=== PATIENT | female | born 1985 | race Caucasian/White ===

== ENCOUNTER 2017-03-19 02:32 | Observation (INO) | payer OTHER ==
[2017-03-19] MEDS ORDERED: NITRO-BID 2% UD PACKETS TOP ONE (02:48)
[2017-03-19] MEDS ORDERED: BABY ASPIRIN 81 MG CHEW PO ONE (02:48)
[2017-03-19] MEDS ORDERED: ATARAX 25 MG PO ONE (02:49)
--- NOTE | 2017-03-19 02:54 | ERPHSYRPT ---
- History of Present Illness Time Seen by Provider: 03/19/17 02:34 Historian: patient Physician History: CC: chest pain hx: 31 y/[address] patient of Dr Blaine Sheth/Dr Cheung. She had STEMI in Sep 2016. She takes effient and asa. Tonite she awoke from sleep with chest pain, radiating to the neck, left arm, and back. BP elevated. She was scared. Took 2 NTG without relief so came to ER. LMP about 4 weeks ago. Not short of breath. No cough. Pain is aching and severe. Timing/Duration: today Location: central Chest Pain Radiation: jaw, neck, arm, back Severity of Pain-Max: severe Severity of Pain-Current: moderate Nitro Today/Relief: 0.4 mg x 2, provided at home, no relief Aspirin Treatment Today: 81 mg x 2, provided by ED Allergies/Adverse Reactions: codeine [Codeine] Allergy (Verified 03/19/17 02:58) hydrocodone [Hydrocodone] Allergy (Verified 03/19/17 02:58) hydromorphone HCl [From Dilaudid] Allergy (Verified 03/19/17 02:58) terbutaline sulfate [From Brethine] Allergy (Verified 03/19/17 02:58) Home Medications: Levetiracetam [Keppra] 500 mg PO BID 06/11/16 [History] Aspirin 81 mg PO DAILY 11/04/16 [History] Atorvastatin Calcium 80 mg PO DAILY 11/04/16 [History] Isosorbide Mononitrate 30 mg [Imdur 30 MG] 30 mg PO DAILY 11/04/16 [History ] Metoprolol Tartrate 25 mg [Lopressor 25MG Tab] 25 mg PO BID 11/04/16 [ History] Nitroglycerin 0.4 mg Tablet [Nitrostat 0.4 MG Tablet] 0.4 mg SL UD [History] Prasugrel HCl [Effient] 10 mg PO DAILY 11/04/16 [History] Hx Tetanus, Diphtheria Vaccination/Date Given: Yes (UP TO DATE) Hx Influenza Vaccination/Date Given: No Hx Pneumococcal Vaccination/Date Given: No - Review of Systems Constitutional: No Fever, No Chills Eyes: No Symptoms Ears, Nose, & Throat: Other (recent uri symptoms) Respiratory: Cough, No Dyspnea Cardiac: Chest Pain, No Edema, No Syncope Abdominal/Gastrointestinal: No Abdominal Pain, No Nausea, No Vomiting Skin: No Rash Neurological: No Headache All Other Systems: Reviewed and Negative - Past Medical History Pertinent Past Medical History: Yes Neurological History: Epilepsy ENT History: No Pertinent History Cardiac History: No Pertinent History Respiratory History: No Pertinent History Endocrine Medical History: No Pertinent History Musculoskeletal History: No Pertinent History GI Medical History: No Pertinent History History: Kidney Cancer, Other Psycho-Social History: No Pertinent History Female Reproductive Disorders: No Pertinent History Other Medical History: Kidney cancer - right kidney removed, hyperparathyroidism. STEMI - Past Surgical History Past Surgical History: Yes Neuro Surgical History: No Pertinent History Cardiac: Cardiac Catheterization Respiratory: No Pertinent History Gastrointestinal: Cholecystectomy Genitourinary: Kidney Surgery, Other Musculoskeletal: No Pertinent History Female Surgical History: Section, Tubal Ligation Other Surgical History: rt kidney removed, tonsils - Social History Smoking Status: Former smoker How long have you smoked: 10 years Exposure to second hand smoke: No Alcohol Use: None Drug Use: none Patient Lives Alone: No Significant Family History: no pertinent family hx - Female History Hx Now: No - Physical Exam General Appearance: alert Eye Exam: PERRL/EOMI Ears, Nose, Throat Exam: normal ENT inspection, moist mucous membranes Neck Exam: normal inspection, non-tender, supple Respiratory Exam: normal breath sounds, lungs clear, No respiratory distress Cardiovascular Exam: regular rate/rhythm, No murmur, No pulse deficit Gastrointestinal/Abdomen Exam: soft, No tenderness, No distention Back Exam: normal inspection, normal range of motion Extremity Exam: normal inspection, normal range of motion Neurologic Exam: alert, oriented x 3, cooperative, sensation nml, No motor deficits Skin Exam: warm, dry, No rash SpO2 Interpretation: normal SpO2: 98 Oxygen Delivery: Room Air - Course Nursing assessment & vital signs reviewed: Yes EKG Interpreted by Me: RATE (81), Sinus Rhythm, NORMAL AXIS, NORMAL INTERVALS ( QTc 411), NORMAL ST-T, Other (poor r wave progression) - Radiology Exams cxr X-ray Interpretation: Reviewed by me, Negative Ordered Tests: Active Orders 24 hr Category Date Time Status Station Captain STAT Care 03/19/17 02:48 Completed EKG-ER Only STAT Care 03/19/17 02:48 Completed EKG-ER Only STAT Care 03/19/17 04:09 Active IV Insertion STAT Care 03/19/17 02:48 Completed Pulse Oximetry (ED) STAT Care 03/19/17 02:48 Completed CHEST 1 VIEW (PORTABLE) Stat Exams 03/19/17 02:48 Taken CBC W DIFF Stat Lab 03/19/17 03:15 Completed CMP Stat Lab 03/19/17 03:15 Completed HCG QUALITATIVE,SERUM Stat Lab 03/19/17 03:15 Completed Manual Differential NC Stat Lab 03/19/17 03:15 Completed TROPONIN Q3H Lab 03/19/17 03:15 Completed TROPONIN Q3H Lab 03/19/17 06:00 Ordered TROPONIN Q3H Lab 03/19/17 09:00 Ordered TROPONIN Q3H Lab 03/19/17 12:00 Ordered TROPONIN Q3H Lab 03/19/17 15:00 Ordered Medication Summary Generic Name Dose Route Start Last Admin Trade Name Freq PRN Reason Stop Dose Admin Enoxaparin Sodium 60 mg 03/19/17 04:15 Enoxaparin Sodium SQ 04/18/17 04:14 Q12H NOHEMI Sodium Chloride 1,000 mls @ 100 mls/hr 03/19/17 03:00 03/19/17 02:58 Sodium Chloride 0.9% 1000 Ml IV 04/18/17 02:59 100 mls/hr .Q10H NOHEMI Administration Discontinued Medications Generic Name Dose Route Start Last Admin Trade Name Freq PRN Reason Stop Dose Admin Aspirin 162 mg 03/19/17 02:48 03/19/17 03:10 Baby Aspirin 81 Mg Chew PO 03/19/17 02:49 162 mg STAT ONE Administration Aspirin Confirm 03/19/17 02:55 Baby Aspirin 81 Mg Chew Administered 03/19/17 02:56 Dose 162 mg .ROUTE .STK-MED ONE Fentanyl Citrate 50 mcg 03/19/17 04:07 Sublimaze 100 Mcg/2 Ml IV 03/19/17 04:08 STAT ONE Hydroxyzine HCl 50 mg 03/19/17 02:49 03/19/17 02:58 Atarax 25 Mg PO 03/19/17 02:50 50 mg STAT ONE Administration Hydroxyzine HCl Confirm 03/19/17 02:55 Atarax 25 Mg Administered 03/19/17 02:56 Dose 50 mg .ROUTE .STK-MED ONE Nitroglycerin 1 gm 03/19/17 02:48 03/19/17 02:58 Nitro-Bid 2% Ud Packets TOP 03/19/17 02:49 1 gm STAT ONE Administration Nitroglycerin Confirm 03/19/17 02:55 Nitro-Bid 2% Ud Packets Administered 03/19/17 02:56 Dose 1 gm .ROUTE .STK-MED ONE Lab/Rad Data: Laboratory Result Diagrams 03/19/17 03:15 03/19/17 03:15 Laboratory Results 03/19/17 03/19/17 03/19/17 Range/Units 03:15 03:15 03:15 WBC (4.0-10.5) K/mm3 RBC (4.1-5.4) M/mm3 Hgb (12.0-16.0) gm/dl Hct (35-47) % MCV (78-100) fl MCH (26-32) pg MCHC (32-36) g/dl RDW (11.5-14.0) % Plt Count (150-450) K/mm3 MPV (6-9.5) fl Segmented Neutrophils (36.0-66.0) % Lymphocytes (Manual) (24-44) % Monocytes (Manual) (0.0-12.0) % Eosinophils (Manual) (0.00-3.0) % Differential Comment Platelet Estimate (NORMAL) Anisocytosis Sodium 142 (136-145) mEq/L Potassium 4.0 (3.5-5.1) mEq/L Chloride 106 (98-107) mEq/L Carbon Dioxide 23.3 (21-32) mEq/L Anion Gap 16.2 H (5-15) MEQ/L BUN 18 (9-20) mg/dL Creatinine 0.86 (0.55-1.30) mg/dl Estimated GFR > 60 ML/MIN Glucose 117 H (70-110) MG/DL Calcium 9.8 (8.5-10.1) mg/dL Total Bilirubin 0.2 (0.2-1.0) mg/dL AST 49 H (15-37) U/L ALT 85 H (12-78) U/L Alkaline Phosphatase 178 H (46-116) U/L Troponin I < 0.017 (0.000-0.056) ng/ml Serum Total Protein 6.3 L (6.4-8.2) gm/dL Albumin 2.9 L (3.4-5.0) g/dL Serum , Qual NEGATIVE (Negative) 03/19/17 Range/Units 03:15 WBC 16.6 H (4.0-10.5) K/mm3 RBC 4.42 (4.1-5.4) M/mm3 Hgb 12.7 (12.0-16.0) gm/dl Hct 38.9 (35-47) % MCV 88.0 (78-100) fl MCH 28.7 (26-32) pg MCHC 32.6 (32-36) g/dl RDW 14.3 H (11.5-14.0) % Plt Count 308 (150-450) K/mm3 MPV 9.9 H (6-9.5) fl Segmented Neutrophils 55 (36.0-66.0) % Lymphocytes (Manual) 34 (24-44) % Monocytes (Manual) 7 (0.0-12.0) % Eosinophils (Manual) 4 H (0.00-3.0) % Differential Comment ABNORMAL Platelet Estimate NORMAL (NORMAL) Anisocytosis 1+ Sodium (136-145) mEq/L Potassium (3.5-5.1) mEq/L Chloride (98-107) mEq/L Carbon Dioxide (21-32) mEq/L Anion Gap (5-15) MEQ/L BUN (9-20) mg/dL Creatinine (0.55-1.30) mg/dl Estimated GFR ML/MIN Glucose (70-110) MG/DL Calcium (8.5-10.1) mg/dL Total Bilirubin (0.2-1.0) mg/dL AST (15-37) U/L ALT (12-78) U/L Alkaline Phosphatase (46-116) U/L Troponin I (0.000-0.056) ng/ml Serum Total Protein (6.4-8.2) gm/dL Albumin (3.4-5.0) g/dL Serum , Qual (Negative) - Progress Progress Note: 03/19/17 02:56 She had recent normal holter. 03/19/17 03:56 Pt reports taking metoprolol 200mg BID for the past month due to medication mix up. She discovered it and dropped down to her ordered 100mg BID a few days ago. 03/19/17 04:10 Reviewed prior cath reports. She had left main thrombus at time of inferior STEMI. Subsequent left system evaluation with cath and EUS showed 48% left main lesion. She was treated with medical management. Pain has improved with NTG paste. Still some pain present but overall better. Initial troponin negative. Will repeat EKG. Called Dr Cheung and will place in observation CCU with lovenox, NTG and serial troponins. Discussed with .: Jonatan Will see patient in: hospital (observation) Counseled pt/family regarding: lab results, diagnosis, need for follow-up, rad results - Departure Time of Disposition: 04:12 Departure Disposition: Observation Clinical Impression: Chest pain, rule out acute myocardial infarction, Coronary artery disease involving left main coronary artery Condition: Fair Critical Care Time: No Referrals: HINA CHEUNG [Primary Care Provider] -
[2017-03-19] MEDS ORDERED: NITRO-BID 2% UD PACKETS ONE (02:55)
[2017-03-19] MEDS ORDERED: Sodium Chloride 0.9% 1000 ML 1,000 ML ONE (02:55)
[2017-03-19] MEDS ORDERED: BABY ASPIRIN 81 MG CHEW ONE (02:55)
[2017-03-19] MEDS ORDERED: ATARAX 25 MG ONE (02:55)
[2017-03-19] MEDS ORDERED: Sodium Chloride 0.9% 1000 ML 1,000 ML IV SCH (03:00)
[2017-03-19 03:21] LABS: Mean Corpuscular Hemoglobin 28.7 pg (26-32); Mean Platelet Volume 9.9 fl (6-9.5); Platelet Count 308 K/mm3 (150-450); Red Blood Count 4.42 M/mm3 (4.1-5.4); Red Cell Distribution Width 14.3 % (11.5-14.0); White Blood Count 16.6 K/mm3 (4.0-10.5)
[2017-03-19 03:56] LABS: BLOOD UREA NITROGEN 18 mg/dL (9-20); Glucose 117 MG/DL (70-110)
[2017-03-19 03:57] LABS: ALBUMIN 2.9 g/dL (3.4-5.0); BILIRUBIN,TOTAL 0.2 mg/dL (0.2-1.0); CHLORIDE 106 mEq/L (98-107); Carbon Dioxide 23.3 mEq/L (21-32); SGOT/AST 49 U/L (15-37); SGPT/ALT 85 U/L (12-78); SODIUM 142 mEq/L (136-145); Total Protein 6.3 gm/dL (6.4-8.2)
[2017-03-19 03:58] LABS: ALKALINE PHOSPHATASE 178 U/L (46-116); ANION GAP 16.2 MEQ/L (5-15)
[2017-03-19 03:59] LABS: ANISOCYTOSIS 1+; Eosinophil 4 % (0.00-3.0); Platelet Estimate NORMAL (NORMAL); Total Cells Counted 100
[2017-03-19] MEDS ORDERED: SUBLIMAZE 100 MCG/2 ML IV ONE (04:07)
[2017-03-19] MEDS ORDERED: SUBLIMAZE 100 MCG/2 ML ONE (04:13)
[2017-03-19] MEDS ORDERED: ENOXAPARIN SODIUM SQ SCH (04:15)
[2017-03-19] MEDS ORDERED: Zofran 4 MG/2 ML VIAL IV PRN (05:11)
[2017-03-19] MEDS ORDERED: TYLENOL 325 MG PO PRN (05:11)
[2017-03-19] MEDS ORDERED: Sodium Chloride 0.9% 500 ML 500 ML IV SCH (05:11)
[2017-03-19] MEDS ORDERED: MILK OF MAGNESIA 30 ML PO PRN (05:11)
[2017-03-19] MEDS ORDERED: MAALOX ES 30 ML UNIT DOSE PO PRN (05:11)
[2017-03-19] MEDS ORDERED: Senokot-S Tablet PO PRN (05:11)
[2017-03-19] MEDS: NITRO-BID 2% UD PACKETS TOP SCH ×2 (09:06→11:47)
[2017-03-19] MEDS ORDERED: Lopressor 25MG Tab PO SCH (10:00)
[2017-03-19] MEDS ORDERED: Effient 10 MG TABLET PO SCH (10:00)
[2017-03-19] MEDS ORDERED: Lopressor 50 MG PO SCH ×2 (10:00→22:00)
[2017-03-19] MEDS ORDERED: Ecotrin 325 MG PO SCH (10:00)
[2017-03-19] MEDS ORDERED: Pepcid 20 MG VIAL IV SCH (10:00)
[2017-03-19] MEDS ORDERED: Paxil 20 MG PO SCH (11:00)
[2017-03-19] MEDS ORDERED: KEPPRA 500 MG PO SCH (11:00)
[2017-03-19] MEDS ORDERED: Imdur 30 MG PO SCH (11:00)
[2017-03-19] MEDS ORDERED: XANAX 1 MG PO PRN (11:02)
[2017-03-19] MEDS ORDERED: xanAX 0.5 MG PO PRN (11:14)
[2017-03-19] MEDS ORDERED: Nitrostat 0.4 MG Tablet SL PRN (11:15)
[2017-03-19 12:03] VITALS: O2SAT 96
[2017-03-19 12:03] LABS: COMPLETE URINE MICROSCOPIC? NO; Collection Type CCMS; Ph 5.5 (5-6)
[2017-03-19] MEDS ORDERED: PNEUMOVAX 23 IM ONE (14:30)
[2017-03-19 16:14] VITALS: BP 95/53; PULSE 73
[2017-03-19] MEDS ORDERED: ZOCOR 20MG PO SCH (22:00)
--- NOTE | 2017-03-20 08:34 | XRAY ---
Indication: Chest pain. Comparison: November 04, 2016. Portable chest again demonstrates normal heart, lungs, and bony thorax with epigastric postsurgical changes.
--- NOTE | 2017-03-20 09:27 | HP ---
CHIEF COMPLAINT: Chest pain. HISTORY OF PRESENT ILLNESS: The patient is a 31 year-old white female with a history of thrombogenic process in the coronary artery previously or ruptured plaque resulting in a STEMI. The patient did have a myocardial infarction resulting in some hypokinesis of the inferolateral areas. The patient reports she awoke from sleep with pain, with the pain radiating from the left sternal border into the neck and between the shoulder blades and somewhat down the arms. The patient reports it was similar to what she had previously with the myocardial infarction. The patient reports she took 2 nitroglycerin at home without relief, presented herself to the emergency room for further evaluation and management. PAST MEDICAL HISTORY: Otherwise significant for anxiety. She has had problems with depression as well. Her other medical surgical problems include cholecystectomy, previous kidney surgery, , tubal ligation, tonsillectomy. HOME MEDICATIONS: Currently includes alprazolam 1 mg q.8h p.r.n. anxiety, aspirin 81 mg a day, pravastatin 80 mg a day, isosorbide mononitrate 30 mg a day, Keppra 500 mg b.i.d., metoprolol 50 mg b.i.d., Nitrostat p.r.n., paroxetine 30 mg a day, and prasugrel 10 mg daily. ALLERGIES: Codeine, hydrocodone, hydromorphone, Brethine. PHYSICAL EXAMINATION: GENERAL: Reveals a well nourished, well developed 31 year-old female currently in no distress. VITAL SIGNS: Her most recent vital signs show a temperature to be 98.2, pulse 65, respiratory rate 18, blood pressure 106/58, O2 saturation 97% on room air. HEENT: Normocephalic and atraumatic, pupils are equal, round, reactive to light, extraocular muscles intact. Oropharynx is pink and moist. NECK: Supple without lymphadenopathy, thyromegaly or JVD. CHEST: Clear to auscultation, good air movement bilaterally. HEART: Regular rate and rhythm without murmurs, rubs or gallops. ABDOMEN: Soft, nontender, nondistended without hepatosplenomegaly or masses. EXTREMITIES: Without cyanosis, clubbing or edema. NEUROLOGIC: The patient is alert and oriented x3. LABS: White blood cell count 16,600, hemoglobin 12.7, platelet count 380,000. She has an EKG showing normal sinus rhythm without any significant changes in the ST or T-wave segments. Her hCG was negative. Troponin was less than 0.017 on 2 separate occasions thus far. Her sugar nonfasting 117, BUN 18, creatinine 0.86. She does have an elevation of her liver enzymes with total bilirubin 0.2, SGOT 49, SGPT 85, radha phos 178. PLAN: The patient will have a D-dimer performed, if positive will obtain a CT scan to rule out PE. She will be continued on her usual home medications. She has been given a Nitro patch. She has been given an injection of fentanyl for pain. Currently she is pain free. We are waiting for serial troponins to come back negative, and for her to be pain free, for her potentially to go back home again. We will also check a urinalysis and urine drug screen for completeness sake, and also to evaluate for her slightly elevated white blood cell count.
[2017-03-20] MEDS ORDERED: ECOTRIN 81 MG PO SCH (10:00)
[2017-03-20] MEDS ORDERED: NON-FORMULARY ITEM (Aspirin [Aspirin] 81 MG) PO SCH (10:00)
[2017-03-20] MEDS ORDERED: NON-FORMULARY ITEM (Atorvastatin Calcium [Atorvastatin Calcium] 80 MG) PO SCH (10:00)
[2017-03-20 12:43] LABS: HEPATITIS B VIRUS CORE TOT AB Non Reactive (Non Reactive); Hepatitis B Surface Ab.Quant. <3.50 mIU/mL (0.00-8.49)
== END 2017-03-19 16:59 | disposition home or self-care (01) ==
LOC: ED 02:32 → ICU 04:55
PROVIDERS: ADMIT Family Medicine; ATTEND Family Medicine
DX: R07.9 Chest pain, unspecified (principal); F41.8 Other specified anxiety disorders; I25.2 Old myocardial infarction; Z79.899 Other long term (current) drug therapy
CPT/HCPCS: 36000; 36415; 71010; 80053; 80074; 80307; 81002; 84484; 84703; 85025; 85379; 90732; 93005; 93041; 96360; 96372; 96375; 99285; G0378; J1650; J3010; A9270-GY

== ENCOUNTER 2017-03-24 22:23 | Emergency (ER) | payer OTHER ==
[2017-03-24 22:39] VITALS: BP 135/78; PULSE 98; O2SAT 100
--- NOTE | 2017-03-24 22:55 | ERPHSYRPT ---
- History of Present Illness Time Seen by Provider: 03/24/17 22:52 Source: patient, family Exam Limitations: no limitations Patient Subjective Stated Complaint: pt states that her b/p was 151/124 at home- heart rate was 134 Triage Nursing Assessment: pt flushed warm et dry-a & o x 3-resp nonlabored- reports pain to back et arm reports normal for her-pt has been recently tx for this Physician History: pt states that her b/p was 151/124 at home-heart rate was 134. In ER BP is 135/ 78 and pulse is 95. denies any other symptoms Timing/Duration: today Associated Symptoms: denies symptoms Allergies/Adverse Reactions: codeine [Codeine] Allergy (Verified 03/24/17 22:39) hydrocodone [Hydrocodone] Allergy (Verified 03/24/17 22:39) hydromorphone HCl [From Dilaudid] Allergy (Verified 03/24/17 22:39) terbutaline sulfate [From Brethine] Allergy (Verified 03/24/17 22:39) Home Medications: Levetiracetam [Keppra] 500 mg PO BID 06/11/16 [History] Aspirin 81 mg PO DAILY 11/04/16 [History] Atorvastatin Calcium 80 mg PO DAILY 11/04/16 [History] Isosorbide Mononitrate 30 mg [Imdur 30 MG] 15 mg PO DAILY 11/04/16 [History ] Nitroglycerin 0.4 mg Tablet [Nitrostat 0.4 MG Tablet] 0.4 mg SL UD [History] Prasugrel HCl [Effient] 10 mg PO DAILY 11/04/16 [History] Alprazolam 1 mg [Xanax 1 mg] 1 mg PO Q8H PRN PRN 03/19/17 [History] Metoprolol Tartrate 50 mg [Lopressor 50 MG] 50 mg PO BID 03/19/17 [History ] Paroxetine HCl 30 mg PO DAILY 03/19/17 [History] Hx Tetanus, Diphtheria Vaccination/Date Given: Yes Hx Influenza Vaccination/Date Given: No Hx Pneumococcal Vaccination/Date Given: No Immunizations Up to Date: Yes - Review of Systems Constitutional: No Fever, No Chills Eyes: No Symptoms Ears, Nose, & Throat: No Symptoms Respiratory: No Cough, No Dyspnea Cardiac: No Chest Pain, No Edema, No Syncope Abdominal/Gastrointestinal: No Abdominal Pain, No Nausea, No Vomiting, No Diarrhea Genitourinary Symptoms: No Dysuria Musculoskeletal: No Back Pain, No Neck Pain Skin: No Rash Neurological: No Dizziness, No Focal Weakness, No Sensory Changes Psychological: No Symptoms Endocrine: No Symptoms All Other Systems: Reviewed and Negative - Past Medical History Pertinent Past Medical History: Yes Neurological History: Epilepsy ENT History: No Pertinent History Cardiac History: Coronary Artery Disease, High Cholesterol, Hypertension, Myocardial Infarction ([place]) Respiratory History: No Pertinent History Endocrine Medical History: Other Musculoskeletal History: No Pertinent History GI Medical History: Other History: Kidney Cancer, Other Psycho-Social History: No Pertinent History Female Reproductive Disorders: No Pertinent History, Other Other Medical History: Kidney cancer - left kidney removed, hyperparathyroidism. STEMI,ovarian cyst, gas pains in abd that cause chest pain - Past Surgical History Past Surgical History: Yes Neuro Surgical History: No Pertinent History Cardiac: Cardiac Catheterization Respiratory: No Pertinent History Gastrointestinal: Cholecystectomy Genitourinary: Kidney Surgery, Other Musculoskeletal: No Pertinent History, Orthopedic Surgery Female Surgical History: Section, Tubal Ligation Other Surgical History: rt kidney removed, tonsils, skin graft to R Middle finger - Social History Smoking Status: Light tobacco smoker How long have you smoked: 15 Exposure to second hand smoke: No Alcohol Use: None Drug Use: none Patient Lives Alone: No Significant Family History: no pertinent family hx - Female History Hx Last Menstrual Period: current Hx Now: No - Nursing Vital Signs Nursing Vital Signs: Initial Vital Signs Temperature 98.0 F Temperature Source Oral Pulse Rate 98 Respiratory Rate 22 Blood Pressure [Right Arm] 135/78 Pain Intensity 4 - Physical Exam General Appearance: no apparent distress, alert Eye Exam: PERRL/EOMI, eyes nml inspection Ears, Nose, Throat Exam: normal ENT inspection, TMs normal, pharynx normal, moist mucous membranes Neck Exam: normal inspection, non-tender, supple, full range of motion Respiratory Exam: normal breath sounds, lungs clear, No respiratory distress Cardiovascular Exam: regular rate/rhythm, normal heart sounds, normal peripheral pulses Gastrointestinal/Abdomen Exam: soft, normal bowel sounds, No tenderness, No mass Back Exam: normal inspection, normal range of motion, No CVA tenderness, No vertebral tenderness Extremity Exam: normal inspection, normal range of motion, pelvis stable Neurologic Exam: alert, oriented x 3, cooperative, normal mood/affect, nml cerebellar function, nml station & gait, sensation nml, No motor deficits Skin Exam: normal color, warm, dry, No rash Lymphatic Exam: No adenopathy SpO2: 100 Oxygen Delivery: Room Air - Course Nursing assessment & vital signs reviewed: Yes - Progress Progress: improved Counseled pt/family regarding: diagnosis, need for follow-up - Departure Time of Disposition: 22:53 Departure Disposition: Home Clinical Impression: Tachycardia with hypertension Condition: Stable Critical Care Time: No Referrals: HINA BRIONES [Primary Care Provider] - Additional Instructions: please take another 50 mg metoprolol once you reach home, then start metoprolol 75 mg (one and one half of 50 mg tablet twice a day from [facility]. Please follow the instructions given to you. Please take your medication as prescribed if given. If symptoms recur or get worse, come back to the emergency room if you cannot reach your primary care physician, or call your primary care physician for an appointment. Again if your symptoms get worse, come back to the emergency room. Thanks for visiting emergency room, and let us take care of you.
== END 2017-03-24 23:47 | disposition home or self-care (01) ==
LOC: ED 22:23
DX: R00.0 Tachycardia, unspecified (principal); I10 Essential (primary) hypertension
CPT/HCPCS: 99283

== ENCOUNTER 2017-07-25 17:23 | Observation (INO) | payer OTHER, SELFPAY ==
[2017-07-25] MEDS ORDERED: Sodium Chloride 0.9% 500 ML 500 ML IV ONE (17:47)
--- NOTE | 2017-07-25 17:53 | ERPHSYRPT ---
<APRIL GOSS - Last Filed: 07/25/17 18:57> - History of Present Illness Time Seen by Provider: 07/25/17 17:41 Historian: patient Exam Limitations: no limitations Patient Subjective Stated Complaint: pain into chest and into both arms today at approx 1300. pain increased with sdeep breathing. coughing. non productive. vomiting x 5 days. states had heart attack x 3. staes has had a fever. Triage Nursing Assessment: anxious alert and oriented..congested cough. lungs clear bilateral. staes legs have been swelliong. no edema noted. abdoemn soft + BSx4 Physician History: 32 year old female reports to the ER with complaints of chest pain that began 4 1/2 hours prior to arrival. She describes a sharp and stabbing substernal chest pain with radiation to the back and both arms. She reports she has had 2 prior OR's in the past and follows with Dr Blaine Sheth. She is on aspirin 81mg daily and effient both of which she took this morning. She reports vomiting and inability to tolerate po intake for the last 5 days, she reports subjective fever as well. No abdominal pain, no urinary symptoms, no diarrhea or constipation at this time. Timing/Duration: today Activities at Onset: none Quality: sharpness Location: substernal Chest Pain Radiation: arm, back Severity of Pain-Max: moderate Severity of Pain-Current: none Modifying Factors: Worsens With: breathing, coughing Associated Symptoms: nausea, vomiting, No palpitations, No abdominal pain, No shortness of breath, No cough Prior Chest Pain/Cardiac Workup: heart attack Nitro Today/Relief: no nitro taken today Aspirin Treatment Today: 81 mg x 1, provided at home Allergies/Adverse Reactions: codeine [Codeine] Allergy (Verified 07/25/17 17:44) hydrocodone [Hydrocodone] Allergy (Verified 07/25/17 17:44) hydromorphone HCl [From Dilaudid] Allergy (Verified 07/25/17 17:44) terbutaline sulfate [From Brethine] Allergy (Verified 07/25/17 17:44) Home Medications: Levetiracetam [Keppra] 500 mg PO BID 06/11/16 [History] Aspirin 81 mg PO DAILY 11/04/16 [History] Atorvastatin Calcium 80 mg PO DAILY 11/04/16 [History] Isosorbide Mononitrate 30 mg [Imdur 30 MG] 15 mg PO DAILY 11/04/16 [History ] Nitroglycerin 0.4 mg Tablet [Nitrostat 0.4 MG Tablet] 0.4 mg SL UD [History] Prasugrel HCl [Effient] 10 mg PO DAILY 11/04/16 [History] Alprazolam 1 mg [Xanax 1 mg] 1 mg PO Q8H PRN PRN 03/19/17 [History] Metoprolol Tartrate 50 mg [Lopressor 50 MG] 50 mg PO BID 03/19/17 [History ] Paroxetine HCl 30 mg PO DAILY 03/19/17 [History] Ergocalciferol (Vitamin D2) [Vitamin D2] 50,000 unit PO WEEKLY 07/25/17 [History ] Hx Tetanus, Diphtheria Vaccination/Date Given: Yes Hx Influenza Vaccination/Date Given: No Hx Pneumococcal Vaccination/Date Given: No Immunizations Up to Date: Yes - Review of Systems Constitutional: No Fever, No Chills Ears, Nose, & Throat: No Symptoms Respiratory: No Cough, No Dyspnea Cardiac: Chest Pain Abdominal/Gastrointestinal: Nausea, Vomiting, No Abdominal Pain, No Diarrhea Genitourinary Symptoms: No Dysuria Skin: No Rash All Other Systems: Reviewed and Negative - Past Medical History Pertinent Past Medical History: Yes Neurological History: Epilepsy ENT History: No Pertinent History Cardiac History: Coronary Artery Disease, High Cholesterol, Hypertension, Myocardial Infarction (OR) Respiratory History: No Pertinent History Endocrine Medical History: Other Musculoskeletal History: No Pertinent History GI Medical History: Other History: Kidney Cancer, Other Psycho-Social History: No Pertinent History Female Reproductive Disorders: No Pertinent History, Other Other Medical History: Kidney cancer - left kidney removed, hyperparathyroidism. STEMI,ovarian cyst, gas pains in abd that cause chest pain - Past Surgical History Past Surgical History: Yes Neuro Surgical History: No Pertinent History Cardiac: Cardiac Catheterization Respiratory: No Pertinent History Gastrointestinal: Cholecystectomy Genitourinary: Kidney Surgery, Other Musculoskeletal: No Pertinent History, Orthopedic Surgery Female Surgical History: Section, Tubal Ligation Other Surgical History: rt kidney removed, tonsils, skin graft to R Middle finger - Social History Smoking Status: Former smoker How long have you smoked: 15 Exposure to second hand smoke: Yes Alcohol Use: None Drug Use: none Patient Lives Alone: No Significant Family History: no pertinent family hx - Female History Hx Last Menstrual Period: 1 month Hx Now: No - Nursing Vital Signs Nursing Vital Signs: Initial Vital Signs Temperature 98.2 F 07/25/17 17:24 Pulse Rate 94 H 07/25/17 17:24 Respiratory Rate 100 H 07/25/17 17:24 Blood Pressure 127/77 07/25/17 17:24 O2 Sat by Pulse Oximetry 98 07/25/17 17:24 Pain Scale Pain Intensity 7 - Physical Exam General Appearance: no apparent distress, alert Eye Exam: PERRL/EOMI, eyes nml inspection Ears, Nose, Throat Exam: dry mucous membranes Respiratory Exam: normal breath sounds, lungs clear, No respiratory distress Cardiovascular Exam: regular rate/rhythm, normal heart sounds Gastrointestinal/Abdomen Exam: soft, No tenderness, No mass Extremity Exam: normal inspection, normal range of motion Neurologic Exam: alert, oriented x 3, cooperative, normal mood/affect, sensation nml, No motor deficits Skin Exam: normal color, warm, dry SpO2 Interpretation: normal SpO2: 98 Oxygen Delivery: Aerosol Mask - Course EKG Interpreted by Me: RATE (94), Sinus Rhythm, NORMAL AXIS, NORMAL INTERVALS, NORMAL QRS Rhythm Strip: Rate (90), Normal Sinus Rhythm Ordered Tests: Active Orders 24 hr Category Date Time Status Overhead Garage Door Hanger STAT Care 07/25/17 17:45 Active EKG-ER Only STAT Care 07/25/17 17:44 Active IV Insertion STAT Care 07/25/17 17:44 Active Oxygen-ED Only NASAL CANNULA 2 lpm Care 07/25/17 17:44 Active CHEST 1 VIEW (PORTABLE) Stat Exams 07/25/17 17:45 Taken BLOOD CULTURE Stat Lab 07/25/17 18:00 Received CBC W DIFF Stat Lab 07/25/17 17:50 Completed CMP Stat Lab 07/25/17 17:50 Completed D-DIMER QUANTITATION Stat Lab 07/25/17 17:50 Completed HCG QUALITATIVE,SERUM Stat Lab 07/25/17 18:00 Completed Lactic Acid Stat Lab 07/25/17 17:48 Completed TROPONIN Q3H Lab 07/25/17 17:50 Completed TROPONIN Q3H Lab 07/25/17 20:45 Ordered TROPONIN Q3H Lab 07/25/17 23:45 Ordered TROPONIN Q3H Lab 07/26/17 02:45 Ordered TROPONIN Q3H Lab 07/26/17 05:45 Ordered Medication Summary Discontinued Medications Generic Name Dose Route Start Last Admin Trade Name Kemar PRN Reason Stop Dose Admin Fentanyl Citrate 50 mcg 07/25/17 18:50 07/25/17 18:57 Sublimaze 100 Mcg/2 Ml IV 07/25/17 18:51 50 mcg STAT ONE Administration Fentanyl Citrate Confirm 07/25/17 18:54 Sublimaze 100 Mcg/2 Ml Administered 07/25/17 18:55 Dose 100 mcg .ROUTE .STK-MED ONE Sodium Chloride 500 mls @ 500 mls/hr 07/25/17 17:47 07/25/17 18:02 Sodium Chloride 0.9% 500 Ml IV 07/25/17 18:46 500 mls/hr .Q1H ONE Administration Sodium Chloride Confirm 07/25/17 17:55 Sodium Chloride 0.9% 1000 Ml Administered 07/25/17 17:56 Dose 1,000 mls @ ud .ROUTE .STK-MED ONE Lab/Rad Data: Laboratory Result Diagrams 07/25/17 17:50 07/25/17 17:50 Laboratory Results 07/25/17 07/25/17 07/25/17 Range/Units 18:00 17:50 17:50 WBC (4.0-10.5) K/mm3 RBC (4.1-5.4) M/mm3 Hgb (12.0-16.0) gm/dl Hct (35-47) % MCV (78-100) fl MCH (26-32) pg MCHC (32-36) g/dl RDW (11.5-14.0) % Plt Count (150-450) K/mm3 MPV (6-9.5) fl Gran % (36.0-66.0) % Lymphocytes % (24.0-44.0) % Monocytes % (0.0-12.0) % Eosinophils % (0.00-5.0) % Basophils % (0.0-0.4) % Basophils # (0-0.4) D-Dimer 463 (0-500) ng/mL Sodium (136-145) mEq/L Potassium (3.5-5.1) mEq/L Chloride (98-107) mEq/L Carbon Dioxide (21-32) mEq/L Anion Gap (5-15) MEQ/L BUN (9-20) mg/dL Creatinine (0.55-1.30) mg/dl Estimated GFR ML/MIN Glucose (70-110) MG/DL Lactic Acid (0.4-2.0) Calcium (8.5-10.1) mg/dL Total Bilirubin (0.2-1.0) mg/dL AST (15-37) U/L ALT (12-78) U/L Alkaline Phosphatase (46-116) U/L Troponin I < 0.017 (0.000-0.056) ng/ml Serum Total Protein (6.4-8.2) gm/dL Albumin (3.4-5.0) g/dL Serum , Qual NEGATIVE (Negative) 07/25/17 07/25/17 07/25/17 Range/Units 17:50 17:50 17:48 WBC 11.3 H (4.0-10.5) K/mm3 RBC 5.36 (4.1-5.4) M/mm3 Hgb 15.3 (12.0-16.0) gm/dl Hct 46.9 (35-47) % MCV 87.5 (78-100) fl MCH 28.5 (26-32) pg MCHC 32.6 (32-36) g/dl RDW 14.2 H (11.5-14.0) % Plt Count 316 (150-450) K/mm3 MPV 10.0 H (6-9.5) fl Gran % 52.2 (36.0-66.0) % Lymphocytes % 33.9 (24.0-44.0) % Monocytes % 9.8 (0.0-12.0) % Eosinophils % 3.8 (0.00-5.0) % Basophils % 0.3 (0.0-0.4) % Basophils # 0.03 (0-0.4) D-Dimer (0-500) ng/mL Sodium 144 (136-145) mEq/L Potassium 4.7 (3.5-5.1) mEq/L Chloride 109 H (98-107) mEq/L Carbon Dioxide 23.3 (21-32) mEq/L Anion Gap 15.9 H (5-15) MEQ/L BUN 12 (9-20) mg/dL Creatinine 0.92 (0.55-1.30) mg/dl Estimated GFR > 60 ML/MIN Glucose 105 (70-110) MG/DL Lactic Acid 1.6 (0.4-2.0) Calcium 10.0 (8.5-10.1) mg/dL Total Bilirubin 0.10 L (0.2-1.0) mg/dL AST 43 H (15-37) U/L ALT 80 H (12-78) U/L Alkaline Phosphatase 206 H (46-116) U/L Troponin I (0.000-0.056) ng/ml Serum Total Protein 6.6 (6.4-8.2) gm/dL Albumin 3.3 L (3.4-5.0) g/dL Serum , Qual (Negative) - Progress Progress Note: 07/25/17 18:57 report given and case handed over to Dr Pozo - Departure Clinical Impression: CHEST PAIN, VOMITING, CAD, HTN Condition: Fair Referrals: HINA BRIONES [Primary Care Provider] - <DANIELA POZO - Last Filed: 07/25/17 19:26> - Progress Progress Note: 07/25/17 19:[address] POZO 1911: PERRL, EOMI, PHARYNX PINK, TM'S NOT INJECTED; LUNGS CLEAR, NO CARDIAC RUB, ABDOMINAL B.S. MILDLY HYPERACTIVE BUT NORMOTONIC, NO ANKLE EDEMA, ALERT & COOPERATIVE. Discussed with : Neto (OBS - 1917) - Departure Time of Disposition: 19:26 Departure Disposition: Observation Critical Care Time: No
[2017-07-25] MEDS ORDERED: Sodium Chloride 0.9% 1000 ML 1,000 ML ONE (17:55)
[2017-07-25 18:05] LABS: BASOPHIL % 0.3 % (0.0-0.4); Eosinophil % 3.8 % (0.00-5.0); Granulocytes % 52.2 % (36.0-66.0); Lymphocytes % 33.9 % (24.0-44.0); Mean Cell Volume 87.5 fl (78-100); Mean Corpuscular Hemoglobin 28.5 pg (26-32); Monocytes % 9.8 % (0.0-12.0); Platelet Count 316 K/mm3 (150-450); Red Blood Count 5.36 M/mm3 (4.1-5.4); Red Cell Distribution Width 14.2 % (11.5-14.0); White Blood Count 11.3 K/mm3 (4.0-10.5)
[2017-07-25] MEDS ORDERED: SUBLIMAZE 100 MCG/2 ML IV ONE (18:50)
[2017-07-25 18:51] LABS: ALBUMIN 3.3 g/dL (3.4-5.0); ALKALINE PHOSPHATASE 206 U/L (46-116); ANION GAP 15.9 MEQ/L (5-15); BLOOD UREA NITROGEN 12 mg/dL (9-20); CHLORIDE 109 mEq/L (98-107); Carbon Dioxide 23.3 mEq/L (21-32); Glucose 105 MG/DL (70-110); Potassium 4.7 mEq/L (3.5-5.1); SGOT/AST 43 U/L (15-37); SGPT/ALT 80 U/L (12-78); SODIUM 144 mEq/L (136-145); Total Protein 6.6 gm/dL (6.4-8.2)
[2017-07-25] MEDS ORDERED: SUBLIMAZE 100 MCG/2 ML ONE (18:54)
[2017-07-25] MEDS ORDERED: TYLENOL 325 MG PO PRN (20:22)
[2017-07-25] MEDS ORDERED: Phenergan 25 MG INJ IV PRN (20:22)
[2017-07-25] MEDS ORDERED: Zofran 4 MG/2 ML VIAL IV PRN (20:22)
[2017-07-25] MEDS ORDERED: DUONEB 0.5-3 MG/3 ml Neb IH ONE (20:43)
--- NOTE | 2017-07-25 21:02 | XRAY ---
Exam: AP portable chest film from 1824 hrs. on 07/25/2017. Comparison: AP portable chest film from 03/19/2017. Indication: Chest pain/tightness that radiates up into neck, history of heart attacks. Findings: The heart size and contour are normal. The arlet and mediastinal structures appear unremarkable. The lungs are adequately inflated. Respiratory tubing overlies the right upper lung field. No air space infiltrates, vascular congestion, pneumothorax, or pleural effusion is seen. Mild lower thoracic levoscoliosis is seen. Surgical clips overlie the medial aspect of the left upper quadrant and epigastrium representing no change. A couple tiny calcifications overlie the medial aspect of the left humeral head. These may represent bone islands. They can partially be seen on a CT of the chest from 12/20/2016. Impression: 1. No acute cardiopulmonary disease is seen representing no change from 03/19/2017. 2. Other incidental findings as described above, stable.
[2017-07-25] MEDS ORDERED: Nitrostat 0.4 MG Tablet SL PRN (21:08)
[2017-07-25] MEDS ORDERED: MILK OF MAGNESIA 30 ML PO PRN (21:09)
[2017-07-25] MEDS ORDERED: XANAX 1 MG PO PRN (21:14)
[2017-07-25] MEDS ORDERED: Senokot-S Tablet PO PRN (21:26)
[2017-07-25 21:52] LABS: LIPASE 142 U/L (73-393)
[2017-07-25 21:55] LABS: TROPONIN < 0.017 ng/ml (0.000-0.056)
[2017-07-25] MEDS ORDERED: ZOCOR 20MG PO SCH (22:00)
[2017-07-25] MEDS: KEPPRA 500 MG PO SCH (22:26)
[2017-07-25] MEDS: Lopressor 50 MG PO SCH (22:26)
[2017-07-25] MEDS: SUBLIMAZE 100 MCG/2 ML IV PRN (22:27)
[2017-07-26] MEDS: Sodium Chloride 0.9% 1000 ML 1,000 ML IV SCH ×3 (00:28→12:11)
[2017-07-26 05:42] LABS: BASOPHIL % 0.2 % (0.0-0.4); Eosinophil % 5.3 % (0.00-5.0); Granulocytes % 41.8 % (36.0-66.0); Lymphocytes % 43.7 % (24.0-44.0); Mean Cell Volume 89.2 fl (78-100); Mean Corpuscular Hemoglobin 28.5 pg (26-32); Mean Platelet Volume 10.2 fl (6-9.5); Platelet Count 244 K/mm3 (150-450); Red Blood Count 4.25 M/mm3 (4.1-5.4); White Blood Count 9.2 K/mm3 (4.0-10.5)
[2017-07-26 06:08] LABS: ALBUMIN 2.7 g/dL (3.4-5.0); ALKALINE PHOSPHATASE 165 U/L (46-116); ANION GAP 13.5 MEQ/L (5-15); BLOOD UREA NITROGEN 9 mg/dL (9-20); CHLORIDE 113 mEq/L (98-107); Carbon Dioxide 22.8 mEq/L (21-32); Cholesterol 127 mg/dL (100-200); Glucose 88 MG/DL (70-110); LDL, DIRECT 81 mg/dL (5-99); Potassium 3.9 mEq/L (3.5-5.1); SGOT/AST 30 U/L (15-37); SGPT/ALT 56 U/L (12-78); SODIUM 145 mEq/L (136-145); TRIGLYCERIDE 76 mg/dL (30-200); Total Protein 5.9 gm/dL (6.4-8.2)
[2017-07-26] MEDS ORDERED: xanAX 0.5 MG PO PRN (07:00)
--- NOTE | 2017-07-26 09:18 | HP ---
HISTORY OF PRESENT ILLNESS: This is a 32 year-old patient of Dr. Vish Ashraf who presented to the emergency department reporting five days of vomiting and chest pain starting at 1300 hours on the day of her presentation. She has significant history of coronary artery disease. According to her old chart she has a history of STEMI. However she has not had any stents placed. She sees Dr. Blaine Sheth and last had a heart cath when she had the STEMI in September 2016, according to the patient. The patient reports that she had vomiting but no nausea, no diarrhea for five days. She developed a cough yesterday at 1300 hours and then started having chest pain down her arm into her back and to her neck and her jaw. She also had dyspnea with this and reported that she was placed on oxygen here at the hospital. She reports that the chest pain came on quickly and felt like her arm was being broke every time she coughed or breathed hard. She denies any pain now. She reports it stopped around 0300 hours. She reports her last stress test was in September 2016. She was started on Effient at that time and her other heart medications. She denies missing any doses of Effient and said she was able to keep those down. She took it in the morning before eating. She reports she had a fever Monday night. REVIEW OF SYSTEMS: She has been urinating okay. No abdominal pain. No rashes. No lower extremity edema. PAST MEDICAL HISTORY: Seizures, coronary artery disease, gastroesophageal reflux. She reports a scope many years ago and being placed on Nexium and then taken off Nexium. PAST SURGICAL HISTORY: Tubal ligation, section, kidney removed for Wilms tumor, finger surgery, cholecystectomy. MEDICATIONS: Alprazolam 0.5 to 1 mg every 8 hours as needed, aspirin 81 mg daily, Atorvastatin 80 mg daily, vitamin D 50,000 units weekly, isosorbide mononitrate 15 mg daily, Keppra 500 mg b.i.d., metoprolol tartrate 50 mg b.i.d., nitroglycerin 0.4 mg as needed, paroxetine 30 mg daily, Effient 10 mg daily, ALLERGIES: CODEINE, HYDROMORPHONE, HYDROCODONE, TERBUTALINE, MORPHINE. SOCIAL HISTORY: She reports she used to smoke but quit in September 2016. No alcohol use. She is and lives with her . FAMILY HISTORY: Her mom is living and has hyperthyroidism and narcolepsy. Her father is living and does not have any known health problems. PHYSICAL EXAMINATION: VITAL SIGNS: Temperature current 98.1F, temperature max 98.1F, heart rate 59 to 94 currently 59, respiratory rate 15 to 20, blood pressure 91 to 134 over 63 to 80. Oxygen saturation 98 to 100% on 2 liters to room air. GENERAL: The patient is a pleasant lady lying in bed in no acute distress. CVS: She has a regular rate and rhythm. No murmurs, gallops or rubs. CHEST: Clear to auscultation bilaterally. No crackles or wheezes. ABDOMEN: Soft, nontender, nondistended with normal bowel sounds. EXTREMITIES: No clubbing, cyanosis or edema. SKIN: Warm, dry and intact. LABORATORY DATA AND TESTS: Repeat CBC this morning was within normal limits. Chloride 113. Serial troponins have been negative. Alkaline phosphatase 165, albumin 2.7. Chest x-ray was read as no acute disease. D-dimer was normal at 463. EKG normal sinus rhythm with no ST or T-wave changes, heart rate is 70. ASSESSMENT AND PLAN: 1) CHEST PAIN: The patient has ruled out for acute myocardial infarction. I will try to contact her wheel adjuster and make sure she has close follow up with him. Will try to advance her diet as tolerated this morning, continue her home medications. She is already on aspirin and Effient as well as Atorvastatin, metoprolol and nitroglycerin as needed at home. 2) VOMITING: Will advance her diet and see if she tolerates that today. If she develops vomiting or pain again she may need an upper endoscopy. 3) HISTORY OF SEIZURE DISORDER: Will continue with her home medication.
[2017-07-26] MEDS ORDERED: PROTONIX 40 MG IV IV SCH (10:00)
[2017-07-26] MEDS ORDERED: ECOTRIN 81 MG PO SCH (10:00)
[2017-07-26] MEDS ORDERED: Effient 10 MG TABLET PO SCH (10:00)
[2017-07-26] MEDS ORDERED: Paxil 20 MG PO SCH (10:00)
[2017-07-26] MEDS ORDERED: Imdur 30 MG PO SCH (10:00)
[2017-07-26] MEDS ORDERED: NON-FORMULARY ITEM (Aspirin [Aspirin] 81 MG) PO SCH (10:00)
[2017-07-26] MEDS ORDERED: VITAMIN D2 PO SCH (10:00)
[2017-07-26] MEDS: SUBLIMAZE 100 MCG/2 ML IV PRN (10:10)
[2017-07-26] MEDS: Lopressor 50 MG PO SCH (10:45)
[2017-07-26] MEDS: KEPPRA 500 MG PO SCH (10:48)
[2017-07-26 12:19] VITALS: O2SAT 98
[2017-07-26 16:11] VITALS: BP 98/55; PULSE 68
--- NOTE | 2017-07-26 16:37 | PCM.DCORD ---
- Discharge Discharge Date: 07/26/17 Disposition: Home, Self-Care Condition: Fair Prescriptions: Continue Levetiracetam [Keppra] 500 mg PO BID Nitroglycerin 0.4 mg Tablet [Nitrostat 0.4 MG Tablet] 0.4 mg SL UD Isosorbide Mononitrate 30 mg [Imdur 30 MG] 15 mg PO DAILY Atorvastatin Calcium 80 mg PO DAILY Prasugrel HCl [Effient] 10 mg PO DAILY Aspirin 81 mg PO DAILY Paroxetine HCl 30 mg PO DAILY Alprazolam 1 mg [Xanax 1 mg] 0.5 - 1 mg PO Q8H PRN PRN PRN Reason: Anxiety Metoprolol Tartrate 50 mg [Lopressor 50 MG] 50 mg PO BID Ergocalciferol (Vitamin D2) [Vitamin D2] 50,000 unit PO WEEKLY Follow up with: HINA BRIONES [Primary Care Provider] - CRISTIAN BOO MD [CONSULTING PHYSICIAN] - 1 Week
[2017-07-26] MEDS ORDERED: ZOCOR 20MG PO SCH (22:00)
== END 2017-07-26 17:10 | disposition home or self-care (01) ==
LOC: ED 17:23 → MED SURG 19:45
PROVIDERS: ADMIT Internal Medicine; ATTEND Internal Medicine
DX: R07.9 Chest pain, unspecified (principal); I25.10 Atherosclerotic heart disease of native coronary artery without angina pectoris; I25.2 Old myocardial infarction; G40.909 Epilepsy, unspecified, not intractable, without status epilepticus; K21.9 Gastro-esophageal reflux disease without esophagitis; Z90.5 Acquired absence of kidney; Z79.899 Other long term (current) drug therapy
CPT/HCPCS: 36000; 36415; 71010; 80053; 80061; 82150; 83605; 83690; 83721; 84484; 84703; 85025; 85379; 87040; 93005; 93041; 93268; 94640; 94760; 96360; 96361; 96374; 99285; G0378; J2405; J3010; A9270-GY

== ENCOUNTER 2017-09-27 12:19 | Emergency (ER) | payer OTHER, SELFPAY ==
[2017-09-27] MEDS ORDERED: Zofran 4 MG/2 ML VIAL IV ONE (13:25)
[2017-09-27] MEDS ORDERED: BABY ASPIRIN 81 MG CHEW PO ONE (13:26)
[2017-09-27] MEDS ORDERED: Nitrostat 0.4 MG (ED) SL ONE ×2 (13:26→13:35)
--- NOTE | 2017-09-27 13:30 | ERPHSYRPT ---
- History of Present Illness Time Seen by Provider: 09/27/17 13:24 Source: patient Exam Limitations: no limitations Patient Subjective Stated Complaint: PT HAS MIDDLE BACK PAIN AND PAIN TO RIGHT ARM SINCE LAST NIGHT, NO INJURY, PT TOOK A NITRO 1100 TODAY, NOT RELIEVED BY MEDS, PAIN IS CONSTANT Triage Nursing Assessment: PT ALERT,WALKED IN , RESP EASY, CHEST CLEAR, SKIN W/ D PINK, NO EDEMA NOTED Physician History: The patient is a 32-year-old female complaining of sudden onset of right arm pain and upper back pain that began last night at 9 PM or 16 hours ago. 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 She did not come in or take nitroglycerin at the time. She went to sleep and thought she would wake up better. This morning she called her sleeve setter who told her to go to the ER. She took one nitroglycerin with mild relief. She did take 1 baby aspirin this morning. She denies shortness of breath or chest pain. Pt is light- headed upon standing. Her past medical history is significant for MIs, epilepsy , Wilms tumor with nephrectomy, and hypertension. Timing/Duration: yesterday, constant, sudden Method of Injury: other (none) Quality: sharp Back Pain Location: T-spine Severity of Pain-Max: moderate Severity of Pain-Current: moderate Modifying Factors: Improves With: nothing Associated Symptoms: light-headedness, No nausea, No vomiting Previous symptoms: no prior history Allergies/Adverse Reactions: codeine [Codeine] Allergy (Verified 09/27/17 12:40) hydrocodone [Hydrocodone] Allergy (Verified 09/27/17 12:40) hydromorphone HCl [From Dilaudid] Allergy (Verified 09/27/17 12:40) terbutaline sulfate [From Brethine] Allergy (Verified 09/27/17 12:40) Home Medications: Levetiracetam [Keppra] 500 mg PO BID 06/11/16 [History] Aspirin 81 mg PO DAILY 11/04/16 [History] Atorvastatin Calcium 80 mg PO DAILY 11/04/16 [History] Isosorbide Mononitrate 30 mg [Imdur 30 MG] 15 mg PO DAILY 11/04/16 [History ] Nitroglycerin 0.4 mg Tablet [Nitrostat 0.4 MG Tablet] 0.4 mg SL UD [History] Prasugrel HCl [Effient] 10 mg PO DAILY 11/04/16 [History] Alprazolam 1 mg [Xanax 1 mg] 0.5 - 1 mg PO Q8H PRN PRN 03/19/17 [History] Metoprolol Tartrate 50 mg [Lopressor 50 MG] 50 mg PO BID 03/19/17 [History ] Paroxetine HCl 30 mg PO DAILY 03/19/17 [History] Ergocalciferol (Vitamin D2) [Vitamin D2] 50,000 unit PO WEEKLY 07/25/17 [History ] Hx Tetanus, Diphtheria Vaccination/Date Given: Yes Hx Influenza Vaccination/Date Given: Yes Hx Pneumococcal Vaccination/Date Given: No Immunizations Up to Date: Yes - Review of Systems Constitutional: No Fever, No Chills Eyes: No Symptoms Ears, Nose, & Throat: No Symptoms Respiratory: No Cough, No Dyspnea Cardiac: No Chest Pain, No Edema, No Syncope Abdominal/Gastrointestinal: No Abdominal Pain, No Nausea, No Vomiting, No Diarrhea Genitourinary Symptoms: No Dysuria Musculoskeletal: Other (right arm and back pain) Skin: No Rash Neurological: No Dizziness, No Focal Weakness, No Sensory Changes Psychological: No Symptoms Endocrine: No Symptoms Hematologic/Lymphatic: No Symptoms Immunological/Allergic: No Symptoms All Other Systems: Reviewed and Negative - Past Medical History Pertinent Past Medical History: Yes Neurological History: Epilepsy, Migraines, Seizures ENT History: No Pertinent History Cardiac History: Angina, Coronary Artery Disease, Hypertension, Myocardial Infarction ([place]) Respiratory History: No Pertinent History Endocrine Medical History: Other Musculoskeletal History: No Pertinent History GI Medical History: No Pertinent History History: Kidney Cancer Psycho-Social History: No Pertinent History Female Reproductive Disorders: Abnormal Uterine Bleeding Other Medical History: Kidney cancer - left kidney removed, hyperparathyroidism. STEMI,ovarian cyst, gas pains in abd that cause chest pain - Past Surgical History Past Surgical History: Yes Neuro Surgical History: No Pertinent History Cardiac: Cardiac Catheterization Respiratory: No Pertinent History Gastrointestinal: Cholecystectomy Genitourinary: Kidney Surgery Musculoskeletal: No Pertinent History, Orthopedic Surgery Female Surgical History: Section, Tubal Ligation Other Surgical History: Right middle finger surgery when 12yo. - Social History Smoking Status: Current every day smoker How long have you smoked: 15 Exposure to second hand smoke: Yes Alcohol Use: None Drug Use: none Patient Lives Alone: No Significant Family History: no pertinent family hx - Female History Hx Last Menstrual Period: 2 MONTHS AGO Hx Now: No - Nursing Vital Signs Nursing Vital Signs: Initial Vital Signs Temperature 97.5 F 09/27/17 12:32 Pulse Rate 68 09/27/17 12:32 Respiratory Rate 18 09/27/17 12:32 Blood Pressure 101/66 09/27/17 12:32 O2 Sat by Pulse Oximetry 100 09/27/17 12:32 Pain Scale Pain Intensity [] 9 Pain Intensity 0 - Physical Exam General Appearance: no apparent distress, alert Eye Exam: PERRL/EOMI, eyes nml inspection Ears, Nose, Throat Exam: normal ENT inspection Neck Exam: normal inspection, non-tender, supple, full range of motion, No meningismus, No midline tenderness Respiratory Exam: normal breath sounds, lungs clear, No respiratory distress Cardiovascular Exam: regular rate/rhythm, normal heart sounds Gastrointestinal Exam: soft, No tenderness, No mass Pelvic Exam: not done Rectal Exam: not done Back Exam: point tenderness (upper right paraspinous) Extremity Exam: normal inspection, normal range of motion, No calf tenderness, No pedal edema Neurologic Exam: alert, oriented x 3, cooperative, pattern grader supervisor II-XII nml as tested, normal mood/affect, nml station & gait, sensation nml, No motor deficits Skin Exam: normal color, warm, dry, No rash SpO2 Interpretation: normal SpO2: 100 Oxygen Delivery: Room Air - Course EKG Interpreted by Me: RATE, Sinus Rhythm, NORMAL AXIS, NORMAL INTERVALS, NORMAL QRS, NORMAL ST-T, Other (no change comp EKG 07/26/17) - Radiology Exams Chest X-ray Interpretation: Reviewed by me, Teleradiologist Report, Negative (per Dr Pradhan) C-Spine X-ray Interpretation: Teleradiologist Report, Negative, Other (he) Ordered Tests: Active Orders 24 hr Category Date Time Status Electrical Project Engineer STAT Care 09/27/17 13:59 Active EKG-ER Only STAT Care 09/27/17 13:25 Active IV Insertion STAT Care 09/27/17 13:25 Active Orthostatic Vital Signs STAT Care 09/27/17 13:33 Active CERVICAL SPINE MINIMUM 4 VIEWS Stat Exams 09/27/17 15:29 Completed CHEST 2 VIEWS (PA AND LAT) Stat Exams 09/27/17 13:25 Completed CBC W DIFF Stat Lab 09/27/17 14:00 Completed CMP Stat Lab 09/27/17 14:00 Completed CULTURE,URINE Stat Lab 09/27/17 13:25 Received LIPASE Stat Lab 09/27/17 14:00 Completed TROPONIN Q3H Lab 09/27/17 14:00 Completed TROPONIN Q3H Lab 09/27/17 16:40 Received TROPONIN Q3H Lab 09/27/17 19:30 Ordered TROPONIN Q3H Lab 09/27/17 22:30 Ordered TROPONIN Q3H Lab 09/28/17 01:30 Ordered UA W/ MICROSCOPIC Stat Lab 09/27/17 13:25 Completed Urine Triage Profile Stat Lab 09/27/17 14:07 Completed Medication Summary Discontinued Medications Generic Name Dose Route Start Last Admin Trade Name Freq PRN Reason Stop Dose Admin Aspirin 324 mg 09/27/17 13:26 09/27/17 14:00 Baby Aspirin 81 Mg Chew PO 09/27/17 13:27 324 mg STAT ONE Administration Aspirin Confirm 09/27/17 13:35 Baby Aspirin 81 Mg Chew Administered 09/27/17 13:36 Dose 324 mg .ROUTE .STK-MED ONE Sodium Chloride 1,000 mls @ 999 mls/hr 09/27/17 15:28 09/27/17 15:33 Sodium Chloride 0.9% 1000 Ml IV 09/27/17 16:28 999 mls/hr .Q1H1M STA Administration Sodium Chloride Confirm 09/27/17 15:33 Sodium Chloride 0.9% 1000 Ml Administered 09/27/17 15:34 Dose 1,000 mls @ ud .ROUTE .STK-MED ONE Ketorolac Tromethamine 30 mg 09/27/17 15:28 09/27/17 15:33 Toradol 30 Mg Injection IV 09/27/17 15:29 30 mg STAT ONE Administration Ketorolac Tromethamine Confirm 09/27/17 15:33 Toradol 30 Mg Injection Administered 09/27/17 15:34 Dose 30 mg .ROUTE .STK-MED ONE Nitroglycerin 0.4 mg 09/27/17 13:26 09/27/17 14:00 Nitrostat 0.4 Mg (Ed) SL 09/27/17 13:27 0.4 mg STAT ONE Administration Nitroglycerin Confirm 09/27/17 13:35 Nitrostat 0.4 Mg (Ed) Administered 09/27/17 13:36 Dose 0.4 mg SL .STK-MED ONE Ondansetron HCl 4 mg 09/27/17 13:25 09/27/17 14:01 Zofran 4 Mg/2 Ml Vial IV 09/27/17 13:26 4 mg STAT ONE Administration Ondansetron HCl Confirm 09/27/17 13:34 Zofran 4 Mg/2 Ml Vial Administered 09/27/17 13:35 Dose 4 mg .ROUTE .STK-MED ONE Lab/Rad Data: Laboratory Result Diagrams 09/27/17 14:00 09/27/17 14:00 Laboratory Results 09/27/17 09/27/17 09/27/17 Range/Units 14:07 14:00 14:00 WBC (4.0-10.5) K/mm3 RBC (4.1-5.4) M/mm3 Hgb (12.0-16.0) gm/dl Hct (35-47) % MCV (78-100) fl MCH (26-32) pg MCHC (32-36) g/dl RDW (11.5-14.0) % Plt Count (150-450) K/mm3 MPV (6-9.5) fl Gran % (36.0-66.0) % Lymphocytes % (24.0-44.0) % Monocytes % (0.0-12.0) % Eosinophils % (0.00-5.0) % Basophils % (0.0-0.4) % Basophils # (0-0.4) Sodium 139 (136-145) mEq/L Potassium 4.5 (3.5-5.1) mEq/L Chloride 105 (98-107) mEq/L Carbon Dioxide 23.9 (21-32) mEq/L Anion Gap 14.7 (5-15) MEQ/L BUN 12 (9-20) mg/dL Creatinine 0.84 (0.55-1.30) mg/dl Estimated GFR > 60 ML/MIN Glucose 96 (70-110) MG/DL Calcium 10.9 H (8.5-10.1) mg/dL Total Bilirubin 0.40 (0.2-1.0) mg/dL AST 28 (15-37) U/L ALT 58 (12-78) U/L Alkaline Phosphatase 230 H (46-116) U/L Troponin I < 0.017 (0.000-0.056) ng/ml Serum Total Protein 8.3 H (6.4-8.2) gm/dL Albumin 4.1 (3.4-5.0) g/dL Lipase 145 (73-393) U/L Ur Collection Type Urine Color (YELLOW) Urine Appearance (CLEAR) Urine pH (5-6) Ur Specific [place] (1.005-1.025) Urine Protein (Negative) Urine Ketones (NEGATIVE) Urine Blood (0-5) [place]/ul Urine Nitrite (NEGATIVE) Urine Bilirubin (NEGATIVE) Urine Urobilinogen (0-1) mg/dL Ur Leukocyte Esterase (NEGATIVE) Urine Microscopic RBC (0-2) /HPF Urine Microscopic WBC (0-5) /HPF Ur Epithelial Cells (FEW) /HPF Urine Bacteria (NEGATIVE) /HPF Urine Mucus (NEGATIVE) /HPF Urine Culture Reflexed (NO) Urine Glucose (NEGATIVE) mg/dL Urine Opiates Level NEG. (NEGATIVE) Ur Methadone NEG. (NEGATIVE) Urine Barbiturates NEG. (NEGATIVE) Ur Phencyclidine (PCP) NEG. (NEGATIVE) Urine Amphetamine NEG. (NEGATIVE) U Benzodiazepine Level NEG. (NEGATIVE) Urine Cocaine NEG. (NEGATIVE) Urine Marijuana (THC) NEG. (NEGATIVE) Specimen Received 09/27/17 09/27/17 Range/Units 14:00 13:25 WBC 10.9 H (4.0-10.5) K/mm3 RBC 5.23 (4.1-5.4) M/mm3 Hgb 15.0 (12.0-16.0) gm/dl Hct 46.7 (35-47) % MCV 89.3 (78-100) fl MCH 28.7 (26-32) pg MCHC 32.1 (32-36) g/dl RDW 15.0 H (11.5-14.0) % Plt Count 329 (150-450) K/mm3 MPV 10.3 H (6-9.5) fl Gran % 58.8 (36.0-66.0) % Lymphocytes % 32.1 (24.0-44.0) % Monocytes % 6.6 (0.0-12.0) % Eosinophils % 2.2 (0.00-5.0) % Basophils % 0.3 (0.0-0.4) % Basophils # 0.03 (0-0.4) Sodium (136-145) mEq/L Potassium (3.5-5.1) mEq/L Chloride (98-107) mEq/L Carbon Dioxide (21-32) mEq/L Anion Gap (5-15) MEQ/L BUN (9-20) mg/dL Creatinine (0.55-1.30) mg/dl Estimated GFR ML/MIN Glucose (70-110) MG/DL Calcium (8.5-10.1) mg/dL Total Bilirubin (0.2-1.0) mg/dL AST (15-37) U/L ALT (12-78) U/L Alkaline Phosphatase (46-116) U/L Troponin I (0.000-0.056) ng/ml Serum Total Protein (6.4-8.2) gm/dL Albumin (3.4-5.0) g/dL Lipase (73-393) U/L Ur Collection Type VOID Urine Color YELLOW (YELLOW) Urine Appearance CLEAR (CLEAR) Urine pH 5.0 (5-6) Ur Specific [place] 1.025 (1.005-1.025) Urine Protein NEGATIVE (Negative) Urine Ketones NEGATIVE (NEGATIVE) Urine Blood 5-10 (0-5) [place]/ul Urine Nitrite NEGATIVE (NEGATIVE) Urine Bilirubin NEGATIVE (NEGATIVE) Urine Urobilinogen NORMAL (0-1) mg/dL Ur Leukocyte Esterase NEGATIVE (NEGATIVE) Urine Microscopic RBC 2-5 (0-2) /HPF Urine Microscopic WBC 2-5 (0-5) /HPF Ur Epithelial Cells MODERATE (FEW) /HPF Urine Bacteria MODERATE (NEGATIVE) /HPF Urine Mucus SLIGHT (NEGATIVE) /HPF Urine Culture Reflexed YES (NO) Urine Glucose 50 (NEGATIVE) mg/dL Urine Opiates Level (NEGATIVE) Ur Methadone (NEGATIVE) Urine Barbiturates (NEGATIVE) Ur Phencyclidine (PCP) (NEGATIVE) Urine Amphetamine (NEGATIVE) U Benzodiazepine Level (NEGATIVE) Urine Cocaine (NEGATIVE) Urine Marijuana (THC) (NEGATIVE) Specimen Received 09/27/17 1300 - Progress Progress: improved Counseled pt/family regarding: lab results, diagnosis, need for follow-up, rad results - Departure Time of Disposition: 17:14 Departure Disposition: Home Clinical Impression: Right arm pain, Back pain Condition: Stable Critical Care Time: No Referrals: HINA BRIONES [Primary Care Provider] - Additional Instructions: You have right arm pain and back pain. The cardiac workup was negative. You were given nitroglycerin 0.4 mg and aspirin 324 mg orally in the ER. You were given Toradol 30 mg by IV in the ER. Take naproxen 500 mg every 12 hours as needed. Follow-up in 2 days. Prescriptions: Naproxen 500 mg PO BID PRN #30 tablet.
[2017-09-27] MEDS ORDERED: Zofran 4 MG/2 ML VIAL ONE (13:34)
[2017-09-27] MEDS ORDERED: BABY ASPIRIN 81 MG CHEW ONE (13:35)
[2017-09-27 14:08] LABS: Collection Type VOID
[2017-09-27 14:11] LABS: Bilirubin NEGATIVE (NEGATIVE); COMPLETE URINE MICROSCOPIC? YES; Glucose 50 mg/dL (NEGATIVE); Leukocyte Esterase NEGATIVE (NEGATIVE)
[2017-09-27 14:19] LABS: BASOPHIL % 0.3 % (0.0-0.4); Eosinophil % 2.2 % (0.00-5.0); Granulocytes % 58.8 % (36.0-66.0); Lymphocytes % 32.1 % (24.0-44.0); Mean Cell Volume 89.3 fl (78-100); Mean Corpuscular Hemoglobin 28.7 pg (26-32); Mean Platelet Volume 10.3 fl (6-9.5); Monocytes % 6.6 % (0.0-12.0); Platelet Count 329 K/mm3 (150-450); Red Blood Count 5.23 M/mm3 (4.1-5.4); White Blood Count 10.9 K/mm3 (4.0-10.5)
--- NOTE | 2017-09-27 14:20 | XRAY ---
Indication: Chest pain. Comparison: July 25, 2017. PA/lateral chest again demonstrates normal heart, lungs, and bony thorax with epigastric surgical clips.
[2017-09-27 14:21] LABS: Bacteria MODERATE /HPF (NEGATIVE); Epithelial Cells MODERATE /HPF (FEW); Mucus SLIGHT /HPF (NEGATIVE)
[2017-09-27 14:22] LABS: ADD URINE CULTURE? YES (NO)
[2017-09-27 14:30] LABS: ALBUMIN 4.1 g/dL (3.4-5.0); ALKALINE PHOSPHATASE 230 U/L (46-116); ANION GAP 14.7 MEQ/L (5-15); BLOOD UREA NITROGEN 12 mg/dL (9-20); CHLORIDE 105 mEq/L (98-107); Carbon Dioxide 23.9 mEq/L (21-32); Glucose 96 MG/DL (70-110); LIPASE 145 U/L (73-393); Potassium 4.5 mEq/L (3.5-5.1); SGOT/AST 28 U/L (15-37); SGPT/ALT 58 U/L (12-78); SODIUM 139 mEq/L (136-145); Total Protein 8.3 gm/dL (6.4-8.2)
[2017-09-27 14:32] VITALS: O2SAT 100
[2017-09-27] MEDS ORDERED: Sodium Chloride 0.9% 1000 ML 1,000 ML IV STA (15:28)
[2017-09-27] MEDS ORDERED: TORAdol 30 mg Injection IV ONE (15:28)
[2017-09-27] MEDS ORDERED: Sodium Chloride 0.9% 1000 ML 1,000 ML ONE (15:33)
[2017-09-27] MEDS ORDERED: TORAdol 30 mg Injection ONE (15:33)
--- NOTE | 2017-09-27 16:29 | XRAY ---
Indication: Right arm pain. Comparison: None 5 views of the cervical spine demonstrate cervical lordotic reversal, positional versus paraspinal spasm. Disc spaces maintained. No acute fracture, subluxation, or soft tissue abnormalities. Foramina bilaterally patent. Impression: Cervical lordotic reversal in a otherwise negative cervical spine.
[2017-09-27 16:37] VITALS: BP 103/53; PULSE 57
== END 2017-09-27 17:38 | disposition home or self-care (01) ==
LOC: ED 12:19
DX: M54.9 Dorsalgia, unspecified (principal); M79.601 Pain in right arm; I25.2 Old myocardial infarction; Z79.899 Other long term (current) drug therapy
CPT/HCPCS: 36000; 36415; 71020; 72050; 80053; 80307; 81000; 83690; 84484; 85025; 87086; 93005; 93041; 96360; 96374; 96375; 99284; J1885; J2405; A9270-GY

== ENCOUNTER 2018-03-27 17:52 | Emergency (ER) | payer OTHER ==
[2018-03-27] MEDS ORDERED: BABY ASPIRIN 81 MG CHEW PO ONE (18:13)
[2018-03-27] MEDS ORDERED: PROTONIX 40 MG IV IV ONE ×2 (18:17→18:41)
--- NOTE | 2018-03-27 18:20 | ERPHSYRPT ---
<JONES SAM - Last Filed: 03/27/18 18:45> - History of Present Illness Time Seen by Provider: 03/27/18 18:17 Historian: patient Exam Limitations: no limitations Physician History: mild to mod sudden onset substernal chest pain tightness constant for one hour, rad to back, hx NV, but no stents or cabg, no injury Allergies/Adverse Reactions: codeine [Codeine] Allergy (Verified 03/27/18 18:19) hydrocodone [Hydrocodone] Allergy (Verified 03/27/18 18:19) hydromorphone HCl [From Dilaudid] Allergy (Verified 03/27/18 18:19) terbutaline sulfate [From Brethine] Allergy (Verified 03/27/18 18:19) morphine Adverse Reaction (Verified 03/27/18 18:19) Home Medications: Levetiracetam [Keppra] 500 mg PO BID 06/11/16 [History] Aspirin 81 mg PO DAILY 11/04/16 [History] Atorvastatin Calcium 80 mg PO DAILY 11/04/16 [History] Isosorbide Mononitrate 30 mg [Imdur 30 MG] 15 mg PO DAILY 11/04/16 [History ] Nitroglycerin 0.4 mg Tablet [Nitrostat 0.4 MG Tablet] 0.4 mg SL UD [History] Prasugrel HCl [Effient] 10 mg PO DAILY 11/04/16 [History] Alprazolam 1 mg [Xanax 1 mg] 0.5 - 1 mg PO Q8H PRN PRN 03/19/17 [History] Metoprolol Tartrate 50 mg [Lopressor 50 MG] 50 mg PO BID 03/19/17 [History ] Paroxetine HCl 30 mg PO DAILY 03/19/17 [History] Ergocalciferol (Vitamin D2) [Vitamin D2] 50,000 unit PO WEEKLY 07/25/17 [History ] Atorvastatin Calcium [Lipitor] 80 mg PO DAILY 03/27/18 [History] Cyanocobalamin (Vitamin B-12) [Vitamin B12] 2,500 mcg PO DAILY 03/27/18 [History ] Hx Tetanus, Diphtheria Vaccination/Date Given: Yes Hx Influenza Vaccination/Date Given: Yes Hx Pneumococcal Vaccination/Date Given: No - Review of Systems Constitutional: No Fever Eyes: No Symptoms Ears, Nose, & Throat: No Mouth Pain Respiratory: No Dyspnea Cardiac: Chest Pain Abdominal/Gastrointestinal: No Abdominal Pain Musculoskeletal: No Neck Pain Skin: No Symptoms Neurological: No Dizziness - Past Medical History Pertinent Past Medical History: Yes Neurological History: Epilepsy, Migraines, Seizures ENT History: No Pertinent History Cardiac History: Angina, Coronary Artery Disease, Hypertension, Myocardial Infarction ([place]) Respiratory History: No Pertinent History Endocrine Medical History: Other Musculoskeletal History: No Pertinent History GI Medical History: No Pertinent History History: Kidney Cancer Psycho-Social History: No Pertinent History Female Reproductive Disorders: Abnormal Uterine Bleeding Other Medical History: Kidney cancer - left kidney removed, hyperparathyroidism. STEMI,ovarian cyst, gas pains in abd that cause chest pain - Past Surgical History Past Surgical History: Yes Neuro Surgical History: No Pertinent History Cardiac: Cardiac Catheterization Respiratory: No Pertinent History Gastrointestinal: Cholecystectomy Genitourinary: Kidney Surgery Musculoskeletal: No Pertinent History, Orthopedic Surgery Female Surgical History: Section, Tubal Ligation Other Surgical History: Right middle finger surgery when 12yo. - Social History Smoking Status: Current every day smoker How long have you smoked: 15 Exposure to second hand smoke: Yes Alcohol Use: None Drug Use: none Patient Lives Alone: No Significant Family History: no pertinent family hx - Nursing Vital Signs Nursing Vital Signs: Initial Vital Signs Temperature 98.4 F 03/27/18 18:07 Pulse Rate 69 03/27/18 18:07 Respiratory Rate 18 03/27/18 18:07 Blood Pressure 119/68 03/27/18 18:07 O2 Sat by Pulse Oximetry 100 03/27/18 18:07 Pain Scale Pain Intensity 3 - Physical Exam General Appearance: no apparent distress Eye Exam: PERRL/EOMI Ears, Nose, Throat Exam: moist mucous membranes Neck Exam: normal inspection Respiratory Exam: normal breath sounds Cardiovascular Exam: regular rate/rhythm, normal heart sounds Gastrointestinal/Abdomen Exam: soft, No tenderness Extremity Exam: normal inspection Neurologic Exam: alert, oriented x 3, cooperative Skin Exam: normal color, warm, dry Ordered Tests: Active Orders 24 hr Category Date Time Status Sponge Buffer STAT Care 03/27/18 18:14 Active EKG-ER Only STAT Care 03/27/18 18:13 Active IV Insertion STAT Care 03/27/18 18:13 Active CHEST 1 VIEW (PORTABLE) Stat Exams 03/27/18 18:14 Taken CBC W DIFF Stat Lab 03/27/18 18:00 Completed CMP Stat Lab 03/27/18 18:00 Completed D-DIMER QUANTITATION Stat Lab 03/27/18 18:00 Completed HCG QUALITATIVE,SERUM Stat Lab 03/27/18 18:00 Completed LIPASE Stat Lab 03/27/18 18:00 Completed PROTIME WITH INR Stat Lab 03/27/18 18:00 Completed TROPONIN Q3H Lab 03/27/18 18:00 Completed TROPONIN Q3H Lab 03/27/18 21:30 Completed TROPONIN Q3H Lab 03/28/18 00:15 Ordered TROPONIN Q3H Lab 03/28/18 03:15 Ordered TROPONIN Q3H Lab 03/28/18 06:15 Ordered Urine Triage Profile Stat Lab 03/27/18 18:14 Ordered Medication Summary Discontinued Medications Generic Name Dose Route Start Last Admin Trade Name Freq PRN Reason Stop Dose Admin Aspirin 324 mg 03/27/18 18:13 03/27/18 18:47 Baby Aspirin 81 Mg Chew PO 03/27/18 18:14 324 mg STAT ONE Administration Aspirin Confirm 03/27/18 18:41 Baby Aspirin 81 Mg Chew Administered 03/27/18 18:42 Dose 324 mg .ROUTE .STK-MED ONE Fentanyl Citrate 25 mcg 03/27/18 18:13 03/27/18 18:54 Sublimaze 100 Mcg/2 Ml IV 03/27/18 18:14 25 mcg STAT ONE Administration Fentanyl Citrate Confirm 03/27/18 18:41 Sublimaze 100 Mcg/2 Ml Administered 03/27/18 18:42 Dose 100 mcg .ROUTE .STK-MED ONE Pantoprazole Sodium 40 mg 03/27/18 18:17 03/27/18 18:47 Protonix 40 Mg Iv IV 03/27/18 18:18 40 mg STAT ONE Administration Pantoprazole Sodium Confirm 03/27/18 18:41 Protonix 40 Mg Iv Administered 03/27/18 18:42 Dose 40 mg IV .STK-MED ONE Lab/Rad Data: Laboratory Result Diagrams 03/27/18 18:00 03/27/18 18:00 Laboratory Results 03/27/18 03/27/18 03/27/18 Range/Units 21:30 18:00 18:00 WBC (4.0-10.5) K/mm3 RBC (4.1-5.4) M/mm3 Hgb (12.0-16.0) gm/dl Hct (35-47) % MCV (78-100) fl MCH (26-32) pg MCHC (32-36) g/dl RDW (11.5-14.0) % Plt Count (150-450) K/mm3 MPV (6-9.5) fl Gran % (36.0-66.0) % Eos # (Auto) (0-0.5) Absolute Lymphs (auto) (1.0-4.6) Absolute Monos (auto) (0.0-1.3) Lymphocytes % (24.0-44.0) % Monocytes % (0.0-12.0) % Eosinophils % (0.00-5.0) % Basophils % (0.0-0.4) % Absolute Granulocytes (1.4-6.9) Basophils # (0-0.4) PT (9.95-12.35) SECONDS INR (0.8-3.0) D-Dimer (215-500) ng/mL Sodium (137-145) mmol/L Potassium (3.5-5.1) mmol/L Chloride (98-107) mmol/L Carbon Dioxide (22-30) mmol/L Anion Gap (5-15) MEQ/L BUN (7-17) mg/dL Creatinine (0.52-1.04) mg/dL Estimated GFR ML/MIN Glucose (74-106) mg/dL Calcium (8.4-10.2) mg/dL Total Bilirubin (0.2-1.3) mg/dL AST (14-36) U/L ALT (0-35) U/L Alkaline Phosphatase (38-126) U/L Troponin I < 0.012 < 0.012 (0.000-0.034) ng/mL Serum Total Protein (6.3-8.2) g/dL Albumin (3.5-5.0) g/dL Lipase (23-300) U/L Serum , Qual NEGATIVE (Negative) 03/27/18 03/27/18 03/27/18 Range/Units 18:00 18:00 18:00 WBC 8.6 (4.0-10.5) K/mm3 RBC 5.17 (4.1-5.4) M/mm3 Hgb 14.9 (12.0-16.0) gm/dl Hct 45.4 (35-47) % MCV 87.8 (78-100) fl MCH 28.8 (26-32) pg MCHC 32.8 (32-36) g/dl RDW 13.8 (11.5-14.0) % Plt Count 337 (150-450) K/mm3 MPV 10.2 H (6-9.5) fl Gran % 44.6 (36.0-66.0) % Eos # (Auto) 0.19 (0-0.5) Absolute Lymphs (auto) 3.86 (1.0-4.6) Absolute Monos (auto) 0.66 (0.0-1.3) Lymphocytes % 44.9 H (24.0-44.0) % Monocytes % 7.7 (0.0-12.0) % Eosinophils % 2.2 (0.00-5.0) % Basophils % 0.6 (0.0-0.4) % Absolute Granulocytes 3.83 (1.4-6.9) Basophils # 0.05 (0-0.4) PT 12.0 (9.95-12.35) SECONDS INR 1.03 (0.8-3.0) D-Dimer 501.38 H* (215-500) ng/mL Sodium 143 (137-145) mmol/L Potassium 5.2 H (3.5-5.1) mmol/L Chloride 107 (98-107) mmol/L Carbon Dioxide 25 (22-30) mmol/L Anion Gap 16.7 H (5-15) MEQ/L BUN 15 (7-17) mg/dL Creatinine 1.02 (0.52-1.04) mg/dL Estimated GFR > 60.0 ML/MIN Glucose 104 (74-106) mg/dL Calcium 10.9 H (8.4-10.2) mg/dL Total Bilirubin 0.80 (0.2-1.3) mg/dL AST 72 H (14-36) U/L ALT 57 H (0-35) U/L Alkaline Phosphatase 182 H (38-126) U/L Troponin I (0.000-0.034) ng/mL Serum Total Protein 7.9 (6.3-8.2) g/dL Albumin 4.5 (3.5-5.0) g/dL Lipase 103 (23-300) U/L Serum , Qual (Negative) - Progress Progress Note: 03/27/18 18:[address] Jay at 19:00 - Departure Clinical Impression: Chest pain, Elevated liver enzymes Condition: Stable Referrals: HINA BRIONES [Primary Care Provider] - Additional Instructions: You have chest pain. You were given fentanyl that help relieve her chest pain. Your laboratory work did not point towards any heart issues at this time. Your EKG was normal. You had 2 troponins that were both negative. Your liver enzymes are mildly elevated. I discussed with you the possibility of staying in the hospital for 3 more repeat troponins but you is wanted to go home and take your nighttime medicines. Take Tylenol 1000 mg every 6-8 hours as needed for pain. If the pain increases, do not hesitate to call your family doctor or return to the ER. <DANIELA JAY - Last Filed: 03/27/18 22:42> - History of Present Illness Physician History: The patient was nauseated at about 3:30 Septra noon. She then went to vote and came back. She was lying in the sun trying to get a suntan when her stomach he came more nauseated. She took Pepto-Bismol. He didn't help. She took Tums. It didn't help. She then developed some chest pain. She took a series of 3 nitroglycerin without relief. She became worried. She came to the ER. She had chest pain for one hour before she was given fentanyl. The fentanyl took away her chest pain. Before she was given the fentanyl, she had radiation to both arms. She states she's had an NV in the past. 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 Nitro Today/Relief: 0.4 mg x 3, provided at home, mild relief Aspirin Treatment Today: 81 mg x 4, provided by ED - Course EKG Interpreted by Me: RATE, Sinus Rhythm, NORMAL AXIS, NORMAL INTERVALS, NORMAL QRS, NORMAL ST-T, Other ( no change in EKG compared to EKG 09/27/17.) Rhythm Strip: Rate - Radiology Exams Chest X-ray Interpretation: Interpreted by me, Negative (no change compared to CXR from 09/27/17.) - Progress Progress: improved Air Movement: good Progress Note: 03/27/18 19:12 Pt care discussed and care accepted from Dr Sam at 19:00. Blood Culture(s) Obtained: No Antibiotics given: No Counseled pt/family regarding: lab results, diagnosis, need for follow-up, rad results - Departure Time of Disposition: 22:38 Departure Disposition: Home Critical Care Time: No
[2018-03-27 18:23] LABS: BASOPHIL % 0.6 % (0.0-0.4); Basophil (Absolute #) 0.05 (0-0.4); Eosinophil % 2.2 % (0.00-5.0); Eosinophil (Absolute #) 0.19 (0-0.5); Granulocyte Absolute (ANC) 3.83 (1.4-6.9); Granulocytes % 44.6 % (36.0-66.0); Hematocrit 45.4 % (35-47); Hemoglobin 14.9 gm/dl (12.0-16.0); Lymphocyte (Absolute #) 3.86 (1.0-4.6); Lymphocytes % 44.9 % (24.0-44.0); Mean Cell Volume 87.8 fl (78-100); Mean Corpuscular Hemoglobin 28.8 pg (26-32); Mean Corpuscular Hgb Concent. 32.8 g/dl (32-36); Mean Platelet Volume 10.2 fl (6-9.5); Monocyte (Absolute #) 0.66 (0.0-1.3); Monocytes % 7.7 % (0.0-12.0); Platelet Count 337 K/mm3 (150-450); Red Blood Count 5.17 M/mm3 (4.1-5.4); Red Cell Distribution Width 13.8 % (11.5-14.0); White Blood Count 8.6 K/mm3 (4.0-10.5)
[2018-03-27 18:31] LABS: INR 1.03 (0.8-3.0)
[2018-03-27] MEDS ORDERED: BABY ASPIRIN 81 MG CHEW ONE (18:41)
[2018-03-27] MEDS ORDERED: SUBLIMAZE 100 MCG/2 ML ONE (18:41)
[2018-03-27 18:46] LABS: ALBUMIN 4.5 g/dL (3.5-5.0); ALKALINE PHOSPHATASE 182 U/L (38-126); ANION GAP 16.7 MEQ/L (5-15); BLOOD UREA NITROGEN 15 mg/dL (7-17); CHLORIDE 107 mmol/L (98-107); Calcium 10.9 mg/dL (8.4-10.2); Carbon Dioxide 25 mmol/L (22-30); Creatinine 1 1.02 mg/dL (0.52-1.04); Glucose 104 mg/dL (74-106); LIPASE 103 U/L (23-300); SGOT/AST 72 U/L (14-36); SGPT/ALT 57 U/L (0-35); SODIUM 143 mmol/L (137-145); Total Protein 7.9 g/dL (6.3-8.2)
[2018-03-27] MEDS: SUBLIMAZE 100 MCG/2 ML IV ONE ×2 (18:46→18:54)
[2018-03-27 19:05] LABS: D-DIMER QUANTITATION 501.38 ng/mL (215-500)
[2018-03-27 19:11] LABS: Potassium 5.2 mmol/L (3.5-5.1)
[2018-03-27 22:50] VITALS: BP 105/74; PULSE 54; O2SAT 99
--- NOTE | 2018-03-28 08:33 | XRAY ---
Indication: Chest pain. Comparison: September 27, 2017. Portable chest less inflated and remains clear. Heart is not enlarged. Bony thorax intact. No new/acute findings. Comparison: Stable nonacute chest.
== END 2018-03-27 22:54 | disposition home or self-care (01) ==
LOC: ED 17:52
DX: R07.9 Chest pain, unspecified (principal); R74.8 Abnormal levels of other serum enzymes; I25.2 Old myocardial infarction; Z79.82 Long term (current) use of aspirin; Z79.899 Other long term (current) drug therapy
CPT/HCPCS: 36000; 36415; 71045; 80053; 83690; 84484; 84703; 85025; 85379; 85610; 93005; 93041; 96375; 99284; J3010; A9270-GY

== ENCOUNTER 2018-06-26 12:27 | Emergency (ER) | payer OTHER ==
[2018-06-26 12:50] VITALS: BP 105/70; PULSE 63; O2SAT 98
--- NOTE | 2018-06-26 13:27 | ERPHSYRPT ---
- History of Present Illness Time Seen by Provider: 06/26/18 13:21 Source: patient, family Exam Limitations: no limitations Patient Subjective Stated Complaint: pt reports rash to left arm beginning yesterday Triage Nursing Assessment: pt pink warm and [id number] noted-resp easy and nonlabored Physician History: The patient is a 33-year-old female with her mother complaining of a rash on her left arm for 2 days. It itches. She does not know if she is allergic to anything. She took 25 mg of Benadryl yesterday without relief. Her past medical history is significant for heart disease, hypertension, and high cholesterol. Timing/Duration: yesterday Quality: itchy Severity: moderate Location: extremities (left forearm) Possible Causes: no cause identified Modifying Factors: Improves With: antihistamine, calamine lotion Allergies/Adverse Reactions: codeine [Codeine] Allergy (Verified 06/26/18 12:55) hydrocodone [Hydrocodone] Allergy (Verified 06/26/18 12:55) hydromorphone HCl [From Dilaudid] Allergy (Verified 06/26/18 12:55) terbutaline sulfate [From Brethine] Allergy (Verified 06/26/18 12:55) morphine Adverse Reaction (Verified 06/26/18 12:55) Home Medications: Levetiracetam [Keppra] 500 mg PO BID 06/11/16 [History] Aspirin 81 mg PO DAILY 11/04/16 [History] Atorvastatin Calcium 80 mg PO DAILY 11/04/16 [History] Isosorbide Mononitrate 30 mg [Imdur 30 MG] 15 mg PO DAILY 11/04/16 [History ] Nitroglycerin 0.4 mg Tablet [Nitrostat 0.4 MG Tablet] 0.4 mg SL UD [History] Prasugrel HCl [Effient] 10 mg PO DAILY 11/04/16 [History] Alprazolam 1 mg [Xanax 1 mg] 0.5 - 1 mg PO Q8H PRN PRN 03/19/17 [History] Metoprolol Tartrate 50 mg [Lopressor 50 MG] 50 mg PO BID 03/19/17 [History ] Paroxetine HCl 30 mg PO DAILY 03/19/17 [History] Ergocalciferol (Vitamin D2) [Vitamin D2] 50,000 unit PO WEEKLY 07/25/17 [History ] Atorvastatin Calcium [Lipitor] 80 mg PO DAILY 03/27/18 [History] Cyanocobalamin (Vitamin B-12) [Vitamin B12] 2,500 mcg PO DAILY 03/27/18 [History ] Hx Tetanus, Diphtheria Vaccination/Date Given: Yes Hx Influenza Vaccination/Date Given: Yes Hx Pneumococcal Vaccination/Date Given: No Immunizations Up to Date: Yes - Review of Systems Constitutional: No Fever, No Chills Eyes: No Symptoms Ears, Nose, & Throat: No Symptoms Respiratory: No Cough, No Dyspnea Cardiac: No Chest Pain, No Edema, No Syncope Abdominal/Gastrointestinal: No Abdominal Pain, No Nausea, No Vomiting, No Diarrhea Genitourinary Symptoms: No Dysuria Musculoskeletal: No Back Pain, No Neck Pain Skin: Rash Neurological: No Dizziness, No Focal Weakness, No Sensory Changes Psychological: No Symptoms Endocrine: No Symptoms Hematologic/Lymphatic: No Symptoms Immunological/Allergic: No Symptoms All Other Systems: Reviewed and Negative - Past Medical History Pertinent Past Medical History: Yes Neurological History: Epilepsy, Migraines, Seizures ENT History: No Pertinent History Cardiac History: Angina, Coronary Artery Disease, Hypertension, Myocardial Infarction ([place]) Respiratory History: No Pertinent History Endocrine Medical History: Other Musculoskeletal History: No Pertinent History GI Medical History: No Pertinent History History: Kidney Cancer Psycho-Social History: No Pertinent History Female Reproductive Disorders: Abnormal Uterine Bleeding Other Medical History: Kidney cancer - left kidney removed, hyperparathyroidism. STEMI,ovarian cyst, gas pains in abd that cause chest pain - Past Surgical History Past Surgical History: Yes Neuro Surgical History: No Pertinent History Cardiac: Cardiac Catheterization Respiratory: No Pertinent History Gastrointestinal: Cholecystectomy Genitourinary: Kidney Surgery Musculoskeletal: No Pertinent History, Orthopedic Surgery Female Surgical History: Section, Tubal Ligation Other Surgical History: Right middle finger surgery when 12yo. - Social History Smoking Status: Current every day smoker How long have you smoked: yrs Exposure to second hand smoke: Yes Alcohol Use: None Drug Use: none Patient Lives Alone: No Significant Family History: no pertinent family hx - Female History Hx Last Menstrual Period: menapause Hx Now: No - Nursing Vital Signs Nursing Vital Signs: Initial Vital Signs Temperature 98.4 F 06/26/18 12:47 Pulse Rate 63 06/26/18 12:47 Respiratory Rate 99 H 06/26/18 12:47 Blood Pressure 105/70 06/26/18 12:47 O2 Sat by Pulse Oximetry 98 06/26/18 12:47 Pain Scale Pain Intensity 0 - Physical Exam General Appearance: no apparent distress, alert Eye Exam: PERRL/EOMI, eyes nml inspection Ears, Nose, Throat Exam: normal ENT inspection, pharynx normal, moist mucous membranes Neck Exam: normal inspection, non-tender, supple, full range of motion Respiratory Exam: normal breath sounds, lungs clear, No respiratory distress Cardiovascular Exam: regular rate/rhythm, normal heart sounds Gastrointestinal/Abdomen Exam: soft Pelvic Exam: not done Rectal Exam: not done Back Exam: normal inspection, normal range of motion, No CVA tenderness, No vertebral tenderness Extremity Exam: normal inspection, normal range of motion Neurologic Exam: alert, oriented x 3, cooperative, normal mood/affect, sensation nml, No motor deficits Skin Exam: rash (2 moderately large reddish hivelike areas on left forearm.) SpO2 Interpretation: normal SpO2: 98 Oxygen Delivery: Room Air - Departure Time of Disposition: 13:30 Departure Disposition: Home Clinical Impression: Allergic reaction Condition: Stable Critical Care Time: No Referrals: HINA BRIONES [Primary Care Provider] - Additional Instructions: You have an allergic reaction on your left arm. Take prednisone 60 mg daily for 3 days. You may also take Benadryl 25-50 mg every 2-4 hours as needed. Follow-up with your primary medical doctor in 2-3 days. Prescriptions: Prednisone 20 mg [Deltasone 20 mg] 3 tab PO DAILY #9 tablet
== END 2018-06-26 13:47 | disposition home or self-care (01) ==
LOC: ED 12:27
DX: T78.40XA Allergy, unspecified, initial encounter (principal); R21 Rash and other nonspecific skin eruption; I10 Essential (primary) hypertension; E78.00 Pure hypercholesterolemia, unspecified; I51.9 Heart disease, unspecified; Z79.899 Other long term (current) drug therapy; Z85.528 Personal history of other malignant neoplasm of kidney; Z90.5 Acquired absence of kidney; E21.3 Hyperparathyroidism, unspecified
CPT/HCPCS: 99283

== ENCOUNTER 2018-08-14 04:12 | Emergency (ER) | payer OTHER ==
[2018-08-14 04:29] VITALS: BP 111/67; PULSE 73; O2SAT 99
--- NOTE | 2018-08-14 04:49 | ERPHSYRPT ---
- History of Present Illness Time Seen by Provider: 08/14/18 04:32 Historian: patient, EMS Exam Limitations: no limitations Patient Subjective Stated Complaint: pain in medial chest towards bottom of sternum that radiates up the right side of neck, back and down the right arm Triage Nursing Assessment: Pt c/o of chest pain in the medial chest near the bottom of the sternum that radiates up her right side to her neck, back, and down her right arm, hx of stemi, vitals wnl, pulses normal, face flushed, no edema, S1-S2 heard, rates pain 07/30, stated that pain started on morning of 08/13 Physician History: The patient is a 33-year-old adopted female with her adopted mother brought in by ambulance for chest pain, shortness of breath, nausea, and anxiety. Early yesterday morning the patient began having left arm pain that gradually moved up to her left neck and by 6 PM yesterday evening, 11 hours ago, the pain moved into her central chest. She states it is a sharp pain. Her past medical history is significant for 3 MIs. She is currently on Effient. She was given 4 baby aspirin and one nitroglycerin in the ambulance without relief. She's had no cardiac stents placed nor has she had a CABG. She also complained that her blood pressure had been low in the evening and then very high when the ambulance arrived. Her past medical history is also significant for Petersen tumor resection as a . Recently she has been seen by an oncologist for elevated red and white cell count. She's had a recent PET scan but does not know the results. Timing/Duration: yesterday, hour(s) (20), gradual onset, worse Activities at Onset: none Quality: sharpness, stabbing Location: central Chest Pain Radiation: neck, arm Severity of Pain-Max: moderate Severity of Pain-Current: moderate Modifying Factors: Improves With: nothing Associated Symptoms: nausea, shortness of breath Prior Chest Pain/Cardiac Workup: cardiac cath, heart attack, recently seen/ treated Nitro Today/Relief: 0.4 mg x 1, provided by EMS, no relief Aspirin Treatment Today: 81 mg x 4, provided by EMS Allergies/Adverse Reactions: codeine [Codeine] Allergy (Verified 08/14/18 04:29) hydrocodone [Hydrocodone] Allergy (Verified 08/14/18 04:29) hydromorphone HCl [From Dilaudid] Allergy (Verified 08/14/18 04:29) terbutaline sulfate [From Brethine] Allergy (Verified 08/14/18 04:29) morphine Adverse Reaction (Verified 08/14/18 04:29) Home Medications: Levetiracetam [Keppra] 500 mg PO BID 06/11/16 [History] Aspirin 81 mg PO DAILY 11/04/16 [History] Isosorbide Mononitrate 30 mg [Imdur 30 MG] 15 mg PO DAILY 11/04/16 [History ] Nitroglycerin 0.4 mg Tablet [Nitrostat 0.4 MG Tablet] 0.4 mg SL UD [History] Alprazolam 1 mg [Xanax 1 mg] 0.5 - 1 mg PO Q8H PRN PRN 03/19/17 [History] Metoprolol Tartrate 50 mg [Lopressor 50 MG] 50 mg PO BID 03/19/17 [History ] Atorvastatin Calcium [Lipitor] 80 mg PO DAILY 03/27/18 [History] Hx Tetanus, Diphtheria Vaccination/Date Given: Yes Hx Influenza Vaccination/Date Given: Yes Hx Pneumococcal Vaccination/Date Given: No - Review of Systems Constitutional: No Fever, No Chills Eyes: No Symptoms Ears, Nose, & Throat: No Symptoms Respiratory: Dyspnea, No Cough Cardiac: Chest Pain Abdominal/Gastrointestinal: No Abdominal Pain, No Nausea, No Vomiting, No Diarrhea Genitourinary Symptoms: No Dysuria Musculoskeletal: No Back Pain, No Neck Pain Skin: No Rash Neurological: No Dizziness, No Focal Weakness, No Sensory Changes Psychological: No Symptoms Endocrine: No Symptoms Hematologic/Lymphatic: No Symptoms Immunological/Allergic: No Symptoms All Other Systems: Reviewed and Negative - Past Medical History Pertinent Past Medical History: Yes Neurological History: Epilepsy, Migraines, Seizures ENT History: No Pertinent History Cardiac History: Angina, Coronary Artery Disease, Hypertension, Myocardial Infarction ([place]) Respiratory History: No Pertinent History Endocrine Medical History: Other Musculoskeletal History: No Pertinent History GI Medical History: No Pertinent History History: Kidney Cancer Psycho-Social History: No Pertinent History Female Reproductive Disorders: Abnormal Uterine Bleeding Other Medical History: Kidney cancer - left kidney removed, hyperparathyroidism. STEMI,ovarian cyst, gas pains in abd that cause chest pain - Past Surgical History Past Surgical History: Yes Neuro Surgical History: No Pertinent History Cardiac: Cardiac Catheterization Respiratory: No Pertinent History Gastrointestinal: Cholecystectomy Genitourinary: Kidney Surgery Musculoskeletal: No Pertinent History, Orthopedic Surgery Female Surgical History: Section, Tubal Ligation Other Surgical History: Right middle finger surgery when 12yo. - Social History Smoking Status: Former smoker How long have you smoked: yrs Exposure to second hand smoke: Yes Alcohol Use: None Drug Use: none Patient Lives Alone: No Significant Family History: no pertinent family hx - Female History Hx Last Menstrual Period: 08/09/2018 Hx Now: No (going through menopause) - Nursing Vital Signs Nursing Vital Signs: Initial Vital Signs Temperature 98.8 F 08/14/18 04:15 Pulse Rate 62 08/14/18 04:15 Respiratory Rate 14 08/14/18 04:15 Blood Pressure 111/67 08/14/18 04:15 O2 Sat by Pulse Oximetry 99 08/14/18 04:15 Pain Scale Pain Intensity 9 - Physical Exam General Appearance: moderate distress, anxiety Eye Exam: PERRL/EOMI, eyes nml inspection Ears, Nose, Throat Exam: normal ENT inspection, moist mucous membranes Neck Exam: normal inspection, non-tender, supple, full range of motion Respiratory Exam: normal breath sounds, lungs clear, No respiratory distress Cardiovascular Exam: regular rate/rhythm, normal heart sounds Gastrointestinal/Abdomen Exam: soft, No tenderness, No mass Pelvic Exam: deferred Rectal Exam: not done Back Exam: normal inspection, No CVA tenderness, No vertebral tenderness Extremity Exam: normal inspection, normal range of motion Neurologic Exam: alert, oriented x 3, cooperative, normal mood/affect, sensation nml, No motor deficits Skin Exam: normal color, warm, dry SpO2 Interpretation: normal SpO2: 99 Oxygen Delivery: Room Air - Course EKG Interpreted by Me: RATE, Sinus Rhythm, NORMAL AXIS, NORMAL INTERVALS, NORMAL QRS, NORMAL ST-T, Other (no change compared to EKG 03/27/18.) - Radiology Exams Chest X-ray Interpretation: Interpreted by me, Negative Ordered Tests: Active Orders 24 hr Category Date Time Status Nail Technician STAT Care 08/14/18 04:58 Active Clean Catch Urine Specimen STAT Care 08/14/18 04:57 Active EKG-ER Only STAT Care 08/14/18 04:57 Active IV Insertion STAT Care 08/14/18 04:57 Active Oxygen-ED Only NASAL CANNULA 2 lpm Care 08/14/18 04:57 Active CHEST 2 VIEWS (PA AND LAT) Stat Exams 08/14/18 04:58 Taken CBC W DIFF Stat Lab 08/14/18 05:10 Completed CMP Stat Lab 08/14/18 05:10 Completed NT PRO BNP Stat Lab 08/14/18 05:10 Completed TROPONIN Q3H Lab 08/14/18 05:10 Completed TROPONIN Q3H Lab 08/14/18 08:00 Ordered TROPONIN Q3H Lab 08/14/18 11:00 Ordered TROPONIN Q3H Lab 08/14/18 14:00 Ordered TROPONIN Q3H Lab 08/14/18 17:00 Ordered Urine Triage Profile Stat Lab 08/14/18 04:58 Uncollected Medication Summary Discontinued Medications Generic Name Dose Route Start Last Admin Trade Name Freq PRN Reason Stop Dose Admin Lorazepam 1 mg 08/14/18 05:01 08/14/18 05:45 Ativan 2 Mg/1 Ml Vial IV 08/14/18 05:02 1 mg STAT ONE Administration Lorazepam Confirm 08/14/18 05:06 Ativan 2 Mg/1 Ml Vial Administered 08/14/18 05:07 Dose 2 mg .ROUTE .STK-MED ONE Nitroglycerin 0.4 mg 08/14/18 04:57 Nitrostat 0.4 Mg (Ed) SL 08/14/18 04:58 STAT ONE Nitroglycerin Confirm 08/14/18 05:06 Nitrostat 0.4 Mg (Ed) Administered 08/14/18 05:07 Dose 0.4 mg SL .STK-MED ONE Lab/Rad Data: Laboratory Result Diagrams 08/14/18 05:10 08/14/18 05:10 Laboratory Results 08/14/18 08/14/18 08/14/18 Range/Units 05:10 05:10 05:10 WBC 10.2 (4.0-10.5) K/mm3 RBC 4.30 (4.1-5.4) M/mm3 Hgb 12.9 (12.0-16.0) gm/dl Hct 38.7 (35-47) % MCV 90.0 (78-100) fl MCH 30.0 (26-32) pg MCHC 33.3 (32-36) g/dl RDW 14.4 H (11.5-14.0) % Plt Count 323 (150-450) K/mm3 MPV 9.7 H (6-9.5) fl Gran % 47.1 (36.0-66.0) % Eos # (Auto) 0.45 (0-0.5) Absolute Lymphs (auto) 4.11 (1.0-4.6) Absolute Monos (auto) 0.82 (0.0-1.3) Lymphocytes % 40.2 (24.0-44.0) % Monocytes % 8.0 (0.0-12.0) % Eosinophils % 4.4 (0.00-5.0) % Basophils % 0.3 (0.0-0.4) % Absolute Granulocytes 4.81 (1.4-6.9) Basophils # 0.03 (0-0.4) Sodium 141 (137-145) mmol/L Potassium 3.9 (3.5-5.1) mmol/L Chloride 111 H (98-107) mmol/L Carbon Dioxide 25 (22-30) mmol/L Anion Gap 8.3 (5-15) MEQ/L BUN 13 (7-17) mg/dL Creatinine 0.72 (0.52-1.04) mg/dL Estimated GFR > 60.0 ML/MIN Glucose 88 (74-106) mg/dL Calcium 9.1 (8.4-10.2) mg/dL Total Bilirubin 0.40 (0.2-1.3) mg/dL AST 31 (14-36) U/L ALT 45 H (0-35) U/L Alkaline Phosphatase 190 H (38-126) U/L Troponin I < 0.012 (0.000-0.034) ng/mL NT-Pro-B Natriuret Pep 108 (0-450) pg/mL Serum Total Protein 6.2 L (6.3-8.2) g/dL Albumin 3.5 (3.5-5.0) g/dL - Progress Progress: improved Air Movement: good Progress Note: 08/14/18 06:47 No pain after ativan 1 mg IV. Blood Culture(s) Obtained: No Antibiotics given: No Counseled pt/family regarding: lab results, diagnosis, rad results - Departure Time of Disposition: 06:48 Departure Disposition: Home Clinical Impression: Anxiety, Left arm pain, Chest pain Condition: Stable Critical Care Time: No Referrals: HINA BRIONES [Primary Care Provider] - Additional Instructions: The left arm pain, neck pain, and chest pain I believe are all related to anxiety. The EKG and troponin were negative. You were given Ativan 1 mg by IV in the ER. Follow-up with your primary medical doctor later this week.
[2018-08-14] MEDS ORDERED: Nitrostat 0.4 MG (ED) SL ONE ×2 (04:57→05:06)
[2018-08-14] MEDS ORDERED: Ativan 2 MG/1 ML VIAL IV ONE (05:01)
[2018-08-14] MEDS ORDERED: Ativan 2 MG/1 ML VIAL ONE (05:06)
[2018-08-14 05:19] LABS: BASOPHIL % 0.3 % (0.0-0.4); Basophil (Absolute #) 0.03 (0-0.4); Eosinophil % 4.4 % (0.00-5.0); Eosinophil (Absolute #) 0.45 (0-0.5); Granulocyte Absolute (ANC) 4.81 (1.4-6.9); Granulocytes % 47.1 % (36.0-66.0); Hematocrit 38.7 % (35-47); Hemoglobin 12.9 gm/dl (12.0-16.0); Lymphocyte (Absolute #) 4.11 (1.0-4.6); Lymphocytes % 40.2 % (24.0-44.0); Mean Corpuscular Hgb Concent. 33.3 g/dl (32-36); Mean Platelet Volume 9.7 fl (6-9.5); Monocyte (Absolute #) 0.82 (0.0-1.3); Platelet Count 323 K/mm3 (150-450); Red Cell Distribution Width 14.4 % (11.5-14.0); White Blood Count 10.2 K/mm3 (4.0-10.5)
[2018-08-14 05:57] LABS: ALBUMIN 3.5 g/dL (3.5-5.0); ALKALINE PHOSPHATASE 190 U/L (38-126); ANION GAP 8.3 MEQ/L (5-15); BLOOD UREA NITROGEN 13 mg/dL (7-17); CHLORIDE 111 mmol/L (98-107); Calcium 9.1 mg/dL (8.4-10.2); Carbon Dioxide 25 mmol/L (22-30); Creatinine 1 0.72 mg/dL (0.52-1.04); Glucose 88 mg/dL (74-106); NT PRO BNP 108 pg/mL (0-450); Potassium 3.9 mmol/L (3.5-5.1); SGOT/AST 31 U/L (14-36); SGPT/ALT 45 U/L (0-35); SODIUM 141 mmol/L (137-145); Total Protein 6.2 g/dL (6.3-8.2)
--- NOTE | 2018-08-14 09:20 | XRAY ---
Indication: Chest pain. Comparison: March 27, 2018. AP/lateral chest demonstrates normal heart and lungs. Bony thorax intact again with levoscoliosis centered at T12. Stable epigastric surgical clips. Impression: Stable nonacute chest with chronic features.
== END 2018-08-14 06:58 | disposition home or self-care (01) ==
LOC: ED 04:12
DX: F41.9 Anxiety disorder, unspecified (principal); R07.9 Chest pain, unspecified; M79.602 Pain in left arm; I25.2 Old myocardial infarction; R11.0 Nausea; R06.02 Shortness of breath; Z79.82 Long term (current) use of aspirin; Z79.899 Other long term (current) drug therapy; Z85.528 Personal history of other malignant neoplasm of kidney
CPT/HCPCS: 36415; 71046; 80053; 83880; 84484; 85025; 96374; 99284; J2060; A9270-GY

== ENCOUNTER 2018-11-10 10:35 | Emergency (ER) | payer OTHER ==
--- NOTE | 2018-11-10 10:52 | ERPHSYRPT ---
- History of Present Illness Time Seen by Provider: 11/10/18 10:52 Historian: patient Exam Limitations: no limitations Physician History: 33 y/o white female, with multiple medical issues, presents with right upper quadrant abd pain with radiation to right flank. sx present for 3 days. pt has only her right kidney. 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 pt has had a cholecystectomy. pt has osteoporosis and has had myocardial infarctions in the past. pt denies cp, soa. Timing/Duration: day(s) (3) Activities at Onset: none Quality: sharpness, stabbing Abdominal Pain Onset Location: RUQ, flank Pain Radiation: flank (right) Severity of Pain-Max: mild Severity of Pain-Current: mild Modifying Factors: Improves With: nothing Associated Symptoms: No chest pain, No diaphoresis, No diarrhea, No loss of appetite, No nausea, No vomiting Previous symptoms: no prior history Allergies/Adverse Reactions: codeine [Codeine] Allergy (Verified 11/10/18 10:56) hydrocodone [Hydrocodone] Allergy (Verified 11/10/18 10:56) hydromorphone HCl [From Dilaudid] Allergy (Verified 11/10/18 10:56) terbutaline sulfate [From Brethine] Allergy (Verified 11/10/18 10:56) morphine Adverse Reaction (Verified 11/10/18 10:56) Home Medications: Levetiracetam [Keppra] 500 mg PO BID 06/11/16 [History] Aspirin 81 mg PO DAILY 11/04/16 [History] Isosorbide Mononitrate 30 mg [Imdur 30 MG] 15 mg PO DAILY 11/04/16 [History ] Nitroglycerin 0.4 mg Tablet [Nitrostat 0.4 MG Tablet] 0.4 mg SL UD [History] Alprazolam 1 mg [Xanax 1 mg] 0.5 - 1 mg PO Q8H PRN PRN 03/19/17 [History] Metoprolol Tartrate 50 mg [Lopressor 50 MG] 50 mg PO BID 03/19/17 [History ] Atorvastatin Calcium [Lipitor] 80 mg PO DAILY 03/27/18 [History] Ergocalciferol (Vitamin D2) [Vitamin D2] 50,000 units PO UD 11/10/18 [History] Hx Tetanus, Diphtheria Vaccination/Date Given: Yes Hx Influenza Vaccination/Date Given: Yes Hx Pneumococcal Vaccination/Date Given: No - Review of Systems Constitutional: No Symptoms Eyes: No Symptoms Ears, Nose, & Throat: No Symptoms Respiratory: No Symptoms Cardiac: No Symptoms Abdominal/Gastrointestinal: Abdominal Pain (right upper quadrant), No Nausea, No Vomiting, No Diarrhea Genitourinary Symptoms: No Symptoms, No Dysuria, No Frequency, No Hematuria Musculoskeletal: No Symptoms, No Back Pain, No Neck Pain Skin: No Symptoms Neurological: No Symptoms Psychological: No Symptoms Endocrine: No Symptoms Hematologic/Lymphatic: No Symptoms Immunological/Allergic: No Symptoms All Other Systems: Reviewed and Negative - Past Medical History Pertinent Past Medical History: Yes Neurological History: Epilepsy, Migraines, Seizures ENT History: No Pertinent History Cardiac History: Angina, Coronary Artery Disease, Hypertension, Myocardial Infarction ([place]) Respiratory History: No Pertinent History Endocrine Medical History: Other Musculoskeletal History: No Pertinent History GI Medical History: No Pertinent History History: Kidney Cancer Psycho-Social History: No Pertinent History Female Reproductive Disorders: Abnormal Uterine Bleeding Other Medical History: Kidney cancer - left kidney removed, hyperparathyroidism. STEMI,ovarian cyst, gas pains in abd that cause chest pain - Past Surgical History Past Surgical History: Yes Neuro Surgical History: No Pertinent History Cardiac: Cardiac Catheterization Respiratory: No Pertinent History Gastrointestinal: Cholecystectomy Genitourinary: Kidney Surgery Musculoskeletal: No Pertinent History, Orthopedic Surgery Female Surgical History: Section, Tubal Ligation Other Surgical History: Right middle finger surgery when 12yo. - Social History Smoking Status: Former smoker How long have you smoked: yrs Exposure to second hand smoke: Yes Alcohol Use: None Drug Use: none Patient Lives Alone: No Significant Family History: no pertinent family hx - Nursing Vital Signs Nursing Vital Signs: Initial Vital Signs Temperature 98.3 F 11/10/18 10:42 Pulse Rate 79 11/10/18 10:42 Respiratory Rate 16 11/10/18 10:42 Blood Pressure 111/72 11/10/18 10:42 O2 Sat by Pulse Oximetry 99 11/10/18 10:42 Pain Scale Pain Intensity 6 - Physical Exam General Appearance: no apparent distress, alert, anxiety Eye Exam: PERRL/EOMI, eyes nml inspection Ears, Nose, Throat Exam: normal ENT inspection, moist mucous membranes Neck Exam: normal inspection, non-tender, supple, full range of motion Respiratory Exam: normal breath sounds, lungs clear, airway intact, No chest tenderness, No respiratory distress, No accessory muscle use, No rhonchi, No wheezing, No stridor Cardiovascular Exam: regular rate/rhythm, normal heart sounds, normal peripheral pulses Gastrointestinal/Abdomen Exam: soft, normal bowel sounds, tenderness (mild right upper quad), No guarding, No rebound Pelvic Exam: not done Rectal Exam: not done Back Exam: normal inspection, normal range of motion, No CVA tenderness, No vertebral tenderness, No decreased range of motion, No muscle spasm Extremity Exam: normal inspection, normal range of motion, pelvis stable Neurologic Exam: alert, oriented x 3, cooperative, commercial construction 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 II-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 nml as tested Skin Exam: normal color, warm, dry Lymphatic Exam: No adenopathy SpO2 Interpretation: normal - Course Nursing assessment & vital signs reviewed: Yes Ordered Tests: Active Orders 24 hr Category Date Time Status CULTURE,URINE Stat Lab 11/10/18 11:20 Received HCG,QUALITATIVE URINE Stat Lab 11/10/18 11:20 Completed UA W/RFX UR CULTURE Stat Lab 11/10/18 11:20 Completed Medication Summary Discontinued Medications Generic Name Dose Route Start Last Admin Trade Name Freq PRN Reason Stop Dose Admin Ketorolac Tromethamine 30 mg 11/10/18 11:46 11/10/18 11:50 Toradol 30 Mg Injection IM 11/10/18 11:47 30 mg STAT ONE Administration Ketorolac Tromethamine Confirm 11/10/18 11:48 Toradol 30 Mg Injection Administered 11/10/18 11:49 Dose 30 mg .ROUTE .Mixbook-Nirvanix ONE Lab/Rad Data: Laboratory Results 11/10/18 11/10/18 Range/Units 11:20 11:20 Urine Color YELLOW (YELLOW) Urine Appearance CLOUDY (CLEAR) Urine pH 6.0 (5-6) Ur Specific [place] 1.020 (1.005-1.025) Urine Protein NEGATIVE (Negative) Urine Ketones TRACE (NEGATIVE) Urine Blood NEGATIVE (0-5) [place]/ul Urine Nitrite NEGATIVE (NEGATIVE) Urine Bilirubin NEGATIVE (NEGATIVE) Urine Urobilinogen 2 (0-1) mg/dL Ur Leukocyte Esterase SMALL (NEGATIVE) Urine WBC (Auto) 3-5 (0-5) /HPF Urine RBC (Auto) 3-5 (0-2) /HPF U Epithel Cells (Auto) MANY (FEW) /HPF Urine Bacteria (Auto) FEW (NEGATIVE) /HPF Amorphous Crystals MODERATE (NEGATIVE) /HPF WBC Casts 0-2 (NEGATIVE) /LPF Urine Mucus (Auto) SLIGHT (NEGATIVE) /HPF Urine Culture Reflexed YES (NO) Urine Glucose NEGATIVE (NEGATIVE) mg/dL Urine HCG, Qual NEGATIVE (Negative) - Progress Progress: unchanged Counseled pt/family regarding: lab results, diagnosis, need for follow-up - Departure Time of Disposition: 12:30 Departure Disposition: Home Clinical Impression: UTI (urinary tract infection) Condition: Stable Critical Care Time: No Referrals: HINA BRIONES [Primary Care Provider] - Additional Instructions: drink plenty of fluids. follow up with primary doctor for further management Prescriptions: Smz/Tmp Ds Tablet [Bactrim Ds Tablet] 1 udtab PO BID #14 tablet
[2018-11-10] MEDS ORDERED: TORAdol 30 mg Injection IM ONE (11:46)
[2018-11-10 11:48] LABS: Appearance CLOUDY (CLEAR); Bilirubin NEGATIVE (NEGATIVE); Blood NEGATIVE Ery/ul (0-5); Glucose NEGATIVE (NEGATIVE); Ketones TRACE (NEGATIVE); Leukocyte Esterase SMALL (NEGATIVE); Nitrite NEGATIVE (NEGATIVE); Protein,Urine Dip NEGATIVE (Negative); Urobilinogen 2 mg/dL (0-1)
[2018-11-10] MEDS ORDERED: TORAdol 30 mg Injection ONE (11:48)
[2018-11-10 12:42] VITALS: BP 98/63; PULSE 60; O2SAT 99
== END 2018-11-10 12:42 | disposition home or self-care (01) ==
LOC: ED 10:35
DX: N39.0 Urinary tract infection, site not specified (principal); Z79.899 Other long term (current) drug therapy; Z90.5 Acquired absence of kidney
CPT/HCPCS: 81001; 84703; 87086; 96372; 99284; J1885

== ENCOUNTER 2019-01-02 08:28 | Emergency (ER) | payer OTHER ==
[2019-01-02] MEDS ORDERED: Nitrostat 0.4 MG (ED) SL ONE ×2 (08:47→08:53)
[2019-01-02] MEDS ORDERED: BABY ASPIRIN 81 MG CHEW ONE (08:47)
[2019-01-02] MEDS ORDERED: XYLOCAINE HCl Viscous ONE (08:48)
[2019-01-02] MEDS ORDERED: MAALOX ES 30 ML UNIT DOSE ONE (08:48)
--- NOTE | 2019-01-02 08:50 | ERPHSYRPT ---
- History of Present Illness Time Seen by Provider: 01/02/19 08:45 Historian: patient Exam Limitations: no limitations Patient Subjective Stated Complaint: pt here for chest pain to epigastric area that radiates to back for 2 days now, with cold chills, nausea, no cough or fever, Triage Nursing Assessment: pt alert, walked in, resp easy, skin w/d/p, no edema , chest clear Physician History: 33 y/o white female with h/o mi and multiple episodes of cp in the past presents with 2 day h/o substernal burning and radiates straight through to back. no stents in place. 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 pt has had a cholecystectomy. denies soa. denies abd pain. Timing/Duration: day(s) (2) Activities at Onset: none Quality: burning, stabbing (into back) Chest Pain Radiation: back Severity of Pain-Max: mild Severity of Pain-Current: mild Modifying Factors: Improves With: other (did not take her meds this am) Associated Symptoms: heartburn Prior Chest Pain/Cardiac Workup: cardiac cath, heart attack Nitro Today/Relief: no nitro taken today Aspirin Treatment Today: no aspirin today Allergies/Adverse Reactions: codeine [Codeine] Allergy (Verified 01/02/19 08:38) hydrocodone [Hydrocodone] Allergy (Verified 01/02/19 08:38) hydromorphone HCl [From Dilaudid] Allergy (Verified 01/02/19 08:38) terbutaline sulfate [From Brethine] Allergy (Verified 01/02/19 08:38) morphine Adverse Reaction (Verified 01/02/19 08:38) Home Medications: Levetiracetam [Keppra] 500 mg PO BID 06/11/16 [History] Aspirin 81 mg PO DAILY 11/04/16 [History] Isosorbide Mononitrate 30 mg [Imdur 30 MG] 15 mg PO DAILY 11/04/16 [History ] Nitroglycerin 0.4 mg Tablet [Nitrostat 0.4 MG Tablet] 0.4 mg SL UD [History] Alprazolam 1 mg [Xanax 1 mg] 0.5 - 1 mg PO Q8H PRN PRN 03/19/17 [History] Metoprolol Tartrate 50 mg [Lopressor 50 MG] 50 mg PO BID 03/19/17 [History ] Atorvastatin Calcium [Lipitor] 80 mg PO DAILY 03/27/18 [History] Ergocalciferol (Vitamin D2) [Vitamin D2] 50,000 units PO UD 11/10/18 [History] Hx Tetanus, Diphtheria Vaccination/Date Given: No Hx Influenza Vaccination/Date Given: Yes Hx Pneumococcal Vaccination/Date Given: No Immunizations Up to Date: Yes - Review of Systems Constitutional: No Symptoms Eyes: No Symptoms Ears, Nose, & Throat: No Symptoms Respiratory: No Symptoms Cardiac: Chest Pain Abdominal/Gastrointestinal: No Symptoms Genitourinary Symptoms: No Symptoms Musculoskeletal: No Symptoms Skin: No Symptoms Neurological: No Symptoms Psychological: No Symptoms Endocrine: No Symptoms Hematologic/Lymphatic: No Symptoms Immunological/Allergic: No Symptoms All Other Systems: Reviewed and Negative - Past Medical History Pertinent Past Medical History: Yes Neurological History: Epilepsy, Migraines, Seizures ENT History: No Pertinent History Cardiac History: Angina, Coronary Artery Disease, Hypertension, Myocardial Infarction ([place]) Respiratory History: No Pertinent History Endocrine Medical History: Other Musculoskeletal History: No Pertinent History GI Medical History: No Pertinent History History: Kidney Cancer Psycho-Social History: No Pertinent History Female Reproductive Disorders: Abnormal Uterine Bleeding Other Medical History: Kidney cancer - left kidney removed, hyperparathyroidism. STEMI,ovarian cyst, gas pains in abd that cause chest pain - Past Surgical History Past Surgical History: Yes Neuro Surgical History: No Pertinent History Cardiac: Cardiac Catheterization Respiratory: No Pertinent History Gastrointestinal: Cholecystectomy Genitourinary: Kidney Surgery Musculoskeletal: No Pertinent History, Orthopedic Surgery Female Surgical History: Section, Tubal Ligation Other Surgical History: Right middle finger surgery when 12yo. - Social History Smoking Status: Never smoker How long have you smoked: yrs Exposure to second hand smoke: Yes Alcohol Use: None Drug Use: none Patient Lives Alone: Yes Significant Family History: no pertinent family hx - Female History Hx Last Menstrual Period: nov Hx Now: No - Nursing Vital Signs Nursing Vital Signs: Initial Vital Signs Temperature 97.2 F 01/02/19 08:29 Pulse Rate 74 01/02/19 08:29 Respiratory Rate 16 01/02/19 08:29 Blood Pressure 115/83 01/02/19 08:29 O2 Sat by Pulse Oximetry 98 01/02/19 08:29 Pain Scale Pain Intensity 9 - Physical Exam General Appearance: no apparent distress, alert, anxiety Eye Exam: PERRL/EOMI, eyes nml inspection Ears, Nose, Throat Exam: normal ENT inspection, moist mucous membranes Neck Exam: normal inspection, non-tender, supple, full range of motion Respiratory Exam: normal breath sounds, chest tenderness, lungs clear, airway intact, No respiratory distress, No accessory muscle use, No rhonchi, No wheezing, No stridor Cardiovascular Exam: regular rate/rhythm, normal heart sounds, normal peripheral pulses Gastrointestinal/Abdomen Exam: soft, normal bowel sounds, No tenderness Pelvic Exam: not done Rectal Exam: not done Back Exam: normal inspection, normal range of motion, No CVA tenderness, No vertebral tenderness Extremity Exam: normal inspection, normal range of motion, pelvis stable Neurologic Exam: alert, oriented x 3, cooperative, 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 as tested Skin Exam: normal color, warm, dry Lymphatic Exam: adenopathy SpO2 Interpretation: normal SpO2: 98 O2 Delivery: Room Air - Course Nursing assessment & vital signs reviewed: Yes EKG Interpreted by Me: RATE ([id number]), NORMAL AXIS, NORMAL INTERVALS, NORMAL QRS, Other (no change from comparison ekg 08/14/18) Ordered Tests: Active Orders 24 hr Category Date Time Status Adult Care Manager STAT Care 01/02/19 08:53 Active EKG-ER Only STAT Care 01/02/19 08:53 Active IV Insertion STAT Care 01/02/19 08:53 Active CHEST 1 VIEW (PORTABLE) Stat Exams 01/02/19 10:45 Completed CBC W DIFF Stat Lab 01/02/19 08:35 Completed CMP Stat Lab 01/02/19 08:35 Completed D-DIMER QUANTITATION Stat Lab 01/02/19 08:35 Completed TROPONIN Q3H Lab 01/02/19 08:35 Completed TROPONIN Q3H Lab 01/02/19 11:56 Completed TROPONIN Q3H Lab 01/02/19 15:00 Ordered TROPONIN Q3H Lab 01/02/19 18:00 Ordered TROPONIN Q3H Lab 01/02/19 21:00 Ordered Medication Summary Discontinued Medications Generic Name Dose Route Start Last Admin Trade Name Freq PRN Reason Stop Dose Admin Al Hydrox/Mg Hydrox/Simethicone Confirm 01/02/19 08:48 Maalox Es 30 Ml Unit Dose Administered 01/02/19 08:49 Dose 30 ml .ROUTE .STK-MED ONE Aspirin Confirm 01/02/19 08:47 Baby Aspirin 81 Mg Chew Administered 01/02/19 08:48 Dose 324 mg .ROUTE .STK-MED ONE Aspirin 324 mg 01/02/19 08:53 01/02/19 09:03 Baby Aspirin 81 Mg Chew PO 01/02/19 08:54 324 mg STAT ONE Administration Lidocaine HCl Confirm 01/02/19 08:48 Xylocaine Hcl Viscous * Administered 01/02/19 08:49 Dose 15 ml .ROUTE .STK-MED ONE Magnesium Hydroxide 45 ml 01/02/19 08:54 01/02/19 09:03 Gi Cocktail 45 Ml (Maalox/Lidocaine) PO 01/02/19 08:55 45 ml STAT ONE Administration Nitroglycerin Confirm 01/02/19 08:47 Nitrostat 0.4 Mg (Ed) Administered 01/02/19 08:48 Dose 0.4 mg SL .STK-MED ONE Nitroglycerin 0.4 mg 01/02/19 08:53 01/02/19 09:03 Nitrostat 0.4 Mg (Ed) SL 01/02/19 08:54 0.4 mg STAT ONE Administration Lab/Rad Data: Laboratory Result Diagrams 01/02/19 08:35 01/02/19 08:35 Laboratory Results 01/02/19 01/02/19 01/02/19 Range/Units 11:56 08:35 08:35 WBC (4.0-10.5) K/mm3 RBC (4.1-5.4) M/mm3 Hgb (12.0-16.0) gm/dl Hct (35-47) % MCV (78-100) fl MCH (26-32) pg MCHC (32-36) g/dl RDW (11.5-14.0) % Plt Count (150-450) K/mm3 MPV (6-9.5) fl Gran % (36.0-66.0) % Eos # (Auto) (0-0.5) Absolute Lymphs (auto) (1.0-4.6) Absolute Monos (auto) (0.0-1.3) Lymphocytes % (24.0-44.0) % Monocytes % (0.0-12.0) % Eosinophils % (0.00-5.0) % Basophils % (0.0-0.4) % Absolute Granulocytes (1.4-6.9) Basophils # (0-0.4) D-Dimer 429 (215-500) ng/mL Sodium (137-145) mmol/L Potassium (3.5-5.1) mmol/L Chloride (98-107) mmol/L Carbon Dioxide (22-30) mmol/L Anion Gap (5-15) MEQ/L BUN (7-17) mg/dL Creatinine (0.52-1.04) mg/dL Estimated GFR ML/MIN Glucose (74-106) mg/dL Calcium (8.4-10.2) mg/dL Total Bilirubin (0.2-1.3) mg/dL AST (14-36) U/L ALT (0-35) U/L Alkaline Phosphatase (38-126) U/L Troponin I < 0.012 < 0.012 (0.000-0.034) ng/mL Serum Total Protein (6.3-8.2) g/dL Albumin (3.5-5.0) g/dL 01/02/19 01/02/19 Range/Units 08:35 08:35 WBC 12.3 H (4.0-10.5) K/mm3 RBC 4.82 (4.1-5.4) M/mm3 Hgb 14.2 (12.0-16.0) gm/dl Hct 43.5 (35-47) % MCV 90.2 (78-100) fl MCH 29.5 (26-32) pg MCHC 32.6 (32-36) g/dl RDW 14.2 H (11.5-14.0) % Plt Count 373 (150-450) K/mm3 MPV 10.2 H (6-9.5) fl Gran % 50.8 (36.0-66.0) % Eos # (Auto) 0.41 (0-0.5) Absolute Lymphs (auto) 4.76 H (1.0-4.6) Absolute Monos (auto) 0.85 (0.0-1.3) Lymphocytes % 38.7 (24.0-44.0) % Monocytes % 6.9 (0.0-12.0) % Eosinophils % 3.3 (0.00-5.0) % Basophils % 0.3 (0.0-0.4) % Absolute Granulocytes 6.24 (1.4-6.9) Basophils # 0.04 (0-0.4) D-Dimer (215-500) ng/mL Sodium 142 (137-145) mmol/L Potassium 4.2 (3.5-5.1) mmol/L Chloride 105 (98-107) mmol/L Carbon Dioxide 28 (22-30) mmol/L Anion Gap 13.3 (5-15) MEQ/L BUN 13 (7-17) mg/dL Creatinine 0.76 (0.52-1.04) mg/dL Estimated GFR > 60.0 ML/MIN Glucose 105 (74-106) mg/dL Calcium 10.5 H (8.4-10.2) mg/dL Total Bilirubin 0.50 (0.2-1.3) mg/dL AST 29 (14-36) U/L ALT 42 H (0-35) U/L Alkaline Phosphatase 184 H (38-126) U/L Troponin I (0.000-0.034) ng/mL Serum Total Protein 7.3 (6.3-8.2) g/dL Albumin 4.2 (3.5-5.0) g/dL - Progress Progress: re-examined, unchanged Air Movement: good Progress Note: 01/02/19 12:29 cxr- no acute process 01/02/19 12:30 cp resolved Blood Culture(s) Obtained: No Antibiotics given: No Counseled pt/family regarding: lab results, diagnosis, need for follow-up, rad results - Departure Time of Disposition: 12:29 Departure Disposition: Home Clinical Impression: Chest pain Condition: Good Critical Care Time: No Referrals: HINA BRIONES [Primary Care Provider] - Additional Instructions: take your medications as prescribed. 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
[2019-01-02] MEDS ORDERED: BABY ASPIRIN 81 MG CHEW PO ONE (08:53)
[2019-01-02] MEDS ORDERED: GI COCKTAIL 45 ML (Maalox/Lidocaine) PO ONE (08:54)
[2019-01-02 09:06] LABS: BASOPHIL % 0.3 % (0.0-0.4); Basophil (Absolute #) 0.04 (0-0.4); Eosinophil % 3.3 % (0.00-5.0); Eosinophil (Absolute #) 0.41 (0-0.5); Granulocyte Absolute (ANC) 6.24 (1.4-6.9); Granulocytes % 50.8 % (36.0-66.0); Hematocrit 43.5 % (35-47); Hemoglobin 14.2 gm/dl (12.0-16.0); Lymphocyte (Absolute #) 4.76 (1.0-4.6); Lymphocytes % 38.7 % (24.0-44.0); Mean Cell Volume 90.2 fl (78-100); Mean Corpuscular Hemoglobin 29.5 pg (26-32); Mean Corpuscular Hgb Concent. 32.6 g/dl (32-36); Mean Platelet Volume 10.2 fl (6-9.5); Monocyte (Absolute #) 0.85 (0.0-1.3); Monocytes % 6.9 % (0.0-12.0); Platelet Count 373 K/mm3 (150-450); Red Blood Count 4.82 M/mm3 (4.1-5.4); Red Cell Distribution Width 14.2 % (11.5-14.0); White Blood Count 12.3 K/mm3 (4.0-10.5)
[2019-01-02 09:55] LABS: ALBUMIN 4.2 g/dL (3.5-5.0); ALKALINE PHOSPHATASE 184 U/L (38-126); ANION GAP 13.3 MEQ/L (5-15); BLOOD UREA NITROGEN 13 mg/dL (7-17); CHLORIDE 105 mmol/L (98-107); Calcium 10.5 mg/dL (8.4-10.2); Carbon Dioxide 28 mmol/L (22-30); Creatinine 1 0.76 mg/dL (0.52-1.04); Glucose 105 mg/dL (74-106); Potassium 4.2 mmol/L (3.5-5.1); SGOT/AST 29 U/L (14-36); SGPT/ALT 42 U/L (0-35); SODIUM 142 mmol/L (137-145); Total Protein 7.3 g/dL (6.3-8.2)
--- NOTE | 2019-01-02 11:08 | XRAY ---
Indication: Sternum and back pain. Comparison: August 14, 2018. Portable chest again demonstrates normal heart and lungs. Bony thorax intact again with levoscoliosis. No new/acute findings.
[2019-01-02 12:54] VITALS: BP 104/65; PULSE 71; O2SAT 99
== END 2019-01-02 12:56 | disposition home or self-care (01) ==
LOC: ED 08:28
DX: R07.89 Other chest pain (principal); I25.2 Old myocardial infarction; Z79.899 Other long term (current) drug therapy; G40.909 Epilepsy, unspecified, not intractable, without status epilepticus; G43.909 Migraine, unspecified, not intractable, without status migrainosus; I25.10 Atherosclerotic heart disease of native coronary artery without angina pectoris; I10 Essential (primary) hypertension
CPT/HCPCS: 36000; 36415; 71045; 80053; 84484; 85025; 85379; 93005; 93041; 99284; A9270-GY

== ENCOUNTER 2019-08-19 20:35 | Emergency (ER) | payer OTHER ==
--- NOTE | 2019-08-19 21:26 | ERPHSYRPT ---
- History of Present Illness Time Seen by Provider: 08/19/19 22:05 Source: patient Exam Limitations: no limitations Patient Subjective Stated Complaint: pt states she has been feeling pain on left side the last 2 days. numbness since 7 pm tonight. pt states she has no trouble swallowingface tingling as well. pt staes pain in l side of face. Triage Nursing Assessment: pt is alert and oriented, able to move all extremities without difficulty,visual acuity intact, l arm weaker than right. bll equal in strength. 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 Tonight has numbness left arm and left LE. No other neuro findings. No chest pain, no speach difficulties. Continuous, nothing makes worse or better. Never had before. 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 Allergies/Adverse Reactions: codeine [Codeine] Allergy (Verified 08/19/19 21:06) hydrocodone [Hydrocodone] Allergy (Verified 08/19/19 21:06) hydromorphone HCl [From Dilaudid] Allergy (Verified 08/19/19 21:06) terbutaline sulfate [From Brethine] Allergy (Verified 08/19/19 21:06) morphine Adverse Reaction (Verified 08/19/19 21:06) Home Medications: Levetiracetam [Keppra] 500 mg PO BID 06/11/16 [History] Aspirin 81 mg PO DAILY 11/04/16 [History] Isosorbide Mononitrate 30 mg [Imdur 30 MG] 15 mg PO DAILY 11/04/16 [History ] Nitroglycerin 0.4 mg Tablet [Nitrostat 0.4 MG Tablet] 0.4 mg SL UD [History] Alprazolam 1 mg [Xanax 1 mg] 0.5 - 1 mg PO Q8H PRN PRN 03/19/17 [History] Metoprolol Tartrate 50 mg [Lopressor 50 MG] 50 mg PO BID 03/19/17 [History ] Atorvastatin Calcium [Lipitor] 80 mg PO DAILY 03/27/18 [History] Ergocalciferol (Vitamin D2) [Vitamin D2] 50,000 units PO UD 11/10/18 [History] Hx Tetanus, Diphtheria Vaccination/Date Given: No (2015) Hx Influenza Vaccination/Date Given: Yes Hx Pneumococcal Vaccination/Date Given: No - Review of Systems Constitutional: No Symptoms Eyes: No Symptoms Ears, Nose, & Throat: No Symptoms Respiratory: No Symptoms, No Cough, No Cyanosis, No Dyspnea Cardiac: No Symptoms, No Chest Pain, No Edema, No Palpitations Abdominal/Gastrointestinal: No Symptoms, No Abdominal Pain, No Nausea, No Vomiting Musculoskeletal: No Symptoms, No Arthralgias, No Back Pain, No Neck Pain All Other Systems: Reviewed and Negative - Past Medical History Pertinent Past Medical History: Yes Neurological History: Epilepsy, Migraines, Seizures ENT History: No Pertinent History Cardiac History: Congestive Heart Failure, Hypertension Respiratory History: No Pertinent History Endocrine Medical History: Other Musculoskeletal History: No Pertinent History GI Medical History: No Pertinent History History: Kidney Cancer Psycho-Social History: No Pertinent History Female Reproductive Disorders: Other Other Medical History: seizures, menopause, chf, hypertension - Past Surgical History Past Surgical History: Yes Neuro Surgical History: No Pertinent History Cardiac: Cardiac Catheterization Respiratory: No Pertinent History Gastrointestinal: Cholecystectomy Genitourinary: Kidney Surgery Musculoskeletal: No Pertinent History, Orthopedic Surgery Female Surgical History: Section, Tubal Ligation Other Surgical History: c section, tubal ligation, l kidney removal, wilms tumor , choly, tonsillectomny, adenoidectomy - Social History Smoking Status: Current every day smoker How long have you smoked: 11 years Exposure to second hand smoke: Yes Alcohol Use: None Drug Use: none Patient Lives Alone: Yes Significant Family History: no pertinent family hx - Female History Hx Last Menstrual Period: menopause Hx Now: No - Nursing Vital Signs Nursing Vital Signs: Initial Vital Signs Temperature 98.5 F 08/19/19 20:42 Pulse Rate 98 H 08/19/19 20:42 Respiratory Rate 18 08/19/19 20:42 Blood Pressure 114/66 08/19/19 20:42 O2 Sat by Pulse Oximetry 99 08/19/19 20:42 Pain Scale Pain Intensity 0 - Physical Exam General Appearance: no apparent distress Eye Exam: PERRL/EOMI, eyes nml inspection Ears, Nose, Throat Exam: normal ENT inspection, pharynx normal, moist mucous membranes Neck Exam: normal inspection, non-tender Respiratory Exam: normal breath sounds, chest tenderness, lungs clear, airway intact Cardiovascular Exam: regular rate/rhythm, normal heart sounds, normal peripheral pulses Gastrointestinal/Abdomen Exam: soft, normal bowel sounds Extremity Exam: normal inspection, normal range of motion, No calf tenderness Neurologic Exam: alert, oriented x 3 Skin Exam: normal color, warm, dry SpO2 Interpretation: normal SpO2: 99 O2 Delivery: Room Air - Course Nursing assessment & vital signs reviewed: Yes EKG Interpreted by Me: RATE ([id number]), Sinus Rhythm, NORMAL AXIS, NORMAL QRS, NORMAL ST-T Ordered Tests: Active Orders 24 hr Category Date Time Status CBC Stat Lab 08/19/19 21:30 Completed CMP Stat Lab 08/19/19 21:30 Completed Lab/Rad Data: Laboratory Result Diagrams 08/19/19 21:30 08/19/19 21:30 Laboratory Results 08/19/19 08/19/19 Range/Units 21:30 21:30 WBC 9.6 (4.0-10.5) K/mm3 RBC 3.98 L (4.1-5.4) M/mm3 Hgb 12.4 (12.0-16.0) gm/dl Hct 38.7 (35-47) % MCV 97.2 (78-100) fl MCH 31.1 (26-32) pg MCHC 32.0 (32-36) g/dl RDW 13.7 (11.5-14.0) % Plt Count 289 (150-450) K/mm3 MPV 10.7 H (6-9.5) fl Sodium 145 (137-145) mmol/L Potassium 3.9 (3.5-5.1) mmol/L Chloride 110 H (98-107) mmol/L Carbon Dioxide 28 (22-30) mmol/L Anion Gap 11.7 (5-15) MEQ/L BUN 17 (7-17) mg/dL Creatinine 0.97 (0.52-1.04) mg/dL Estimated GFR > 60.0 ML/MIN Glucose 92 (74-106) mg/dL Calcium 10.1 (8.4-10.2) mg/dL Total Bilirubin 0.30 (0.2-1.3) mg/dL AST 30 (14-36) U/L ALT 35 (0-35) U/L Alkaline Phosphatase 135 H (38-126) U/L Serum Total Protein 6.6 (6.3-8.2) g/dL Albumin 3.8 (3.5-5.0) g/dL - Progress Progress: unchanged Progress Note: 08/20/19 02:32 No distress; educated earlier re all normal findings. No indication of either a cardiac or neurologic/stroke/TIA involvement. Patient will take Monday off with medical excuse and is off Monday - return to work . - Departure Departure Disposition: Home Clinical Impression: Numbness and tingling of left upper and lower extremity Condition: Stable Critical Care Time: No Referrals: HINA BRIONES [Primary Care Provider] - Additional Instructions: Rest - off work 2 days - Monday and Monday (Monday is normal day off). Follow up with primary care providerr as needed.
[2019-08-19 22:03] LABS: Hematocrit 38.7 % (35-47); Hemoglobin 12.4 gm/dl (12.0-16.0); Mean Cell Volume 97.2 fl (78-100); Mean Platelet Volume 10.7 fl (6-9.5); Platelet Count 289 K/mm3 (150-450); Red Blood Count 3.98 M/mm3 (4.1-5.4); Red Cell Distribution Width 13.7 % (11.5-14.0); White Blood Count 9.6 K/mm3 (4.0-10.5)
[2019-08-19 22:04] LABS: Mean Corpuscular Hemoglobin 31.1 pg (26-32)
[2019-08-19 22:07] LABS: ALBUMIN 3.8 g/dL (3.5-5.0); ALKALINE PHOSPHATASE 135 U/L (38-126); ANION GAP 11.7 MEQ/L (5-15); BLOOD UREA NITROGEN 17 mg/dL (7-17); CHLORIDE 110 mmol/L (98-107); Calcium 10.1 mg/dL (8.4-10.2); Carbon Dioxide 28 mmol/L (22-30); Creatinine 1 0.97 mg/dL (0.52-1.04); Glucose 92 mg/dL (74-106); Potassium 3.9 mmol/L (3.5-5.1); SGOT/AST 30 U/L (14-36); SGPT/ALT 35 U/L (0-35); SODIUM 145 mmol/L (137-145); Total Protein 6.6 g/dL (6.3-8.2)
[2019-08-19 23:22] VITALS: O2SAT 99
[2019-08-19 23:53] VITALS: BP 98/60; PULSE 87
== END 2019-08-19 23:53 | disposition home or self-care (01) ==
LOC: ED 20:35
DX: R20.0 Anesthesia of skin (principal)
CPT/HCPCS: 36000; 36415; 80053; 85027; 99284

== ENCOUNTER 2023-10-04 08:09 | Observation (INO) | payer SELFPAY ==
--- NOTE | 2023-10-04 08:16 | ERPHSYRPT ---
- History of Present Illness Time Seen by Provider: 10/04/23 08:16 Historian: patient, family Exam Limitations: no limitations Physician History: This is a 38-year-old white female patient who is a patient of Dr. Briones as her primary care provider, Dr. Blaine Sheth as her rendering equipment tender and Dr. Villegas (younger) as her oncologist and presents with substernal central sharp chest pain with associated palpitations that began this morning after she awoke. Patient has been diagnosed with breast cancer and is on chemotherapy. Her last chemotherapy she received was the prior to this evaluation. 2 days ago, patient was diagnosed with pulmonary embolus and initially she received Lovenox injection and began taking Eliquis yesterday. Patient has a history of coronary artery disease, hyperlipidemia, GERD, hypertension, diabetes, chronic renal disease and anxiety. 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 Patient also has had her gallbladder removed in the past. Patient was diagnosed with myocardial infa rction in the past per her report. Patient took all her medications as prescribed this morning. She has associated nausea with her chest pain. She has not been eating or drinking well since her last chemotherapy session began patient was recently discharged from [facility]. We have requested the [facility] records and I will review those. Timing/Duration: today Activities at Onset: none Quality: sharpness Location: substernal, central Chest Pain Radiation: no radiation Severity of Pain-Max: mild Severity of Pain-Current: mild (To moderate) Modifying Factors: Improves With: nothing Associated Symptoms: nausea, palpitations, No vomiting, No abdominal pain, No shortness of breath Prior Chest Pain/Cardiac Workup: cardiac cath, pulmonary embolism, recent hospitalization Nitro Today/Relief: no nitro taken today Aspirin Treatment Today: unknown Allergies/Adverse Reactions: codeine [Codeine] Allergy (Verified 06/04/23 01:55) hydromorphone HCl [From Dilaudid] Allergy (Verified 06/04/23 01:55) terbutaline sulfate [From Brethine] Allergy (Verified 06/04/23 01:55) morphine Adverse Reaction (Verified 06/04/23 01:55) Home Medications: Aspirin 81 mg PO DAILY 11/04/16 [History] Metoprolol Tartrate 50 mg [Lopressor 50 MG] 50 mg PO BID 03/19/17 [History] Atorvastatin Calcium [Lipitor] 80 mg PO DAILY 03/27/18 [History] Budesonide [Budesonide ER] 9 mg PO DAILY 06/04/23 [History] Cholecalciferol (Vitamin D3) [Vitamin D3] 125 mcg PO DAILY 06/04/23 [History] Hydrocodone/Acetaminophen [Hydrocodone-Acetamin 5-325 mg] 1 tab PO Q6HPRN PRN MDD 4 06/04/23 [History] Ondansetron ODT 4 MG [Zofran Odt 4 mg] 4 mg PO Q8H PRN PRN 06/04/23 [History] PANTOPRAZOLE 40 mg Tablet [Protonix 40MG Tablet] 40 mg PO QAM 06/04/23 [History] Ranolazine 500 MG [Ranexa 500 MG] 500 mg PO BID 06/04/23 [History] Alprazolam [Xanax] 1 mg PO 10/04/23 [History] Apixaban [Eliquis] 5 mg PO 10/04/23 [History] Fentanyl 75Mcg Patch [Duragesic 75 MCG Patch] 1 PRN 10/04/23 [History] Hx Tetanus, Diphtheria Vaccination/Date Given: No (2015) Hx Influenza Vaccination/Date Given: Yes Hx Pneumococcal Vaccination/Date Given: No Travel Risk - International Travel Have you traveled outside of the country in past 3 weeks: No - Coronavirus Screening Are you exhibiting any of the following symptoms?: No Close contact with a COVID-19 positive Pt in past 14-21 Days: No - Vaccine Status Have you recieved a Covid-19 vaccination: No - Review of Systems Constitutional: Weakness Eyes: No Symptoms Ears, Nose, & Throat: No Symptoms Respiratory: No Symptoms Cardiac: Chest Pain, Palpitations Abdominal/Gastrointestinal: No Symptoms Genitourinary Symptoms: No Symptoms Musculoskeletal: No Symptoms Skin: No Symptoms Neurological: No Symptoms Psychological: No Symptoms Endocrine: No Symptoms Hematologic/Lymphatic: No Symptoms Immunological/Allergic: No Symptoms All Other Systems: Reviewed and Negative - Past Medical History Pertinent Past Medical History: Yes Neurological History: Epilepsy, Migraines ENT History: Other Cardiac History: Coronary Artery Disease, Myocardial Infarction (PR) Respiratory History: No Pertinent History Endocrine Medical History: Diabetes Type II, Liver Disease Musculoskeletal History: Arthritis, Osteoporosis GI Medical History: Colitis, Irritable Bowel History: Kidney Cancer, Renal Disease Psycho-Social History: Anxiety, Panic Disorder Female Reproductive Disorders: Other Other Medical History: seizures, menopause, chf, hypertension - Past Surgical History Past Surgical History: Yes Neuro Surgical History: No Pertinent History Cardiac: No Pertinent History Respiratory: No Pertinent History Gastrointestinal: No Pertinent History Genitourinary: Kidney Surgery Musculoskeletal: No Pertinent History Female Surgical History: Section, Tubal Ligation Other Surgical History: c section, tubal ligation, l kidney removal, wilms tumor, choly, tonsillectomny, adenoidectomy - Social History Smoking Status: Former smoker How long have you smoked: 20 years. Exposure to second hand smoke: Yes Alcohol Use: None Drug Use: marijuana Patient Lives Alone: Yes Significant Family History: no pertinent family hx - Nursing Vital Signs Nursing Vital Signs: Initial Vital Signs Pulse Rate 149 H 10/04/23 08:08 Respiratory Rate 19 10/04/23 08:08 Blood Pressure 117/94 10/04/23 08:08 O2 Sat by Pulse Oximetry 98 10/04/23 08:08 Pain Scale Pain Intensity 10 - Physical Exam General Appearance: mild distress, alert, anxiety Eye Exam: PERRL/EOMI, eyes nml inspection Ears, Nose, Throat Exam: normal ENT inspection, dry mucous membranes Neck Exam: normal inspection, non-tender, supple, full range of motion Respiratory Exam: normal breath sounds, chest tenderness, lungs clear, airway intact, No respiratory distress Cardiovascular Exam: normal peripheral pulses, tachycardia Gastrointestinal/Abdomen Exam: soft, normal bowel sounds, No tenderness Pelvic Exam: not done Rectal Exam: not done Back Exam: normal inspection, normal range of motion, No CVA tenderness, No vertebral tenderness Extremity Exam: normal inspection, normal range of motion, pelvis stable Neurologic Exam: alert, oriented x 3, cooperative, 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 II-XII nml as tested, nml cerebellar function, nml station & gait, sensation nml Skin Exam: normal color, warm, dry Lymphatic Exam: No adenopathy SpO2 Interpretation: normal O2 Delivery: Room Air - Course Nursing assessment & vital signs reviewed: Yes EKG Interpreted by Me: RATE (152), Sinus Tach, NORMAL AXIS, NORMAL INTERVALS, NORMAL QRS, NORMAL ST-T, Other (No evidence of any acute ischemic changes on today's twelve-lead EKG.) Ordered Tests: Active Orders 24 hr Category Date Time Status EKG-ER Only STAT Care 10/04/23 08:19 Active IV Insertion STAT Care 10/04/23 08:19 Active Pulse Oximetry (ED) STAT Care 10/04/23 08:19 Active CBC W DIFF Stat Lab 10/04/23 08:34 Completed CMP Stat Lab 10/04/23 08:34 Completed MAGNESIUM Stat Lab 10/04/23 08:34 Completed Manual Differential NC Stat Lab 10/04/23 08:34 Completed NT PRO BNPII Stat Lab 10/04/23 08:34 Completed TROPONIN Q4H Lab 10/04/23 08:34 Completed TROPONIN Q4H Lab 10/04/23 12:30 Ordered TROPONIN Q4H Lab 10/04/23 16:30 Ordered UA W/RFX UR CULTURE Stat Lab 10/04/23 09:28 Completed Transfer Order Routine Transfer 10/04/23 Ordered Medication Summary Generic Name Dose Route Start Last Admin Trade Name Freq PRN Reason Stop Dose Admin Sodium Chloride 1,000 mls @ 100 mls/hr 10/04/23 08:30 10/04/23 10:16 Sodium Chloride 0.9% 1000 Ml IV 11/03/23 08:29 Infused .Q10H NOHEMI Infusion Discontinued Medications Generic Name Dose Route Start Last Admin Trade Name Freq PRN Reason Stop Dose Admin Fentanyl Citrate 12.5 mcg 10/04/23 09:25 10/04/23 09:35 Fentanyl Citrate 100 Mcg/2 Ml* Vial IV 10/04/23 09:26 12.5 mcg STAT ONE Administration Fentanyl Citrate Confirm 10/04/23 09:32 Fentanyl Citrate 100 Mcg/2 Ml* Vial Administered 10/04/23 09:33 Dose 100 mcg .ROUTE .STK-MED ONE Magnesium Sulfate/Dextrose 100 mls @ 200 mls/hr 10/04/23 09:15 10/04/23 09:21 Magnesium 1 Gm / 100 Ml D5w IV 10/04/23 09:44 200 mls/hr STAT ONE Administration Magnesium Sulfate/Dextrose Confirm 10/04/23 09:18 Magnesium 1 Gm / 100 Ml D5w Administered 10/04/23 09:19 Dose 100 mls @ ud IV .STK-MED ONE Lorazepam 1 mg 10/04/23 08:20 10/04/23 08:31 Lorazepam 2 Mg/1 Ml 2 Mg Vial IV 10/04/23 08:21 1 mg STAT ONE Administration Lorazepam Confirm 10/04/23 08:24 Lorazepam 2 Mg/1 Ml 2 Mg Vial Administered 10/04/23 08:25 Dose 2 mg .ROUTE .STK-MED ONE Metoprolol Tartrate 5 mg 10/04/23 08:19 10/04/23 08:31 Metoprolol Tartrate 5 Mg/5 Ml Vial IV 10/04/23 08:20 5 mg STAT ONE Administration Metoprolol Tartrate Confirm 10/04/23 08:24 Metoprolol Tartrate 5 Mg/5 Ml Vial Administered 10/04/23 08:25 Dose 5 mg IV .STK-MED ONE Ondansetron HCl 4 mg 10/04/23 08:39 10/04/23 08:44 Ondansetron Hcl 4 Mg/2 Ml Vial IV 10/04/23 08:40 4 mg STAT ONE Administration Ondansetron HCl Confirm 10/04/23 08:43 Ondansetron Hcl 4 Mg/2 Ml Vial Administered 10/04/23 08:44 Dose 4 mg .ROUTE .STK-MED ONE Lab/Rad Data: Laboratory Result Diagrams 10/04/23 08:34 10/04/23 08:34 Laboratory Results 10/04/23 10/04/23 10/04/23 Range/Units 09:28 08:34 08:34 WBC (4.0-10.5) x10^3/uL RBC (4.1-5.4) x10^6/uL Hgb (12.0-16.0) g/dL Hct (35-47) % MCV (78-100) fL MCH (26-32) pg MCHC (32-36) g/dL RDW (11.5-14.0) % Plt Count (150-450) x10^3/uL MPV (7.5-11.0) fL Segmented Neutrophils (36.0-66.0) % Lymphocytes (Manual) (24-44) % Monocytes (Manual) (0.0-12.0) % Eosinophils (Manual) (0.00-3.0) % Atypical Lymphocytes % Platelet Estimate (NORMAL) RBC Morphology Sodium (137-145) mmol/L Potassium (3.5-5.1) mmol/L Chloride (98-107) mmol/L Carbon Dioxide (22-30) mmol/L Anion Gap (5-15) MEQ/L BUN (7-17) mg/dL Creatinine (0.52-1.04) mg/dL Estimated GFR ML/MIN Glucose (74-106) mg/dL Calcium (8.4-10.2) mg/dL Magnesium 1.2 L (1.6-2.3) mg/dL Total Bilirubin (0.2-1.3) mg/dL AST (14-36) U/L ALT (0-35) U/L Alkaline Phosphatase (38-126) U/L Troponin I < 0.012 (0.000-0.034) ng/mL NT-Pro-B Natriuret Pep (<300) pg/mL Serum Total Protein (6.3-8.2) g/dL Albumin (3.5-5.0) g/dL Urine Color Yellow (Yellow) Urine Appearance Clear (Clear) Urine pH 5.5 (4.6-8.0) Ur Specific [place] 1.025 (1.005-1.030) Urine Protein Negative (Negative) Urine Glucose (UA) Negative (Negative) mg/dL Urine Ketones Negative (Negative) Urine Blood Negative (Negative) Urine Nitrite Negative (Negative) Urine Bilirubin Negative (Negative) Urine Urobilinogen 0.2 (0.2) mg/dL Ur Leukocyte Esterase Trace A (Negative) U Hyaline Cast (Auto) NONE SEEN (0-2) /LPF Urine Microscopic RBC 0-2 (0-5) /HPF Urine Microscopic WBC 3-5 (0-5) /HPF Ur Epithelial Cells Rare (None Seen) /HPF Urine Bacteria None Seen (None Seen) /HPF Urine Culture Reflexed NO (NO) 10/04/23 10/04/23 Range/Units 08:34 08:34 WBC 2.9 L (4.0-10.5) x10^3/uL RBC 3.69 L (4.1-5.4) x10^6/uL Hgb 11.2 L (12.0-16.0) g/dL Hct 35.1 (35-47) % MCV 95.1 (78-100) fL MCH 30.4 (26-32) pg MCHC 31.9 L (32-36) g/dL RDW 15.3 H (11.5-14.0) % Plt Count 28 L* (150-450) x10^3/uL MPV 11.8 H (7.5-11.0) fL Segmented Neutrophils 24 L (36.0-66.0) % Lymphocytes (Manual) 61 H (24-44) % Monocytes (Manual) 10 (0.0-12.0) % Eosinophils (Manual) 1 (0.00-3.0) % Atypical Lymphocytes 4 % Platelet Estimate DECREASED (NORMAL) RBC Morphology NORMAL Sodium 134 L (137-145) mmol/L Potassium 3.7 (3.5-5.1) mmol/L Chloride 103 (98-107) mmol/L Carbon Dioxide 24 (22-30) mmol/L Anion Gap 10.8 (5-15) MEQ/L BUN 21 H (7-17) mg/dL Creatinine 0.70 (0.52-1.04) mg/dL Estimated GFR 114.2 ML/MIN Glucose 150 H (74-106) mg/dL Calcium 8.9 (8.4-10.2) mg/dL Magnesium (1.6-2.3) mg/dL Total Bilirubin 0.50 (0.2-1.3) mg/dL AST 30 (14-36) U/L ALT 63 H (0-35) U/L Alkaline Phosphatase 114 (38-126) U/L Troponin I (0.000-0.034) ng/mL NT-Pro-B Natriuret Pep < 20.0 (<300) pg/mL Serum Total Protein 5.2 L (6.3-8.2) g/dL Albumin 2.9 L (3.5-5.0) g/dL Urine Color (Yellow) Urine Appearance (Clear) Urine pH (4.6-8.0) Ur Specific [place] (1.005-1.030) Urine Protein (Negative) Urine Glucose (UA) (Negative) mg/dL Urine Ketones (Negative) Urine Blood (Negative) Urine Nitrite (Negative) Urine Bilirubin (Negative) Urine Urobilinogen (0.2) mg/dL Ur Leukocyte Esterase (Negative) U Hyaline Cast (Auto) (0-2) /LPF Urine Microscopic RBC (0-5) /HPF Urine Microscopic WBC (0-5) /HPF Ur Epithelial Cells (None Seen) /HPF Urine Bacteria (None Seen) /HPF Urine Culture Reflexed (NO) - Progress Progress: improved, re-examined Air Movement: good Progress Note: 10/04/23 09:17 I reviewed the records from [facility] that was sent to us. The patient und erwent a venous Doppler of her bilateral lower extremities on 10/01/2023 and there is no evidence for DVT. We will not repeat that study here today. The patient's platelet count on 10/02/2023 was 66. She had a white blood cell count of 37.5 on 10/02/2023. CT scan angiogram of the chest with contrast was performed on 09/30/2023 and there is a tiny right lower lobe branch vessel pulmonary embolus. The patient's medical issue is 1 of moderate to high complexity. Level complexity in the work-up performed based on the patient's past medical history, review of the patient's medication list, review the patient's drug allergy list, history of present illness and physical findings on exam. The work-up in this patient includes a twelve-lead EKG, placement of intravenous line, providing the patient with Ativan 1 mg intravenously and 5 mg of intravenous Lopressor. We also obtained a CBC, CMP, troponin level and magnesium level. 10/04/23 09:23 10/04/23 09:57 I spoke with the patient's cad application support specialist/oncologist Dr. Villegas and I reviewed the patient history chief complaint and results of the work-up performed. The stated that although the patient has leukopenia and thrombocytopenia, the patient has received medication to help boost her white blood cell count level and he feels that this will help the white blood cell count rebound and nothing at this moment in time needs to be done for that. He also is aware that the patient's platelet count is low. The cad application support specialist/oncologist also stated to hold her anticoagulation therapy. Again, he feels that nothing emergent needs to be performed at this point since the patient is not bleeding. I reviewed with the patient the lab work results as well as the content of the conversation I had with her oncologist. The plan is to contact [facility] and place her on the admission list. We will observe her for acute coronary syndrome. Patient's pain is still present and significant even in the presence of fentanyl patch and supplementation with low- dose fentanyl. I will discuss with our telehospitalist about placing her in observation here and monitoring her cardiac status as well as her white blood cell count and platelet count until the bed opens up at [facility]. 10/04/23 10:26 I discussed this patient with Dr. Monahan, our telehospitalist, and I reviewed the patient history, chief complaint and results of our work-up performed as well as the patient's response through the intervention we provided. He accepts the patient to be placed in observation in the hospital. We will place her on telemetry. He was advised that the cad application support specialist/oncologist stated to hold her anticoagulation therapy. Blood Culture(s) Obtained: No Antibiotics given: No Counseled pt/family regarding: lab results, diagnosis, need for follow-up Medical Desision Making - Independent Historian Additional History obtained from: Spouse - Diagnostic Testing Diagnostic test were ordered, analyzed, and reviewed by me: Yes Radiological Interpretation: Reviewed by me, Teleradiologist Report - Risk of complications The pt has a high risk of morbidity or mortality based on: Decision regarding hospitilization or escalation of hosp level of care - Departure Departure Disposition: Observation Clinical Impression: Leukopenia, Thrombocytopenia, Stage III breast cancer in female, Sinus tachycardia, Hypomagnesemia Condition: Fair Critical Care Time: Yes Critical Care Time(excluding separately billable procedures): Critical 30-74 mins (40 minutes) Referrals: HINA BRIONES [ACTIVE STAFF] - Follow up/PCP as directed
[2023-10-04] MEDS ORDERED: LOPRESSOR INJECTION IV ONE ×2 (08:19→08:24)
[2023-10-04] MEDS ORDERED: Ativan 2 MG/1 ML VIAL IV ONE (08:20)
[2023-10-04] MEDS ORDERED: Ativan 2 MG/1 ML VIAL ONE (08:24)
[2023-10-04] MEDS ORDERED: Sodium Chloride 0.9% 1000 ML 1,000 ML ONE ×3 (08:39→11:08)
[2023-10-04] MEDS ORDERED: Zofran 4 MG/2 ML VIAL IV ONE (08:39)
[2023-10-04] MEDS: Sodium Chloride 0.9% 1000 ML 1,000 ML IV SCH ×3 (08:40→11:40)
[2023-10-04 08:43] LABS: Hematocrit 35.1 % (35-47); Hemoglobin 11.2 g/dL (12.0-16.0); Mean Cell Volume 95.1 fL (78-100); Mean Corpuscular Hemoglobin 30.4 pg (26-32); Mean Corpuscular Hgb Concent. 31.9 g/dL (32-36); Mean Platelet Volume 11.8 fL (7.5-11.0); Red Blood Count 3.69 x10^6/uL (4.1-5.4); Red Cell Distribution Width 15.3 % (11.5-14.0); White Blood Count 2.9 x10^3/uL (4.0-10.5)
[2023-10-04] MEDS ORDERED: Zofran 4 MG/2 ML VIAL ONE (08:43)
[2023-10-04 08:49] LABS: Platelet Count 28 x10^3/uL (150-450)
[2023-10-04 09:10] LABS: ALBUMIN 2.9 g/dL (3.5-5.0); ALKALINE PHOSPHATASE 114 U/L (38-126); ANION GAP 10.8 MEQ/L (5-15); BLOOD UREA NITROGEN 21 mg/dL (7-17); CHLORIDE 103 mmol/L (98-107); Calcium 8.9 mg/dL (8.4-10.2); Carbon Dioxide 24 mmol/L (22-30); EST GLOMERULAR FILTRATION RATE 114.2 ML/MIN; Glucose 150 mg/dL (74-106); NT PRO BNPII < 20.0 pg/mL (<300); Potassium 3.7 mmol/L (3.5-5.1); SGOT/AST 30 U/L (14-36); SGPT/ALT 63 U/L (0-35); SODIUM 134 mmol/L (137-145); Total Protein 5.2 g/dL (6.3-8.2)
[2023-10-04] MEDS ORDERED: Magnesium 1 Gm / 100 Ml D5W*** 100 ML IV ONE ×2 (09:15→09:18)
[2023-10-04 09:20] LABS: ATYPICAL LYMPHS 4 %; Eosinophil 1 % (0.00-3.0); Lymphocytes 61 % (24-44); Monocyte 10 % (0.0-12.0); Neutrophils 24 % (36.0-66.0); Total Cells Counted 100
[2023-10-04 09:21] LABS: Platelet Estimate DECREASED (NORMAL)
[2023-10-04] MEDS ORDERED: SUBLIMAZE 100 MCG/2 ML IV ONE (09:25)
[2023-10-04] MEDS ORDERED: SUBLIMAZE 100 MCG/2 ML ONE (09:32)
[2023-10-04 09:39] LABS: Appearance Clear (Clear); Bacteria None Seen /HPF (None Seen); Bilirubin Negative (Negative); Blood Negative (Negative); Epithelial Cells Rare /HPF (None Seen); Glucose, Urine Negative (Negative); Hyaline Casts NONE SEEN /LPF (0-2); Ketones Negative (Negative); Leukocyte Esterase Trace (Negative); Nitrite Negative (Negative); Ph 5.5 (4.6-8.0); Protein,Urine Dip Negative (Negative); RBC 0-2 /HPF (0-5); Specific Gravity 1.025 (1.005-1.030); Urobilinogen 0.2 mg/dL (0.2)
[2023-10-04 09:40] LABS: ADD URINE CULTURE? NO (NO)
[2023-10-04] MEDS ORDERED: Compazine 10 MG/2 ML IV ONE (11:06)
[2023-10-04] MEDS ORDERED: Compazine 10 MG/2 ML ONE (11:07)
[2023-10-04] MEDS ORDERED: TYLENOL 325 MG PO PRN (12:38)
--- NOTE | 2023-10-04 13:56 | PCM.HP ---
History of Present Illness - Chief Complaint Chief Complaint: sinus tachycardia Date: 10/04/23 History of Present Illness: is a 38 year old female with a pmhx of breast cancer, (under the care of Dr. Parekh, chemotherapy last dose 09/28/23), CAD, HLD, HTN, GERD, DM, CKD, anxiety, PE RLL (on anticoagulation), and wilms tumor s/p left kidney removal presented to ED 10/04/23 with complaints of midsternal chest pain radiating to her back with associated nausea. Onset of pain this morning, although she states she does have sharp chest pain intermittently. She describes the pain as sharp/pressure like/constant, with a numerical rating of 10/10. She also states that she has had diarrhea x 2 days, greater than 5 episodes per day. Denies fever,cough, sob, abdominal pain, LINDSEY, dizziness, or vomiting. In ED patient was tachycardic with HR 149, afebrile, normotensive with spo2 @ 98% on RA. Records reviewed, appears pt had venous doppler of BLE on 10/01/23 which was neg for DVT. CTA on 09/30/23 showed tiny right lower branch vessel PE. Dr. Desir has been contacted and advised to hold anticoagulation therapy for now. EKG with sinus tachycardia, no ST elevation/deviation. No acute ischemic changes. Trops normal. Labs are remarkable for pancytopenia most likely secondary to cytotoxic therapy. Mildly hyponatremic with sodium at 134, bun slightly elevated at 21, mag level at 1.2, ALT at 63. Treated with fentanyl, ativan, magnesium sulfate, metoprolol, zofran, compazine, and IVF bolus. - Review of Systems Constitutional: No Symptoms Eyes: No Symptoms Ears, Nose, & Throat: No Symptoms Respiratory: No Symptoms Cardiac: Chest Pain, Edema, Palpitations Abdominal/Gastrointestinal: No Symptoms, Nausea, Diarrhea Genitourinary Symptoms: No Symptoms Musculoskeletal: No Symptoms Skin: No Symptoms Neurological: No Symptoms Psychological: No Symptoms Endocrine: No Symptoms Hematologic/Lymphatic: Anemia, Blood Clots Medications & Allergies Home Medications: Home Medication List Aspirin 81 mg PO DAILY 11/04/16 [History Confirmed 10/04/23] Metoprolol Tartrate 50 mg [Lopressor 50 MG] 50 mg PO BID 03/19/17 [History Confirmed 10/04/23] Atorvastatin Calcium [Lipitor] 80 mg PO DAILY 03/27/18 [History Confirmed 10/04/23] Budesonide [Budesonide ER] 9 mg PO DAILY 06/04/23 [History Confirmed 10/04/23] Cholecalciferol (Vitamin D3) [Vitamin D3] 125 mcg PO DAILY 06/04/23 [History Confirmed 10/04/23] Hydrocodone/Acetaminophen [Hydrocodone-Acetamin 5-325 mg] 1 tab PO Q6HPRN PRN MDD 4 06/04/23 [History Confirmed 10/04/23] Ondansetron ODT 4 MG [Zofran Odt 4 mg] 4 mg PO Q8H PRN PRN 06/04/23 [History Confirmed 10/04/23] PANTOPRAZOLE 40 mg Tablet [Protonix 40MG Tablet] 40 mg PO QAM 06/04/23 [History Confirmed 10/04/23] Ranolazine 500 MG [Ranexa 500 MG] 500 mg PO BID 06/04/23 [History Confirmed 10/04/23] Alprazolam [Xanax] 1 mg PO TID PRN PRN 10/04/23 [History Confirmed 10/04/23] Apixaban [Eliquis] 5 mg PO DAILY 10/04/23 [History Confirmed 10/04/23] Fentanyl 75Mcg Patch [Duragesic 75 MCG Patch] 1 patch TOP Q72H PRN 10/04/23 [History Confirmed 10/04/23] Allergies/Adverse Reactions: Allergies Allergy/AdvReac Type Severity Reaction Status Date / Time codeine [Codeine] Allergy Severe Verified 10/04/23 13:18 hydromorphone HCl Allergy Severe Verified 10/04/23 13:18 [From Dilaudid] terbutaline sulfate Allergy Severe Verified 10/04/23 13:18 [From Brethine] morphine AdvReac Intermediate Vomiting Verified 10/04/23 13:18 - Past Medical History Past Medical History: Yes Neurological History: Epilepsy, Migraines, Seizures, Stroke ENT History: Other Cardiac History: Coronary Artery Disease, High Cholesterol, Hypertension, Myocardial Infarction (IA), Other Respiratory History: No Pertinent History Endocrine Medical History: Diabetes Type II, Liver Disease Musculoskelatal History: Fractures, Osteoporosis GI Medical History: Colitis, Hemorrhoids, Irritable Bowel History: Kidney Cancer, Renal Disease Pyscho-Social History: Anxiety, Panic Disorder Reproductive Disorders: Other Comment: kidney cancer at age 18 months, bilat wrist fracture and leg - Female History Are you now?: No - Past Surgical History Past Surgical History: Yes Neuro Surgical History: No Pertinent History Cardiac History: No Pertinent History Respiratory Surgery: No Pertinent History GI Surgical History: No Pertinent History Genitourinary Surgical Hx: Kidney Surgery Musculskeletal Surgical Hx: No Pertinent History Female Surgical History: Section, Tubal Ligation Other Surgical History: c section, tubal ligation, l kidney removal, wilms tumor, choly, tonsillectomny, adenoidectomy - Social History Smoking Status: Former smoker How long have you smoked: 12 yrs Exposure to second hand smoke: No Alcohol: None Drug Use: none Significant Family History: no pertinent family hx - Physical Exam Vital Signs: Vital Signs - 24 hr Temp Pulse Resp BP BP Pulse Ox 10/04/23 13:00 98.6 F 106 H 16 112/57 97 10/04/23 12:41 98.6 F 106 H 16 112/57 97 10/04/23 12:38 97 10/04/23 12:00 104 H 17 103/53 97 10/04/23 11:45 106 H 16 103/51 97 10/04/23 11:30 105 H 17 111/52 98 10/04/23 11:15 101 H 16 112/50 98 10/04/23 11:00 98 H 15 91/67 100 10/04/23 10:45 101 H 18 106/52 100 10/04/23 10:30 107 H 26 H 107/65 98 10/04/23 10:15 16 91/63 98 10/04/23 10:02 108 H 15 99 10/04/23 09:45 108 H 16 108/54 99 10/04/23 09:30 105 H 15 103/59 100 10/04/23 09:15 113 H 17 104/61 99 10/04/23 09:00 119 H 18 102/74 10/04/23 08:45 96.8 F 122 H 16 86/68 98 10/04/23 08:43 121 H 18 104/71 99 10/04/23 08:39 97 10/04/23 08:30 121 H 16 105/85 99 10/04/23 08:19 162 H 18 117/94 97 10/04/23 08:08 149 H 19 117/94 98 General Appearance: mild distress Neurologic Exam: alert, oriented x 3, cooperative Eye Exam: PERRL/EOMI Ears, Nose, Throat Exam: normal ENT inspection Neck Exam: normal inspection Respiratory Exam: normal breath sounds, lungs clear Cardiovascular Exam: tachycardia Gastrointestinal/Abdomen Exam: soft, normal bowel sounds Pelvic Exam: not done Rectal Exam: deferred Back Exam: normal inspection Extremity Exam: other (milde BLE) Skin Exam: pale, other (Right chest port) Results - Labs Lab/Micro Results: Lab Results-Last 24 Hours 10/04/23 10/04/23 10/04/23 Range/Units 08:34 08:34 08:34 WBC 2.9 L (4.0-10.5) x10^3/uL RBC 3.69 L (4.1-5.4) x10^6/uL Hgb 11.2 L (12.0-16.0) g/dL Hct 35.1 (35-47) % MCV 95.1 (78-100) fL MCH 30.4 (26-32) pg MCHC 31.9 L (32-36) g/dL RDW 15.3 H (11.5-14.0) % Plt Count 28 L* (150-450) x10^3/uL MPV 11.8 H (7.5-11.0) fL Segmented Neutrophils 24 L (36.0-66.0) % Lymphocytes (Manual) 61 H (24-44) % Monocytes (Manual) 10 (0.0-12.0) % Eosinophils (Manual) 1 (0.00-3.0) % Atypical Lymphocytes 4 % Platelet Estimate DECREASED (NORMAL) RBC Morphology NORMAL Sodium 134 L (137-145) mmol/L Potassium 3.7 (3.5-5.1) mmol/L Chloride 103 (98-107) mmol/L Carbon Dioxide 24 (22-30) mmol/L Anion Gap 10.8 (5-15) MEQ/L BUN 21 H (7-17) mg/dL Creatinine 0.70 (0.52-1.04) mg/dL Estimated GFR 114.2 ML/MIN Glucose 150 H (74-106) mg/dL Calcium 8.9 (8.4-10.2) mg/dL Magnesium (1.6-2.3) mg/dL Total Bilirubin 0.50 (0.2-1.3) mg/dL AST 30 (14-36) U/L ALT 63 H (0-35) U/L Alkaline Phosphatase 114 (38-126) U/L Troponin I < 0.012 (0.000-0.034) ng/mL NT-Pro-B Natriuret Pep < 20.0 (<300) pg/mL Serum Total Protein 5.2 L (6.3-8.2) g/dL Albumin 2.9 L (3.5-5.0) g/dL Urine Color (Yellow) Urine Appearance (Clear) Urine pH (4.6-8.0) Ur Specific [place] (1.005-1.030) Urine Protein (Negative) Urine Glucose (UA) (Negative) mg/dL Urine Ketones (Negative) Urine Blood (Negative) Urine Nitrite (Negative) Urine Bilirubin (Negative) Urine Urobilinogen (0.2) mg/dL Ur Leukocyte Esterase (Negative) U Hyaline Cast (Auto) (0-2) /LPF Urine Microscopic RBC (0-5) /HPF Urine Microscopic WBC (0-5) /HPF Ur Epithelial Cells (None Seen) /HPF Urine Bacteria (None Seen) /HPF Urine Culture Reflexed (NO) 10/04/23 10/04/23 Range/Units 08:34 09:28 WBC (4.0-10.5) x10^3/uL RBC (4.1-5.4) x10^6/uL Hgb (12.0-16.0) g/dL Hct (35-47) % MCV (78-100) fL MCH (26-32) pg MCHC (32-36) g/dL RDW (11.5-14.0) % Plt Count (150-450) x10^3/uL MPV (7.5-11.0) fL Segmented Neutrophils (36.0-66.0) % Lymphocytes (Manual) (24-44) % Monocytes (Manual) (0.0-12.0) % Eosinophils (Manual) (0.00-3.0) % Atypical Lymphocytes % Platelet Estimate (NORMAL) RBC Morphology Sodium (137-145) mmol/L Potassium (3.5-5.1) mmol/L Chloride (98-107) mmol/L Carbon Dioxide (22-30) mmol/L Anion Gap (5-15) MEQ/L BUN (7-17) mg/dL Creatinine (0.52-1.04) mg/dL Estimated GFR ML/MIN Glucose (74-106) mg/dL Calcium (8.4-10.2) mg/dL Magnesium 1.2 L (1.6-2.3) mg/dL Total Bilirubin (0.2-1.3) mg/dL AST (14-36) U/L ALT (0-35) U/L Alkaline Phosphatase (38-126) U/L Troponin I (0.000-0.034) ng/mL NT-Pro-B Natriuret Pep (<300) pg/mL Serum Total Protein (6.3-8.2) g/dL Albumin (3.5-5.0) g/dL Urine Color Yellow (Yellow) Urine Appearance Clear (Clear) Urine pH 5.5 (4.6-8.0) Ur Specific [place] 1.025 (1.005-1.030) Urine Protein Negative (Negative) Urine Glucose (UA) Negative (Negative) mg/dL Urine Ketones Negative (Negative) Urine Blood Negative (Negative) Urine Nitrite Negative (Negative) Urine Bilirubin Negative (Negative) Urine Urobilinogen 0.2 (0.2) mg/dL Ur Leukocyte Esterase Trace A (Negative) U Hyaline Cast (Auto) NONE SEEN (0-2) /LPF Urine Microscopic RBC 0-2 (0-5) /HPF Urine Microscopic WBC 3-5 (0-5) /HPF Ur Epithelial Cells Rare (None Seen) /HPF Urine Bacteria None Seen (None Seen) /HPF Urine Culture Reflexed NO (NO) - Other Procedures and Tests Respiratory Therapy 10/04/23 12:38 EKG REPEAT IN AM Assessment/Plan (1) Chest pain Current Visit: Yes Status: Acute Assessment & Plan: -H/O IA in 2015, 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, spoke with him personally, he recommends toradol for pain, close monitoring, feels most likely pleuritic -EKG with sinus tachycardia otherwise normal -Troponin series normal -Holding anticoagulation for now per heme/onc Code(s): R07.9 - CHEST PAIN, UNSPECIFIED (2) Diarrhea Current Visit: Yes Status: Acute Assessment & Plan: -greater than 5 stools per day x 2 days -Stool studies including cdiff, culture O&P, giardia -Hold immodium until CDIFf is back Code(s): R19.7 - DIARRHEA, UNSPECIFIED (3) Pancytopenia Current Visit: Yes Status: Acute Assessment & Plan: -Secondary to cytotoxic therapies -Spoke with Dr. Villegas, patient on taxotere, carbo, herceptin, received neulasta 09/29/23, last chemo 09/28/23, advised to hold anticoag for now -Continue to monitor counts, transfuse if hgb <7, plts <20 Code(s): D61.818 - OTHER PANCYTOPENIA (4) Hypomagnesemia Current Visit: Yes Status: Acute Assessment & Plan: -most likely secondary to GI losses, received mag in ER, will repeat labs, replenish as needed Code(s): E83.42 - HYPOMAGNESEMIA (5) Sinus tachycardia Current Visit: Yes Status: Acute Assessment & Plan: -? seconday to hypovolemia, will continue to monitor Code(s): R00.0 - TACHYCARDIA, UNSPECIFIED (6) Stage III breast cancer in female Current Visit: Yes Status: Acute Assessment & Plan: -on cytotoxic therapy Nelly VILLATORO heme/onc, see pancytopenia Code(s): C50.919 - MALIGNANT NEOPLASM OF UNSP SITE OF UNSPECIFIED FEMALE BREAST (7) Anxiety Current Visit: No Status: Acute Assessment & Plan: -continue home meds Code(s): F41.9 - ANXIETY DISORDER, UNSPECIFIED (8) History of IA (myocardial infarction) Current Visit: No Status: Acute Assessment & Plan: -see chest pain Code(s): I25.2 - OLD MYOCARDIAL INFARCTION (9) History of Wilms' tumor Current Visit: No Status: Acute Assessment & Plan: -noted, adds complexity Code(s): Z85.528 - PERSONAL HISTORY OF OTHER MALIGNANT NEOPLASM OF KIDNEY (10) Weakness Current Visit: No Status: Acute Assessment & Plan: -secondary to chemotherapy/disease process Code(s): R53.1 - WEAKNESS
[2023-10-04] MEDS ORDERED: DUONEB 0.5-3 MG/3 ml Neb IH PRN (14:43)
[2023-10-04] MEDS ORDERED: HUMALOG SQ PRN (14:43)
[2023-10-04] MEDS ORDERED: Zofran 4 MG/2 ML VIAL IV PRN (14:43)
[2023-10-04] MEDS ORDERED: XANAX 1 MG PO PRN (14:46)
[2023-10-04] MEDS ORDERED: Duragesic 75 MCG Patch TOP PRN (14:46)
[2023-10-04] MEDS ORDERED: NORCO 5/325 MG PO PRN (14:46)
[2023-10-04] MEDS ORDERED: MEDICATION INTERVENTION MC SCH (15:00)
[2023-10-04] MEDS: TORAdol 30 mg Injection IV PRN ×2 (15:02→23:00)
[2023-10-04 15:40] LABS: Hematocrit 26.1 % (35-47); Hemoglobin 8.2 g/dL (12.0-16.0)
[2023-10-04 18:22] LABS: ABO TYPING B; Antibody Screen NEGATIVE (NEGATIVE); RH TYPING POSITIVE
[2023-10-04] MEDS: Zofran 4 MG/2 ML VIAL IV PRN (20:10)
[2023-10-04 21:55] LABS: Hematocrit 25.3 % (35-47); Hemoglobin 8.1 g/dL (12.0-16.0)
[2023-10-04] MEDS ORDERED: ZOCOR 20MG PO SCH (22:00)
[2023-10-04] MEDS: Ranexa 500 MG PO SCH (23:01)
[2023-10-04] MEDS: Lopressor 50 MG PO SCH (23:06)
[2023-10-05] MEDS ORDERED: Zofran 4 MG/2 ML VIAL IV STA (00:49)
[2023-10-05] MEDS: Sodium Chloride 0.9% 1000 ML 1,000 ML IV SCH ×2 (01:02→08:54)
[2023-10-05 03:56] LABS: Hematocrit 25.9 % (35-47); Mean Cell Volume 97.4 fL (78-100); Mean Corpuscular Hemoglobin 30.1 pg (26-32); Mean Corpuscular Hgb Concent. 30.9 g/dL (32-36); Mean Platelet Volume 9.4 fL (7.5-11.0); Red Blood Count 2.66 x10^6/uL (4.1-5.4); Red Cell Distribution Width 15.4 % (11.5-14.0)
[2023-10-05 04:09] LABS: Platelet Count 106 x10^3/uL (150-450); White Blood Count 1.1 x10^3/uL (4.0-10.5)
[2023-10-05 04:10] LABS: ALBUMIN 2.1 g/dL (3.5-5.0); ANION GAP 5.4 MEQ/L (5-15); BILIRUBIN,TOTAL 0.3 mg/dL (0.2-1.3); Calcium 7.9 mg/dL (8.4-10.2); Creatinine 1 0.59 mg/dL (0.52-1.04); Potassium 3.7 mmol/L (3.5-5.1); Total Protein 4.4 g/dL (6.3-8.2)
[2023-10-05 05:27] LABS: Eosinophil 1 % (0.00-3.0); Lymphocytes 82 % (24-44); Monocyte 8 % (0.0-12.0); Neutrophils 8 % (36.0-66.0); Promyelocyte 1 %; Total Cells Counted 100
[2023-10-05 05:28] LABS: ANISOCYTOSIS 1+; Hypochromia 2+; Platelet Estimate DECREASED (NORMAL)
[2023-10-05] MEDS: TORAdol 30 mg Injection IV PRN (05:50)
[2023-10-05 06:51] VITALS: RESP 16
[2023-10-05 07:40] LABS: Absolute Neutrophil Ct (ANC) 0.19 x10^3/uL (1.4-6.9); Basophil (Absolute #) 0 x10^3/uL (0-0.4); Eosinophil % 1.8 % (0.00-5.0); Eosinophil (Absolute #) 0.02 x10^3/uL (0-0.5); Hematocrit 25.2 % (35-47); Hemoglobin 7.9 g/dL (12.0-16.0); Lymphocyte (Absolute #) 0.78 x10^3/uL (1.0-4.6); Lymphocytes % 70.3 % (24.0-44.0); Mean Cell Volume 96.2 fL (78-100); Mean Corpuscular Hemoglobin 30.2 pg (26-32); Mean Corpuscular Hgb Concent. 31.3 g/dL (32-36); Mean Platelet Volume 9.4 fL (7.5-11.0); Monocyte (Absolute #) 0.12 x10^3/uL (0.0-1.3); Monocytes % 10.8 % (0.0-12.0); Neutrophil % 17.1 % (36.0-66.0); Platelet Count 76 x10^3/uL (150-450); Red Blood Count 2.62 x10^6/uL (4.1-5.4)
[2023-10-05] MEDS: MAGNESIUM SULF 2 G/50 ML BAG 2 GM/50 ML PIGGYBACK IV SCH ×2 (07:53→10:11)
[2023-10-05 08:01] LABS: White Blood Count 1.1 x10^3/uL (4.0-10.5)
[2023-10-05] MEDS: Ranexa 500 MG PO SCH (08:52)
[2023-10-05] MEDS: Lopressor 50 MG PO SCH (08:54)
[2023-10-05] MEDS ORDERED: Sodium Chloride 0.9% 1000 ML 1,000 ML IV ONE (09:15)
[2023-10-05] MEDS ORDERED: SUBLIMAZE 100 MCG/2 ML IV ONE (09:15)
[2023-10-05 09:18] LABS: Slide Review 1 YES
[2023-10-05] MEDS: Zofran 4 MG/2 ML VIAL IV PRN ×2 (09:29→15:31)
[2023-10-05] MEDS ORDERED: ECOTRIN 81 MG PO SCH (10:00)
[2023-10-05] MEDS ORDERED: Duragesic 75 MCG Patch TOP PRN (10:00)
[2023-10-05] MEDS ORDERED: BUDESONIDE 9 MG PO SCH (10:00)
[2023-10-05] MEDS ORDERED: VITAMIN D PO SCH (10:00)
[2023-10-05] MEDS ORDERED: Protonix 40MG Tablet PO SCH (10:00)
[2023-10-05] MEDS ORDERED: ELIQUIS 2.5 MG TABLET PO SCH (10:00)
[2023-10-05] MEDS ORDERED: MAXIPIME 1 GM** 1 G in Dextrose 5%/Water IV Soln. 100ML PLUS BAG 100 ML IV SCH (11:00)
[2023-10-05 11:15] LABS: INFLUENZA A NEGATIVE (NEGATIVE); INFLUENZA B NEGATIVE (NEGATIVE); RESPIRATORY SYNCTIAL VIRUS NEGATIVE (NEGATIVE); SARS-CoV-2 Xpert Express NEGATIVE (NEGATIVE)
[2023-10-05 12:07] VITALS: BP 103/52; PULSE 115; TEMP 98.7; O2SAT 95
--- NOTE | 2023-10-05 12:20 | PCM.DS ---
Discharge Summary Date of Admission: 10/04/23 12:30 Date of Discharge: 10/05/23 Admitting Physician: ELICIA REGALADO MD Primary Care Provider: NO FAMILY DOCTOR Allergies Allergies codeine [Codeine] Allergy (Severe, Verified 10/04/23 13:18) hydromorphone HCl [From Dilaudid] Allergy (Severe, Verified 10/04/23 13:18) terbutaline sulfate [From Brethine] Allergy (Severe, Verified 10/04/23 13:18) morphine Adverse Reaction (Intermediate, Verified 10/04/23 13:18) Vomiting Hospital Summary - Hospital Course Hospital Course: is a 38 year old female with a pmhx of breast cancer, (under the care of Dr. Parekh, chemotherapy last dose 09/28/23), CAD, HLD, HTN, GERD, DM, CKD, anxiety, PE RLL (on anticoagulation), and wilms tumor s/p left kidney removal presented to ED 10/04/23 with complaints of midsternal chest pain radiating to her back with associated nausea. Onset of pain this morning, although she states she does have sharp chest pain intermittently. She describes the pain as sharp/pressure like/constant, with a numerical rating of 10/10. She also states that she has had diarrhea x 2 days, greater than 5 episodes per day. Denies fever,cough, sob, abdominal pain, LINDSEY, dizziness, or vomiting. In ED patient was tachycardic with HR 149, afebrile, normotensive with spo2 @ 98% on RA. Records reviewed, appears pt had venous doppler of BLE on 10/01/23 which was neg for DVT. CTA on 09/30/23 showed tiny right lower branch vessel PE. Dr. Desir has been contacted and advised to hold anticoagulation therapy for now. EKG with sinus tachycardia, no ST elevation/deviation. No acute ischemic changes. Trops normal. Labs are remarkable for pancytopenia most likely secondary to cytotoxic therapy. Mildly hyponatremic with sodium at 134, bun slightly elevated at 21, mag level at 1.2, ALT at 63. Treated with fentanyl, ativan, magnesium sulfate, metoprolol, zofran, compazine, and IVF bolus. Patient received 2 units of plts due to level of 16, repeat plt at 76. Mg still low at 1.1, which is being replenished. Patient remains neutropenic, tachycardic, with uncontrolled all over pain, we have started her on cefepime. Discussed case with Dr. Villegas, okay to resume anticoag. She is to transfer to [facility] for a higher level of specialty care. Latest Assessment & Plan -H/O TX in 2016, Dr. Jerrod Sheth is senior center manager, spoke with him personally, he recommends toradol for pain, close monitoring, feels most likely pleuritic -EKG with sinus tachycardia otherwise normal -Troponin series normal -Holding anticoagulation for now per heme/onc Code(s): R07.9 - CHEST PAIN, UNSPECIFIED (2) Diarrhea Current Visit: Yes Status: Acute Assessment & Plan: -greater than 5 stools per day x 2 days -Stool studies including cdiff, culture O&P, giardia -Hold immodium until CDIFf is back Code(s): R19.7 - DIARRHEA, UNSPECIFIED (3) Pancytopenia Current Visit: Yes Status: Acute Assessment & Plan: -Secondary to cytotoxic therapies -Spoke with Dr. Villegas, patient on taxotere, carbo, herceptin, received neulasta 09/29/23, last chemo 09/28/23, advised to hold anticoag for now -Continue to monitor counts, transfuse if hgb <7, plts <20 Code(s): D61.818 - OTHER PANCYTOPENIA (4) Hypomagnesemia Current Visit: Yes Status: Acute Assessment & Plan: -most likely secondary to GI losses, received mag in ER, will repeat labs, replenish as needed Code(s): E83.42 - HYPOMAGNESEMIA (5) Sinus tachycardia Current Visit: Yes Status: Acute Assessment & Plan: -? seconday to hypovolemia, will continue to monitor Code(s): R00.0 - TACHYCARDIA, UNSPECIFIED (6) Stage III breast cancer in female Current Visit: Yes Status: Acute Assessment & Plan: -on cytotoxic therapy Nelly VILLATORO heme/onc, see pancytopenia Code(s): C50.919 - MALIGNANT NEOPLASM OF UNSP SITE OF UNSPECIFIED FEMALE BREAST (7) Anxiety Current Visit: No Status: Acute Assessment & Plan: -continue home meds Code(s): F41.9 - ANXIETY DISORDER, UNSPECIFIED (8) History of TX (myocardial infarction) Current Visit: No Status: Acute Assessment & Plan: -see chest pain Code(s): I25.2 - OLD MYOCARDIAL INFARCTION (9) History of Wilms' tumor Current Visit: No Status: Acute Assessment & Plan: -noted, adds complexity Code(s): Z85.528 - PERSONAL HISTORY OF OTHER MALIGNANT NEOPLASM OF KIDNEY (10) Weakness Current Visit: No Status: Acute Assessment & Plan: -secondary to chemotherapy/disease process Code(s): R53.1 - WEAKNESS I spent 35 minutes [id number] with the patient on the day of discharge performing discharge exam, discussing hospital stay and discharge instructions with patient and caregivers, preparation of discharge records, prescriptions & referral forms and addressing any questions/concerns the patient had as documented above. - Vitals & Intake/Output Vital Signs: Vital Signs Temperature 98.6 F 10/05/23 06:51 Pulse Rate 133 H 10/05/23 06:51 Respiratory Rate 16 10/05/23 06:51 Blood Pressure 98/55 10/05/23 06:51 O2 Sat by Pulse Oximetry 94 L 10/05/23 06:51 Intake & Output: Intake & Output 10/03/23 10/04/23 10/05/23 10/06/23 11:59 11:59 11:59 11:59 Intake Total 640 Balance 640 Weight 64.9 kg 67.4 kg - Lab Result Diagrams: 10/05/23 07:35 10/05/23 03:45 Lab Results-Last 24 Hrs: Lab Results-Last 24 Hours 10/04/23 10/04/23 10/04/23 Range/Units 14:14 14:14 15:33 WBC (4.0-10.5) x10^3/uL RBC (4.1-5.4) x10^6/uL Hgb 8.2 L D (12.0-16.0) g/dL Hct 26.1 L (35-47) % MCV (78-100) fL MCH (26-32) pg MCHC (32-36) g/dL RDW (11.5-14.0) % Plt Count 18 L* D (150-450) x10^3/uL MPV (7.5-11.0) fL Gran % (36.0-66.0) % Immature Gran % (Auto) (0.00-0.4) % Nucleat RBC Rel Count (0.00-0.1) % Eos # (Auto) (0-0.5) x10^3/uL Immature Gran # (Auto) (0.00-0.03) x10^3u/L Absolute Lymphs (auto) (1.0-4.6) x10^3/uL Absolute Monos (auto) (0.0-1.3) x10^3/uL Absolute Nucleated RBC (0.00-0.01) x10^3u/L Lymphocytes % (24.0-44.0) % Monocytes % (0.0-12.0) % Eosinophils % (0.00-5.0) % Basophils % (0.0-0.4) % Absolute Granulocytes (1.4-6.9) x10^3/uL Segmented Neutrophils (36.0-66.0) % Lymphocytes (Manual) (24-44) % Monocytes (Manual) (0.0-12.0) % Eosinophils (Manual) (0.00-3.0) % Basophils # (0-0.4) x10^3/uL Promyelocytes % Hypochromia Platelet Estimate (NORMAL) RBC Morphology Anisocytosis Smear Path Review Sodium (137-145) mmol/L Potassium (3.5-5.1) mmol/L Chloride (98-107) mmol/L Carbon Dioxide (22-30) mmol/L Anion Gap (5-15) MEQ/L BUN (7-17) mg/dL Creatinine (0.52-1.04) mg/dL Estimated GFR ML/MIN Glucose (74-106) mg/dL POC Glucometer (74 to 106) mg/dL Hemoglobin A1c (4.5-6.0) % Calcium (8.4-10.2) mg/dL Magnesium (1.6-2.3) mg/dL Total Bilirubin (0.2-1.3) mg/dL AST (14-36) U/L ALT (0-35) U/L Alkaline Phosphatase (38-126) U/L Troponin I < 0.012 (0.000-0.034) ng/mL NT-Pro-B Natriuret Pep < 20.0 (<300) pg/mL Serum Total Protein (6.3-8.2) g/dL Albumin (3.5-5.0) g/dL Influenza Type A Ag (NEGATIVE) Influenza Type B Ag (NEGATIVE) RSV (PCR) (NEGATIVE) SARS-CoV-2 (PCR) (NEGATIVE) Slides for Path Review ABO Group Rh Factor Antibody Screen (NEGATIVE) 10/04/23 10/04/23 10/04/23 Range/Units 16:38 17:26 17:26 WBC (4.0-10.5) x10^3/uL RBC (4.1-5.4) x10^6/uL Hgb (12.0-16.0) g/dL Hct (35-47) % MCV (78-100) fL MCH (26-32) pg MCHC (32-36) g/dL RDW (11.5-14.0) % Plt Count (150-450) x10^3/uL MPV (7.5-11.0) fL Gran % (36.0-66.0) % Immature Gran % (Auto) (0.00-0.4) % Nucleat RBC Rel Count (0.00-0.1) % Eos # (Auto) (0-0.5) x10^3/uL Immature Gran # (Auto) (0.00-0.03) x10^3u/L Absolute Lymphs (auto) (1.0-4.6) x10^3/uL Absolute Monos (auto) (0.0-1.3) x10^3/uL Absolute Nucleated RBC (0.00-0.01) x10^3u/L Lymphocytes % (24.0-44.0) % Monocytes % (0.0-12.0) % Eosinophils % (0.00-5.0) % Basophils % (0.0-0.4) % Absolute Granulocytes (1.4-6.9) x10^3/uL Segmented Neutrophils (36.0-66.0) % Lymphocytes (Manual) (24-44) % Monocytes (Manual) (0.0-12.0) % Eosinophils (Manual) (0.00-3.0) % Basophils # (0-0.4) x10^3/uL Promyelocytes % Hypochromia Platelet Estimate (NORMAL) RBC Morphology Anisocytosis Smear Path Review Sodium (137-145) mmol/L Potassium (3.5-5.1) mmol/L Chloride (98-107) mmol/L Carbon Dioxide (22-30) mmol/L Anion Gap (5-15) MEQ/L BUN (7-17) mg/dL Creatinine (0.52-1.04) mg/dL Estimated GFR ML/MIN Glucose (74-106) mg/dL POC Glucometer 117 H (74 to 106) mg/dL Hemoglobin A1c 5.84 (4.5-6.0) % Calcium (8.4-10.2) mg/dL Magnesium (1.6-2.3) mg/dL Total Bilirubin (0.2-1.3) mg/dL AST (14-36) U/L ALT (0-35) U/L Alkaline Phosphatase (38-126) U/L Troponin I < 0.012 (0.000-0.034) ng/mL NT-Pro-B Natriuret Pep (<300) pg/mL Serum Total Protein (6.3-8.2) g/dL Albumin (3.5-5.0) g/dL Influenza Type A Ag (NEGATIVE) Influenza Type B Ag (NEGATIVE) RSV (PCR) (NEGATIVE) SARS-CoV-2 (PCR) (NEGATIVE) Slides for Path Review ABO Group Rh Factor Antibody Screen (NEGATIVE) 10/04/23 10/04/23 10/04/23 Range/Units 17:26 20:44 21:49 WBC (4.0-10.5) x10^3/uL RBC (4.1-5.4) x10^6/uL Hgb 8.1 L (12.0-16.0) g/dL Hct 25.3 L (35-47) % MCV (78-100) fL MCH (26-32) pg MCHC (32-36) g/dL RDW (11.5-14.0) % Plt Count 16 L* (150-450) x10^3/uL MPV (7.5-11.0) fL Gran % (36.0-66.0) % Immature Gran % (Auto) (0.00-0.4) % Nucleat RBC Rel Count (0.00-0.1) % Eos # (Auto) (0-0.5) x10^3/uL Immature Gran # (Auto) (0.00-0.03) x10^3u/L Absolute Lymphs (auto) (1.0-4.6) x10^3/uL Absolute Monos (auto) (0.0-1.3) x10^3/uL Absolute Nucleated RBC (0.00-0.01) x10^3u/L Lymphocytes % (24.0-44.0) % Monocytes % (0.0-12.0) % Eosinophils % (0.00-5.0) % Basophils % (0.0-0.4) % Absolute Granulocytes (1.4-6.9) x10^3/uL Segmented Neutrophils (36.0-66.0) % Lymphocytes (Manual) (24-44) % Monocytes (Manual) (0.0-12.0) % Eosinophils (Manual) (0.00-3.0) % Basophils # (0-0.4) x10^3/uL Promyelocytes % Hypochromia Platelet Estimate (NORMAL) RBC Morphology Anisocytosis Smear Path Review Sodium (137-145) mmol/L Potassium (3.5-5.1) mmol/L Chloride (98-107) mmol/L Carbon Dioxide (22-30) mmol/L Anion Gap (5-15) MEQ/L BUN (7-17) mg/dL Creatinine (0.52-1.04) mg/dL Estimated GFR ML/MIN Glucose (74-106) mg/dL POC Glucometer 134 H (74 to 106) mg/dL Hemoglobin A1c (4.5-6.0) % Calcium (8.4-10.2) mg/dL Magnesium (1.6-2.3) mg/dL Total Bilirubin (0.2-1.3) mg/dL AST (14-36) U/L ALT (0-35) U/L Alkaline Phosphatase (38-126) U/L Troponin I (0.000-0.034) ng/mL NT-Pro-B Natriuret Pep (<300) pg/mL Serum Total Protein (6.3-8.2) g/dL Albumin (3.5-5.0) g/dL Influenza Type A Ag (NEGATIVE) Influenza Type B Ag (NEGATIVE) RSV (PCR) (NEGATIVE) SARS-CoV-2 (PCR) (NEGATIVE) Slides for Path Review ABO Group B Rh Factor POSITIVE Antibody Screen NEGATIVE (NEGATIVE) 10/05/23 10/05/23 10/05/23 Range/Units 03:45 03:45 03:45 WBC 1.1 L* (4.0-10.5) x10^3/uL RBC 2.66 L (4.1-5.4) x10^6/uL Hgb 8.0 L (12.0-16.0) g/dL Hct 25.9 L (35-47) % MCV 97.4 (78-100) fL MCH 30.1 (26-32) pg MCHC 30.9 L (32-36) g/dL RDW 15.4 H (11.5-14.0) % Plt Count 106 L D (150-450) x10^3/uL MPV 9.4 (7.5-11.0) fL Gran % (36.0-66.0) % Immature Gran % (Auto) (0.00-0.4) % Nucleat RBC Rel Count (0.00-0.1) % Eos # (Auto) (0-0.5) x10^3/uL Immature Gran # (Auto) (0.00-0.03) x10^3u/L Absolute Lymphs (auto) (1.0-4.6) x10^3/uL Absolute Monos (auto) (0.0-1.3) x10^3/uL Absolute Nucleated RBC (0.00-0.01) x10^3u/L Lymphocytes % (24.0-44.0) % Monocytes % (0.0-12.0) % Eosinophils % (0.00-5.0) % Basophils % (0.0-0.4) % Absolute Granulocytes (1.4-6.9) x10^3/uL Segmented Neutrophils 8 L (36.0-66.0) % Lymphocytes (Manual) 82 H (24-44) % Monocytes (Manual) 8 (0.0-12.0) % Eosinophils (Manual) 1 (0.00-3.0) % Basophils # (0-0.4) x10^3/uL Promyelocytes 1 % Hypochromia 2+ Platelet Estimate DECREASED (NORMAL) RBC Morphology ABNORMAL Anisocytosis 1+ Smear Path Review Pending Sodium 133 L (137-145) mmol/L Potassium 3.7 (3.5-5.1) mmol/L Chloride 110 H (98-107) mmol/L Carbon Dioxide 21 L (22-30) mmol/L Anion Gap 5.4 (5-15) MEQ/L BUN 13 (7-17) mg/dL Creatinine 0.59 (0.52-1.04) mg/dL Estimated GFR 119.0 ML/MIN Glucose 147 H (74-106) mg/dL POC Glucometer (74 to 106) mg/dL Hemoglobin A1c (4.5-6.0) % Calcium 7.9 L (8.4-10.2) mg/dL Magnesium 1.2 L (1.6-2.3) mg/dL Total Bilirubin 0.30 (0.2-1.3) mg/dL AST 21 (14-36) U/L ALT 39 H (0-35) U/L Alkaline Phosphatase 72 (38-126) U/L Troponin I (0.000-0.034) ng/mL NT-Pro-B Natriuret Pep (<300) pg/mL Serum Total Protein 4.4 L (6.3-8.2) g/dL Albumin 2.1 L (3.5-5.0) g/dL Influenza Type A Ag (NEGATIVE) Influenza Type B Ag (NEGATIVE) RSV (PCR) (NEGATIVE) SARS-CoV-2 (PCR) (NEGATIVE) Slides for Path Review ABO Group Rh Factor Antibody Screen (NEGATIVE) 10/05/23 10/05/23 10/05/23 Range/Units 07:15 07:35 10:30 WBC 1.1 L* (4.0-10.5) x10^3/uL RBC 2.62 L (4.1-5.4) x10^6/uL Hgb 7.9 L (12.0-16.0) g/dL Hct 25.2 L (35-47) % MCV 96.2 (78-100) fL MCH 30.2 (26-32) pg MCHC 31.3 L (32-36) g/dL RDW 15.0 H (11.5-14.0) % Plt Count 76 L (150-450) x10^3/uL MPV 9.4 (7.5-11.0) fL Gran % 17.1 L (36.0-66.0) % Immature Gran % (Auto) 0.0 (0.00-0.4) % Nucleat RBC Rel Count 0.0 (0.00-0.1) % Eos # (Auto) 0.02 (0-0.5) x10^3/uL Immature Gran # (Auto) 0.00 (0.00-0.03) x10^3u/L Absolute Lymphs (auto) 0.78 L (1.0-4.6) x10^3/uL Absolute Monos (auto) 0.12 (0.0-1.3) x10^3/uL Absolute Nucleated RBC 0.00 (0.00-0.01) x10^3u/L Lymphocytes % 70.3 H (24.0-44.0) % Monocytes % 10.8 (0.0-12.0) % Eosinophils % 1.8 (0.00-5.0) % Basophils % 0.0 (0.0-0.4) % Absolute Granulocytes 0.19 L (1.4-6.9) x10^3/uL Segmented Neutrophils (36.0-66.0) % Lymphocytes (Manual) (24-44) % Monocytes (Manual) (0.0-12.0) % Eosinophils (Manual) (0.00-3.0) % Basophils # 0 (0-0.4) x10^3/uL Promyelocytes % Hypochromia Platelet Estimate (NORMAL) RBC Morphology Anisocytosis Smear Path Review Sodium (137-145) mmol/L Potassium (3.5-5.1) mmol/L Chloride (98-107) mmol/L Carbon Dioxide (22-30) mmol/L Anion Gap (5-15) MEQ/L BUN (7-17) mg/dL Creatinine (0.52-1.04) mg/dL Estimated GFR ML/MIN Glucose (74-106) mg/dL POC Glucometer 111 H (74 to 106) mg/dL Hemoglobin A1c (4.5-6.0) % Calcium (8.4-10.2) mg/dL Magnesium (1.6-2.3) mg/dL Total Bilirubin (0.2-1.3) mg/dL AST (14-36) U/L ALT (0-35) U/L Alkaline Phosphatase (38-126) U/L Troponin I (0.000-0.034) ng/mL NT-Pro-B Natriuret Pep (<300) pg/mL Serum Total Protein (6.3-8.2) g/dL Albumin (3.5-5.0) g/dL Influenza Type A Ag NEGATIVE (NEGATIVE) Influenza Type B Ag NEGATIVE (NEGATIVE) RSV (PCR) NEGATIVE (NEGATIVE) SARS-CoV-2 (PCR) NEGATIVE (NEGATIVE) Slides for Path Review YES ABO Group Rh Factor Antibody Screen (NEGATIVE) 10/05/23 Range/Units 11:51 WBC (4.0-10.5) x10^3/uL RBC (4.1-5.4) x10^6/uL Hgb (12.0-16.0) g/dL Hct (35-47) % MCV (78-100) fL MCH (26-32) pg MCHC (32-36) g/dL RDW (11.5-14.0) % Plt Count (150-450) x10^3/uL MPV (7.5-11.0) fL Gran % (36.0-66.0) % Immature Gran % (Auto) (0.00-0.4) % Nucleat RBC Rel Count (0.00-0.1) % Eos # (Auto) (0-0.5) x10^3/uL Immature Gran # (Auto) (0.00-0.03) x10^3u/L Absolute Lymphs (auto) (1.0-4.6) x10^3/uL Absolute Monos (auto) (0.0-1.3) x10^3/uL Absolute Nucleated RBC (0.00-0.01) x10^3u/L Lymphocytes % (24.0-44.0) % Monocytes % (0.0-12.0) % Eosinophils % (0.00-5.0) % Basophils % (0.0-0.4) % Absolute Granulocytes (1.4-6.9) x10^3/uL Segmented Neutrophils (36.0-66.0) % Lymphocytes (Manual) (24-44) % Monocytes (Manual) (0.0-12.0) % Eosinophils (Manual) (0.00-3.0) % Basophils # (0-0.4) x10^3/uL Promyelocytes % Hypochromia Platelet Estimate (NORMAL) RBC Morphology Anisocytosis Smear Path Review Sodium (137-145) mmol/L Potassium (3.5-5.1) mmol/L Chloride (98-107) mmol/L Carbon Dioxide (22-30) mmol/L Anion Gap (5-15) MEQ/L BUN (7-17) mg/dL Creatinine (0.52-1.04) mg/dL Estimated GFR ML/MIN Glucose (74-106) mg/dL POC Glucometer 156 H (74 to 106) mg/dL Hemoglobin A1c (4.5-6.0) % Calcium (8.4-10.2) mg/dL Magnesium (1.6-2.3) mg/dL Total Bilirubin (0.2-1.3) mg/dL AST (14-36) U/L ALT (0-35) U/L Alkaline Phosphatase (38-126) U/L Troponin I (0.000-0.034) ng/mL NT-Pro-B Natriuret Pep (<300) pg/mL Serum Total Protein (6.3-8.2) g/dL Albumin (3.5-5.0) g/dL Influenza Type A Ag (NEGATIVE) Influenza Type B Ag (NEGATIVE) RSV (PCR) (NEGATIVE) SARS-CoV-2 (PCR) (NEGATIVE) Slides for Path Review ABO Group Rh Factor Antibody Screen (NEGATIVE) Micro Results-Entire Visit: Microbiology 10/04/23 Unknown Stool Culture Result 1 - Final Stool Not Reportable Stool Culture Result 2 - Final Not Reportable Stool Culture Result 3 - Final Not Reportable Stool Culture Result 4 - Final Not Reportable Stool Culture Organism Suscept - Final Not Reportable Campylobacter Result 1 - Final Not Reportable Campylobacter Result 2 - Final Not Reportable Campylobactor Result 3 - Final Not Reportable Campylobacter Result 4 - Final Not Reportable Campylobactor Susceptibility - Final Not Reportable Accuchecks Date 10/05/23 Date 10/04/23 Date 10/04/23 Time 07:41 Time 20:47 Time 16:48 - Radiology Exams Ordered Rad Exams-Entire Visit: Radiology Procedures Category Date Time Status ECHO W/2D AND DOPPLER [US] Routine Exams 10/04/23 14:44 Taken - Procedures and Test Procedures and Tests throughout Hospitalization: Therapy Orders & Screens 10/04/23 12:38 EKG REPEAT IN AM Comment: 10/04/23 14:43 PT Eval & Treat (MD Order) ONCE Reason for Eval:: weakness Diagnosis: sinus tachycardia Respiratory Therapy Consult ONCE Comment: Reason For Exam: Diagnosis: sinus tachycardia OT Eval and Treat (MD Order) ONCE Comment: Physician Instructions: Reason For Exam: Diagnosis: sinus tachycardia Discharge Exam General Appearance: no apparent distress, anxiety Neurologic Exam: alert, oriented x 3, cooperative Eye Exam: PERRL Ears, Nose, Throat Exam: dry mucous membranes Neck Exam: normal inspection Respiratory Exam: normal breath sounds, lungs clear Cardiovascular Exam: normal heart sounds, tachycardia Gastrointestinal/Abdomen Exam: soft, normal bowel sounds, tenderness Pelvic Exam: deferred Rectal Exam: deferred Extremity Exam: swelling (BLE) Skin Exam: pale (flushed), other (port to right chest) Final Diagnosis/Problem List - Final Discharge Diagnosis/Problem (1) Chest pain Current Visit: Yes Status: Acute Code(s): R07.9 - CHEST PAIN, UNSPECIFIED (2) Diarrhea Current Visit: Yes Status: Acute Code(s): R19.7 - DIARRHEA, UNSPECIFIED (3) Pancytopenia Current Visit: Yes Status: Acute Code(s): D61.818 - OTHER PANCYTOPENIA (4) Hypomagnesemia Current Visit: Yes Status: Acute Code(s): E83.42 - HYPOMAGNESEMIA (5) Sinus tachycardia Current Visit: Yes Status: Acute Code(s): R00.0 - TACHYCARDIA, UNSPECIFIED (6) Stage III breast cancer in female Current Visit: Yes Status: Acute Code(s): C50.919 - MALIGNANT NEOPLASM OF UNSP SITE OF UNSPECIFIED FEMALE BREAST (7) Anxiety Current Visit: No Status: Acute Code(s): F41.9 - ANXIETY DISORDER, UNSPECIFIED (8) History of TX (myocardial infarction) Current Visit: No Status: Acute Code(s): I25.2 - OLD MYOCARDIAL INFARCTION (9) History of Wilms' tumor Current Visit: No Status: Acute Code(s): Z85.528 - PERSONAL HISTORY OF OTHER MALIGNANT NEOPLASM OF KIDNEY (10) Weakness Current Visit: No Status: Acute Code(s): R53.1 - WEAKNESS - Discharge Disposition: Home, Self-Care Condition: Fair Prescriptions: New Cefepime HCl 1 gm [Maxipime 1 gm] 1 g IV Q12HT NaCl 0.9% 1000 ml [Sodium Chloride 0.9% 1000 ML] 100 ml IV .Q10H Acetaminophen 325 mg [Tylenol 325 mg] 650 mg PO Q4H PRN PRN tablet PRN Reason: Pain, Fever, Headache Ondansetron HCl 4 mg/2 ml [Zofran 4 MG/2 ML VIAL] 4 mg IV Q6H PRN PRN PRN Reason: Nausea/Vomiting Continue Aspirin 81 mg PO DAILY Metoprolol Tartrate 50 mg [Lopressor 50 MG] 50 mg PO BID Atorvastatin Calcium [Lipitor] 80 mg PO DAILY PANTOPRAZOLE 40 mg Tablet [Protonix 40MG Tablet] 40 mg PO QAM Ondansetron ODT 4 MG [Zofran Odt 4 mg] 4 mg PO Q8H PRN PRN PRN Reason: Nausea Ranolazine 500 MG [Ranexa 500 MG] 500 mg PO BID Hydrocodone/Acetaminophen [Hydrocodone-Acetamin 5-325 mg] 1 tab PO Q6HPRN PRN MDD 4 PRN Reason: Pain Cholecalciferol (Vitamin D3) [Vitamin D3] 125 mcg PO DAILY Budesonide [Budesonide ER] 9 mg PO DAILY Fentanyl 75Mcg Patch [Duragesic 75 MCG Patch] 1 patch TOP Q72H PRN PRN Reason: Pain Apixaban [Eliquis] 5 mg PO DAILY Alprazolam [Xanax] 1 mg PO TID PRN PRN PRN Reason: Anxiety Follow up with: DOCTOR,NO FAMILY [Primary Care Provider] -
[2023-10-05 12:34] LABS: Hematocrit 27.3 % (35-47); Hemoglobin 8.7 g/dL (12.0-16.0)
[2023-10-05 13:16] LABS: 027 TOX PROD PRESUMPTIVE NEGATIVE (NEGATIVE)
[2023-10-05 13:22] LABS: TOXIGENIC C. DIFF ORG POSITIVE (NEGATIVE)
[2023-10-05] MEDS ORDERED: VANCOMYCIN HCL CAPSULE PO SCH (17:00)
== END 2023-10-05 16:04 | disposition home or self-care (01) ==
LOC: ED 08:09 → MED SURG 12:30
PROVIDERS: ADMIT Internal Medicine; ATTEND Internal Medicine
DX: R07.9 Chest pain, unspecified (principal); R19.7 Diarrhea, unspecified; D61.818 Other pancytopenia; E83.42 Hypomagnesemia; R00.0 Tachycardia, unspecified; I12.9 Hypertensive chronic kidney disease with stage 1 through stage 4 chronic kidney disease, or unspecified chronic kidney disease; E11.22 Type 2 diabetes mellitus with diabetic chronic kidney disease; N18.9 Chronic kidney disease, unspecified; C50.919 Malignant neoplasm of unspecified site of unspecified female breast; F41.9 Anxiety disorder, unspecified; I25.2 Old myocardial infarction; K21.9 Gastro-esophageal reflux disease without esophagitis; I25.10 Atherosclerotic heart disease of native coronary artery without angina pectoris; E78.5 Hyperlipidemia, unspecified; R53.1 Weakness; Z85.528 Personal history of other malignant neoplasm of kidney; Z79.899 Other long term (current) drug therapy; Z20.828 Contact with and (suspected) exposure to other viral communicable diseases; Z79.01 Long term (current) use of anticoagulants
CPT/HCPCS: 0241U; 36415; 36430; 80053; 81001; 82947; 83036; 83735; 83880; 84484; 85014; 85018; 85025; 85049; 86850; 86900; 86901; 87045; 87046; 87177; 87209; 87328; 87329; 87427; 87493; 93005; 93268; 93306; 94760; 96360; 96365; 96374; 96375; 99285; 99291; G0378; P9073; Q3014; J0692; J1885; J2060; J2405; J3010; J3475; A9270-GY

== ENCOUNTER 2023-11-26 12:39 | Emergency (ER) | payer OTHER ==
[2023-11-26 12:55] VITALS: PULSE 121; TEMP 98.9
[2023-11-26 13:37] LABS: Absolute Neutrophil Ct (ANC) 5.02 x10^3/uL (1.4-6.9); BASOPHIL % 0.3 % (0.0-0.4); Basophil (Absolute #) 0.02 x10^3/uL (0-0.4); Eosinophil % 0.9 % (0.00-5.0); Eosinophil (Absolute #) 0.07 x10^3/uL (0-0.5); Hematocrit 35.8 % (35-47); IMMATURE GRAN # 0.03 x10^3u/L (0.00-0.03); IMMATURE GRAN % 0.4 % (0.00-0.4); Lymphocyte (Absolute #) 2.15 x10^3/uL (1.0-4.6); Lymphocytes % 27.1 % (24.0-44.0); Mean Cell Volume 102.6 fL (78-100); Mean Corpuscular Hemoglobin 31.5 pg (26-32); Mean Corpuscular Hgb Concent. 30.7 g/dL (32-36); Mean Platelet Volume 8.8 fL (7.5-11.0); Monocyte (Absolute #) 0.63 x10^3/uL (0.0-1.3); Neutrophil % 63.3 % (36.0-66.0); Platelet Count 236 x10^3/uL (150-450); Red Blood Count 3.49 x10^6/uL (4.1-5.4); Red Cell Distribution Width 15.9 % (11.5-14.0); White Blood Count 7.9 x10^3/uL (4.0-10.5)
--- NOTE | 2023-11-26 13:40 | ERPHSYRPT ---
- History of Present Illness Source: patient Exam Limitations: no limitations Patient Subjective Stated Complaint: Pt c/o of cough, shortness of breath, coughing up green sputum, sore throat Triage Nursing Assessment: Pt is brought to the ER by her , tachycardic, rates chest pain from coughing as 06/29, pt states that she has a blood clot in her lungs that was discovered a couple of months ago at [facility] but doesn't believe anything has been done about it, pt has stage 3 breast cancer and is going to be having a karina masectomy and a hysterectomy after her chemo is finished, pt c/o today of a cough, coughing up green sputum and having a sore throat, pt is immunocompromised, right lower lobe is diminshed, crackles heard throughout, pulses normal, skin flushed/w/d Physician History: 38yo f significant pmhx w/ stage 3 breast ca presents for 2d cough, congestion, sob. Pt reports feeling more sob over the past day, reports some body aches but denies subjective fevers. Pt reports cough is productive of thick green sputum, reports decreased PO intake x2d. Pt states she was diagnosed w/ small PE 2 weeks ago but is unsure if she is on blood thinners. Pt currently denies cp, n/v/abdominal pain, LINDSEY. Timing/Duration: day(s) (2) Cough Quality/Degree: moderate, productive cough, sputum (green) Modifying Factors: Improves With: coughing, deep breath Associated Symptoms: muscle aches, nasal congestion, shortness of breath Allergies/Adverse Reactions: codeine [Codeine] Allergy (Severe, Verified 11/26/23 12:55) hydromorphone HCl [From Dilaudid] Allergy (Severe, Verified 11/26/23 12:55) terbutaline sulfate [From Brethine] Allergy (Severe, Verified 11/26/23 12:55) morphine Adverse Reaction (Intermediate, Verified 11/26/23 12:55) Vomiting Home Medications: Aspirin 81 mg PO DAILY 11/04/16 [History] Metoprolol Tartrate 50 mg [Lopressor 50 MG] 50 mg PO BID 03/19/17 [History] Atorvastatin Calcium [Lipitor] 80 mg PO DAILY 03/27/18 [History] Budesonide [Budesonide ER] 9 mg PO DAILY 06/04/23 [History] Cholecalciferol (Vitamin D3) [Vitamin D3] 125 mcg PO DAILY 06/04/23 [History] Hydrocodone/Acetaminophen [Hydrocodone-Acetamin 5-325 mg] 1 tab PO Q6HPRN PRN MDD 4 06/04/23 [History] Ondansetron ODT 4 MG [Zofran Odt 4 mg] 4 mg PO Q8H PRN PRN 06/04/23 [Histo ry] PANTOPRAZOLE 40 mg Tablet [Protonix 40MG Tablet] 40 mg PO QAM 06/04/23 [History] Ranolazine 500 MG [Ranexa 500 MG] 500 mg PO BID 06/04/23 [History] Alprazolam [Xanax] 1 mg PO TID PRN PRN 10/04/23 [History] Apixaban [Eliquis] 5 mg PO DAILY 10/04/23 [History] Fentanyl 75Mcg Patch [Duragesic 75 MCG Patch] 1 patch TOP Q72H PRN 10/04/23 [History] Hx Tetanus, Diphtheria Vaccination/Date Given: No (2015) Hx Influenza Vaccination/Date Given: No Hx Pneumococcal Vaccination/Date Given: No Travel Risk - International Travel Have you traveled outside of the country in past 3 weeks: No - Coronavirus Screening Are you exhibiting any of the following symptoms?: Yes Symptoms: Cough: New Onset Close contact with a COVID-19 positive Pt in past 14-21 Days: No - Vaccine Status Have you recieved a Covid-19 vaccination: No - Review of Systems Constitutional: No Symptoms Respiratory: Cough Cardiac: No Symptoms Abdominal/Gastrointestinal: No Symptoms Genitourinary Symptoms: No Symptoms Musculoskeletal: Arthralgias Neurological: No Symptoms Psychological: No Symptoms - Past Medical History Pertinent Past Medical History: Yes Neurological History: Epilepsy, Migraines, Seizures, Stroke ENT History: Other Cardiac History: Coronary Artery Disease, High Cholesterol, Hypertension, Myocardial Infarction ([place]), Other Respiratory History: No Pertinent History Endocrine Medical History: Diabetes Type II, Liver Disease Musculoskeletal History: Fractures, Osteoporosis GI Medical History: Colitis, Hemorrhoids, Irritable Bowel History: Kidney Cancer, Renal Disease Psycho-Social History: Anxiety, Panic Disorder Female Reproductive Disorders: Other Other Medical History: kidney cancer at age 18 months, bilat wrist fracture and leg, STAGE 3 BREAST CANCER - Past Surgical History Past Surgical History: Yes Neuro Surgical History: No Pertinent History Cardiac: No Pertinent History Respiratory: No Pertinent History Gastrointestinal: No Pertinent History Genitourinary: Kidney Surgery Musculoskeletal: No Pertinent History Female Surgical History: Section, Tubal Ligation Other Surgical History: c section, tubal ligation, l kidney removal, wilms tumor, choly, tonsillectomny, adenoidectomy - Social History Smoking Status: Former smoker How long have you smoked: 12 yrs Exposure to second hand smoke: No Alcohol Use: None Drug Use: none Patient Lives Alone: No Significant Family History: no pertinent family hx - Female History Hx Now: No - Nursing Vital Signs Nursing Vital Signs: Initial Vital Signs Temperature 98.9 F 11/26/23 12:41 Pulse Rate 121 H 11/26/23 12:41 Blood Pressure 134/91 11/26/23 12:41 O2 Sat by Pulse Oximetry 98 11/26/23 12:41 Pain Scale Pain Intensity 8 - Physical Exam General Appearance: no apparent distress, alert Eye Exam: PERRL/EOMI, eyes nml inspection Ears, Nose, Throat Exam: normal ENT inspection Respiratory Exam: other (breath sounds distant R lower lung field, otherwise CTA w/ good air movement) Cardiovascular Exam: normal heart sounds, tachycardia, capillary refill <2 sec Gastrointestinal/Abdomen Exam: soft Neurologic Exam: alert, oriented x 3 SpO2 Interpretation: normal SpO2: 97 O2 Delivery: Room Air - Course EKG Interpreted by Me: RATE ([id number]), Sinus Tach, Left [place] Deviation, Other (qtcb 441; no acute ischemic changes noted) Ordered Tests: Active Orders 24 hr Category Date Time Status EKG-ER Only STAT Care 11/26/23 13:41 Active IV Insertion STAT Care 11/26/23 13:24 Active CHEST 2 VIEWS (PA AND LAT) Stat Exams 11/26/23 13:57 Taken CHEST WITH CONTRAST [CT] Stat Exams 11/26/23 16:13 Completed BLOOD CULTURE Stat Lab 11/26/23 13:31 Received CBC W DIFF Stat Lab 11/26/23 13:05 Completed CMP Stat Lab 11/26/23 13:20 Completed PROCALCITONIN Stat Lab 11/26/23 13:20 Completed Medication Summary Discontinued Medications Generic Name Dose Route Start Last Admin Trade Name Freq PRCharissa Reason Stop Dose Admin Fentanyl Citrate 50 mcg 11/26/23 13:51 11/26/23 13:56 Fentanyl Citrate 100 Mcg/2 Ml* Vial IV 11/26/23 13:52 50 mcg STAT ONE Administration Fentanyl Citrate Confirm 11/26/23 13:54 Fentanyl Citrate 100 Mcg/2 Ml* Vial Administered 11/26/23 13:55 Dose 100 mcg .ROUTE .STK-MED ONE Fentanyl Citrate 25 mcg 11/26/23 18:23 Fentanyl Citrate 100 Mcg/2 Ml* Vial IV 11/26/23 18:24 STAT ONE Heparin Sodium (Beef Lung) 500 units 11/26/23 18:23 Heparin Lock Flush Pf 500 Units/5 Ml Syringe PORT FLUSH 11/26/23 18:24 STAT ONE Sodium Chloride 1,000 mls @ 999 mls/hr 11/26/23 13:41 11/26/23 14:58 Sodium Chloride 0.9% 1000 Ml IV 11/26/23 14:41 Infused .Q1H1M STA Infusion Sodium Chloride Confirm 11/26/23 13:50 Sodium Chloride 0.9% 1000 Ml Administered 11/26/23 13:51 Dose 1,000 mls @ ud .ROUTE .STK-MED ONE Lab/Rad Data: Laboratory Result Diagrams 11/26/23 13:05 11/26/23 13:20 Laboratory Results 11/26/23 11/26/23 11/26/23 Range/Units 13:33 13:20 13:20 WBC (4.0-10.5) x10^3/uL RBC (4.1-5.4) x10^6/uL Hgb (12.0-16.0) g/dL Hct (35-47) % MCV (78-100) fL MCH (26-32) pg MCHC (32-36) g/dL RDW (11.5-14.0) % Plt Count (150-450) x10^3/uL MPV (7.5-11.0) fL Gran % (36.0-66.0) % Immature Gran % (Auto) (0.00-0.4) % Nucleat RBC Rel Count (0.00-0.1) % Eos # (Auto) (0-0.5) x10^3/uL Immature Gran # (Auto) (0.00-0.03) x10^3u/L Absolute Lymphs (auto) (1.0-4.6) x10^3/uL Absolute Monos (auto) (0.0-1.3) x10^3/uL Absolute Nucleated RBC (0.00-0.01) x10^3u/L Lymphocytes % (24.0-44.0) % Monocytes % (0.0-12.0) % Eosinophils % (0.00-5.0) % Basophils % (0.0-0.4) % Absolute Granulocytes (1.4-6.9) x10^3/uL Basophils # (0-0.4) x10^3/uL Sodium 137 (137-145) mmol/L Potassium 4.5 (3.5-5.1) mmol/L Chloride 106 (98-107) mmol/L Carbon Dioxide 28 (22-30) mmol/L Anion Gap 8.1 (5-15) MEQ/L BUN 17 (7-17) mg/dL Creatinine 0.64 (0.52-1.04) mg/dL Estimated GFR 116.7 ML/MIN Glucose 71 L (74-106) mg/dL Calcium 10.4 H (8.4-10.2) mg/dL Total Bilirubin 0.40 (0.2-1.3) mg/dL AST 32 (14-36) U/L ALT 40 H (0-35) U/L Alkaline Phosphatase 157 H (38-126) U/L Serum Total Protein 6.8 (6.3-8.2) g/dL Albumin 3.7 (3.5-5.0) g/dL Procalcitonin 0.064 (0.030-0.080) ng/mL Influenza Type A Ag NEGATIVE (NEGATIVE) Influenza Type B Ag NEGATIVE (NEGATIVE) RSV (PCR) POSITIVE (NEGATIVE) SARS-CoV-2 (PCR) NEGATIVE (NEGATIVE) 11/26/23 Range/Units 13:05 WBC 7.9 (4.0-10.5) x10^3/uL RBC 3.49 L (4.1-5.4) x10^6/uL Hgb 11.0 L (12.0-16.0) g/dL Hct 35.8 (35-47) % MCV 102.6 H (78-100) fL MCH 31.5 (26-32) pg MCHC 30.7 L (32-36) g/dL RDW 15.9 H (11.5-14.0) % Plt Count 236 (150-450) x10^3/uL MPV 8.8 (7.5-11.0) fL Gran % 63.3 (36.0-66.0) % Immature Gran % (Auto) 0.4 (0.00-0.4) % Nucleat RBC Rel Count 0.0 (0.00-0.1) % Eos # (Auto) 0.07 (0-0.5) x10^3/uL Immature Gran # (Auto) 0.03 (0.00-0.03) x10^3u/L Absolute Lymphs (auto) 2.15 (1.0-4.6) x10^3/uL Absolute Monos (auto) 0.63 (0.0-1.3) x10^3/uL Absolute Nucleated RBC 0.00 (0.00-0.01) x10^3u/L Lymphocytes % 27.1 (24.0-44.0) % Monocytes % 8.0 (0.0-12.0) % Eosinophils % 0.9 (0.00-5.0) % Basophils % 0.3 (0.0-0.4) % Absolute Granulocytes 5.02 (1.4-6.9) x10^3/uL Basophils # 0.02 (0-0.4) x10^3/uL Sodium (137-145) mmol/L Potassium (3.5-5.1) mmol/L Chloride (98-107) mmol/L Carbon Dioxide (22-30) mmol/L Anion Gap (5-15) MEQ/L BUN (7-17) mg/dL Creatinine (0.52-1.04) mg/dL Estimated GFR ML/MIN Glucose (74-106) mg/dL Calcium (8.4-10.2) mg/dL Total Bilirubin (0.2-1.3) mg/dL AST (14-36) U/L ALT (0-35) U/L Alkaline Phosphatase (38-126) U/L Serum Total Protein (6.3-8.2) g/dL Albumin (3.5-5.0) g/dL Procalcitonin (0.030-0.080) ng/mL Influenza Type A Ag (NEGATIVE) Influenza Type B Ag (NEGATIVE) RSV (PCR) (NEGATIVE) SARS-CoV-2 (PCR) (NEGATIVE) - Progress Air Movement: good Progress Note: 11/26/23 14:04 BG 71 on cmp - pt given orange juice PO 11/26/23 14:31 Discussed pt presentation w/ Dr Brenda Villegas - discussed benefits of repeating CTA, he agreed that CTA would be appropriate to determine if PE dx in 10/12 has increased in size 11/26/23 18:24 CTA chest: In comparison with the prior study, Interval insertion of a right-sided central venous catheter with its tip noted at aortocaval junction. Redemonstration of soft tissue pulmonary nodule in the lateral basal segment of the left lower lobe with no significant interval change SE 3 IM # 32. This likely represents a suspicious pulmonary nodule and needs a short-term follow-up in 3 months according to Fleischner Society guidelines. Again a small pneumatocele in the apical segment of the right lower lobe. Included upper abdomen demonstrates hepatic steatosis, status post cholecystectomy, and multiple surgical sutures in the left renal bed. No PE. discussed CT results w/ pt - instructed to continue eliquis even in absence of PE (per Dr Villegas) discussed + RSV test, informed pt to avoid small children and elderly for next several days, recommended sx tx w/ tylenol pt voiced understanding of plan and had no further questions return precautions discussed - worsening shortness of breath, chest pain, fevers Medical Desision Making - Diagnostic Testing Diagnostic test were ordered, analyzed, and reviewed by me: Yes Radiological Interpretation: Reviewed by me, Teleradiologist Report - Risk of complications Low Risk: Low risk of morbidity from additional dx testing or treatment - Departure Departure Disposition: Home Clinical Impression: RSV (respiratory syncytial virus infection) Condition: Stable Critical Care Time: No Referrals: DOCTOR,NO FAMILY [Primary Care Provider] - Follow up/PCP as directed Additional Instructions: return precautions discussed - worsening shortness of breath, chest pain, fevers tylenol for symptomatic treatment f/u w/ PCP and heme/onc doctor
[2023-11-26] MEDS ORDERED: Sodium Chloride 0.9% 1000 ML 1,000 ML IV STA (13:41)
[2023-11-26] MEDS ORDERED: Sodium Chloride 0.9% 1000 ML 1,000 ML ONE (13:50)
[2023-11-26] MEDS ORDERED: SUBLIMAZE 100 MCG/2 ML IV ONE ×2 (13:51→18:23)
[2023-11-26 13:52] LABS: ALBUMIN 3.7 g/dL (3.5-5.0); ANION GAP 8.1 MEQ/L (5-15); BILIRUBIN,TOTAL 0.4 mg/dL (0.2-1.3); Calcium 10.4 mg/dL (8.4-10.2); Creatinine 1 0.64 mg/dL (0.52-1.04); EST GLOMERULAR FILTRATION RATE 116.7 ML/MIN; Potassium 4.5 mmol/L (3.5-5.1); Total Protein 6.8 g/dL (6.3-8.2)
[2023-11-26] MEDS ORDERED: SUBLIMAZE 100 MCG/2 ML ONE ×2 (13:54→18:28)
[2023-11-26 14:18] LABS: INFLUENZA A NEGATIVE (NEGATIVE); INFLUENZA B NEGATIVE (NEGATIVE); SARS-CoV-2 Xpert Express NEGATIVE (NEGATIVE)
[2023-11-26 14:20] LABS: RESPIRATORY SYNCTIAL VIRUS POSITIVE (NEGATIVE)
[2023-11-26 18:06] VITALS: BP 116/67
--- NOTE | 2023-11-26 18:15 | XRAY ---
CLINICAL HISTORY:PE r/o COMPARISON:Compared with the prior study dated 06/04/2023. TECHNIQUE:Continuous axial CT images of the chest were obtained with contrast Coronal and sagittal reconstruction images were also obtained. FINDINGS: Right-sided central venous catheter with its tip noted at aortocaval junction. There is redemonstration of a well-defined rounded soft tissue pulmonary nodule of 1.1 x 0.8 cm in the lateral basal segment of the left lower lobe with no significant interval change SE 3 IM # 32. Again a small pneumatocele in the apical segment of the right lower lobe measuring 0.8 cm SE 3 IM 27. Minimal atelectatic changes in both lung leavitt were again noted. No consolidation or mass in either lung field. No inter, intralobular septal thickening and emphysematous changes in either lung field. No, pleural effusion or pneumothorax on either side. Few subcentimeter mediastinal and hilar lymph nodes. The included left breast shows calcification in the left breast. Again noted small soft tissue nodule measuring 0.7 x 0.5 cm is seen in the upper outer quadrant of the right breast. Further ultrasound correlation. No enhancing lesion is seen in the left breast and no evidence of left axillary lymphadenopathy. Heart and pericardium appear normal. Both lobes of the thyroid gland appear normal. Surgical meeta are seen in left axilla. Visualized thoracic spine appears normal. No lytic or sclerotic lesion was seen. Visualized scanned upper abdomen shows hepatic steatosis, status post cholecystectomy, and multiple surgical sutures in the left renal bed with non-visualization of the left kidney in limited images. IMPRESSION: In comparison with the prior study, Interval insertion of a right-sided central venous catheter with its tip noted at aortocaval junction. Redemonstration of soft tissue pulmonary nodule in the lateral basal segment of the left lower lobe with no significant interval change SE 3 IM # 32. This likely represents a suspicious pulmonary nodule and needs a short-term follow-up in 3 months according to Fleischner Society guidelines. Again a small pneumatocele in the apical segment of the right lower lobe. Included upper abdomen demonstrates hepatic steatosis, status post cholecystectomy, and multiple surgical sutures in the left renal bed. No PE. Electronically Signed by: Linda Hernández MD. (11/26/2023 18:10:16 EST)
[2023-11-26 18:27] VITALS: O2SAT 97
--- NOTE | 2023-11-26 19:05 | XRAY ---
Indication: Cough and congestion. Comparison: January 02, 2019 Portable chest remains inflated and clear. Heart not enlarged with new right Port-A-Cath. Bony thorax intact. Limited upper abdomen again demonstrates epigastric surgical clips. Impression: Nonacute chest with chronic features.
== END 2023-11-26 18:46 | disposition home or self-care (01) ==
LOC: ED 12:39
DX: J06.9 Acute upper respiratory infection, unspecified (principal); B97.4 Respiratory syncytial virus as the cause of diseases classified elsewhere; R05.1 Acute cough; R06.02 Shortness of breath; E78.5 Hyperlipidemia, unspecified; I10 Essential (primary) hypertension; E11.9 Type 2 diabetes mellitus without complications; Z79.01 Long term (current) use of anticoagulants; Z79.891 Long term (current) use of opiate analgesic; Z79.899 Other long term (current) drug therapy; Z28.310 Unvaccinated for COVID-19
CPT/HCPCS: 0241U; 36000; 36415; 71046; 71260; 80053; 84145; 85025; 87040; 93005; 96374; 96376; 99284; J1642; J3010

== ENCOUNTER 2023-11-28 15:35 | Observation (INO) | payer OTHER ==
[2023-11-28 16:42] LABS: Absolute Neutrophil Ct (ANC) 4.86 x10^3/uL (1.4-6.9); BASOPHIL % 0.3 % (0.0-0.4); Basophil (Absolute #) 0.02 x10^3/uL (0-0.4); Eosinophil % 0.4 % (0.00-5.0); Eosinophil (Absolute #) 0.03 x10^3/uL (0-0.5); Hematocrit 37.5 % (35-47); Hemoglobin 11.7 g/dL (12.0-16.0); IMMATURE GRAN # 0.04 x10^3u/L (0.00-0.03); IMMATURE GRAN % 0.5 % (0.00-0.4); Lymphocyte (Absolute #) 2.36 x10^3/uL (1.0-4.6); Lymphocytes % 30.1 % (24.0-44.0); Mean Cell Volume 102.5 fL (78-100); Mean Corpuscular Hgb Concent. 31.2 g/dL (32-36); Mean Platelet Volume 8.9 fL (7.5-11.0); Monocyte (Absolute #) 0.53 x10^3/uL (0.0-1.3); Monocytes % 6.8 % (0.0-12.0); Neutrophil % 61.9 % (36.0-66.0); Platelet Count 245 x10^3/uL (150-450); Red Blood Count 3.66 x10^6/uL (4.1-5.4); Red Cell Distribution Width 15.9 % (11.5-14.0); White Blood Count 7.8 x10^3/uL (4.0-10.5)
[2023-11-28 16:57] LABS: ALBUMIN 3.9 g/dL (3.5-5.0); ANION GAP 9.5 MEQ/L (5-15); BILIRUBIN,TOTAL 0.3 mg/dL (0.2-1.3); Calcium 9.9 mg/dL (8.4-10.2); Creatinine 1 0.84 mg/dL (0.52-1.04); EST GLOMERULAR FILTRATION RATE 91.7 ML/MIN; Potassium 3.4 mmol/L (3.5-5.1); Total Protein 7.2 g/dL (6.3-8.2)
--- NOTE | 2023-11-28 17:15 | ERPHSYRPT ---
- History of Present Illness Time Seen by Provider: 11/28/23 15:50 Source: patient Exam Limitations: no limitations Patient Subjective Stated Complaint: SOB and heaviness in chest. change in status started today Triage Nursing Assessment: pt to ED c/o SOB that initally started a few days ago, dx with RSV 2 days ago in this ED. states SOB and fever worsened this AM. took norco 5 at home around 1200 today. had appt with Dr. 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 does not appear in resp distress, or diff breathing. temp 99.4 on arrival. Physician History: Patient is a 38-year-old female presents to our ED as a referral from her primary care doctor for evaluation of shortness of breath chest heaviness and fever. Patient states symptoms started 2 days ago after she was diagnosed with RSV. Symptoms worsen today. Upon arrival to our ED patient describes a heaviness in her chest. Patient was tachycardic. Patient reported to staff that she has a history of breast cancer. No other complaints. Symptoms are constant. Symptoms are moderate in intensity. Symptoms worse with exertion. Patient voices no other complaints or concerns at this time. Portions of this note were created with voice recognition technology. There may be grammatical, spelling, punctuation or sound alike errors Timing/Duration: yesterday Activities at Onset: rest Severity of Dyspnea-Max: moderate Severity of Dyspnea-Current: mild Possible Cause: unknown cause Associated Symptoms: chest pain/discomfort Allergies/Adverse Reactions: codeine [Codeine] Allergy (Severe, Verified 11/28/23 15:39) Itching can take norco hydromorphone HCl [From Dilaudid] Allergy (Severe, Verified 11/26/23 12:55) terbutaline sulfate [From Brethine] Allergy (Severe, Verified 11/26/23 12:55) morphine Adverse Reaction (Intermediate, Verified 11/26/23 12:55) Vomiting Home Medications: Aspirin 81 mg PO DAILY 11/04/16 [History] Metoprolol Tartrate 50 mg [Lopressor 50 MG] 50 mg PO BID 03/19/17 [ History] Atorvastatin Calcium [Lipitor] 80 mg PO DAILY 03/27/18 [History] Budesonide [Budesonide ER] 9 mg PO DAILY 06/04/23 [History] Cholecalciferol (Vitamin D3) [Vitamin D3] 125 mcg PO DAILY 06/04/23 [History] Hydrocodone/Acetaminophen [Hydrocodone-Acetamin 5-325 mg] 1 tab PO Q6HPRN PRN MDD 4 06/04/23 [History] Ondansetron ODT 4 MG [Zofran Odt 4 mg] 4 mg PO Q8H PRN PRN 06/04/23 [History] PANTOPRAZOLE 40 mg Tablet [Protonix 40MG Tablet] 40 mg PO QAM 06/04/23 [History] Ranolazine 500 MG [Ranexa 500 MG] 500 mg PO BID 06/04/23 [History] Alprazolam [Xanax] 1 mg PO TID PRN PRN 10/04/23 [History] Apixaban [Eliquis] 5 mg PO DAILY 10/04/23 [History] Fentanyl 75Mcg Patch [Duragesic 75 MCG Patch] 1 patch TOP Q72H PRN 10/04/23 [History] Hx Tetanus, Diphtheria Vaccination/Date Given: No (2015) Hx Influenza Vaccination/Date Given: No Hx Pneumococcal Vaccination/Date Given: No Immunizations Up to Date: No Travel Risk - International Travel Have you traveled outside of the country in past 3 weeks: No - Coronavirus Screening Are you exhibiting any of the following symptoms?: Yes Symptoms: Fever, Cough: New Onset, Shortness of Breath, Headaches/Body Aches/Fatigue Close contact with a COVID-19 positive Pt in past 14-21 Days: Yes - Vaccine Status Have you recieved a Covid-19 vaccination: No - Review of Systems Constitutional: No Symptoms, No Fever, No Chills Eyes: No Symptoms Ears, Nose, & Throat: No Symptoms Respiratory: No Symptoms, No Cough, No Dyspnea Cardiac: No Symptoms, No Chest Pain, No Edema, No Syncope Abdominal/Gastrointestinal: No Symptoms, No Abdominal Pain, No Nausea, No Vomiting, No Diarrhea Genitourinary Symptoms: No Symptoms, No Dysuria Musculoskeletal: No Symptoms, No Back Pain, No Neck Pain Skin: No Symptoms, No Rash Neurological: No Symptoms, No Dizziness, No Focal Weakness, No Sensory Changes Psychological: No Symptoms Endocrine: No Symptoms Hematologic/Lymphatic: No Symptoms Immunological/Allergic: No Symptoms All Other Systems: Reviewed and Negative - Past Medical History Pertinent Past Medical History: Yes Neurological History: Epilepsy, Migraines, Seizures, Stroke ENT History: Other Cardiac History: Coronary Artery Disease, High Cholesterol, Hypertension, Myocardial Infarction ([place]), Other Respiratory History: No Pertinent History Endocrine Medical History: Diabetes Type II, Liver Disease Musculoskeletal History: Fractures, Osteoporosis GI Medical History: Colitis, Hemorrhoids, Irritable Bowel History: Kidney Cancer, Renal Disease Psycho-Social History: Anxiety, Panic Disorder Female Reproductive Disorders: Other Other Medical History: kidney cancer at age 18 months, bilat wrist fracture and leg, STAGE 3 BREAST CANCER - Past Surgical History Past Surgical History: Yes Neuro Surgical History: No Pertinent History Cardiac: No Pertinent History Respiratory: No Pertinent History Gastrointestinal: No Pertinent History Genitourinary: Kidney Surgery Musculoskeletal: No Pertinent History Female Surgical History: Section, Tubal Ligation Other Surgical History: c section, tubal ligation, l kidney removal, wilms tumor, choly, tonsillectomny, adenoidectomy - Social History Smoking Status: Former smoker How long have you smoked: 12 yrs Exposure to second hand smoke: No Alcohol Use: None Drug Use: none Patient Lives Alone: No Significant Family History: no pertinent family hx - Female History Hx Last Menstrual Period: irregular - hormone vicky and going through menopause Hx Now: No - Nursing Vital Signs Nursing Vital Signs: Initial Vital Signs Temperature 99.4 F 11/28/23 15:39 Pulse Rate 130 H 11/28/23 15:39 Respiratory Rate 23 11/28/23 15:39 Blood Pressure 145/84 11/28/23 15:39 O2 Sat by Pulse Oximetry 97 11/28/23 15:39 Pain Scale Pain Intensity 8 - Physical Exam General Appearance: no apparent distress, alert Eye Exam: PERRL/EOMI Neck Exam: normal inspection, supple Cardiovascular/Chest Exam: normal heart sounds, regular rate/rhythm Abdominal/Gastrointestinal Exam: soft, No tenderness, No distention, No mass Extremity Exam: non-tender, normal range of motion, normal inspection, no calf tenderness, no pedal edema Neurologic Exam: alert, oriented x 3, cooperative, 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 Subtle right upper lung interstitial alveolar opacity favoring pneumonitis.) Ordered Tests: Active Orders 24 hr Category Date Time Status [place] Printer STAT Care 11/28/23 15:40 Active EKG-ER Only STAT Care 11/28/23 15:40 Active IV Insertion STAT Care 11/28/23 15:40 Active Pulse Oximetry (ED) STAT Care 11/28/23 15:40 Active CHEST WITH CONTRAST [CT] Stat Exams 11/28/23 17:07 Taken BLOOD CULTURE Stat Lab 11/28/23 16:22 Received CBC W DIFF Stat Lab 11/28/23 15:40 Completed CMP Stat Lab 11/28/23 16:22 Completed D-DIMER QUANTITATIVE Stat Lab 11/28/23 16:22 Completed NT PRO BNPII Stat Lab 11/28/23 16:22 Completed TROPONIN Q4H Lab 11/28/23 16:22 Completed TROPONIN Q4H Lab 11/28/23 19:55 Received TROPONIN Q4H Lab 11/28/23 23:45 Ordered Transfer Order Routine Transfer 11/28/23 Ordered Medication Summary Discontinued Medications Generic Name Dose Route Start Last Admin Trade Name Freq PRN Reason Stop Dose Admin Methylprednisolone Sodium 0 mg 11/28/23 19:49 11/28/23 19:53 Succinate 125 mg/ Sterile IV 11/28/23 19:50 125 mg Water 2 ml STAT ONE Administration Ketorolac Tromethamine 30 mg 11/28/23 17:49 11/28/23 17:52 Ketorolac Tromethamine 30 Mg/Ml Inj IV 11/28/23 17:50 30 mg STAT ONE Administration Ketorolac Tromethamine Confirm 11/28/23 17:51 Ketorolac Tromethamine 30 Mg/Ml Inj Administered 11/28/23 17:52 Dose 30 mg .ROUTE .STK-MED ONE Methylprednisolone Sodium Succinate Confirm 11/28/23 19:52 Methylprednis Sod Succ 125 Mg/2 Ml Vial Administered 11/28/23 19:53 Dose 125 mg .ROUTE .STK-MED ONE Sterile Water Confirm 11/28/23 19:52 Water For Injection,Sterile 10 Ml Vial Administered 11/28/23 19:53 Dose 10 ml IJ .STK-MED ONE Lab/Rad Data: Laboratory Result Diagrams 11/28/23 15:40 11/28/23 16:22 Laboratory Results 11/28/23 11/28/23 11/28/23 Range/Units 16:45 16:22 16:22 WBC (4.0-10.5) x10^3/uL RBC (4.1-5.4) x10^6/uL Hgb (12.0-16.0) g/dL Hct (35-47) % MCV (78-100) fL MCH (26-32) pg MCHC (32-36) g/dL RDW (11.5-14.0) % Plt Count (150-450) x10^3/uL MPV (7.5-11.0) fL Gran % (36.0-66.0) % Immature Gran % (Auto) (0.00-0.4) % Nucleat RBC Rel Count (0.00-0.1) % Eos # (Auto) (0-0.5) x10^3/uL Immature Gran # (Auto) (0.00-0.03) x10^3u/L Absolute Lymphs (auto) (1.0-4.6) x10^3/uL Absolute Monos (auto) (0.0-1.3) x10^3/uL Absolute Nucleated RBC (0.00-0.01) x10^3u/L Lymphocytes % (24.0-44.0) % Monocytes % (0.0-12.0) % Eosinophils % (0.00-5.0) % Basophils % (0.0-0.4) % Absolute Granulocytes (1.4-6.9) x10^3/uL Basophils # (0-0.4) x10^3/uL D-Dimer (0.0-0.50) mg/L Sodium (137-145) mmol/L Potassium (3.5-5.1) mmol/L Chloride (98-107) mmol/L Carbon Dioxide (22-30) mmol/L Anion Gap (5-15) MEQ/L BUN (7-17) mg/dL Creatinine (0.52-1.04) mg/dL Estimated GFR ML/MIN Glucose (74-106) mg/dL Calcium (8.4-10.2) mg/dL Total Bilirubin (0.2-1.3) mg/dL AST (14-36) U/L ALT (0-35) U/L Alkaline Phosphatase (38-126) U/L Troponin I < 0.012 (0.000-0.034) ng/mL NT-Pro-B Natriuret Pep 95.3 (<300) pg/mL Serum Total Protein (6.3-8.2) g/dL Albumin (3.5-5.0) g/dL Influenza Type A Ag NEGATIVE (NEGATIVE) Influenza Type B Ag NEGATIVE (NEGATIVE) RSV (PCR) POSITIVE (NEGATIVE) SARS-CoV-2 (PCR) NEGATIVE (NEGATIVE) 11/28/23 11/28/23 11/28/23 Range/Units 16:22 16:22 15:40 WBC 7.8 (4.0-10.5) x10^3/uL RBC 3.66 L (4.1-5.4) x10^6/uL Hgb 11.7 L (12.0-16.0) g/dL Hct 37.5 (35-47) % MCV 102.5 H (78-100) fL MCH 32.0 (26-32) pg MCHC 31.2 L (32-36) g/dL RDW 15.9 H (11.5-14.0) % Plt Count 245 (150-450) x10^3/uL MPV 8.9 (7.5-11.0) fL Gran % 61.9 (36.0-66.0) % Immature Gran % (Auto) 0.5 H (0.00-0.4) % Nucleat RBC Rel Count 0.0 (0.00-0.1) % Eos # (Auto) 0.03 (0-0.5) x10^3/uL Immature Gran # (Auto) 0.04 H (0.00-0.03) x10^3u/L Absolute Lymphs (auto) 2.36 (1.0-4.6) x10^3/uL Absolute Monos (auto) 0.53 (0.0-1.3) x10^3/uL Absolute Nucleated RBC 0.00 (0.00-0.01) x10^3u/L Lymphocytes % 30.1 (24.0-44.0) % Monocytes % 6.8 (0.0-12.0) % Eosinophils % 0.4 (0.00-5.0) % Basophils % 0.3 (0.0-0.4) % Absolute Granulocytes 4.86 (1.4-6.9) x10^3/uL Basophils # 0.02 (0-0.4) x10^3/uL D-Dimer 2.80 H* (0.0-0.50) mg/L Sodium 140 (137-145) mmol/L Potassium 3.4 L (3.5-5.1) mmol/L Chloride 105 (98-107) mmol/L Carbon Dioxide 29 (22-30) mmol/L Anion Gap 9.5 (5-15) MEQ/L BUN 15 (7-17) mg/dL Creatinine 0.84 (0.52-1.04) mg/dL Estimated GFR 91.7 ML/MIN Glucose 122 H (74-106) mg/dL Calcium 9.9 (8.4-10.2) mg/dL Total Bilirubin 0.30 (0.2-1.3) mg/dL AST 61 H (14-36) U/L ALT 108 H (0-35) U/L Alkaline Phosphatase 201 H (38-126) U/L Troponin I (0.000-0.034) ng/mL NT-Pro-B Natriuret Pep (<300) pg/mL Serum Total Protein 7.2 (6.3-8.2) g/dL Albumin 3.9 (3.5-5.0) g/dL Influenza Type A Ag (NEGATIVE) Influenza Type B Ag (NEGATIVE) RSV (PCR) (NEGATIVE) SARS-CoV-2 (PCR) (NEGATIVE) - Progress Progress: improved Air Movement: good Progress Note: Patient is a 38-year-old female presents to our emergency department for evaluation of shortness of breath. Patient has history of breast cancer. Shortness of breath has been progressive. Patient currently on Eliquis for known PE. Physical exam reveals a tachycardic female hypoxic on room air. D- dimer positive. CTA chest reveals a right upper lobe pneumonitis. Patient is RSV positive. Patient is allergic to beta agonist. Patient treated with Solu- Medrol and oxygen. Patient ambulated throughout our ED. Patient saturation was 93% with a heart rate of 142. Patient was tachypneic. Patient will be admitted for further evaluation and treatment. Plan of care discussed with patient. She agrees [place] [facility] and treatment. Portions of this note were created with voice recognition technology. There may be grammatical, spelling, punctuation or sound alike errors Complexity problem addressed is moderate acute complicated. No critical care time Complexity of data reviewed and analyzed is extensive. Test ordered test reviewed. Case discussed with Dr. Cheikh Sheth who accepts admission at 7:42 PM. Risk of complication and or risk of morbidity/mortality of patient management is high. Patient requires hospitalization for further evaluation and treatment. Vital stable. Time spent to admit patient is approximately 30 minutes. Plan of care established for shared decision making. No social determinants of health present impede follow-up. Portions of this note were created with voice recognition technology. There may be grammatical, spelling, punctuation or sound alike errors 11/28/23 20:06 Blood Culture(s) Obtained: Yes Antibiotics given: No Counseled pt/family regarding: lab results, diagnosis, rad results - Departure Departure Disposition: Observation Clinical Impression: RSV infection, SOB (shortness of breath), Hypoxia, Pneumonitis, Tachycardia Condition: Stable Critical Care Time: No Referrals: DOCTOR,NO FAMILY [Primary Care Provider] - Follow up/PCP as directed
[2023-11-28 17:19] LABS: INFLUENZA A NEGATIVE (NEGATIVE); INFLUENZA B NEGATIVE (NEGATIVE); SARS-CoV-2 Xpert Express NEGATIVE (NEGATIVE)
[2023-11-28 17:24] LABS: RESPIRATORY SYNCTIAL VIRUS POSITIVE (NEGATIVE)
[2023-11-28] MEDS ORDERED: TORAdol 30 mg Injection IV ONE (17:49)
[2023-11-28] MEDS ORDERED: TORAdol 30 mg Injection ONE (17:51)
[2023-11-28] MEDS ORDERED: solu-MEDROL 125 MG, Sterile H2O 10 ml 2 ML IV ONE ×2 (19:49)
[2023-11-28] MEDS ORDERED: solu-MEDROL ONE (19:52)
[2023-11-28] MEDS ORDERED: Sterile H2O 10 ml IJ ONE (19:52)
--- NOTE | 2023-11-28 20:33 | PCM.HP ---
History of Present Illness - Chief Complaint Chief Complaint: Shortness of Breath, RSV+ History of Present Illness: is a 38 year old female who presents with shortness of breath, hypoxia (88% on RA), found to be RSV+ and on CT imaging found to have pneumonitis, without evidence of a PE. No other complaints, though her SOB worsens with exertion. - Review of Systems Constitutional: No Fever, No Chills Eyes: No Symptoms Ears, Nose, & Throat: No Symptoms Respiratory: No Cough, No Short Of Breath Cardiac: No Chest Pain, No Edema, No Syncope Abdominal/Gastrointestinal: No Abdominal Pain, No Nausea, No Vomiting, No Diarrhea Genitourinary Symptoms: No Dysuria Musculoskeletal: No Back Pain, No Neck Pain Skin: No Rash Neurological: No Dizziness, No Focal Weakness, No Sensory Changes Psychological: No Symptoms Endocrine: No Symptoms Hematologic/Lymphatic: No Symptoms Immunological/Allergic: No Symptoms Medications & Allergies Home Medications: Home Medication List Aspirin 81 mg PO DAILY 11/04/16 [History Confirmed 11/28/23] Metoprolol Tartrate 50 mg [Lopressor 50 MG] 50 mg PO BID 03/19/17 [History Confirmed 11/28/23] Atorvastatin Calcium [Lipitor] 80 mg PO DAILY 03/27/18 [History Confirmed 11/28/23] Budesonide [Budesonide ER] 9 mg PO DAILY 06/04/23 [History Confirmed 11/28/23] Cholecalciferol (Vitamin D3) [Vitamin D3] 125 mcg PO DAILY 06/04/23 [History Confirmed 11/28/23] Hydrocodone/Acetaminophen [Hydrocodone-Acetamin 5-325 mg] 1 tab PO Q6HPRN PRN MDD 4 06/04/23 [History Confirmed 11/28/23] Ondansetron ODT 4 MG [Zofran Odt 4 mg] 4 mg PO Q8H PRN PRN 06/04/23 [History Confirmed 11/28/23] PANTOPRAZOLE 40 mg Tablet [Protonix 40MG Tablet] 40 mg PO QAM 06/04/23 [History Confirmed 11/28/23] Ranolazine 500 MG [Ranexa 500 MG] 500 mg PO BID 06/04/23 [History Confirmed 11/28/23] Alprazolam [Xanax] 1 mg PO TID PRN PRN 10/04/23 [History Confirmed 11/28/23] Apixaban [Eliquis] 5 mg PO DAILY 10/04/23 [History Confirmed 11/28/23] Fentanyl 75Mcg Patch [Duragesic 75 MCG Patch] 1 patch TOP Q72H PRN 10/04/23 [History Confirmed 11/28/23] Acetaminophen 325 mg [Tylenol 325 mg] 650 mg PO Q4H PRN PRN tablet 10/05/23 [Rx Confirmed 11/28/23] Ondansetron HCl 4 mg/2 ml [Zofran 4 MG/2 ML VIAL] 4 mg IV Q6H PRN PRN 10/05/23 [Rx Confirmed 11/28/23] Allergies/Adverse Reactions: Allergies Allergy/AdvReac Type Severity Reaction Status Date / Time codeine [Codeine] Allergy Severe Itching Verified 11/28/23 15:39 hydromorphone HCl Allergy Severe Verified 11/26/23 12:55 [From Dilaudid] terbutaline sulfate Allergy Severe Verified 11/26/23 12:55 [From Brethine] morphine AdvReac Intermediate Vomiting Verified 11/26/23 12:55 - Past Medical History Past Medical History: Yes Neurological History: Epilepsy, Migraines, Seizures, Stroke ENT History: Other Cardiac History: Coronary Artery Disease, High Cholesterol, Hypertension, Myocardial Infarction ([place]), Other Respiratory History: No Pertinent History Endocrine Medical History: Diabetes Type II, Liver Disease Musculoskelatal History: Fractures, Osteoporosis GI Medical History: Colitis, Hemorrhoids, Irritable Bowel History: Kidney Cancer, Renal Disease Pyscho-Social History: Anxiety, Panic Disorder Reproductive Disorders: Other Comment: kidney cancer at age 18 months, bilat wrist fracture and leg, STAGE 3 BREAST CANCER - Female History Hx Last Menstrual Period: irregular - hormone vicky and going through menopause Are you now?: No - Past Surgical History Past Surgical History: Yes Neuro Surgical History: No Pertinent History Cardiac History: No Pertinent History Respiratory Surgery: No Pertinent History GI Surgical History: No Pertinent History Genitourinary Surgical Hx: Kidney Surgery Musculskeletal Surgical Hx: No Pertinent History Female Surgical History: Section, Tubal Ligation Other Surgical History: c section, tubal ligation, l kidney removal, wilms tumor, choly, tonsillectomny, adenoidectomy - Social History Smoking Status: Former smoker How long have you smoked: 12 yrs Exposure to second hand smoke: No Alcohol: None Drug Use: none Significant Family History: no pertinent family hx - Physical Exam Vital Signs: Vital Signs - 24 hr Temp Pulse Resp BP BP Pulse Ox 11/28/23 20:13 97 11/28/23 20:00 117 H 26 H 115/73 94 L 11/28/23 19:30 115 H 21 120/93 96 11/28/23 19:27 129 H 20 112/82 93 L 11/28/23 19:01 118 H 24 76/54 96 11/28/23 18:31 145 H 31 H 102/64 92 L 11/28/23 18:30 25 H 91 L 11/28/23 18:20 128 H 23 92 L 11/28/23 18:14 93 L 11/28/23 17:00 134/79 11/28/23 16:00 132 H 23 135/86 97 11/28/23 15:59 98 11/28/23 15:39 99.4 F 130 H 23 145/84 97 General Appearance: no apparent distress, alert Neurologic Exam: alert, oriented x 3, cooperative, normal mood/affect, nml cerebellar function, nml station & gait, sensation nml, No motor deficits Eye Exam: PERRL/EOMI, eyes nml inspection Ears, Nose, Throat Exam: normal ENT inspection, TMs normal, pharynx normal, moist mucous membranes Neck Exam: normal inspection, non-tender, supple, full range of motion Respiratory Exam: normal breath sounds, lungs clear, No respiratory distress Cardiovascular Exam: regular rate/rhythm, normal heart sounds, normal peripheral pulses Gastrointestinal/Abdomen Exam: soft, normal bowel sounds, No tenderness, No mass Back Exam: normal inspection, normal range of motion, No CVA tenderness, No vertebral tenderness Extremity Exam: normal inspection, normal range of motion, pelvis stable Skin Exam: normal color, warm, dry, No rash Lymphatic Exam: No adenopathy Results - Labs Lab/Micro Results: Lab Results-Last 24 Hours 11/28/23 11/28/23 11/28/23 Range/Units 15:40 16:22 16:22 WBC 7.8 (4.0-10.5) x10^3/uL RBC 3.66 L (4.1-5.4) x10^6/uL Hgb 11.7 L (12.0-16.0) g/dL Hct 37.5 (35-47) % MCV 102.5 H (78-100) fL MCH 32.0 (26-32) pg MCHC 31.2 L (32-36) g/dL RDW 15.9 H (11.5-14.0) % Plt Count 245 (150-450) x10^3/uL MPV 8.9 (7.5-11.0) fL Gran % 61.9 (36.0-66.0) % Immature Gran % (Auto) 0.5 H (0.00-0.4) % Nucleat RBC Rel Count 0.0 (0.00-0.1) % Eos # (Auto) 0.03 (0-0.5) x10^3/uL Immature Gran # (Auto) 0.04 H (0.00-0.03) x10^3u/L Absolute Lymphs (auto) 2.36 (1.0-4.6) x10^3/uL Absolute Monos (auto) 0.53 (0.0-1.3) x10^3/uL Absolute Nucleated RBC 0.00 (0.00-0.01) x10^3u/L Lymphocytes % 30.1 (24.0-44.0) % Monocytes % 6.8 (0.0-12.0) % Eosinophils % 0.4 (0.00-5.0) % Basophils % 0.3 (0.0-0.4) % Absolute Granulocytes 4.86 (1.4-6.9) x10^3/uL Basophils # 0.02 (0-0.4) x10^3/uL D-Dimer 2.80 H* (0.0-0.50) mg/L Sodium 140 (137-145) mmol/L Potassium 3.4 L (3.5-5.1) mmol/L Chloride 105 (98-107) mmol/L Carbon Dioxide 29 (22-30) mmol/L Anion Gap 9.5 (5-15) MEQ/L BUN 15 (7-17) mg/dL Creatinine 0.84 (0.52-1.04) mg/dL Estimated GFR 91.7 ML/MIN Glucose 122 H (74-106) mg/dL Calcium 9.9 (8.4-10.2) mg/dL Total Bilirubin 0.30 (0.2-1.3) mg/dL AST 61 H (14-36) U/L ALT 108 H (0-35) U/L Alkaline Phosphatase 201 H (38-126) U/L Troponin I (0.000-0.034) ng/mL NT-Pro-B Natriuret Pep (<300) pg/mL Serum Total Protein 7.2 (6.3-8.2) g/dL Albumin 3.9 (3.5-5.0) g/dL Influenza Type A Ag (NEGATIVE) Influenza Type B Ag (NEGATIVE) RSV (PCR) (NEGATIVE) SARS-CoV-2 (PCR) (NEGATIVE) 11/28/23 11/28/23 11/28/23 Range/Units 16:22 16:22 16:45 WBC (4.0-10.5) x10^3/uL RBC (4.1-5.4) x10^6/uL Hgb (12.0-16.0) g/dL Hct (35-47) % MCV (78-100) fL MCH (26-32) pg MCHC (32-36) g/dL RDW (11.5-14.0) % Plt Count (150-450) x10^3/uL MPV (7.5-11.0) fL Gran % (36.0-66.0) % Immature Gran % (Auto) (0.00-0.4) % Nucleat RBC Rel Count (0.00-0.1) % Eos # (Auto) (0-0.5) x10^3/uL Immature Gran # (Auto) (0.00-0.03) x10^3u/L Absolute Lymphs (auto) (1.0-4.6) x10^3/uL Absolute Monos (auto) (0.0-1.3) x10^3/uL Absolute Nucleated RBC (0.00-0.01) x10^3u/L Lymphocytes % (24.0-44.0) % Monocytes % (0.0-12.0) % Eosinophils % (0.00-5.0) % Basophils % (0.0-0.4) % Absolute Granulocytes (1.4-6.9) x10^3/uL Basophils # (0-0.4) x10^3/uL D-Dimer (0.0-0.50) mg/L Sodium (137-145) mmol/L Potassium (3.5-5.1) mmol/L Chloride (98-107) mmol/L Carbon Dioxide (22-30) mmol/L Anion Gap (5-15) MEQ/L BUN (7-17) mg/dL Creatinine (0.52-1.04) mg/dL Estimated GFR ML/MIN Glucose (74-106) mg/dL Calcium (8.4-10.2) mg/dL Total Bilirubin (0.2-1.3) mg/dL AST (14-36) U/L ALT (0-35) U/L Alkaline Phosphatase (38-126) U/L Troponin I < 0.012 (0.000-0.034) ng/mL NT-Pro-B Natriuret Pep 95.3 (<300) pg/mL Serum Total Protein (6.3-8.2) g/dL Albumin (3.5-5.0) g/dL Influenza Type A Ag NEGATIVE (NEGATIVE) Influenza Type B Ag NEGATIVE (NEGATIVE) RSV (PCR) POSITIVE (NEGATIVE) SARS-CoV-2 (PCR) NEGATIVE (NEGATIVE) 11/28/23 Range/Units 19:55 WBC (4.0-10.5) x10^3/uL RBC (4.1-5.4) x10^6/uL Hgb (12.0-16.0) g/dL Hct (35-47) % MCV (78-100) fL MCH (26-32) pg MCHC (32-36) g/dL RDW (11.5-14.0) % Plt Count (150-450) x10^3/uL MPV (7.5-11.0) fL Gran % (36.0-66.0) % Immature Gran % (Auto) (0.00-0.4) % Nucleat RBC Rel Count (0.00-0.1) % Eos # (Auto) (0-0.5) x10^3/uL Immature Gran # (Auto) (0.00-0.03) x10^3u/L Absolute Lymphs (auto) (1.0-4.6) x10^3/uL Absolute Monos (auto) (0.0-1.3) x10^3/uL Absolute Nucleated RBC (0.00-0.01) x10^3u/L Lymphocytes % (24.0-44.0) % Monocytes % (0.0-12.0) % Eosinophils % (0.00-5.0) % Basophils % (0.0-0.4) % Absolute Granulocytes (1.4-6.9) x10^3/uL Basophils # (0-0.4) x10^3/uL D-Dimer (0.0-0.50) mg/L Sodium (137-145) mmol/L Potassium (3.5-5.1) mmol/L Chloride (98-107) mmol/L Carbon Dioxide (22-30) mmol/L Anion Gap (5-15) MEQ/L BUN (7-17) mg/dL Creatinine (0.52-1.04) mg/dL Estimated GFR ML/MIN Glucose (74-106) mg/dL Calcium (8.4-10.2) mg/dL Total Bilirubin (0.2-1.3) mg/dL AST (14-36) U/L ALT (0-35) U/L Alkaline Phosphatase (38-126) U/L Troponin I 0.017 (0.000-0.034) ng/mL NT-Pro-B Natriuret Pep (<300) pg/mL Serum Total Protein (6.3-8.2) g/dL Albumin (3.5-5.0) g/dL Influenza Type A Ag (NEGATIVE) Influenza Type B Ag (NEGATIVE) RSV (PCR) (NEGATIVE) SARS-CoV-2 (PCR) (NEGATIVE) - Radiology Impressions Radiology Exams & Impressions: Radiology Procedures Category Date Time Status CHEST WITH CONTRAST [CT] Stat Exams 11/28/23 17:07 Taken Assessment/Plan (1) Pneumonitis Current Visit: Yes Status: Acute Assessment & Plan: 1. Continue supplemental oxygen 2. Started steroids in the ED, can do prednisone 40 mg with a taper tomorrow if clinically improving 3. No indication for Abx Code(s): J98.4 - OTHER DISORDERS OF LUNG Telemedicine Encounter - Telemedicine Encounter Telemedicine Encounter: The entirety of this encounter was performed via Telemedicine"
[2023-11-28] MEDS ORDERED: QUESTRAN Light 4 GM Packet PO PRN (22:35)
[2023-11-28] MEDS ORDERED: ZOFRAN ODT 4 MG PO PRN (22:35)
[2023-11-28] MEDS ORDERED: Duragesic 75 MCG Patch TOP PRN (22:35)
[2023-11-28] MEDS: NORCO 5/325 MG PO PRN (23:01)
[2023-11-29] MEDS: NORCO 5/325 MG PO PRN ×4 (04:35→23:16)
--- NOTE | 2023-11-29 05:13 | PCM.NOTE ---
Date and Time: 11/29/23 0506 Subjective Assessment: Ms. Banks is a 38 year old female with a pmhx of CAD, HLD, HTN, IA, DMII, PE (Eliquis), Breast cancer (on aromasin), Wilms tumor,h/o radiation to the brain, and OP who presented to ED 11/29/23 with complaints of shortness of breath, chest heaviness, and fever. Physical exam in the ED department revealed tachycardia with HR 142 and hypoxia on room air. D-dimer positive. RSV positive. CTA chest reveals a right upper lobe pneumonitis. Patient is RSV positive. Patient is allergic to beta agonist. Patient treated with Solu- Medrol and oxygen. 11/29/23: Met with patient bedside. Endorses shortness of breath, RN CORRECTIONS cough, and pleuritic chest pain with deep inhalation but states she is much improved overnight. She is currently on 2L oxygen, RA at baseline. Will try to wean today. Crackles noted in bilateral lung bases on auscultation. Denies fever, abdominal pain, LINDSEY, dizziness, N/V/D. <BHAVNA AVILES - Last Filed: 11/29/23 09:58> Date and Time: 11/29/236 <CARSON WHITTEN - Last Filed: 11/29/23 21:37> - Review of Systems Constitutional: Fatigue, Weakness Eyes: No Symptoms Ears, Nose, & Throat: No Symptoms Respiratory: Cough, Short Of Breath Cardiac: Chest Pain (with deep inhalation) Abdominal/Gastrointestinal: No Symptoms Genitourinary Symptoms: No Symptoms Musculoskeletal: No Symptoms Skin: No Symptoms Neurological: No Symptoms Psychological: No Symptoms Endocrine: No Symptoms Hematologic/Lymphatic: Anemia <BHAVNA AVILES - Last Filed: 11/29/23 09:58> Objective Exam General Appearance: no apparent distress Neurologic Exam: alert, oriented x 3, cooperative Skin Exam: normal color Eye Exam: PERRL Ears, Nose, Throat Exam: normal ENT inspection Neck Exam: normal inspection Respiratory Exam: crackles/rales Cardiovascular Exam: regular rate/rhythm, normal heart sounds Gastrointestinal/Abdomen Exam: soft, normal bowel sounds Extremity Exam: normal inspection Back Exam: normal inspection Pelvic Exam: deferred Rectal Exam: deferred <BHAVNA AVILES - Last Filed: 11/29/23 09:58> OBJECTIVE DATA Vital Signs: Vital Signs - 24 hr Temp Pulse Resp BP BP Pulse Ox 11/29/23 04:00 96.5 F 92 H 16 109/61 93 L 11/29/23 00:00 79 19 11/28/23 20:59 94 L 11/28/23 20:40 99.6 F 118 H 19 128/58 98 11/28/23 20:13 97 11/28/23 20:00 117 H 26 H 115/73 94 L 11/28/23 19:30 115 H 21 120/93 96 11/28/23 19:27 129 H 20 112/82 93 L 11/28/23 19:01 118 H 24 76/54 96 11/28/23 18:31 145 H 31 H 102/64 92 L 11/28/23 18:30 25 H 91 L 11/28/23 18:20 128 H 23 92 L 11/28/23 18:14 93 L 11/28/23 17:00 134/79 11/28/23 16:00 132 H 23 135/86 97 11/28/23 15:59 98 11/28/23 15:39 99.4 F 130 H 23 145/84 97 Pain Assessment - Last Documented Pain Intensity 6 Pain Scale Used 0-10 Pain Scale Intake and Output: Intake & Output 11/26/23 11/27/23 11/28/23 11/29/23 11:59 11:59 11:59 11:59 Weight 76.5 kg Lab Results: Lab Results-Last 24 Hours 11/28/23 11/28/23 11/28/23 Range/Units 15:40 16:22 16:22 WBC 7.8 (4.0-10.5) x10^3/uL RBC 3.66 L (4.1-5.4) x10^6/uL Hgb 11.7 L (12.0-16.0) g/dL Hct 37.5 (35-47) % MCV 102.5 H (78-100) fL MCH 32.0 (26-32) pg MCHC 31.2 L (32-36) g/dL RDW 15.9 H (11.5-14.0) % Plt Count 245 (150-450) x10^3/uL MPV 8.9 (7.5-11.0) fL Gran % 61.9 (36.0-66.0) % Immature Gran % (Auto) 0.5 H (0.00-0.4) % Nucleat RBC Rel Count 0.0 (0.00-0.1) % Eos # (Auto) 0.03 (0-0.5) x10^3/uL Immature Gran # (Auto) 0.04 H (0.00-0.03) x10^3u/L Absolute Lymphs (auto) 2.36 (1.0-4.6) x10^3/uL Absolute Monos (auto) 0.53 (0.0-1.3) x10^3/uL Absolute Nucleated RBC 0.00 (0.00-0.01) x10^3u/L Lymphocytes % 30.1 (24.0-44.0) % Monocytes % 6.8 (0.0-12.0) % Eosinophils % 0.4 (0.00-5.0) % Basophils % 0.3 (0.0-0.4) % Absolute Granulocytes 4.86 (1.4-6.9) x10^3/uL Basophils # 0.02 (0-0.4) x10^3/uL D-Dimer 2.80 H* (0.0-0.50) mg/L Sodium 140 (137-145) mmol/L Potassium 3.4 L (3.5-5.1) mmol/L Chloride 105 (98-107) mmol/L Carbon Dioxide 29 (22-30) mmol/L Anion Gap 9.5 (5-15) MEQ/L BUN 15 (7-17) mg/dL Creatinine 0.84 (0.52-1.04) mg/dL Estimated GFR 91.7 ML/MIN Glucose 122 H (74-106) mg/dL Calcium 9.9 (8.4-10.2) mg/dL Total Bilirubin 0.30 (0.2-1.3) mg/dL AST 61 H (14-36) U/L ALT 108 H (0-35) U/L Alkaline Phosphatase 201 H (38-126) U/L Troponin I (0.000-0.034) ng/mL NT-Pro-B Natriuret Pep (<300) pg/mL Serum Total Protein 7.2 (6.3-8.2) g/dL Albumin 3.9 (3.5-5.0) g/dL Influenza Type A Ag (NEGATIVE) Influenza Type B Ag (NEGATIVE) RSV (PCR) (NEGATIVE) SARS-CoV-2 (PCR) (NEGATIVE) 11/28/23 11/28/23 11/28/23 Range/Units 16:22 16:22 16:45 WBC (4.0-10.5) x10^3/uL RBC (4.1-5.4) x10^6/uL Hgb (12.0-16.0) g/dL Hct (35-47) % MCV (78-100) fL MCH (26-32) pg MCHC (32-36) g/dL RDW (11.5-14.0) % Plt Count (150-450) x10^3/uL MPV (7.5-11.0) fL Gran % (36.0-66.0) % Immature Gran % (Auto) (0.00-0.4) % Nucleat RBC Rel Count (0.00-0.1) % Eos # (Auto) (0-0.5) x10^3/uL Immature Gran # (Auto) (0.00-0.03) x10^3u/L Absolute Lymphs (auto) (1.0-4.6) x10^3/uL Absolute Monos (auto) (0.0-1.3) x10^3/uL Absolute Nucleated RBC (0.00-0.01) x10^3u/L Lymphocytes % (24.0-44.0) % Monocytes % (0.0-12.0) % Eosinophils % (0.00-5.0) % Basophils % (0.0-0.4) % Absolute Granulocytes (1.4-6.9) x10^3/uL Basophils # (0-0.4) x10^3/uL D-Dimer (0.0-0.50) mg/L Sodium (137-145) mmol/L Potassium (3.5-5.1) mmol/L Chloride (98-107) mmol/L Carbon Dioxide (22-30) mmol/L Anion Gap (5-15) MEQ/L BUN (7-17) mg/dL Creatinine (0.52-1.04) mg/dL Estimated GFR ML/MIN Glucose (74-106) mg/dL Calcium (8.4-10.2) mg/dL Total Bilirubin (0.2-1.3) mg/dL AST (14-36) U/L ALT (0-35) U/L Alkaline Phosphatase (38-126) U/L Troponin I < 0.012 (0.000-0.034) ng/mL NT-Pro-B Natriuret Pep 95.3 (<300) pg/mL Serum Total Protein (6.3-8.2) g/dL Albumin (3.5-5.0) g/dL Influenza Type A Ag NEGATIVE (NEGATIVE) Influenza Type B Ag NEGATIVE (NEGATIVE) RSV (PCR) POSITIVE (NEGATIVE) SARS-CoV-2 (PCR) NEGATIVE (NEGATIVE) 11/28/23 Range/Units 19:55 WBC (4.0-10.5) x10^3/uL RBC (4.1-5.4) x10^6/uL Hgb (12.0-16.0) g/dL Hct (35-47) % MCV (78-100) fL MCH (26-32) pg MCHC (32-36) g/dL RDW (11.5-14.0) % Plt Count (150-450) x10^3/uL MPV (7.5-11.0) fL Gran % (36.0-66.0) % Immature Gran % (Auto) (0.00-0.4) % Nucleat RBC Rel Count (0.00-0.1) % Eos # (Auto) (0-0.5) x10^3/uL Immature Gran # (Auto) (0.00-0.03) x10^3u/L Absolute Lymphs (auto) (1.0-4.6) x10^3/uL Absolute Monos (auto) (0.0-1.3) x10^3/uL Absolute Nucleated RBC (0.00-0.01) x10^3u/L Lymphocytes % (24.0-44.0) % Monocytes % (0.0-12.0) % Eosinophils % (0.00-5.0) % Basophils % (0.0-0.4) % Absolute Granulocytes (1.4-6.9) x10^3/uL Basophils # (0-0.4) x10^3/uL D-Dimer (0.0-0.50) mg/L Sodium (137-145) mmol/L Potassium (3.5-5.1) mmol/L Chloride (98-107) mmol/L Carbon Dioxide (22-30) mmol/L Anion Gap (5-15) MEQ/L BUN (7-17) mg/dL Creatinine (0.52-1.04) mg/dL Estimated GFR ML/MIN Glucose (74-106) mg/dL Calcium (8.4-10.2) mg/dL Total Bilirubin (0.2-1.3) mg/dL AST (14-36) U/L ALT (0-35) U/L Alkaline Phosphatase (38-126) U/L Troponin I 0.017 (0.000-0.034) ng/mL NT-Pro-B Natriuret Pep (<300) pg/mL Serum Total Protein (6.3-8.2) g/dL Albumin (3.5-5.0) g/dL Influenza Type A Ag (NEGATIVE) Influenza Type B Ag (NEGATIVE) RSV (PCR) (NEGATIVE) SARS-CoV-2 (PCR) (NEGATIVE) Radiology Exams: Radiology Procedures Category Date Time Status CHEST WITH CONTRAST [CT] Stat Exams 11/28/23 17:07 Taken <BHAVNA AVILES - Last Filed: 11/29/23 09:58> Vital Signs: Vital Signs - 24 hr Temp Pulse Resp BP Pulse Ox 11/29/23 20:18 93 L 11/29/23 20:00 99.3 F 103 H 19 110/70 98 11/29/23 19:05 96 11/29/23 16:00 98.3 F 104 H 16 115/61 96 11/29/23 11:52 98.0 F 87 16 98/57 96 11/29/23 07:34 95 11/29/23 07:21 97.2 F 96 H 16 110/62 95 11/29/23 04:00 96.5 F 92 H 16 109/61 93 L 11/29/23 00:00 79 19 Pain Assessment - Last Documented Pain Intensity 8 Pain Scale Used 0-10 Pain Scale Intake and Output: Intake & Output 11/27/23 11/28/23 11/29/23 11/30/23 11:59 11:59 11:59 11:59 Intake Total 400 640 Output Total 1 Balance 400 639 Weight 76.5 kg Lab Results: Lab Results-Last 24 Hours 11/29/23 11/29/23 Range/Units 05:40 05:40 WBC 6.5 (4.0-10.5) x10^3/uL RBC 3.48 L (4.1-5.4) x10^6/uL Hgb 10.9 L (12.0-16.0) g/dL Hct 35.1 (35-47) % MCV 100.9 H (78-100) fL MCH 31.3 (26-32) pg MCHC 31.1 L (32-36) g/dL RDW 15.9 H (11.5-14.0) % Plt Count 220 (150-450) x10^3/uL MPV 9.1 (7.5-11.0) fL Gran % 82.5 H (36.0-66.0) % Immature Gran % (Auto) 0.6 H (0.00-0.4) % Nucleat RBC Rel Count 0.0 (0.00-0.1) % Eos # (Auto) 0 (0-0.5) x10^3/uL Immature Gran # (Auto) 0.04 H (0.00-0.03) x10^3u/L Absolute Lymphs (auto) 1.03 (1.0-4.6) x10^3/uL Absolute Monos (auto) 0.06 (0.0-1.3) x10^3/uL Absolute Nucleated RBC 0.00 (0.00-0.01) x10^3u/L Lymphocytes % 15.8 L (24.0-44.0) % Monocytes % 0.9 (0.0-12.0) % Eosinophils % 0.0 (0.00-5.0) % Basophils % 0.2 (0.0-0.4) % Absolute Granulocytes 5.39 (1.4-6.9) x10^3/uL Basophils # 0.01 (0-0.4) x10^3/uL Sodium 134 L (137-145) mmol/L Potassium 4.2 D (3.5-5.1) mmol/L Chloride 106 (98-107) mmol/L Carbon Dioxide 22 (22-30) mmol/L Anion Gap 10.1 (5-15) MEQ/L BUN 21 H (7-17) mg/dL Creatinine 0.67 (0.52-1.04) mg/dL Estimated GFR 115.4 ML/MIN Glucose 230 H (74-106) mg/dL Calcium 9.7 (8.4-10.2) mg/dL Total Bilirubin 0.40 (0.2-1.3) mg/dL AST 47 H (14-36) U/L ALT 91 H (0-35) U/L Alkaline Phosphatase 177 H (38-126) U/L Serum Total Protein 6.5 (6.3-8.2) g/dL Albumin 3.3 L (3.5-5.0) g/dL Radiology Exams: Radiology Procedures Category Date Time Status CHEST WITH CONTRAST [CT] Stat Exams 11/28/23 17:07 Completed <CARSON WHITTEN - Last Filed: 11/29/23 21:37> Assessment/Plan (1) RSV (respiratory syncytial virus infection) Current Visit: Yes Status: Acute Assessment & Plan: -Supportive therapies -Supplemental oxygen for spo2 goal > 92% -Analgesics Code(s): B33.8 - OTHER SPECIFIED VIRAL DISEASES (2) Pneumonitis Current Visit: Yes Status: Acute Assessment & Plan: -Start prednisone -No indication for abx Code(s): J98.4 - OTHER DISORDERS OF LUNG (3) Hypokalemia Current Visit: Yes Status: Acute Assessment & Plan: -Continue home med potassium 20 BID, initiate protocol replacement if appropriate -TELE Code(s): E87.6 - HYPOKALEMIA (4) Hypoxia Current Visit: Yes Status: Acute Assessment & Plan: -Most likely 2/2 to RSV/pneumonitis -Supplemental oxygen for goal of >92%, RA at baseline Code(s): R09.02 - HYPOXEMIA (5) Tachycardia Current Visit: Yes Status: Acute Assessment & Plan: -Most likely secondary to RSV infection, CTA negative for PE Code(s): R00.0 - TACHYCARDIA, UNSPECIFIED (6) History of IA (myocardial infarction) Current Visit: No Status: Acute Assessment & Plan: -noted continue appropriate home meds Code(s): I25.2 - OLD MYOCARDIAL INFARCTION (7) History of Wilms' tumor Current Visit: No Status: Acute Assessment & Plan: -noted, has had nephrectomy Code(s): Z85.528 - PERSONAL HISTORY OF OTHER MALIGNANT NEOPLASM OF KIDNEY (8) Stage III breast cancer in female Current Visit: No Status: Acute Assessment & Plan: -Follow with Dr. Chappell, on aromasin, future double mastectomy planned but not scheduled, no chemo/radiation at this time. Code(s): C50.919 - MALIGNANT NEOPLASM OF UNSP SITE OF UNSPECIFIED FEMALE BREAST (9) Coronary artery disease involving left main coronary artery Current Visit: No Status: Chronic Assessment & Plan: -noted, continue appropriate home medications Code(s): I25.10 - ATHSCL HEART DISEASE OF [place] CORONARY ARTERY W/O ANG PCTRS (10) History of pulmonary embolism Current Visit: Yes Status: Acute Assessment & Plan: -Continue Eliquis Code(s): Z86.711 - PERSONAL HISTORY OF PULMONARY EMBOLISM <BHAVNA AVILES - Last Filed: 11/29/23 09:58> JUVENAL Encounter - JUVENAL Encounter Attestation JUVENAL Encounter Attestation: "CortezKAITY,ROSALINDA KABA andhavediscussed pertinent aspects of their care with Bhavna Aviles and agree with the history, physical exam (any modifications based on my personal exam will be noted below), assessment, and plan as outlined in original note. Please see immediately below for my summary of findings and additional assessment and plan along with any meaningful corrections/explanations to the Subjective/Objective portions of the JUVENAL note will be noted." My portion of the encounter took place via telemedicine. -RSV pneumonitis. Feels better today, off oxygen. Will observe for another day due to patient's multiple comorbidities, potential discharge tomorrow. <CARSON WHITTEN - Last Filed: 11/29/23 21:37>
[2023-11-29 06:01] LABS: ALBUMIN 3.3 g/dL (3.5-5.0); ANION GAP 10.1 MEQ/L (5-15); BILIRUBIN,TOTAL 0.4 mg/dL (0.2-1.3); Calcium 9.7 mg/dL (8.4-10.2); Creatinine 1 0.67 mg/dL (0.52-1.04); EST GLOMERULAR FILTRATION RATE 115.4 ML/MIN; Potassium 4.2 mmol/L (3.5-5.1); Total Protein 6.5 g/dL (6.3-8.2)
[2023-11-29 06:41] LABS: Hematocrit 35.1 % (35-47); Hemoglobin 10.9 g/dL (12.0-16.0); Mean Cell Volume 100.9 fL (78-100); Mean Corpuscular Hemoglobin 31.3 pg (26-32); Mean Corpuscular Hgb Concent. 31.1 g/dL (32-36); Red Blood Count 3.48 x10^6/uL (4.1-5.4); Red Cell Distribution Width 15.9 % (11.5-14.0); White Blood Count 6.5 x10^3/uL (4.0-10.5)
[2023-11-29 06:42] LABS: Absolute Neutrophil Ct (ANC) 5.39 x10^3/uL (1.4-6.9); BASOPHIL % 0.2 % (0.0-0.4); Basophil (Absolute #) 0.01 x10^3/uL (0-0.4); Eosinophil (Absolute #) 0 x10^3/uL (0-0.5); IMMATURE GRAN # 0.04 x10^3u/L (0.00-0.03); IMMATURE GRAN % 0.6 % (0.00-0.4); Lymphocyte (Absolute #) 1.03 x10^3/uL (1.0-4.6); Lymphocytes % 15.8 % (24.0-44.0); Mean Platelet Volume 9.1 fL (7.5-11.0); Monocyte (Absolute #) 0.06 x10^3/uL (0.0-1.3); Monocytes % 0.9 % (0.0-12.0); Neutrophil % 82.5 % (36.0-66.0); Platelet Count 220 x10^3/uL (150-450)
[2023-11-29] MEDS ORDERED: MEDICATION INTERVENTION MC SCH ×2 (07:15)
--- NOTE | 2023-11-29 08:40 | XRAY ---
Indication: Short of breath. Elevated d-dimer. Multiple contiguous axial images obtained through the chest using 80 cc Isovue 370 contrast and PE protocol. Comparison: November 26, 2023 Suboptimal opacification pulmonary arteries limits evaluation for pulmonary embolus. No obvious central pulmonary embolus. Heart not enlarged again with right Port-A-Cath. Aorta is normal in course and caliber. No pathologic mediastinal/hilar lymphadenopathy. Lungs now demonstrates subtle right upper lobe interstitial alveolar opacities favoring pneumonitis. Stable 1.1 cm left lower lobe noncalcified nodule. No new pulmonary mass/nodule, consolidation, effusion, or pneumothorax. Bony thorax intact. Limited upper abdomen again demonstrates cholecystectomy and left nephrectomy surgical clips. Stable incidental small right renal cyst. Impression: 1. Pulmonary embolus evaluation limited by suboptimal contrast opacification. No obvious central pulmonary embolus. 2. New subtle right upper lobe interstitial alveolar opacities favoring pneumonitis. 3. Stable indeterminant left lower lobe noncalcified pulmonary nodule. Incidental small right renal cyst.
[2023-11-29] MEDS: VITAMIN D PO SCH (09:07)
[2023-11-29] MEDS: Neurontin PO SCH ×2 (09:08→22:38)
[2023-11-29] MEDS: ZOCOR 20MG PO SCH (09:08)
[2023-11-29] MEDS: MAG-OX 400 PO SCH (09:08)
[2023-11-29] MEDS: Zestril 10 MG PO SCH (09:09)
[2023-11-29] MEDS: Amaryl 2 MG PO SCH (09:09)
[2023-11-29] MEDS: Cymbalta 30 MG Capsule PO SCH (09:09)
[2023-11-29] MEDS: ECOTRIN 81 MG PO SCH (09:10)
[2023-11-29] MEDS: Klor Con PO SCH ×2 (09:10→22:38)
[2023-11-29] MEDS: Ranexa 500 MG PO SCH ×2 (09:10→22:38)
[2023-11-29] MEDS: Protonix 40MG Tablet PO SCH (09:10)
[2023-11-29] MEDS: Lopressor 25MG Tab PO SCH (09:10)
[2023-11-29] MEDS: NORVASC 5 MG PO SCH (09:11)
[2023-11-29] MEDS ORDERED: NON-FORMULARY ITEM (Potassium Chloride [Potassium Chloride] 20 MEQ Tablet.Er) PO SCH (10:00)
[2023-11-29] MEDS ORDERED: NON-FORMULARY ITEM (Budesonide [Budesonide Dr] 3 MG Capdr...Er) PO SCH (10:00)
[2023-11-29] MEDS ORDERED: NON-FORMULARY ITEM (Metoprolol Succinate 25 MG Tab.Er.24h) PO SCH (10:00)
[2023-11-29] MEDS ORDERED: MAGNESIUM OXIDE 250 MG PO SCH (10:00)
[2023-11-29] MEDS ORDERED: NON-FORMULARY ITEM (Cholecalciferol (Vitamin D3) [Vitamin D3] 125 MCG Capsule) PO SCH (10:00)
[2023-11-29] MEDS ORDERED: NON-FORMULARY ITEM (Aspirin [Aspirin] 81 MG Tablet) PO SCH (10:00)
[2023-11-29] MEDS ORDERED: NON-FORMULARY ITEM (Glimepiride [Glimepiride] 1 MG Tablet) PO SCH (10:00)
[2023-11-29] MEDS ORDERED: NON-FORMULARY ITEM (Amlodipine Besylate [Amlodipine Besylate] 2.5 MG Tablet) PO SCH (10:00)
[2023-11-29] MEDS ORDERED: EXEMESTANE 25 MG PO SCH (10:00)
[2023-11-29] MEDS ORDERED: NON-FORMULARY ITEM (Atorvastatin Calcium [Atorvastatin Calcium] 80 MG Tablet) PO SCH (10:00)
[2023-11-29] MEDS: PATIENT OWN MEDICATION PO SCH (10:17)
[2023-11-29] MEDS: ELIQUIS 2.5 MG TABLET PO SCH ×2 (11:20→22:38)
[2023-11-29] MEDS ORDERED: Zofran 4 MG/2 ML VIAL IV PRN (13:31)
[2023-11-29] MEDS ORDERED: Compazine 10 MG/2 ML IV PRN (13:31)
[2023-11-29] MEDS ORDERED: zyPREXA 5MG TABLET PO SCH (22:00)
[2023-11-29] MEDS ORDERED: OLANZAPINE 10 MG PO SCH (22:00)
[2023-11-29] MEDS: XANAX 1 MG PO PRN (23:16)
[2023-11-30 05:07] LABS: Absolute Neutrophil Ct (ANC) 6.54 x10^3/uL (1.4-6.9); BASOPHIL % 0.1 % (0.0-0.4); Basophil (Absolute #) 0.01 x10^3/uL (0-0.4); Eosinophil (Absolute #) 0 x10^3/uL (0-0.5); Hematocrit 33.5 % (35-47); Hemoglobin 10.5 g/dL (12.0-16.0); IMMATURE GRAN # 0.03 x10^3u/L (0.00-0.03); IMMATURE GRAN % 0.3 % (0.00-0.4); Lymphocyte (Absolute #) 2.21 x10^3/uL (1.0-4.6); Lymphocytes % 23.4 % (24.0-44.0); Mean Cell Volume 101.2 fL (78-100); Mean Corpuscular Hemoglobin 31.7 pg (26-32); Mean Corpuscular Hgb Concent. 31.3 g/dL (32-36); Mean Platelet Volume 9.3 fL (7.5-11.0); Monocyte (Absolute #) 0.67 x10^3/uL (0.0-1.3); Monocytes % 7.1 % (0.0-12.0); Neutrophil % 69.1 % (36.0-66.0); Platelet Count 222 x10^3/uL (150-450); Red Blood Count 3.31 x10^6/uL (4.1-5.4); Red Cell Distribution Width 15.7 % (11.5-14.0); White Blood Count 9.5 x10^3/uL (4.0-10.5)
--- NOTE | 2023-11-30 05:11 | PCM.DS ---
Discharge Summary Date of Admission: 11/28/23 20:23 Date of Discharge: 11/30/23 Admitting Physician: TATYANA BOO MD Primary Care Provider: NO FAMILY DOCTOR <BHAVNA AVILES - Last Filed: 11/30/23 11:04> Date of Admission: 11/28/23 20:23 Admitting Physician: TATYANA BOO MD Primary Care Provider: NO FAMILY DOCTOR <CARSON WHITTEN - Last Filed: 11/30/23 21:11> Allergies <BHAVNA AVILES - Last Filed: 11/30/23 11:04> <CARSON WHITTEN - Last Filed: 11/30/23 21:11> Allergies codeine [Codeine] Allergy (Severe, Verified 11/28/23 15:39) Itching can take norco hydromorphone HCl [From Dilaudid] Allergy (Severe, Verified 11/26/23 12:55) terbutaline sulfate [From Brethine] Allergy (Severe, Verified 11/26/23 12:55) morphine Adverse Reaction (Intermediate, Verified 11/26/23 12:55) Vomiting Hospital Summary - Hospital Course Hospital Course: Ms. 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 Physical exam in the ED department revealed tachycardia with HR 142 and hypoxia on room air. D-dimer positive. RSV positive. CTA chest reveals a right upper lobe pneumonitis. Patient is RSV positive. Patient is allergic to beta agonist. Patient treated with Solu- Medrol and oxygen. No indication for abx. Dysnpnea has improved, no longer requiring oxygen. Lab findings and vitals are stable. She is agreeable to plan and ready for discharge. Discharge Note New Diagnosis:RSV Pneumonitis Follow Up: pcp Latest Assessment & Plan (1) RSV (respiratory syncytial virus infection) Current Visit: Yes Status: Acute Assessment & Plan: -Supportive therapies -Supplemental oxygen for spo2 goal > 92% -Analgesics Code(s): B33.8 - OTHER SPECIFIED VIRAL DISEASES (2) Pneumonitis Current Visit: Yes Status: Acute Assessment & Plan: -Start prednisone -No indication for abx Code(s): J98.4 - OTHER DISORDERS OF LUNG (3) Hypokalemia Current Visit: Yes Status: Acute Assessment & Plan: -Continue home med potassium 20 BID, initiate protocol replacement if appropriate -TELE Code(s): E87.6 - HYPOKALEMIA (4) Hypoxia Current Visit: Yes Status: Acute Assessment & Plan: -Most likely 2/2 to RSV/pneumonitis -Supplemental oxygen for goal of >92%, RA at baseline Code(s): R09.02 - HYPOXEMIA (5) Tachycardia Current Visit: Yes Status: Acute Assessment & Plan: -Most likely secondary to RSV infection, CTA negative for PE Code(s): R00.0 - TACHYCARDIA, UNSPECIFIED (6) History of MO (myocardial infarction) Current Visit: No Status: Acute Assessment & Plan: -noted continue appropriate home meds Code(s): I25.2 - OLD MYOCARDIAL INFARCTION (7) History of Wilms' tumor Current Visit: No Status: Acute Assessment & Plan: -noted, has had nephrectomy Code(s): Z85.528 - PERSONAL HISTORY OF OTHER MALIGNANT NEOPLASM OF KIDNEY (8) Stage III breast cancer in female Current Visit: No Status: Acute Assessment & Plan: -Follow with Dr. Chappell, on aromasin, future double mastectomy planned but not scheduled, no chemo/radiation at this time. Code(s): C50.919 - MALIGNANT NEOPLASM OF UNSP SITE OF UNSPECIFIED FEMALE BREAST (9) Coronary artery disease involving left main coronary artery Current Visit: No Status: Chronic Assessment & Plan: -noted, continue appropriate home medications Code(s): I25.10 - ATHSCL HEART DISEASE OF [place] CORONARY ARTERY W/O ANG PCTRS (10) History of pulmonary embolism Current Visit: Yes Status: Acute Assessment & Plan: -Continue Eliquis Code(s): Z86.711 - PERSONAL HISTORY OF PULMONARY EMBOLISM I spent 35 minutes [id number] with the patient on the day of discharge performing discharge exam, discussing hospital stay and discharge instructions with patient and caregivers, preparation of discharge records, prescriptions & referral forms and addressing any questions/concerns the patient had as documented above. - Vitals & Intake/Output Vital Signs: Vital Signs Temperature 97.3 F 11/30/23 03:58 Pulse Rate 100 H 11/30/23 03:58 Respiratory Rate 20 11/30/23 03:58 Blood Pressure 106/58 11/30/23 03:58 O2 Sat by Pulse Oximetry 98 11/30/23 03:58 Intake & Output: Intake & Output 11/27/23 11/28/23 11/29/23 11/30/23 11:59 11:59 11:59 11:59 Intake Total 400 1120 Output Total 1 Balance 400 1119 Weight 76.5 kg - Lab Result Diagrams: 11/30/23 04:32 11/30/23 04:32 Lab Results-Last 24 Hrs: Lab Results-Last 24 Hours 11/29/23 11/29/23 Range/Units 05:40 05:40 WBC 6.5 (4.0-10.5) x10^3/uL RBC 3.48 L (4.1-5.4) x10^6/uL Hgb 10.9 L (12.0-16.0) g/dL Hct 35.1 (35-47) % MCV 100.9 H (78-100) fL MCH 31.3 (26-32) pg MCHC 31.1 L (32-36) g/dL RDW 15.9 H (11.5-14.0) % Plt Count 220 (150-450) x10^3/uL MPV 9.1 (7.5-11.0) fL Gran % 82.5 H (36.0-66.0) % Immature Gran % (Auto) 0.6 H (0.00-0.4) % Nucleat RBC Rel Count 0.0 (0.00-0.1) % Eos # (Auto) 0 (0-0.5) x10^3/uL Immature Gran # (Auto) 0.04 H (0.00-0.03) x10^3u/L Absolute Lymphs (auto) 1.03 (1.0-4.6) x10^3/uL Absolute Monos (auto) 0.06 (0.0-1.3) x10^3/uL Absolute Nucleated RBC 0.00 (0.00-0.01) x10^3u/L Lymphocytes % 15.8 L (24.0-44.0) % Monocytes % 0.9 (0.0-12.0) % Eosinophils % 0.0 (0.00-5.0) % Basophils % 0.2 (0.0-0.4) % Absolute Granulocytes 5.39 (1.4-6.9) x10^3/uL Basophils # 0.01 (0-0.4) x10^3/uL Sodium 134 L (137-145) mmol/L Potassium 4.2 D (3.5-5.1) mmol/L Chloride 106 (98-107) mmol/L Carbon Dioxide 22 (22-30) mmol/L Anion Gap 10.1 (5-15) MEQ/L BUN 21 H (7-17) mg/dL Creatinine 0.67 (0.52-1.04) mg/dL Estimated GFR 115.4 ML/MIN Glucose 230 H (74-106) mg/dL Calcium 9.7 (8.4-10.2) mg/dL Total Bilirubin 0.40 (0.2-1.3) mg/dL AST 47 H (14-36) U/L ALT 91 H (0-35) U/L Alkaline Phosphatase 177 H (38-126) U/L Serum Total Protein 6.5 (6.3-8.2) g/dL Albumin 3.3 L (3.5-5.0) g/dL - Radiology Exams Ordered Rad Exams-Entire Visit: Radiology Procedures Category Date Time Status CHEST WITH CONTRAST [CT] Stat Exams 11/28/23 17:07 Completed - Procedures and Test Procedures and Tests throughout Hospitalization: Therapy Orders & Screens 11/28/23 20:58 Oxygen NASAL CANNULA 2 lpm Comment: Diagnosis: Hypoxia, pneumonitis, RSV <BHAVNA AVILES - Last Filed: 11/30/23 11:04> - Vitals & Intake/Output Vital Signs: Vital Signs Temperature 97.6 F 11/30/23 06:51 Pulse Rate 94 H 11/30/23 06:51 Respiratory Rate 14 11/30/23 06:51 Blood Pressure 111/59 11/30/23 06:51 O2 Sat by Pulse Oximetry 94 L 11/30/23 07:13 Intake & Output: Intake & Output 11/28/23 11/29/23 11/30/23 12/01/23 11:59 11:59 11:59 11:59 Intake Total 400 1240 Output Total 1 Balance 400 1239 Weight 76.5 kg - Lab Result Diagrams: 11/30/23 04:32 11/30/23 04:32 Lab Results-Last 24 Hrs: Lab Results-Last 24 Hours 11/30/23 11/30/23 Range/Units 04:32 04:32 WBC 9.5 (4.0-10.5) x10^3/uL RBC 3.31 L (4.1-5.4) x10^6/uL Hgb 10.5 L (12.0-16.0) g/dL Hct 33.5 L (35-47) % MCV 101.2 H (78-100) fL MCH 31.7 (26-32) pg MCHC 31.3 L (32-36) g/dL RDW 15.7 H (11.5-14.0) % Plt Count 222 (150-450) x10^3/uL MPV 9.3 (7.5-11.0) fL Gran % 69.1 H (36.0-66.0) % Immature Gran % (Auto) 0.3 (0.00-0.4) % Nucleat RBC Rel Count 0.0 (0.00-0.1) % Eos # (Auto) 0 (0-0.5) x10^3/uL Immature Gran # (Auto) 0.03 (0.00-0.03) x10^3u/L Absolute Lymphs (auto) 2.21 (1.0-4.6) x10^3/uL Absolute Monos (auto) 0.67 (0.0-1.3) x10^3/uL Absolute Nucleated RBC 0.00 (0.00-0.01) x10^3u/L Lymphocytes % 23.4 L (24.0-44.0) % Monocytes % 7.1 (0.0-12.0) % Eosinophils % 0.0 (0.00-5.0) % Basophils % 0.1 (0.0-0.4) % Absolute Granulocytes 6.54 (1.4-6.9) x10^3/uL Basophils # 0.01 (0-0.4) x10^3/uL Sodium 136 L (137-145) mmol/L Potassium 4.7 (3.5-5.1) mmol/L Chloride 104 (98-107) mmol/L Carbon Dioxide 27 (22-30) mmol/L Anion Gap 9.4 (5-15) MEQ/L BUN 24 H (7-17) mg/dL Creatinine 0.77 (0.52-1.04) mg/dL Estimated GFR 101.8 ML/MIN Glucose 143 H (74-106) mg/dL Calcium 9.7 (8.4-10.2) mg/dL Total Bilirubin 0.30 (0.2-1.3) mg/dL AST 32 (14-36) U/L ALT 71 H (0-35) U/L Alkaline Phosphatase 145 H (38-126) U/L Serum Total Protein 6.2 L (6.3-8.2) g/dL Albumin 3.2 L (3.5-5.0) g/dL Micro Results-Entire Visit: Microbiology 11/28/23 16:35 Blood Culture - Preliminary Blood 11/28/23 16:22 Blood Culture - Preliminary Blood - Procedures and Test Procedures and Tests throughout Hospitalization: Therapy Orders & Screens 11/28/23 20:58 Oxygen NASAL CANNULA 2 lpm Comment: Diagnosis: Hypoxia, pneumonitis, RSV 11/30/23 08:35 Qualify for Home Oxygen TODAY Comment: Diagnosis: Shortness of Breath, RSV+ <CARSON WHITTEN - Last Filed: 11/30/23 21:11> Discharge Exam General Appearance: no apparent distress Neurologic Exam: alert, oriented x 3, cooperative Eye Exam: PERRL Ears, Nose, Throat Exam: normal ENT inspection Neck Exam: normal inspection Respiratory Exam: crackles/rales Cardiovascular Exam: regular rate/rhythm, normal heart sounds Gastrointestinal/Abdomen Exam: soft, normal bowel sounds Pelvic Exam: deferred Rectal Exam: deferred Back Exam: normal inspection Extremity Exam: normal inspection Skin Exam: normal color <BHAVNA AVILES - Last Filed: 11/30/23 11:04> Final Diagnosis/Problem List - Final Discharge Diagnosis/Problem (1) RSV (respiratory syncytial virus infection) Status: Acute Code(s): B33.8 - OTHER SPECIFIED VIRAL DISEASES (2) Pneumonitis Status: Acute Code(s): J98.4 - OTHER DISORDERS OF LUNG (3) Hypokalemia Status: Acute Code(s): E87.6 - HYPOKALEMIA (4) Hypoxia Status: Acute Code(s): R09.02 - HYPOXEMIA (5) Tachycardia Status: Acute Code(s): R00.0 - TACHYCARDIA, UNSPECIFIED (6) History of MO (myocardial infarction) Status: Acute Code(s): I25.2 - OLD MYOCARDIAL INFARCTION (7) History of Wilms' tumor Status: Acute Code(s): Z85.528 - PERSONAL HISTORY OF OTHER MALIGNANT NEOPLASM OF KIDNEY (8) Stage III breast cancer in female Status: Acute Code(s): C50.919 - MALIGNANT NEOPLASM OF UNSP SITE OF UNSPECIFIED FEMALE BREAST (9) Coronary artery disease involving left main coronary artery Status: Chronic Code(s): I25.10 - ATHSCL HEART DISEASE OF [place] CORONARY ARTERY W/O ANG PCTRS (10) History of pulmonary embolism Status: Acute Code(s): Z86.711 - PERSONAL HISTORY OF PULMONARY EMBOLISM <BHAVNA AVILES - Last Filed: 11/30/23 11:04> <BHAVNA AVILES - Last Filed: 11/30/23 11:04> <CARSON WHITTEN - Last Filed: 11/30/23 21:11> - Discharge Disposition: Home, Self-Care Condition: Stable Prescriptions: Continue Aspirin 81 mg PO DAILY PANTOPRAZOLE 40 mg Tablet [Protonix 40MG Tablet] 40 mg PO QAM Ondansetron ODT 4 MG [Zofran Odt 4 mg] 4 mg PO Q8H PRN PRN PRN Reason: Nausea Ranolazine 500 MG [Ranexa 500 MG] 500 mg PO BID Hydrocodone/Acetaminophen [Hydrocodone-Acetamin 5-325 mg] 1 tab PO Q6HPRN PRN MDD 4 PRN Reason: Pain Cholecalciferol (Vitamin D3) [Vitamin D3] 125 mcg PO DAILY Fentanyl 75Mcg Patch [Duragesic 75 MCG Patch] 1 patch TOP Q72H PRN PRN Reason: Pain Alprazolam [Xanax] 1 mg PO TID PRN PRN PRN Reason: Anxiety Amlodipine Besylate 2.5 mg PO DAILY Atorvastatin Calcium 80 mg PO DAILY Budesonide [Budesonide Dr] 3 mg PO DAILY Cholestyramine Light 4 gm [QUESTRAN Light 4 GM Packet] 4 g PO DAILY PRN PRN PRN Reason: Diarrhea Duloxetine HCl 30 mg [Cymbalta 30 MG Capsule] 60 mg PO DAILY Gabapentin 100 mg PO BID Glimepiride 1 mg PO DAILY Lisinopril 10 mg [Zestril 10 MG] 10 mg PO DAILY Magnesium Oxide 250 mg PO DAILY Metoprolol Succinate 25 mg PO DAILY OLANZapine [Zyprexa] 10 mg PO QHS Potassium Chloride 20 meq PO BID Exemestane 25 mg PO DAILY Apixaban [Eliquis] 5 mg PO BID Instructions: Respiratory Syncytial Virus, Adult (DC) Follow up with: SAURABH NAQVI DO [ACTIVE STAFF] - 12/13/23 1:30 pm JUVENAL Encounter - JUVENAL Encounter Attestation JUVENAL Encounter Attestation: "ROSALINDA Saravia andhavediscussed pertinent aspects of their care with Bhavna Cardozo agree with the history, physical exam (any modifications based on my personal exam will be noted below), assessment, and plan as outlined in original note. Please see immediately below for my summary of findings and additional assessment and plan along with any meaningful corrections/explanations to the Subjective/Objective portions of the JUVENAL note will be noted." My portion of the encounter took place via telemedicine. <CARSON WHITTEN - Last Filed: 11/30/23 21:11>
[2023-11-30 05:30] LABS: ALBUMIN 3.2 g/dL (3.5-5.0); ANION GAP 9.4 MEQ/L (5-15); BILIRUBIN,TOTAL 0.3 mg/dL (0.2-1.3); Calcium 9.7 mg/dL (8.4-10.2); Creatinine 1 0.77 mg/dL (0.52-1.04); EST GLOMERULAR FILTRATION RATE 101.8 ML/MIN; Potassium 4.7 mmol/L (3.5-5.1); Total Protein 6.2 g/dL (6.3-8.2)
[2023-11-30] MEDS: XANAX 1 MG PO PRN (06:42)
[2023-11-30] MEDS: NORCO 5/325 MG PO PRN (06:43)
[2023-11-30 06:52] VITALS: BP 111/59; PULSE 94; RESP 14; TEMP 97.6; O2SAT 94
[2023-11-30] MEDS: Amaryl 2 MG PO SCH (08:16)
[2023-11-30] MEDS: NORVASC 5 MG PO SCH (10:03)
[2023-11-30] MEDS: Protonix 40MG Tablet PO SCH (10:03)
[2023-11-30] MEDS: Neurontin PO SCH (10:03)
[2023-11-30] MEDS: Lopressor 25MG Tab PO SCH (10:03)
[2023-11-30] MEDS: Klor Con PO SCH (10:03)
[2023-11-30] MEDS: VITAMIN D PO SCH (10:04)
[2023-11-30] MEDS: ECOTRIN 81 MG PO SCH (10:04)
[2023-11-30] MEDS: MAG-OX 400 PO SCH (10:04)
[2023-11-30] MEDS: ZOCOR 20MG PO SCH (10:04)
[2023-11-30] MEDS: Zestril 10 MG PO SCH (10:04)
[2023-11-30] MEDS: ELIQUIS 2.5 MG TABLET PO SCH (10:04)
[2023-11-30] MEDS: Cymbalta 30 MG Capsule PO SCH (10:04)
[2023-11-30] MEDS: Ranexa 500 MG PO SCH (10:04)
[2023-11-30] MEDS: PATIENT OWN MEDICATION PO SCH (10:09)
== END 2023-11-30 11:40 | disposition home or self-care (01) ==
LOC: ED 15:35 → MED SURG 20:23
PROVIDERS: ADMIT Student in an Organized Health Care Education/Training Program; ATTEND Student in an Organized Health Care Education/Training Program
DX: B97.4 Respiratory syncytial virus as the cause of diseases classified elsewhere (principal); J98.4 Other disorders of lung; E87.6 Hypokalemia; R09.02 Hypoxemia; R00.0 Tachycardia, unspecified; I25.2 Old myocardial infarction; I25.10 Atherosclerotic heart disease of native coronary artery without angina pectoris; C50.919 Malignant neoplasm of unspecified site of unspecified female breast; E78.5 Hyperlipidemia, unspecified; I10 Essential (primary) hypertension; E11.9 Type 2 diabetes mellitus without complications; Z79.01 Long term (current) use of anticoagulants; Z86.711 Personal history of pulmonary embolism; Z85.528 Personal history of other malignant neoplasm of kidney; Z79.899 Other long term (current) drug therapy; Z20.828 Contact with and (suspected) exposure to other viral communicable diseases
CPT/HCPCS: 0241U; 36000; 36415; 71260; 80053; 83880; 84484; 85025; 85379; 87040; 93005; 93041; 93268; 94760; 94762; 96374; 96375; 99284; G0378; Q3014; J1885; J2930; Q0162; A9270-GY

== ENCOUNTER 2023-12-15 11:57 | Emergency (ER) | payer OTHER ==
[2023-12-15] MEDS ORDERED: Sodium Chloride 0.9% 1000 ML 1,000 ML IV STA (12:11)
[2023-12-15] MEDS ORDERED: TYLENOL EXTRA STRENGTH 500 MG PO PRN (12:16)
[2023-12-15 12:18] VITALS: TEMP 98.1
[2023-12-15] MEDS ORDERED: Sodium Chloride 0.9% 1000 ML 1,000 ML ONE (12:27)
[2023-12-15] MEDS ORDERED: TYLENOL EXTRA STRENGTH 500 MG ONE (12:27)
--- NOTE | 2023-12-15 12:31 | XRAY ---
Indication: Chest pain. Negative CT PE exam November 28, 2023. Comparison: November 26, 2023 Portable chest inflated and clear. Heart not enlarged again with right Port-A-Cath. No new/acute findings.
--- NOTE | 2023-12-15 12:40 | ERPHSYRPT ---
- History of Present Illness Time Seen by Provider: 12/15/23 12:00 Source: patient Exam Limitations: no limitations Patient Subjective Stated Complaint: Chest pain Triage Nursing Assessment: Patient brought into ED per w/c and transferred self to bed. Patient A+O X 3. Patient's skin pink, warm and dry. Patient complains of chest pain that goes into karina shoulder blades 10/10 when she woke up this am. Patient also complains of shakiness and headache. Patient denies N/V or diarrhea. Patient also complains of non productive cough. Physician History: The patient's had a 1 day history of fever chills cough congestion and chest pain. She is on Eliquis. She has had history of blood clot. She is being treated for cancer. She takes oral chemo. She could not tolerate IV chemo. She had a recent hospitalization for RSV. This was a Approximately 2 weeks ago. Allergies/Adverse Reactions: codeine [Codeine] Allergy (Severe, Verified 12/15/23 12:09) Itching can take norco hydromorphone HCl [From Dilaudid] Allergy (Severe, Verified 12/15/23 12:09) terbutaline sulfate [From Brethine] Allergy (Severe, Verified 12/15/23 12:09) morphine Adverse Reaction (Intermediate, Verified 12/15/23 12:09) Vomiting Home Medications: Aspirin 81 mg PO DAILY 11/04/16 [History] Cholecalciferol (Vitamin D3) [Vitamin D3] 125 mcg PO DAILY 06/04/23 [History] Hydrocodone/Acetaminophen [Hydrocodone-Acetamin 5-325 mg] 1 tab PO Q6HPRN PRN MDD 4 06/04/23 [History] Ondansetron ODT 4 MG [Zofran Odt 4 mg] 4 mg PO Q8H PRN PRN 06/04/23 [History] PANTOPRAZOLE 40 mg Tablet [Protonix 40MG Tablet] 40 mg PO QAM 06/04/23 [History] Ranolazine 500 MG [Ranexa 500 MG] 500 mg PO BID 06/04/23 [History] Alprazolam [Xanax] 1 mg PO TID PRN PRN 10/04/23 [History] Fentanyl 75Mcg Patch [Duragesic 75 MCG Patch] 1 patch TOP Q72H PRN 10/04/23 [History] Amlodipine Besylate 2.5 mg PO DAILY 11/28/23 [History] Atorvastatin Calcium 80 mg PO DAILY 11/28/23 [History] Budesonide [Budesonide Dr] 3 mg PO DAILY 11/28/23 [History] Cholestyramine Light 4 gm [QUESTRAN Light 4 GM Packet] 4 g PO DAILY PRN PRN 11/28/23 [History] Duloxetine HCl 30 mg [Cymbalta 30 MG Capsule] 60 mg PO DAILY 11/28/23 [History] Exemestane 25 mg PO DAILY 11/28/23 [History] Gabapentin 100 mg PO BID 11/28/23 [History] Glimepiride 1 mg PO DAILY 11/28/23 [History] Lisinopril 10 mg [Zestril 10 MG] 10 mg PO DAILY 11/28/23 [History] Magnesium Oxide 250 mg PO DAILY 11/28/23 [History] Metoprolol Succinate 25 mg PO DAILY 11/28/23 [History] OLANZapine [Zyprexa] 10 mg PO QHS 11/28/23 [History] Potassium Chloride 20 meq PO BID 11/28/23 [History] Apixaban [Eliquis] 5 mg PO BID 11/29/23 [History] Hx Tetanus, Diphtheria Vaccination/Date Given: No (2015) Hx Influenza Vaccination/Date Given: No Hx Pneumococcal Vaccination/Date Given: No Immunizations Up to Date: Yes Travel Risk - International Travel Have you traveled outside of the country in past 3 weeks: No - Coronavirus Screening Are you exhibiting any of the following symptoms?: No Close contact with a COVID-19 positive Pt in past 14-21 Days: No - Vaccine Status Have you recieved a Covid-19 vaccination: No - Review of Systems Constitutional: Fever, Chills, Fatigue Eyes: No Symptoms Ears, Nose, & Throat: No Symptoms Respiratory: Cough Cardiac: Chest Pain Abdominal/Gastrointestinal: No Abdominal Pain, No Nausea, No Vomiting, No Diarrhea Genitourinary Symptoms: No Dysuria Musculoskeletal: No Back Pain, No Neck Pain Skin: No Rash Neurological: No Dizziness, No Focal Weakness, No Sensory Changes Psychological: No Symptoms Endocrine: No Symptoms All Other Systems: Reviewed and Negative - Past Medical History Pertinent Past Medical History: Yes Neurological History: Epilepsy, Migraines, Seizures, Stroke ENT History: Other Cardiac History: Congestive Heart Failure, Coronary Artery Disease, Deep Vein Thrombosis, High Cholesterol, Hypertension, Myocardial Infarction ([place]), Other Respiratory History: No Pertinent History, Pulmonary Embolism Endocrine Medical History: Diabetes Type II, Liver Disease Musculoskeletal History: Fractures, Osteoporosis GI Medical History: Colitis, Hemorrhoids, Irritable Bowel History: Kidney Cancer, Renal Disease Psycho-Social History: Anxiety, Panic Disorder Female Reproductive Disorders: Other Other Medical History: kidney cancer at age 18 months, bilat wrist fracture and leg, STAGE 3 BREAST CANCER - Past Surgical History Past Surgical History: Yes Neuro Surgical History: No Pertinent History Cardiac: No Pertinent History Respiratory: No Pertinent History Gastrointestinal: No Pertinent History Genitourinary: Kidney Surgery Musculoskeletal: No Pertinent History Female Surgical History: Section, Tubal Ligation Other Surgical History: c section, tubal ligation, l kidney removal, wilms tumor, choly, tonsillectomny, adenoidectomy - Social History Smoking Status: Current some day smoker How long have you smoked: 12 yrs Exposure to second hand smoke: No Alcohol Use: None Drug Use: none Patient Lives Alone: No Significant Family History: no pertinent family hx - Female History Hx Last Menstrual Period: homonal blockers Hx Now: No - Nursing Vital Signs Nursing Vital Signs: Initial Vital Signs Pulse Rate 122 H 12/15/23 12:00 Respiratory Rate 23 12/15/23 12:00 Blood Pressure 136/79 12/15/23 12:00 O2 Sat by Pulse Oximetry 97 12/15/23 12:00 Pain Scale Pain Intensity 10 - Physical Exam General Appearance: no apparent distress, alert Eye Exam: PERRL/EOMI, eyes nml inspection Ears, Nose, Throat Exam: normal ENT inspection, TMs normal, pharynx normal, moist mucous membranes Neck Exam: normal inspection, non-tender, supple, full range of motion Respiratory Exam: normal breath sounds, lungs clear, No respiratory distress Cardiovascular Exam: regular rate/rhythm, normal heart sounds, tachycardia Gastrointestinal/Abdomen Exam: soft, No tenderness Back Exam: normal inspection, No CVA tenderness, No vertebral tenderness Extremity Exam: normal inspection, normal range of motion Neurologic Exam: alert, oriented x 3, cooperative, normal mood/affect, sensation nml, No motor deficits Skin Exam: normal color, warm, dry, No rash Lymphatic Exam: No adenopathy SpO2 Interpretation: normal SpO2: 97 O2 Delivery: Room Air - Course Nursing assessment & vital signs reviewed: Yes EKG Interpreted by Me: Sinus Tach, NORMAL AXIS, NORMAL INTERVALS, Other Ordered Tests: Active Orders 24 hr Category Date Time Status IV Insertion STAT Care 12/15/23 12:11 Active CHEST 1 VIEW (PORTABLE) Stat Exams 12/15/23 12:12 Completed BLOOD CULTURE Stat Lab 12/15/23 Received CBC W DIFF Stat Lab 12/15/23 12:35 Completed CMP Stat Lab 12/15/23 13:06 Completed Lactic Acid Stat Lab 12/15/23 12:42 Completed PROTIME WITH INR Stat Lab 12/15/23 12:35 Completed PTT Stat Lab 12/15/23 12:35 Completed TROPONIN Q4H Lab 12/15/23 12:35 Completed TROPONIN Q4H Lab 12/15/23 16:15 Ordered TROPONIN Q4H Lab 12/15/23 20:15 Ordered Medication Summary Generic Name Dose Route Start Last Admin Trade Name Freq PRN Reason Stop Dose Admin Acetaminophen 1,000 mg 12/15/23 12:16 12/15/23 12:38 Acetaminophen 500 Mg Tablet PO 01/14/24 12:15 1,000 mg Q4H PRN PRN Administration HEADACHE Discontinued Medications Generic Name Dose Route Start Last Admin Trade Name Freq PRN Reason Stop Dose Admin Sodium Chloride 1,000 mls @ 999 mls/hr 12/15/23 12:11 12/15/23 13:48 Sodium Chloride 0.9% 1000 Ml IV 12/15/23 13:11 Infused .Q1H1M STA Infusion Sodium Chloride Confirm 12/15/23 12:27 Sodium Chloride 0.9% 1000 Ml Administered 12/15/23 12:28 Dose 1,000 mls @ ud .ROUTE .STK-MED ONE Lab/Rad Data: Laboratory Result Diagrams 12/15/23 12:35 12/15/23 13:06 Laboratory Results 12/15/23 12/15/23 12/15/23 Range/Units 13:06 12:55 12:42 WBC (4.0-10.5) x10^3/uL RBC (4.1-5.4) x10^6/uL Hgb (12.0-16.0) g/dL Hct (35-47) % MCV (78-100) fL MCH (26-32) pg MCHC (32-36) g/dL RDW (11.5-14.0) % Plt Count (150-450) x10^3/uL MPV (7.5-11.0) fL Gran % (36.0-66.0) % Immature Gran % (Auto) (0.00-0.4) % Nucleat RBC Rel Count (0.00-0.1) % Eos # (Auto) (0-0.5) x10^3/uL Immature Gran # (Auto) (0.00-0.03) x10^3u/L Absolute Lymphs (auto) (1.0-4.6) x10^3/uL Absolute Monos (auto) (0.0-1.3) x10^3/uL Absolute Nucleated RBC (0.00-0.01) x10^3u/L Lymphocytes % (24.0-44.0) % Monocytes % (0.0-12.0) % Eosinophils % (0.00-5.0) % Basophils % (0.0-0.4) % Absolute Granulocytes (1.4-6.9) x10^3/uL Basophils # (0-0.4) x10^3/uL PT (9.4-12.5) SECONDS INR (0.8-3.0) APTT (25.1-36.5) SECONDS Sodium 132 L (137-145) mmol/L Potassium 4.0 (3.5-5.1) mmol/L Chloride 102 (98-107) mmol/L Carbon Dioxide 24 (22-30) mmol/L Anion Gap 10.0 (5-15) MEQ/L BUN 20 H (7-17) mg/dL Creatinine 0.91 (0.52-1.04) mg/dL Estimated GFR 83.3 ML/MIN Glucose 94 (74-106) mg/dL Lactic Acid 1.2 (0.4-2.0) Calcium 10.1 (8.4-10.2) mg/dL Total Bilirubin 0.40 (0.2-1.3) mg/dL AST 34 (14-36) U/L ALT 59 H (0-35) U/L Alkaline Phosphatase 145 H (38-126) U/L Troponin I (0.000-0.034) ng/mL Serum Total Protein 6.1 L (6.3-8.2) g/dL Albumin 3.6 (3.5-5.0) g/dL Influenza Type A Ag POSITIVE (NEGATIVE) Influenza Type B Ag NEGATIVE (NEGATIVE) RSV (PCR) NEGATIVE (NEGATIVE) SARS-CoV-2 (PCR) NEGATIVE (NEGATIVE) 12/15/23 12/15/23 12/15/23 Range/Units 12:35 12:35 12:35 WBC 6.6 (4.0-10.5) x10^3/uL RBC 3.95 L (4.1-5.4) x10^6/uL Hgb 12.3 (12.0-16.0) g/dL Hct 39.1 (35-47) % MCV 99.0 (78-100) fL MCH 31.1 (26-32) pg MCHC 31.5 L (32-36) g/dL RDW 14.6 H (11.5-14.0) % Plt Count 241 (150-450) x10^3/uL MPV 8.9 (7.5-11.0) fL Gran % 67.3 H (36.0-66.0) % Immature Gran % (Auto) 0.9 H (0.00-0.4) % Nucleat RBC Rel Count 0.0 (0.00-0.1) % Eos # (Auto) 0.02 (0-0.5) x10^3/uL Immature Gran # (Auto) 0.06 H (0.00-0.03) x10^3u/L Absolute Lymphs (auto) 1.27 (1.0-4.6) x10^3/uL Absolute Monos (auto) 0.78 (0.0-1.3) x10^3/uL Absolute Nucleated RBC 0.00 (0.00-0.01) x10^3u/L Lymphocytes % 19.4 L (24.0-44.0) % Monocytes % 11.9 (0.0-12.0) % Eosinophils % 0.3 (0.00-5.0) % Basophils % 0.2 (0.0-0.4) % Absolute Granulocytes 4.42 (1.4-6.9) x10^3/uL Basophils # 0.01 (0-0.4) x10^3/uL PT 10.5 (9.4-12.5) SECONDS INR 0.96 (0.8-3.0) APTT 21.5 L (25.1-36.5) SECONDS Sodium (137-145) mmol/L Potassium (3.5-5.1) mmol/L Chloride (98-107) mmol/L Carbon Dioxide (22-30) mmol/L Anion Gap (5-15) MEQ/L BUN (7-17) mg/dL Creatinine (0.52-1.04) mg/dL Estimated GFR ML/MIN Glucose (74-106) mg/dL Lactic Acid (0.4-2.0) Calcium (8.4-10.2) mg/dL Total Bilirubin (0.2-1.3) mg/dL AST (14-36) U/L ALT (0-35) U/L Alkaline Phosphatase (38-126) U/L Troponin I 0.023 (0.000-0.034) ng/mL Serum Total Protein (6.3-8.2) g/dL Albumin (3.5-5.0) g/dL Influenza Type A Ag (NEGATIVE) Influenza Type B Ag (NEGATIVE) RSV (PCR) (NEGATIVE) SARS-CoV-2 (PCR) (NEGATIVE) Name: ASHAROSALINDA QUITA KABA Attending Physician: BOBBY [facility] REPORT : 1985 Age: 38 Sex: F Location: ED Report #: [id number] Exam Date: 12/15/23 Status: REG ER Radiology #: Procedures: [id number] RAD/CHEST 1 VIEW (PORTABLE) Indication: Chest pain. Negative CT PE exam November 28, 2023. Comparison: November 26, 2023 Portable chest inflated and clear. Heart not enlarged again with right Port-A-Cath. No new/acute findings. Reported by: ANAIS SALGADO DO Signed by: ANAIS SALGADO DO Signed date/time: 12/15/23 1231 Copies to: SAURABH NAQVI CHAD EKG obtained. EKG showed sinus tachycardia rate of 125. Left ventricular hypertrophy. Global ST elevation consistent with early repull or LVH no clear signs of ischemia interpreted by myself - Progress Progress Note: 12/15/23 12:39 Fever The patient will be given Tylenol. The patient will blood cultures as well as chest x-ray. The patient is complaining of chest pain and cough. The patient also be tested for flu COVID and RSV Chest pain Patient does have history of cardiac and vascular pathology. The patient had a pulmonary embolism probably clot. She is on Eliquis. The patient has a history of kidney and breast cancer. She is currently on any oral chemotherapy The patient will be given Tylenol and IV fluids. The patient will get a full diagnostic workup. The patient's EKG was significant for sinus tachycardia as well as with L left ventricular hypertrophy. No clear evidence of ST wave elevation pathologic for cardiac ischemia 12/15/23 14:16 The patient's blood work was unremarkable. Normal troponin. The patient had f victor hugo A. Chest x-ray was unremarkable. No signs of metabolic derangement. No signs of sepsis. Patient improved with IV fluids and Tylenol. The patient at this point does not show any signs of bacterial infection or pneumonia or sepsis. The patient will be released. The patient wants to go home. The patient declined admission. At this point there is no signs of an acute life-threatening cause of chest pain. No pneumonia pneumothorax or dissection. The patient is on Eliquis so I doubt DVT or PE. The patient also has a normal troponin. Once again the patient's symptoms are most likely due to flu. The patient is well appearing, and nontoxic. After careful history, physical exam, vital signs, and review of any laboratory or diagnostic data as ordered, I made the decision the patient does not appear to have a life threatening illness and can be carefully discharged with close follow-up. I do not feel any further imaging or laboratory data is needed at this time. I have considered both emergent and urgent disease pathology. I have given written and verbal discharge instructions, as well as the current differential diagnosis. Patient advised of the importance of following up with their PCP concerning findings, treatment, and status post treatment. All laboratory, radiology, respiratory, and assessment findings were reviewed in detail with the patient. Patient was educated on all prescriptions and proper usage as well as the importance of following up with primary care in a timely fashion for ongoing health and wellness management. The nursing staff has reiterated the disposition plan as well. 12/15/23 14:20 - Departure Clinical Impression: Chest pain, Anxiety, Fever, Influenza A Condition: Stable Critical Care Time: No Instructions: Chest Pain (DC), Flu, Flu, Adult (DC), Fever of Unknown Origin Additional Instructions: Thank you for choosing our Emergency Department for your healthcare! Please take your medicines prescribed as directed and be assured that you follow up with the physician provided or your PCP in the next 1-2 days to assure you are improving. All medical problems cannot be reasonably diagnosed in your ED visit today. Return for any changes or concerns, including if your condition does not improve or you are unable to obtain follow-up. Some final results, incl uding radiology reports, do not return the same day, but are available on the patient portal or can be obtained through your PCP Prescriptions: Oseltamivir 75 mg [Tamiflu 75MG Capsule] 75 mg PO BID #10 cap
[2023-12-15 13:00] LABS: Absolute Neutrophil Ct (ANC) 4.42 x10^3/uL (1.4-6.9); BASOPHIL % 0.2 % (0.0-0.4); Basophil (Absolute #) 0.01 x10^3/uL (0-0.4); Eosinophil % 0.3 % (0.00-5.0); Eosinophil (Absolute #) 0.02 x10^3/uL (0-0.5); Hematocrit 39.1 % (35-47); Hemoglobin 12.3 g/dL (12.0-16.0); IMMATURE GRAN # 0.06 x10^3u/L (0.00-0.03); IMMATURE GRAN % 0.9 % (0.00-0.4); Lymphocyte (Absolute #) 1.27 x10^3/uL (1.0-4.6); Lymphocytes % 19.4 % (24.0-44.0); Mean Corpuscular Hemoglobin 31.1 pg (26-32); Mean Corpuscular Hgb Concent. 31.5 g/dL (32-36); Mean Platelet Volume 8.9 fL (7.5-11.0); Monocyte (Absolute #) 0.78 x10^3/uL (0.0-1.3); Monocytes % 11.9 % (0.0-12.0); Neutrophil % 67.3 % (36.0-66.0); Platelet Count 241 x10^3/uL (150-450); Red Blood Count 3.95 x10^6/uL (4.1-5.4); Red Cell Distribution Width 14.6 % (11.5-14.0); White Blood Count 6.6 x10^3/uL (4.0-10.5)
[2023-12-15 13:14] LABS: INR 0.96 (0.8-3.0); PROTIME 10.5 SECONDS (9.4-12.5); PTT 21.5 SECONDS (25.1-36.5)
[2023-12-15 13:16] LABS: ALBUMIN 3.6 g/dL (3.5-5.0); BILIRUBIN,TOTAL 0.4 mg/dL (0.2-1.3); Calcium 10.1 mg/dL (8.4-10.2); Creatinine 1 0.91 mg/dL (0.52-1.04); EST GLOMERULAR FILTRATION RATE 83.3 ML/MIN; Total Protein 6.1 g/dL (6.3-8.2)
[2023-12-15 13:34] VITALS: BP 120/75; PULSE 115; RESP 17
[2023-12-15 13:36] LABS: INFLUENZA B NEGATIVE (NEGATIVE); RESPIRATORY SYNCTIAL VIRUS NEGATIVE (NEGATIVE); SARS-CoV-2 Xpert Express NEGATIVE (NEGATIVE)
[2023-12-15 13:42] LABS: INFLUENZA A POSITIVE (NEGATIVE)
[2023-12-15 14:20] VITALS: O2SAT 97
== END 2023-12-15 14:58 | disposition home or self-care (01) ==
LOC: ED 11:57
DX: J10.1 Influenza due to other identified influenza virus with other respiratory manifestations (principal); R07.9 Chest pain, unspecified; F41.9 Anxiety disorder, unspecified; R50.9 Fever, unspecified; R05.1 Acute cough; E78.5 Hyperlipidemia, unspecified; I11.0 Hypertensive heart disease with heart failure; I50.9 Heart failure, unspecified; E11.9 Type 2 diabetes mellitus without complications; Z79.891 Long term (current) use of opiate analgesic; Z79.84 Long term (current) use of oral hypoglycemic drugs; Z79.01 Long term (current) use of anticoagulants; Z79.899 Other long term (current) drug therapy; Z28.310 Unvaccinated for COVID-19; Z72.0 Tobacco use
CPT/HCPCS: 0241U; 36000; 36415; 71045; 80053; 83605; 84484; 85025; 85610; 85730; 87040; 96360; 99284; J1642; A9270-GY

== ENCOUNTER 2024-02-05 11:04 | Emergency (ER) | payer OTHER ==
[2024-02-05 11:12] VITALS: TEMP 96.7
[2024-02-05] MEDS ORDERED: Sodium Chloride 0.9% 1000 ML 1,000 ML ONE ×2 (11:24→13:00)
[2024-02-05] MEDS ORDERED: BABY ASPIRIN 81 MG CHEW ONE (11:24)
[2024-02-05] MEDS: BABY ASPIRIN 81 MG CHEW PO ONE (11:26)
[2024-02-05] MEDS: Sodium Chloride 0.9% 1000 ML 1,000 ML IV STA ×2 (11:27→13:29)
--- NOTE | 2024-02-05 11:36 | ERPHSYRPT ---
- History of Present Illness Time Seen by Provider: 02/05/24 11:06 Source: patient Exam Limitations: no limitations Patient Subjective Stated Complaint: Pt states "I have had chest pain since monday. I have breast cancer and got two shots on of last week." Triage Nursing Assessment: Pt presented alert and oriented X3, skin pwd. PT amb ulates with a slow gait, assist of 1. Pt resting comfortably on the bed. Physician History: Patient is here with chest pain for the past 3 days. No falls or trauma. Yung ntsrinath being treated for breast cancer. She does have a history of blood clots. Sounds like she had a previous PE based on her story. Patient is on Eliquis. Patient also complains of a cough, congestion, diarrhea. States that she has some sinusitis like symptoms, runny nose. Allergies/Adverse Reactions: hydromorphone HCl [From Dilaudid] Allergy (Severe, Verified 12/15/23 12:09) terbutaline sulfate [From Brethine] Allergy (Severe, Verified 12/15/23 12:09) morphine Adverse Reaction (Intermediate, Verified 12/15/23 12:09) Vomiting Home Medications: Aspirin 81 mg PO DAILY 11/04/16 [History] Cholecalciferol (Vitamin D3) [Vitamin D3] 125 mcg PO DAILY 06/04/23 [History] Hydrocodone/Acetaminophen [Hydrocodone-Acetamin 5-325 mg] 1 tab PO Q6HPRN PRN MDD 4 06/04/23 [History] Ondansetron ODT 4 MG [Zofran Odt 4 mg] 4 mg PO Q6HPRN PRN 06/04/23 [History] PANTOPRAZOLE 40 mg Tablet [Protonix 40MG Tablet] 40 mg PO QAM 06/04/23 [History] Ranolazine 500 MG [Ranexa 500 MG] 500 mg PO BID 06/04/23 [History] Alprazolam [Xanax] 1 mg PO TID PRN PRN 10/04/23 [History] Fentanyl 75Mcg Patch [Duragesic 75 MCG Patch] 1 patch TOP Q72H PRN 10/04/23 [History] Amlodipine Besylate 2.5 mg PO DAILY 11/28/23 [History] Atorvastatin Calcium 80 mg PO DAILY 11/28/23 [History] Budesonide [Budesonide Dr] 3 mg PO DAILY 11/28/23 [History] Duloxetine HCl 30 mg [Cymbalta 30 MG Capsule] 60 mg PO DAILY 11/28/23 [History] Exemestane 25 mg PO DAILY 11/28/23 [History] Gabapentin 100 mg PO BID 11/28/23 [History] Glimepiride 1 mg PO DAILY 11/28/23 [History] Lisinopril 10 mg [Zestril 10 MG] 10 mg PO DAILY 11/28/23 [History] Magnesium Oxide 400 mg PO TID 11/28/23 [History] Metoprolol Succinate 25 mg PO DAILY 11/28/23 [History] OLANZapine [Zyprexa] 10 mg PO QHS 11/28/23 [History] Potassium Chloride 20 meq PO BID 11/28/23 [History] Apixaban [Eliquis] 5 mg PO BID 11/29/23 [History] CARBOplatin [Carboplatin] 150 mg IV UD 02/05/24 [History] Cephalexin Mh 500 mg [Keflex 500 mg] 500 mg PO Q6H 02/05/24 [History] DOCEtaxeL [Docetaxel] 20 mg IV UD 02/05/24 [History] Diphenhydramine HCl [Diphedryl Allergy] 12.5 mg PO Q6H PRN PRN 02/05/24 [History] Diphenoxylate HCl/Atropine [Diphenoxylate-Atrop 2.5-0.025] 2 each PO QID 02/05/24 [History] Nitroglycerin 0.4 mg Tablet [Nitrostat 0.4 MG Tablet] 0.4 mg SL DAILY PRN 02/05/24 [History] Pegfilgrastim [Neulasta] 6 mg SQ UD 02/05/24 [History] Pertuzumab [Perjeta] 420 mg IV UD 02/05/24 [History] Prochlorperazine Maleate 10 mg PO Q6H PRN PRN 02/05/24 [History] Trastuzumab [Herceptin] 150 mg IV UD 02/05/24 [History] dexAMETHasone [Dexamethasone] 4 mg PO UD 02/05/24 [History] Hx Tetanus, Diphtheria Vaccination/Date Given: No (2015) Hx Influenza Vaccination/Date Given: No Hx Pneumococcal Vaccination/Date Given: No Immunizations Up to Date: No Travel Risk - International Travel Have you traveled outside of the country in past 3 weeks: No - Coronavirus Screening Are you exhibiting any of the following symptoms?: No Close contact with a COVID-19 positive Pt in past 14-21 Days: No - Vaccine Status Have you recieved a Covid-19 vaccination: No - Past Medical History Pertinent Past Medical History: Yes Neurological History: Epilepsy, Migraines, Seizures, Stroke ENT History: Other Cardiac History: Congestive Heart Failure, Coronary Artery Disease, Deep Vein Thrombosis, High Cholesterol, Hypertension, Myocardial Infarction ([place]), Other Respiratory History: No Pertinent History, Pulmonary Embolism Endocrine Medical History: Diabetes Type II, Liver Disease Musculoskeletal History: Fractures, Osteoporosis GI Medical History: Colitis, Hemorrhoids, Irritable Bowel History: Kidney Cancer, Renal Disease Psycho-Social History: Anxiety, Panic Disorder Female Reproductive Disorders: Other Other Medical History: kidney cancer at age 18 months, bilat wrist fracture and leg, STAGE 3 BREAST CANCER - Past Surgical History Past Surgical History: Yes Neuro Surgical History: No Pertinent History Cardiac: No Pertinent History Respiratory: No Pertinent History Gastrointestinal: No Pertinent History Genitourinary: Kidney Surgery Musculoskeletal: No Pertinent History Female Surgical History: Section, Tubal Ligation Other Surgical History: c section, tubal ligation, l kidney removal, wilms tumor, choly, tonsillectomny, adenoidectomy Significant Family History: no pertinent family hx - Female History Hx Last Menstrual Period: tubal Hx Now: No - Social History Smoking Status: Current some day smoker How long have you smoked: 12 yrs Exposure to second hand smoke: No Alcohol Use: None Drug Use: none Patient Lives Alone: No - Nursing Vital Signs Nursing Vital Signs: Initial Vital Signs Temperature 96.7 F 02/05/24 11:05 Pulse Rate 109 H 02/05/24 11:05 Respiratory Rate 20 02/05/24 11:05 Blood Pressure 115/87 02/05/24 11:05 O2 Sat by Pulse Oximetry 97 02/05/24 11:05 Pain Scale Pain Intensity 2 - Physical Exam SpO2 Interpretation: normal SpO2: 97 Comments: 02/05/24 11:37 Review of Systems Constitutional: Negative for fever. HENT: Negative for congestion. Respiratory: Negative for shortness of breath. Cardiovascular: Chest pain Gastrointestinal: Negative for abdominal pain. Genitourinary: Negative for dysuria. Musculoskeletal: Negative for back pain. Skin: Negative for rash. Neurological: Negative for headaches. Psychiatric/Behavioral: Negative for behavioral problems. All other systems reviewed and are negative. Physical Exam Vitals signs and nursing note reviewed. Constitutional: Appearance: Patient is well-developed. HENT: Head: Normocephalic and atraumatic. Eyes: Conjunctiva/sclera: Conjunctivae normal. Neck: Musculoskeletal: Normal range of motion. Trachea: No tracheal deviation. Cardiovascular: Rate and Rhythm: Tachycardia Pulmonary: Effort: Pulmonary effort is normal. No respiratory distress. Abdominal: Palpations: Abdomen is soft. Musculoskeletal: General: No deformity. Skin: General: Skin is warm and dry. Neurological/ Psychiatric: Mental Status: Mental status, behavior, interaction with environment is appropriate for patient's age and condition - Course Nursing assessment & vital signs reviewed: Yes EKG Interpreted by Me: Sinus Rhythm (Patient has sinus tachycardia, nonspecific ST changes, no STEMI) Ordered Tests: Active Orders 24 hr Category Date Time Status EKG-ER Only STAT Care 02/05/24 11:11 Active EKG-ER Only STAT Care 02/05/24 15:35 Active IV Insertion STAT Care 02/05/24 11:11 Active Pulse Oximetry (ED) STAT Care 02/05/24 11:11 Active CHEST 1 VIEW (PORTABLE) Stat Exams 02/05/24 11:11 Completed CHEST WITH CONTRAST [CT] Stat Exams 02/05/24 12:35 Completed CBC W DIFF Stat Lab 02/05/24 11:50 Completed CK-Creatinine Phosphokinase Stat Lab 02/05/24 11:50 Completed CMP Stat Lab 02/05/24 11:50 Completed D-DIMER QUANTITATIVE Stat Lab 02/05/24 11:50 Completed HCG QUALITATIVE, SERUM Stat Lab 02/05/24 11:50 Completed LIPASE Stat Lab 02/05/24 11:50 Completed Lactic Acid Stat Lab 02/05/24 11:11 Completed NT PRO BNPII Stat Lab 02/05/24 11:50 Completed TROPONIN Q4H Lab 02/05/24 11:50 Completed TROPONIN Q4H Lab 02/05/24 14:40 Completed TROPONIN Q4H Lab 02/05/24 19:15 Ordered UA W/RFX UR CULTURE Stat Lab 02/05/24 14:38 Completed Urine Triage Profile Stat Lab 02/05/24 14:38 Completed Medication Summary Discontinued Medications Generic Name Dose Route Start Last Admin Trade Name Kemar PRN Reason Stop Dose Admin Aspirin 324 mg 02/05/24 11:11 02/05/24 11:26 Aspirin 81 Mg Tab.Chew PO 02/05/24 11:12 324 mg STAT ONE Administration Aspirin Confirm 02/05/24 11:24 Aspirin 81 Mg Tab.Chew Administered 02/05/24 11:25 Dose 324 mg .ROUTE .STK-MED ONE Diphenhydramine HCl 25 mg 02/05/24 13:35 02/05/24 14:20 Diphenhydramine Hcl 50 Mg/Ml Vial IV 02/05/24 13:36 25 mg STAT ONE Administration Diphenhydramine HCl Confirm 02/05/24 14:08 Diphenhydramine Hcl 50 Mg/Ml Vial Administered 02/05/24 14:09 Dose 50 mg .ROUTE .STK-MED ONE Droperidol 1.25 mg 02/05/24 13:35 02/05/24 14:20 Droperidol 5 Mg/2 Ml Vial IV 02/05/24 13:36 1.25 mg STAT ONE Administration Droperidol Confirm 02/05/24 14:08 Droperidol 5 Mg/2 Ml Vial Administered 02/05/24 14:09 Dose 5 mg .ROUTE .STK-MED ONE Fentanyl Citrate 50 mcg 02/05/24 12:00 02/05/24 12:02 Fentanyl Citrate 100 Mcg/2 Ml* Vial IV 02/05/24 12:01 50 mcg STAT ONE Administration Fentanyl Citrate Confirm 02/05/24 12:01 Fentanyl Citrate 100 Mcg/2 Ml* Vial Administered 02/05/24 12:02 Dose 100 mcg .ROUTE .STK-MED ONE Sodium Chloride 1,000 mls @ 999 mls/hr 02/05/24 11:11 02/05/24 12:36 Sodium Chloride 0.9% 1000 Ml IV 02/05/24 12:11 Infused .Q1H1M STA Infusion Sodium Chloride Confirm 02/05/24 11:24 Sodium Chloride 0.9% 1000 Ml Administered 02/05/24 11:25 Dose 1,000 mls @ ud .ROUTE .STK-MED ONE Sodium Chloride 1,000 mls @ 999 mls/hr 02/05/24 12:42 02/05/24 14:35 Sodium Chloride 0.9% 1000 Ml IV 02/05/24 13:42 Infused .Q1H1M STA Infusion Sodium Chloride Confirm 02/05/24 13:00 Sodium Chloride 0.9% 1000 Ml Administered 02/05/24 13:01 Dose 1,000 mls @ ud .ROUTE .STK-MED ONE Ketorolac Tromethamine 30 mg 02/05/24 13:35 02/05/24 14:19 Ketorolac Tromethamine 30 Mg/Ml Inj IV 02/05/24 13:36 30 mg STAT ONE Administration Ketorolac Tromethamine Confirm 02/05/24 14:08 Ketorolac Tromethamine 30 Mg/Ml Inj Administered 02/05/24 14:09 Dose 30 mg .ROUTE .STK-MED ONE Lab/Rad Data: Laboratory Result Diagrams 02/05/24 11:50 02/05/24 11:50 Laboratory Results 02/05/24 02/05/24 02/05/24 Range/Units 14:40 14:38 14:38 WBC (4.0-10.5) x10^3/uL RBC (4.1-5.4) x10^6/uL Hgb (12.0-16.0) g/dL Hct (35-47) % MCV (78-100) fL MCH (26-32) pg MCHC (32-36) g/dL RDW (11.5-14.0) % Plt Count (150-450) x10^3/uL MPV (7.5-11.0) fL Gran % (36.0-66.0) % Immature Gran % (Auto) (0.00-0.4) % Nucleat RBC Rel Count (0.00-0.1) % Eos # (Auto) (0-0.5) x10^3/uL Immature Gran # (Auto) (0.00-0.03) x10^3u/L Absolute Lymphs (auto) (1.0-4.6) x10^3/uL Absolute Monos (auto) (0.0-1.3) x10^3/uL Absolute Nucleated RBC (0.00-0.01) x10^3u/L Lymphocytes % (24.0-44.0) % Monocytes % (0.0-12.0) % Eosinophils % (0.00-5.0) % Basophils % (0.0-0.4) % Absolute Granulocytes (1.4-6.9) x10^3/uL Basophils # (0-0.4) x10^3/uL D-Dimer (0.0-0.50) mg/L Sodium (135-145) mmol/L Potassium (3.5-5.1) mmol/L Chloride (98-107) mmol/L Carbon Dioxide (22-30) mmol/L Anion Gap (5-15) MEQ/L BUN (7-17) mg/dL Creatinine (0.52-1.04) mg/dL Estimated GFR ML/MIN Glucose (74-106) mg/dL Lactic Acid (0.4-2.0) Calcium (8.4-10.2) mg/dL Total Bilirubin (0.2-1.3) mg/dL AST (14-36) U/L ALT (0-35) U/L Alkaline Phosphatase (38-126) U/L Creatine Kinase (30-135) U/L Troponin I 0.032 (0.000-0.034) ng/mL NT-Pro-B Natriuret Pep (<300) pg/mL Serum Total Protein (6.3-8.2) g/dL Albumin (3.5-5.0) g/dL Lipase (23-300) U/L Serum HCG, Qual (NEGATIVE) Urine Color Yellow (Yellow) Urine Appearance Clear (Clear) Urine pH 5.5 (4.6-8.0) Ur Specific [place] >=1.030 A (1.005-1.030) Urine Protein Negative (Negative) Urine Glucose (UA) >=1000 A (Negative) mg/dL Urine Ketones 15 A (Negative) Urine Blood Negative (Negative) Urine Nitrite Negative (Negative) Urine Bilirubin Negative (Negative) Urine Urobilinogen 0.2 (0.2) mg/dL Ur Leukocyte Esterase Negative (Negative) U Hyaline Cast (Auto) NONE SEEN (0-2) /LPF Urine Microscopic RBC 0-2 (0-5) /HPF Urine Microscopic WBC 3-5 (0-5) /HPF Ur Epithelial Cells Rare (None Seen) /HPF Urine Bacteria Rare A (None Seen) /HPF Urine Culture Reflexed NO (NO) Urine Opiates Level POSITIVE A (NEGATIVE) Ur Methadone NEGATIVE (NEGATIVE) Urine Barbiturates NEGATIVE (NEGATIVE) Ur Phencyclidine (PCP) NEGATIVE (NEGATIVE) Urine Amphetamine NEGATIVE (NEGATIVE) U Benzodiazepine Level POSITIVE A (NEGATIVE) Urine Cocaine NEGATIVE (NEGATIVE) Urine Marijuana (THC) POSITIVE A (NEGATIVE) Influenza Type A Ag (NEGATIVE) Influenza Type B Ag (NEGATIVE) RSV (PCR) (NEGATIVE) SARS-CoV-2 (PCR) (NEGATIVE) Group A Strep Antibody (NEGATIVE) 02/05/24 02/05/24 02/05/24 Range/Units 13:45 11:50 11:50 WBC (4.0-10.5) x10^3/uL RBC (4.1-5.4) x10^6/uL Hgb (12.0-16.0) g/dL Hct (35-47) % MCV (78-100) fL MCH (26-32) pg MCHC (32-36) g/dL RDW (11.5-14.0) % Plt Count (150-450) x10^3/uL MPV (7.5-11.0) fL Gran % (36.0-66.0) % Immature Gran % (Auto) (0.00-0.4) % Nucleat RBC Rel Count (0.00-0.1) % Eos # (Auto) (0-0.5) x10^3/uL Immature Gran # (Auto) (0.00-0.03) x10^3u/L Absolute Lymphs (auto) (1.0-4.6) x10^3/uL Absolute Monos (auto) (0.0-1.3) x10^3/uL Absolute Nucleated RBC (0.00-0.01) x10^3u/L Lymphocytes % (24.0-44.0) % Monocytes % (0.0-12.0) % Eosinophils % (0.00-5.0) % Basophils % (0.0-0.4) % Absolute Granulocytes (1.4-6.9) x10^3/uL Basophils # (0-0.4) x10^3/uL D-Dimer (0.0-0.50) mg/L Sodium (135-145) mmol/L Potassium (3.5-5.1) mmol/L Chloride (98-107) mmol/L Carbon Dioxide (22-30) mmol/L Anion Gap (5-15) MEQ/L BUN (7-17) mg/dL Creatinine (0.52-1.04) mg/dL Estimated GFR ML/MIN Glucose (74-106) mg/dL Lactic Acid (0.4-2.0) Calcium (8.4-10.2) mg/dL Total Bilirubin (0.2-1.3) mg/dL AST (14-36) U/L ALT (0-35) U/L Alkaline Phosphatase (38-126) U/L Creatine Kinase (30-135) U/L Troponin I 0.021 (0.000-0.034) ng/mL NT-Pro-B Natriuret Pep (<300) pg/mL Serum Total Protein (6.3-8.2) g/dL Albumin (3.5-5.0) g/dL Lipase (23-300) U/L Serum HCG, Qual NEGATIVE (NEGATIVE) Urine Color (Yellow) Urine Appearance (Clear) Urine pH (4.6-8.0) Ur Specific [place] (1.005-1.030) Urine Protein (Negative) Urine Glucose (UA) (Negative) mg/dL Urine Ketones (Negative) Urine Blood (Negative) Urine Nitrite (Negative) Urine Bilirubin (Negative) Urine Urobilinogen (0.2) mg/dL Ur Leukocyte Esterase (Negative) U Hyaline Cast (Auto) (0-2) /LPF Urine Microscopic RBC (0-5) /HPF Urine Microscopic WBC (0-5) /HPF Ur Epithelial Cells (None Seen) /HPF Urine Bacteria (None Seen) /HPF Urine Culture Reflexed (NO) Urine Opiates Level (NEGATIVE) Ur Methadone (NEGATIVE) Urine Barbiturates (NEGATIVE) Ur Phencyclidine (PCP) (NEGATIVE) Urine Amphetamine (NEGATIVE) U Benzodiazepine Level (NEGATIVE) Urine Cocaine (NEGATIVE) Urine Marijuana (THC) (NEGATIVE) Influenza Type A Ag NEGATIVE (NEGATIVE) Influenza Type B Ag NEGATIVE (NEGATIVE) RSV (PCR) NEGATIVE (NEGATIVE) SARS-CoV-2 (PCR) NEGATIVE (NEGATIVE) Group A Strep Antibody NOT DETECTED (NEGATIVE) 03/02/05/24 02/05/24 Range/Units 11:50 11:50 11:50 WBC 10.0 (4.0-10.5) x10^3/uL RBC 4.45 (4.1-5.4) x10^6/uL Hgb 14.0 (12.0-16.0) g/dL Hct 43.1 (35-47) % MCV 96.9 (78-100) fL MCH 31.5 (26-32) pg MCHC 32.5 (32-36) g/dL RDW 13.7 (11.5-14.0) % Plt Count 288 (150-450) x10^3/uL MPV 9.5 (7.5-11.0) fL Gran % 55.0 (36.0-66.0) % Immature Gran % (Auto) 0.5 H (0.00-0.4) % Nucleat RBC Rel Count 0.0 (0.00-0.1) % Eos # (Auto) 0.04 (0-0.5) x10^3/uL Immature Gran # (Auto) 0.05 H (0.00-0.03) x10^3u/L Absolute Lymphs (auto) 3.55 (1.0-4.6) x10^3/uL Absolute Monos (auto) 0.82 (0.0-1.3) x10^3/uL Absolute Nucleated RBC 0.00 (0.00-0.01) x10^3u/L Lymphocytes % 35.5 (24.0-44.0) % Monocytes % 8.2 (0.0-12.0) % Eosinophils % 0.4 (0.00-5.0) % Basophils % 0.4 (0.0-0.4) % Absolute Granulocytes 5.50 (1.4-6.9) x10^3/uL Basophils # 0.04 (0-0.4) x10^3/uL D-Dimer 0.86 H* (0.0-0.50) mg/L Sodium 139 (135-145) mmol/L Potassium 3.3 L (3.5-5.1) mmol/L Chloride 105 (98-107) mmol/L Carbon Dioxide 27 (22-30) mmol/L Anion Gap 10.1 (5-15) MEQ/L BUN 10 (7-17) mg/dL Creatinine 0.85 (0.52-1.04) mg/dL Estimated GFR 90.4 ML/MIN Glucose 234 H (74-106) mg/dL Lactic Acid (0.4-2.0) Calcium 10.1 (8.4-10.2) mg/dL Total Bilirubin 0.40 (0.2-1.3) mg/dL AST 47 H (14-36) U/L ALT 77 H (0-35) U/L Alkaline Phosphatase 178 H (38-126) U/L Creatine Kinase 41 (30-135) U/L Troponin I (0.000-0.034) ng/mL NT-Pro-B Natriuret Pep 116 (<300) pg/mL Serum Total Protein 6.7 (6.3-8.2) g/dL Albumin 3.6 (3.5-5.0) g/dL Lipase 89 (23-300) U/L Serum HCG, Qual (NEGATIVE) Urine Color (Yellow) Urine Appearance (Clear) Urine pH (4.6-8.0) Ur Specific [place] (1.005-1.030) Urine Protein (Negative) Urine Glucose (UA) (Negative) mg/dL Urine Ketones (Negative) Urine Blood (Negative) Urine Nitrite (Negative) Urine Bilirubin (Negative) Urine Urobilinogen (0.2) mg/dL Ur Leukocyte Esterase (Negative) U Hyaline Cast (Auto) (0-2) /LPF Urine Microscopic RBC (0-5) /HPF Urine Microscopic WBC (0-5) /HPF Ur Epithelial Cells (None Seen) /HPF Urine Bacteria (None Seen) /HPF Urine Culture Reflexed (NO) Urine Opiates Level (NEGATIVE) Ur Methadone (NEGATIVE) Urine Barbiturates (NEGATIVE) Ur Phencyclidine (PCP) (NEGATIVE) Urine Amphetamine (NEGATIVE) U Benzodiazepine Level (NEGATIVE) Urine Cocaine (NEGATIVE) Urine Marijuana (THC) (NEGATIVE) Influenza Type A Ag (NEGATIVE) Influenza Type B Ag (NEGATIVE) RSV (PCR) (NEGATIVE) SARS-CoV-2 (PCR) (NEGATIVE) Group A Strep Antibody (NEGATIVE) 02/05/24 Range/Units 11:11 WBC (4.0-10.5) x10^3/uL RBC (4.1-5.4) x10^6/uL Hgb (12.0-16.0) g/dL Hct (35-47) % MCV (78-100) fL MCH (26-32) pg MCHC (32-36) g/dL RDW (11.5-14.0) % Plt Count (150-450) x10^3/uL MPV (7.5-11.0) fL Gran % (36.0-66.0) % Immature Gran % (Auto) (0.00-0.4) % Nucleat RBC Rel Count (0.00-0.1) % Eos # (Auto) (0-0.5) x10^3/uL Immature Gran # (Auto) (0.00-0.03) x10^3u/L Absolute Lymphs (auto) (1.0-4.6) x10^3/uL Absolute Monos (auto) (0.0-1.3) x10^3/uL Absolute Nucleated RBC (0.00-0.01) x10^3u/L Lymphocytes % (24.0-44.0) % Monocytes % (0.0-12.0) % Eosinophils % (0.00-5.0) % Basophils % (0.0-0.4) % Absolute Granulocytes (1.4-6.9) x10^3/uL Basophils # (0-0.4) x10^3/uL D-Dimer (0.0-0.50) mg/L Sodium (135-145) mmol/L Potassium (3.5-5.1) mmol/L Chloride (98-107) mmol/L Carbon Dioxide (22-30) mmol/L Anion Gap (5-15) MEQ/L BUN (7-17) mg/dL Creatinine (0.52-1.04) mg/dL Estimated GFR ML/MIN Glucose (74-106) mg/dL Lactic Acid 1.3 (0.4-2.0) Calcium (8.4-10.2) mg/dL Total Bilirubin (0.2-1.3) mg/dL AST (14-36) U/L ALT (0-35) U/L Alkaline Phosphatase (38-126) U/L Creatine Kinase (30-135) U/L Troponin I (0.000-0.034) ng/mL NT-Pro-B Natriuret Pep (<300) pg/mL Serum Total Protein (6.3-8.2) g/dL Albumin (3.5-5.0) g/dL Lipase (23-300) U/L Serum HCG, Qual (NEGATIVE) Urine Color (Yellow) Urine Appearance (Clear) Urine pH (4.6-8.0) Ur Specific [place] (1.005-1.030) Urine Protein (Negative) Urine Glucose (UA) (Negative) mg/dL Urine Ketones (Negative) Urine Blood (Negative) Urine Nitrite (Negative) Urine Bilirubin (Negative) Urine Urobilinogen (0.2) mg/dL Ur Leukocyte Esterase (Negative) U Hyaline Cast (Auto) (0-2) /LPF Urine Microscopic RBC (0-5) /HPF Urine Microscopic WBC (0-5) /HPF Ur Epithelial Cells (None Seen) /HPF Urine Bacteria (None Seen) /HPF Urine Culture Reflexed (NO) Urine Opiates Level (NEGATIVE) Ur Methadone (NEGATIVE) Urine Barbiturates (NEGATIVE) Ur Phencyclidine (PCP) (NEGATIVE) Urine Amphetamine (NEGATIVE) U Benzodiazepine Level (NEGATIVE) Urine Cocaine (NEGATIVE) Urine Marijuana (THC) (NEGATIVE) Influenza Type A Ag (NEGATIVE) Influenza Type B Ag (NEGATIVE) RSV (PCR) (NEGATIVE) SARS-CoV-2 (PCR) (NEGATIVE) Group A Strep Antibody (NEGATIVE) - Progress Progress: improved Progress Note: 02/05/24 11:37 Differential diagnosis includes: PNA, STEMI, NSTEMI, other infection, musculosk eletal pain, pneumothorax. Pulmonary embolism - We'll obtain basic labs, fluids, EKG, troponin, chest x-ray - EKG shows no ST changes - my read - O2 saturations consistently greater than 95%. - CXR and potentially CT scan if D-dimer is elevated 02/05/24 15:55 Patient did have an elevated D-dimer. Therefore a CTA was obtained looking for any pulmonary embolism. This was negative. Patient continued to be watched in the emergency department. Pain improved with pain medication here. We did re peat an EKG at 4 hours. This did continue to demonstrate no obvious acute changes. No ST elevation with signs of ischemia. Nonspecific ST changes. We also obtained a second troponin. Although, this did show a slight rise patient is still under the negative level. This was also at the 4-hour laureen. At this point in time patient's pain is improved, has been going on for 3 days, she has no pulmonary embolism on CT scan, we have 2 negative troponins without change, 2 EKGs without obvious ischemic changes. From my perspective, does not appear the patient is having an acute OK at this point in time. Patient is chest pain still may be cardiac in nature, we do recommend close follow-up with her principal system software engineer. They will call first thing tomorrow morning for an appointment this week. Patient does feel comfortable with this plan. She will also call her oncologist to let them know they were seen in the emergency department today and the results. They will return here sooner for any new or changing symptoms. Counseled pt/family regarding: lab results, diagnosis, need for follow-up, rad results - Departure Departure Disposition: Home Clinical Impression: Atypical chest pain, Sinusitis Condition: Stable Critical Care Time: No Referrals: SAURABH NAQVI DO [Primary Care Provider] - Follow up/PCP as directed Instructions: Chest Pain (DC) Additional Instructions: See your principal system software engineer this week for reexam. Return here sooner for any new or changing symptoms.
[2024-02-05 11:57] LABS: BASOPHIL % 0.4 % (0.0-0.4); Basophil (Absolute #) 0.04 x10^3/uL (0-0.4); Eosinophil % 0.4 % (0.00-5.0); Eosinophil (Absolute #) 0.04 x10^3/uL (0-0.5); Hematocrit 43.1 % (35-47); IMMATURE GRAN # 0.05 x10^3u/L (0.00-0.03); IMMATURE GRAN % 0.5 % (0.00-0.4); Lymphocyte (Absolute #) 3.55 x10^3/uL (1.0-4.6); Lymphocytes % 35.5 % (24.0-44.0); Mean Cell Volume 96.9 fL (78-100); Mean Corpuscular Hemoglobin 31.5 pg (26-32); Mean Corpuscular Hgb Concent. 32.5 g/dL (32-36); Mean Platelet Volume 9.5 fL (7.5-11.0); Monocyte (Absolute #) 0.82 x10^3/uL (0.0-1.3); Monocytes % 8.2 % (0.0-12.0); Platelet Count 288 x10^3/uL (150-450); Red Blood Count 4.45 x10^6/uL (4.1-5.4); Red Cell Distribution Width 13.7 % (11.5-14.0)
[2024-02-05] MEDS ORDERED: SUBLIMAZE 100 MCG/2 ML ONE (12:01)
[2024-02-05] MEDS: SUBLIMAZE 100 MCG/2 ML IV ONE (12:02)
--- NOTE | 2024-02-05 12:13 | XRAY ---
Indication: Chest pain. Comparison: December 15, 2023. Portable chest unchanged again demonstrating normal heart and lungs with right Port-A-Cath. Bony thorax intact again with mild levoscoliosis. No new/acute findings.
[2024-02-05 12:19] LABS: ALBUMIN 3.6 g/dL (3.5-5.0); ANION GAP 10.1 MEQ/L (5-15); BILIRUBIN,TOTAL 0.4 mg/dL (0.2-1.3); Calcium 10.1 mg/dL (8.4-10.2); Creatinine 1 0.85 mg/dL (0.52-1.04); EST GLOMERULAR FILTRATION RATE 90.4 ML/MIN; Potassium 3.3 mmol/L (3.5-5.1); Total Protein 6.7 g/dL (6.3-8.2)
[2024-02-05 12:21] LABS: HCG SERUM TEST NEGATIVE (NEGATIVE)
--- NOTE | 2024-02-05 13:27 | XRAY ---
Indication: Chest pain. Congestion. Pulmonary embolus. Left nephrectomy. Multiple contiguous axial images obtained through the chest using 80 cc Isovue 370 contrast and PE protocol. Comparison: November 26, 2023 and November 28, 2023. Good opacification of the pulmonary arteries to include the lobar and segmental branches. Again no pulmonary embolus. Heart not enlarged again with right Port-A-Cath. Aorta is normal course and caliber. No pathologic mediastinal/hilar lymphadenopathy. Lungs inflated with now minimal bilateral dependent atelectasis. No suspicious pulmonary mass/nodule, infiltrate, or effusion. Bony thorax intact. Limited upper abdomen demonstrate stable small right renal cortical cyst, cholecystectomy, and left nephrectomy. Impression: 1. Continued negative pulmonary embolus compared to last 2 CT PE exams. No new/acute abnormalities. 2. Again left nephrectomy and right renal cyst.
[2024-02-05] MEDS ORDERED: BENADRYL 50 MG/ML ONE (14:08)
[2024-02-05] MEDS ORDERED: TORAdol 30 mg Injection ONE (14:08)
[2024-02-05] MEDS: TORAdol 30 mg Injection IV ONE (14:19)
[2024-02-05] MEDS: BENADRYL 50 MG/ML IV ONE (14:20)
[2024-02-05 14:27] LABS: Group A Strep NOT DETECTED (NEGATIVE)
[2024-02-05 14:42] LABS: INFLUENZA A NEGATIVE (NEGATIVE); INFLUENZA B NEGATIVE (NEGATIVE); RESPIRATORY SYNCTIAL VIRUS NEGATIVE (NEGATIVE); SARS-CoV-2 Xpert Express NEGATIVE (NEGATIVE)
[2024-02-05 15:05] LABS: Appearance Clear (Clear); Bilirubin Negative (Negative); Blood Negative (Negative); Epithelial Cells Rare /HPF (None Seen); Glucose, Urine >=1000 mg/dL (Negative); Hyaline Casts NONE SEEN /LPF (0-2); Ketones 15 (Negative); Leukocyte Esterase Negative (Negative); Nitrite Negative (Negative); Ph 5.5 (4.6-8.0); Protein,Urine Dip Negative (Negative); RBC 0-2 /HPF (0-5); Specific Gravity >=1.030 (1.005-1.030); Urobilinogen 0.2 mg/dL (0.2)
[2024-02-05 15:07] LABS: Amphetamine,Urine NEGATIVE (NEGATIVE); Barbiturate,Urine NEGATIVE (NEGATIVE); Benzodiazepine,Urine POSITIVE (NEGATIVE); Cocaine,Urine NEGATIVE (NEGATIVE); Methadone,Urine NEGATIVE (NEGATIVE); Opiate,Urine POSITIVE (NEGATIVE); PCP,Urine NEGATIVE (NEGATIVE); THC,Urine POSITIVE (NEGATIVE)
[2024-02-05 15:10] LABS: ADD URINE CULTURE? NO (NO); Bacteria Rare /HPF (None Seen)
[2024-02-05 15:52] VITALS: O2SAT 97
[2024-02-05 15:55] VITALS: BP 116/75; PULSE 110; RESP 26
== END 2024-02-05 16:03 | disposition home or self-care (01) ==
LOC: ED 11:04
DX: R07.89 Other chest pain (principal); J32.9 Chronic sinusitis, unspecified; R05.9 Cough, unspecified; R19.7 Diarrhea, unspecified; E78.5 Hyperlipidemia, unspecified; I11.0 Hypertensive heart disease with heart failure; I50.9 Heart failure, unspecified; E11.9 Type 2 diabetes mellitus without complications; Z79.891 Long term (current) use of opiate analgesic; Z79.84 Long term (current) use of oral hypoglycemic drugs; Z79.01 Long term (current) use of anticoagulants; Z79.899 Other long term (current) drug therapy; Z28.310 Unvaccinated for COVID-19; Z72.0 Tobacco use
CPT/HCPCS: 0241U; 36415; 71045; 71260; 80053; 80307; 81001; 82550; 83605; 83690; 83880; 84484; 84703; 85025; 85379; 87651; 93005; 94760; 96360; 96361; 96374; 96375; 99285; J1200; J1642; J1885; J3010; A9270-GY

== ENCOUNTER 2024-02-21 11:36 | Observation (INO) | payer OTHER ==
[2024-02-21] MEDS ORDERED: Zofran 4 MG/2 ML VIAL ONE ×2 (12:14→16:14)
[2024-02-21] MEDS ORDERED: Lactated Ringers 1,000 ML IV ONE (12:17)
[2024-02-21] MEDS: Lactated Ringers 1,000 ML IV SCH (12:18)
[2024-02-21] MEDS: Zofran 4 MG/2 ML VIAL IV ONE ×2 (12:18→16:15)
[2024-02-21] MEDS: Sodium Chloride 0.9% 1000 ML 1,000 ML IV STA (12:28)
[2024-02-21] MEDS ORDERED: SUBLIMAZE 100 MCG/2 ML ONE ×2 (12:47→14:07)
[2024-02-21] MEDS: SUBLIMAZE 100 MCG/2 ML IV ONE ×2 (12:48→14:08)
--- NOTE | 2024-02-21 12:50 | XRAY ---
Indication: Chest pain. Comparison: February 05, 2024 Portable chest again demonstrates minimal lingula subsegmental atelectasis/scarring and right Port-A-Cath. Remaining heart and lungs normal. Bony thorax intact. No new/acute findings.
--- NOTE | 2024-02-21 12:54 | XRAY ---
Indication: Abdominal pain and vomiting. Multiple contiguous axial images obtained through the abdomen and pelvis without contrast. Comparison: February 10, 2016 Lung bases demonstrates new minimal lingula subsegmental atelectasis/scarring. Also new 8 x 9 mm indeterminant left lower lobe noncalcified nodule. No infiltrate or effusion. Heart not enlarged with new partially visualized right Port-A-Cath. Noncontrasted stomach and bowel loops nonobstructed. Again cholecystectomy and left nephrectomy. No free fluid/air. Remaining liver, pancreas, spleen, adrenal glands, right kidney, right ureter, bladder, and uterus are unremarkable for noncontrast exam. New minimal aortoiliac calcifications without AAA. Osseous structures intact. No ventral or inguinal hernias. Impression: 1. Subcentimeter indeterminate left lower lobe noncalcified nodule. Nodule first reported CT chest June 04, 2023 and appears unchanged since then. 2. Chronic findings including arteriosclerotic disease, cholecystectomy, and left total nephrectomy. 3. Remaining CT abdomen/pelvis without contrast exam continues to be negative.
[2024-02-21 13:06] LABS: BASOPHIL % 0.4 % (0.0-0.4); Basophil (Absolute #) 0.03 x10^3/uL (0-0.4); Eosinophil % 0.6 % (0.00-5.0); Eosinophil (Absolute #) 0.04 x10^3/uL (0-0.5); Hematocrit 40.2 % (35-47); Hemoglobin 13.2 g/dL (12.0-16.0); IMMATURE GRAN # 0.05 x10^3u/L (0.00-0.03); IMMATURE GRAN % 0.7 % (0.00-0.4); Lymphocyte (Absolute #) 2.19 x10^3/uL (1.0-4.6); Lymphocytes % 31.6 % (24.0-44.0); Mean Cell Volume 95.7 fL (78-100); Mean Corpuscular Hemoglobin 31.4 pg (26-32); Mean Corpuscular Hgb Concent. 32.8 g/dL (32-36); Mean Platelet Volume 9.5 fL (7.5-11.0); Monocyte (Absolute #) 0.63 x10^3/uL (0.0-1.3); Monocytes % 9.1 % (0.0-12.0); Neutrophil % 57.6 % (36.0-66.0); Platelet Count 275 x10^3/uL (150-450); Red Cell Distribution Width 14.5 % (11.5-14.0); White Blood Count 6.9 x10^3/uL (4.0-10.5)
[2024-02-21 13:18] LABS: ALBUMIN 3.3 g/dL (3.5-5.0); ANION GAP 9.7 MEQ/L (5-15); BILIRUBIN,TOTAL 0.5 mg/dL (0.2-1.3); Calcium 9.4 mg/dL (8.4-10.2); Creatinine 1 0.69 mg/dL (0.52-1.04); EST GLOMERULAR FILTRATION RATE 114.6 ML/MIN; Total Protein 6.3 g/dL (6.3-8.2)
[2024-02-21 13:20] LABS: HCG SERUM TEST NEGATIVE (NEGATIVE)
[2024-02-21] MEDS ORDERED: BABY ASPIRIN 81 MG CHEW ONE (14:22)
[2024-02-21] MEDS: BABY ASPIRIN 81 MG CHEW PO ONE (14:24)
--- NOTE | 2024-02-21 15:26 | ERPHSYRPT ---
<HOANG VANCE - Last Filed: 02/21/24 21:59> - History of Present Illness Historian: patient Exam Limitations: no limitations Patient Subjective Stated Complaint: C/O chest and abdominal pain. States woke her up out of her sleep at around 0800 today. Triage Nursing Assessment: Patient ambulated back to ER without difficulties. No SOB. Diaphoretic. MCPHERSON WNL. Actively vomiting during assessment. No edema. Hx Tetanus, Diphtheria Vaccination/Date Given: Yes Hx Influenza Vaccination/Date Given: No Hx Pneumococcal Vaccination/Date Given: No Immunizations Up to Date: Yes <BATOOL DONAHUE - Last Filed: 02/22/24 23:33> - History of Present Illness Time Seen by Provider: 02/21/24 11:42 Physician History: 38-year-old female with multiple medical problems including BRCA2 mutation with meningioma, Wilms tumor status post nephrectomy, breast cancer currently on c hemo, scheduled for bilateral mastectomy soon presented in the ER with complains of abdominal and chest pain. Patient reports she woke up with nausea and had multiple episodes of nonprojectile, nonbilious vomiting without hematemesis. She is also complaining of dull aching to sharp generalized chest soreness more in the retrosternal area. She also had couple of loose stool with some bright red dark blood. Patient denies any history of hemorrhoids. Feels weak fatigued tired and dehydrated. Patient is tachycardic on presentation with heart rate in 120s. Patient reports she had history of PE, was placed on anticoagulation but has not been taking it for quite some time. (BATOOL DONAHUE) Allergies/Adverse Reactions: hydromorphone HCl [From Dilaudid] Allergy (Severe, Verified 02/21/24 11:38) terbutaline sulfate [From Brethine] Allergy (Severe, Verified 02/21/24 11:38) morphine Adverse Reaction (Intermediate, Verified 02/21/24 11:38) Vomiting Home Medications: Aspirin 81 mg PO DAILY 11/04/16 [History] Cholecalciferol (Vitamin D3) [Vitamin D3] 125 mcg PO DAILY 06/04/23 [History] Hydrocodone/Acetaminophen [Hydrocodone-Acetamin 5-325 mg] 1 tab PO Q6HPRN PRN MDD 4 06/04/23 [History] Ondansetron ODT 4 MG [Zofran Odt 4 mg] 4 mg PO Q6HPRN PRN 06/04/23 [History] PANTOPRAZOLE 40 mg Tablet [Protonix 40MG Tablet] 40 mg PO QAM 06/04/23 [History] Ranolazine 500 MG [Ranexa 500 MG] 500 mg PO BID 06/04/23 [History] Alprazolam [Xanax] 1 mg PO TID PRN PRN 10/04/23 [History] Fentanyl 75Mcg Patch [Duragesic 75 MCG Patch] 1 patch TOP Q72H PRN 10/04/23 [History] Amlodipine Besylate 2.5 mg PO DAILY 11/28/23 [History] Atorvastatin Calcium 80 mg PO DAILY 11/28/23 [History] Budesonide [Budesonide Dr] 3 mg PO DAILY 11/28/23 [History] Duloxetine HCl 30 mg [Cymbalta 30 MG Capsule] 60 mg PO DAILY 11/28/23 [History] Exemestane 25 mg PO DAILY 11/28/23 [History] Gabapentin 100 mg PO BID 11/28/23 [History] Glimepiride 1 mg PO DAILY 11/28/23 [History] Lisinopril 10 mg [Zestril 10 MG] 10 mg PO DAILY 11/28/23 [History] Magnesium Oxide 400 mg PO TID 11/28/23 [History] Metoprolol Succinate 25 mg PO DAILY 11/28/23 [History] OLANZapine [Zyprexa] 10 mg PO QHS 11/28/23 [History] Potassium Chloride 20 meq PO BID 11/28/23 [History] Apixaban [Eliquis] 5 mg PO BID 11/29/23 [History] CARBOplatin [Carboplatin] 150 mg IV UD 02/05/24 [History] Cephalexin Mh 500 mg [Keflex 500 mg] 500 mg PO Q6H 02/05/24 [History] DOCEtaxeL [Docetaxel] 20 mg IV UD 02/05/24 [History] Diphenhydramine HCl [Diphedryl Allergy] 12.5 mg PO Q6H PRN PRN 02/05/24 [History] Diphenoxylate HCl/Atropine [Diphenoxylate-Atrop 2.5-0.025] 2 each PO QID 02/05/24 [History] Nitroglycerin 0.4 mg Tablet [Nitrostat 0.4 MG Tablet] 0.4 mg SL DAILY PRN 02/05/24 [History] Pegfilgrastim [Neulasta Onpro] 6 mg SQ UD 02/05/24 [History] Pertuzumab [Perjeta] 420 mg IV UD 02/05/24 [History] Prochlorperazine Maleate 10 mg PO Q6H PRN PRN 02/05/24 [History] Trastuzumab [Herceptin] 150 mg IV UD 02/05/24 [History] dexAMETHasone [Dexamethasone] 4 mg PO UD 02/05/24 [History] Travel Risk - International Travel Have you traveled outside of the country in past 3 weeks: No - Emerging Infectious Disease Are you exhibiting symptoms associated with any current EIDs: Yes Symptoms: Abdominal Pain, Headaches/Body Aches/, Vomitting <BATOOL DONAHUE - Last Filed: 02/22/24 23:33> - Review of Systems Constitutional: Fatigue, Weakness Eyes: No Symptoms Ears, Nose, & Throat: No Symptoms Respiratory: Dyspnea Cardiac: Chest Pain Abdominal/Gastrointestinal: Abdominal Pain, Nausea, Vomiting, Hematochezia Genitourinary Symptoms: No Symptoms Musculoskeletal: No Symptoms Skin: No Symptoms Neurological: No Symptoms Psychological: No Symptoms Hematologic/Lymphatic: Blood Clots Immunological/Allergic: No Symptoms <BATOOL DONAHUE - Last Filed: 02/22/24 23:33> - Past Medical History Pertinent Past Medical History: Yes Neurological History: Epilepsy, Migraines, Seizures, Stroke ENT History: Other Cardiac History: Congestive Heart Failure, Coronary Artery Disease, Deep Vein Thrombosis, High Cholesterol, Hypertension, Myocardial Infarction (DC), Other Respiratory History: No Pertinent History, Pulmonary Embolism Endocrine Medical History: Diabetes Type II, Liver Disease Musculoskeletal History: Fractures, Osteoporosis GI Medical History: Colitis, Gallbladder Disease, Hemorrhoids, Irritable Bowel History: Kidney Cancer, Renal Disease Psycho-Social History: Anxiety, Panic Disorder Female Reproductive Disorders: Other Other Medical History: kidney cancer at age 18 months, bilat wrist fracture and leg, STAGE 3 BREAST CANCER (left) - Past Surgical History Past Surgical History: Yes Neuro Surgical History: No Pertinent History Cardiac: No Pertinent History Respiratory: No Pertinent History Gastrointestinal: Cholecystectomy Genitourinary: Kidney Surgery Musculoskeletal: No Pertinent History Female Surgical History: Section, Tubal Ligation Other Surgical History: left kidney removal, wilms tumor Significant Family History: no pertinent family hx - Female History Hx Last Menstrual Period: No longer has them Hx Now: No - Social History Smoking Status: Current some day smoker How long have you smoked: 12 yrs Exposure to second hand smoke: No Alcohol Use: None Drug Use: marijuana Patient Lives Alone: No <BATOOL DONAHUE - Last Filed: 02/22/24 23:33> - Physical Exam General Appearance: no apparent distress, alert Eye Exam: PERRL/EOMI Ears, Nose, Throat Exam: normal ENT inspection Neck Exam: normal inspection, full range of motion Respiratory Exam: normal breath sounds, lungs clear Cardiovascular Exam: normal heart sounds, tachycardia Gastrointestinal/Abdomen Exam: soft, normal bowel sounds, tenderness (Generalized more in the upper abdomen), No guarding, No rebound Back Exam: normal inspection Extremity Exam: normal inspection, normal range of motion Neurologic Exam: alert, oriented x 3, cooperative, petroleum 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 II-XII nml as tested Skin Exam: normal color SpO2 Interpretation: normal SpO2: 90 O2 Delivery: Room Air <BATOOL DONAHUE - Last Filed: 02/22/24 23:33> - Nursing Vital Signs Nursing Vital Signs: Initial Vital Signs Temperature 98.8 F 02/21/24 11:40 Pulse Rate 120 H 02/21/24 11:40 Respiratory Rate 16 02/21/24 11:40 Blood Pressure 97/74 02/21/24 11:40 O2 Sat by Pulse Oximetry 97 02/21/24 11:40 Pain Scale Pain Intensity 5 - Course EKG Interpreted by Me: RATE ([id number]), Sinus Tach, Left [place] Deviation, LAFB, prolonged QT interval, Non-specific ST Changes <BATOOL DONAHUE - Last Filed: 02/22/24 23:33> Ordered Tests: Active Orders 24 hr Category Date Time Status Consistent Carbohydrate Diet 1800 Calorie Diet 02/22/24 Breakfast Completed Medication Summary Discontinued Medications Generic Name Dose Route Start Last Admin Trade Name Freq PRN Reason Stop Dose Admin Hydrocodone Bitart/Acetaminophen 1 tab 02/22/24 07:46 Hydrocodone/Apap 5/325 1 Tab Tablet PO 02/27/24 07:45 Q6HPRN PRN PAIN Al Hydrox/Mg Hydrox/Simethicone 30 ml 02/22/24 05:39 02/22/24 05:47 Mag Hydrox/Al Hydrox/Simeth 30 Ml Udcup PO 03/23/24 05:38 30 ml PRN PRN Administration INDIGESTION Albuterol/Ipratropium 3 ml 02/21/24 16:12 02/21/24 16:36 Ipratropium/Albuterol Sulfate 3 Ml Ampul.Neb IH 02/21/24 16:13 3 ml STAT ONE Administration Albuterol/Ipratropium Confirm 02/21/24 16:32 Ipratropium/Albuterol Sulfate 3 Ml Ampul.Neb Administered 02/21/24 16:33 Dose 3 ml IH .STK-MED ONE Albuterol/Ipratropium 3 ml 02/21/24 23:39 Ipratropium/Albuterol Sulfate 3 Ml Ampul.[facility] 03/22/24 23:38 Q4HPRN PRN SHORTNESS OF BREATH/WHEEZING Alprazolam 1 mg 02/22/24 07:46 Alprazolam 1 Mg Tablet PO 03/23/24 07:45 TID PRN PRN ANXIETY Amlodipine Besylate 2.5 mg 02/22/24 10:00 Amlodipine Besylate 5 Mg Tablet PO 03/23/24 09:59 DAILY [facility] Apixaban 5 mg 02/22/24 10:00 Apixaban 2.5 Mg Tablet PO 03/23/24 09:59 BID [facility] Aspirin 324 mg 02/21/24 14:12 02/21/24 14:24 Aspirin 81 Mg Tab.Chew PO 02/21/24 14:13 324 mg STAT ONE Administration Aspirin Confirm 02/21/24 14:22 Aspirin 81 Mg Tab.Chew Administered 02/21/24 14:23 Dose 324 mg .ROUTE .STK-MED ONE Aspirin 325 mg 02/22/24 08:00 02/22/24 08:02 Aspirin 325 Mg Tablet.Ec PO 02/22/24 08:01 325 mg ONCE ONE Administration Cholecalciferol 5,000 unit 02/22/24 10:00 Cholecalciferol (Vitamin D3) 1000 Unit Tablet PO 03/23/24 09:59 DAILY [facility] Duloxetine HCl 60 mg 02/22/24 10:00 Duloxetine Hcl 30 Mg Cap PO 03/23/24 09:59 DAILY [facility] Fentanyl 75 mcg 02/24/24 10:00 Fentanyl 75mcg Patch TOP 02/29/24 09:59 Q3D [facility] Fentanyl Citrate 50 mcg 02/21/24 12:18 02/21/24 12:48 Fentanyl Citrate 100 Mcg/2 Ml* Vial IV 02/21/24 12:19 50 mcg STAT ONE Administration Fentanyl Citrate Confirm 02/21/24 12:47 Fentanyl Citrate 100 Mcg/2 Ml* Vial Administered 02/21/24 12:48 Dose 100 mcg .ROUTE .STK-MED ONE Fentanyl Citrate 100 mcg 02/21/24 14:05 02/21/24 14:08 Fentanyl Citrate 100 Mcg/2 Ml* Vial IV 02/21/24 14:06 100 mcg STAT ONE Administration Fentanyl Citrate Confirm 02/21/24 14:07 Fentanyl Citrate 100 Mcg/2 Ml* Vial Administered 02/21/24 14:08 Dose 100 mcg .ROUTE .STK-MED ONE Gabapentin 100 mg 02/22/24 10:00 Gabapentin 100 Mg Capsule PO 03/23/24 09:59 BID [facility] Lactated Ringer's 1,000 mls @ 999 mls/hr 02/21/24 12:30 02/21/24 18:46 Lactated Ringers IV 03/22/24 12:29 Not Given .Q1H1M [facility] Sodium Chloride 1,000 mls @ 999 mls/hr 02/21/24 12:18 02/21/24 12:28 Sodium Chloride 0.9% 1000 Ml IV 02/21/24 13:18 Not Given .Q1H1M STA Sodium Chloride 1,000 mls @ 125 mls/hr 02/21/24 15:00 02/22/24 04:38 Sodium Chloride 0.9% 1000 Ml IV 03/22/24 14:59 Not Given .Q8H [facility] Lactated Ringer's Confirm 02/21/24 12:17 Lactated Ringers Administered 02/21/24 12:18 Dose 1,000 mls @ ud IV .STK-MED ONE Sodium Chloride Confirm 02/21/24 15:54 Sodium Chloride 0.9% 1000 Ml Administered 02/21/24 15:55 Dose 1,000 mls @ ud .ROUTE .STK-MED ONE Lisinopril 10 mg 02/22/24 10:00 Lisinopril 10 Mg Tablet PO 03/23/24 09:59 DAILY [facility] Magnesium Oxide 400 mg 02/22/24 10:00 Magnesium Oxide 400 Mg Tablet PO 03/23/24 09:59 TID [facility] Metoprolol Succinate 25 mg 02/22/24 10:00 Metoprolol Succinate 25 Mg Xl Tab PO 03/23/24 09:59 DAILY [facility] Miscellaneous Information 1 each 02/22/24 08:15 Medication Intervention 1 Each Each 03/23/24 08:14 .RN TO CHECK [facility] Miscellaneous Information 1 each 02/22/24 08:15 Medication Intervention 1 Each Each 03/23/24 08:14 .RN TO CHECK [facility] Nitroglycerin 0.4 mg 02/22/24 07:46 Nitroglycerin 0.4 Mg Tablet Bottle SL 03/23/24 07:45 UD PRN CHEST PAIN Ondansetron HCl 4 mg 02/21/24 12:08 02/21/24 12:18 Ondansetron Hcl 4 Mg/2 Ml Vial IV 02/21/24 12:09 4 mg STAT ONE Administration Ondansetron HCl Confirm 02/21/24 12:14 Ondansetron Hcl 4 Mg/2 Ml Vial Administered 02/21/24 12:15 Dose 4 mg .ROUTE .STK-MED ONE Ondansetron HCl 4 mg 02/21/24 16:02 02/21/24 16:15 Ondansetron Hcl 4 Mg/2 Ml Vial IV 02/21/24 16:03 4 mg STAT ONE Administration Ondansetron HCl Confirm 02/21/24 16:14 Ondansetron Hcl 4 Mg/2 Ml Vial Administered 02/21/24 16:15 Dose 4 mg .ROUTE .STK-MED ONE Ondansetron HCl 4 mg 02/22/24 04:05 02/22/24 04:13 Ondansetron Hcl 4 Mg/2 Ml Vial IV 03/23/24 04:04 4 mg Q6H PRN PRN Administration NAUSEA/VOMITING Pantoprazole Sodium 40 mg 02/22/24 10:00 Protonix (Pantoprazole) 40 Mg Tablet PO 03/23/24 09:59 QAM [facility] Potassium Chloride 20 meq 02/22/24 10:00 Potassium Chloride Tab 10 Meq Tab PO 03/23/24 09:59 BID [facility] Prochlorperazine 10 mg 02/22/24 07:59 Prochlorperazine Maleate 5 Mg Tablet PO 03/23/24 07:58 Q6H PRN PRN NAUSEA Ranolazine 500 mg 02/22/24 10:00 Ranolazine 500 Mg Tab.Sr.12h PO 03/23/24 09:59 BID [facility] Simvastatin 40 mg 02/22/24 10:00 Simvastatin 20 Mg Tablet PO 03/23/24 09:59 DAILY [facility] Lab/Rad Data: Laboratory Result Diagrams 02/21/24 13:00 02/21/24 13:00 Laboratory Results 02/21/24 02/21/24 02/21/24 Range/Units 20:20 19:21 16:20 WBC (4.0-10.5) x10^3/uL RBC (4.1-5.4) x10^6/uL Hgb (12.0-16.0) g/dL Hct (35-47) % MCV (78-100) fL MCH (26-32) pg MCHC (32-36) g/dL RDW (11.5-14.0) % Plt Count (150-450) x10^3/uL MPV (7.5-11.0) fL Gran % (36.0-66.0) % Immature Gran % (Auto) (0.00-0.4) % Nucleat RBC Rel Count (0.00-0.1) % Eos # (Auto) (0-0.5) x10^3/uL Immature Gran # (Auto) (0.00-0.03) x10^3u/L Absolute Lymphs (auto) (1.0-4.6) x10^3/uL Absolute Monos (auto) (0.0-1.3) x10^3/uL Absolute Nucleated RBC (0.00-0.01) x10^3u/L Lymphocytes % (24.0-44.0) % Monocytes % (0.0-12.0) % Eosinophils % (0.00-5.0) % Basophils % (0.0-0.4) % Absolute Granulocytes (1.4-6.9) x10^3/uL Basophils # (0-0.4) x10^3/uL D-Dimer (0.0-0.50) mg/L Sodium (135-145) mmol/L Potassium (3.5-5.1) mmol/L Chloride (98-107) mmol/L Carbon Dioxide (22-30) mmol/L Anion Gap (5-15) MEQ/L BUN (7-17) mg/dL Creatinine (0.52-1.04) mg/dL Estimated GFR ML/MIN Glucose (74-106) mg/dL Lactic Acid (0.4-2.0) Calcium (8.4-10.2) mg/dL Total Bilirubin (0.2-1.3) mg/dL AST (14-36) U/L ALT (0-35) U/L Alkaline Phosphatase (38-126) U/L Troponin I 0.158 H* 0.148 H* (0.000-0.033) ng/mL Serum Total Protein (6.3-8.2) g/dL Albumin (3.5-5.0) g/dL Lipase (23-300) U/L Serum HCG, Qual (NEGATIVE) Urine Color Yellow (Yellow) Urine Appearance Clear (Clear) Urine pH 6.0 (4.6-8.0) Ur Specific [place] >=1.030 A (1.005-1.030) Urine Protein Negative (Negative) Urine Glucose (UA) 500 A (Negative) mg/dL Urine Ketones Negative (Negative) Urine Blood Negative (Negative) Urine Nitrite Negative (Negative) Urine Bilirubin Negative (Negative) Urine Urobilinogen 0.2 (0.2) mg/dL Ur Leukocyte Esterase Trace A (Negative) U Hyaline Cast (Auto) NONE SEEN (0-2) /LPF Urine Microscopic RBC 0-2 (0-5) /HPF Urine Microscopic WBC 6-10 A (0-5) /HPF Ur Epithelial Cells Rare (None Seen) /HPF Urine Bacteria Rare A (None Seen) /HPF Urine Culture Reflexed NO (NO) 02/21/24 02/21/24 02/21/24 Range/Units 13:00 13:00 13:00 WBC (4.0-10.5) x10^3/uL RBC (4.1-5.4) x10^6/uL Hgb (12.0-16.0) g/dL Hct (35-47) % MCV (78-100) fL MCH (26-32) pg MCHC (32-36) g/dL RDW (11.5-14.0) % Plt Count (150-450) x10^3/uL MPV (7.5-11.0) fL Gran % (36.0-66.0) % Immature Gran % (Auto) (0.00-0.4) % Nucleat RBC Rel Count (0.00-0.1) % Eos # (Auto) (0-0.5) x10^3/uL Immature Gran # (Auto) (0.00-0.03) x10^3u/L Absolute Lymphs (auto) (1.0-4.6) x10^3/uL Absolute Monos (auto) (0.0-1.3) x10^3/uL Absolute Nucleated RBC (0.00-0.01) x10^3u/L Lymphocytes % (24.0-44.0) % Monocytes % (0.0-12.0) % Eosinophils % (0.00-5.0) % Basophils % (0.0-0.4) % Absolute Granulocytes (1.4-6.9) x10^3/uL Basophils # (0-0.4) x10^3/uL D-Dimer 1.53 H* (0.0-0.50) mg/L Sodium (135-145) mmol/L Potassium (3.5-5.1) mmol/L Chloride (98-107) mmol/L Carbon Dioxide (22-30) mmol/L Anion Gap (5-15) MEQ/L BUN (7-17) mg/dL Creatinine (0.52-1.04) mg/dL Estimated GFR ML/MIN Glucose (74-106) mg/dL Lactic Acid (0.4-2.0) Calcium (8.4-10.2) mg/dL Total Bilirubin (0.2-1.3) mg/dL AST (14-36) U/L ALT (0-35) U/L Alkaline Phosphatase (38-126) U/L Troponin I 0.163 H* (0.000-0.033) ng/mL Serum Total Protein (6.3-8.2) g/dL Albumin (3.5-5.0) g/dL Lipase (23-300) U/L Serum HCG, Qual NEGATIVE (NEGATIVE) Urine Color (Yellow) Urine Appearance (Clear) Urine pH (4.6-8.0) Ur Specific [place] (1.005-1.030) Urine Protein (Negative) Urine Glucose (UA) (Negative) mg/dL Urine Ketones (Negative) Urine Blood (Negative) Urine Nitrite (Negative) Urine Bilirubin (Negative) Urine Urobilinogen (0.2) mg/dL Ur Leukocyte Esterase (Negative) U Hyaline Cast (Auto) (0-2) /LPF Urine Microscopic RBC (0-5) /HPF Urine Microscopic WBC (0-5) /HPF Ur Epithelial Cells (None Seen) /HPF Urine Bacteria (None Seen) /HPF Urine Culture Reflexed (NO) 02/21/24 02/21/24 02/21/24 Range/Units 13:00 13:00 12:18 WBC 6.9 (4.0-10.5) x10^3/uL RBC 4.20 (4.1-5.4) x10^6/uL Hgb 13.2 (12.0-16.0) g/dL Hct 40.2 (35-47) % MCV 95.7 (78-100) fL MCH 31.4 (26-32) pg MCHC 32.8 (32-36) g/dL RDW 14.5 H (11.5-14.0) % Plt Count 275 (150-450) x10^3/uL MPV 9.5 (7.5-11.0) fL Gran % 57.6 (36.0-66.0) % Immature Gran % (Auto) 0.7 H (0.00-0.4) % Nucleat RBC Rel Count 0.0 (0.00-0.1) % Eos # (Auto) 0.04 (0-0.5) x10^3/uL Immature Gran # (Auto) 0.05 H (0.00-0.03) x10^3u/L Absolute Lymphs (auto) 2.19 (1.0-4.6) x10^3/uL Absolute Monos (auto) 0.63 (0.0-1.3) x10^3/uL Absolute Nucleated RBC 0.00 (0.00-0.01) x10^3u/L Lymphocytes % 31.6 (24.0-44.0) % Monocytes % 9.1 (0.0-12.0) % Eosinophils % 0.6 (0.00-5.0) % Basophils % 0.4 (0.0-0.4) % Absolute Granulocytes 4.00 (1.4-6.9) x10^3/uL Basophils # 0.03 (0-0.4) x10^3/uL D-Dimer (0.0-0.50) mg/L Sodium 138 (135-145) mmol/L Potassium 4.0 (3.5-5.1) mmol/L Chloride 108 H (98-107) mmol/L Carbon Dioxide 24 (22-30) mmol/L Anion Gap 9.7 (5-15) MEQ/L BUN 9 (7-17) mg/dL Creatinine 0.69 (0.52-1.04) mg/dL Estimated GFR 114.6 ML/MIN Glucose 268 H (74-106) mg/dL Lactic Acid 1.3 (0.4-2.0) Calcium 9.4 (8.4-10.2) mg/dL Total Bilirubin 0.50 (0.2-1.3) mg/dL AST 57 H (14-36) U/L ALT 51 H (0-35) U/L Alkaline Phosphatase 172 H (38-126) U/L Troponin I (0.000-0.033) ng/mL Serum Total Protein 6.3 (6.3-8.2) g/dL Albumin 3.3 L (3.5-5.0) g/dL Lipase 102 (23-300) U/L Serum HCG, Qual (NEGATIVE) Urine Color (Yellow) Urine Appearance (Clear) Urine pH (4.6-8.0) Ur Specific [place] (1.005-1.030) Urine Protein (Negative) Urine Glucose (UA) (Negative) mg/dL Urine Ketones (Negative) Urine Blood (Negative) Urine Nitrite (Negative) Urine Bilirubin (Negative) Urine Urobilinogen (0.2) mg/dL Ur Leukocyte Esterase (Negative) U Hyaline Cast (Auto) (0-2) /LPF Urine Microscopic RBC (0-5) /HPF Urine Microscopic WBC (0-5) /HPF Ur Epithelial Cells (None Seen) /HPF Urine Bacteria (None Seen) /HPF Urine Culture Reflexed (NO) - Progress Counseled pt/family regarding: lab results, diagnosis <HOANG VANCE - Last Filed: 02/21/24 21:59> - Progress Progress: improved <BATOOL DONAHUE - Last Filed: 02/22/24 23:33> - Progress Progress Note: We plan on transferring patient to [place]. Patient's landscaper Dr. Sheth states patient elevated troponin is likely not due to ACS. He advised admitting to our hospital and continued symptomatic management and monitoring of troponin. I spoke to our hospitalist Dr. Ramandeep Sheth who accepts admission to observation at 9:40 PM he will continue to monitor patient symptoms and troponin. Plan of care discussed with patient. She agrees to admission to [facility] for further evaluation and treatment. Portions of this note were created with voice recognition technology. There may be grammatical, spelling, punctuation or sound alike errors Complexity of problem addressed is moderate acute complicated\ No critical care time Complexity of data reviewed and analyzed is extensive. Test ordered test reviewed. Results analyzed and correlated clinically with history and physical examination. Management discussed with patient's landscaper as well as hospitalist. Risk of complication and or risk of morbidity/mortality of patient management is high. Patient requires hospitalization for further evaluation and treatment. Vital stable. Time spent admit patient is approximately 30 minutes. Plan of care established for shared decision making. No social determinants of health present impede follow-up. Portions of this note were created with voice recognition technology. There may be grammatical, spelling, punctuation or sound alike errors 02/21/24 22:02 (HOANG VANCE) 02/21/24 18:41 38-year-old is evaluated for abdominal pain with nausea vomiting followed by chest pain. Patient has known known history of coronary artery disease. She is given symptomatic treatment for pain, on reevaluation she is feeling better but not completely resolved. Workup showed normal white count, fairly unremarkable chemistries but initial troponin of 0.163. She is given aspirin. EKG showed sinus tach at a rate of 128 initial and then later on improved to 110s both sinus tach with no ST elevations. Second troponin is 0.14. She is given fentanyl, was getting hypoxic, placed on oxygen. Patient later on told me that she had a history of PE and has not been taking any anticoagulation. I have obtained D-dimers followed by CTA chest which is negative for PE. On reevaluation she is feeling better. I have called and discussed with hospitalist Dr. Washburn, recommended transfer to facility with cardiology services. I have called [facility] but patient does not want to go there as her all her specialists including cardiology and oncology at [place]. I have discussed the results of workup with Dr. Vance, reviewed history, workup and hosp italist recommendation, he will transfer patient to [place]. (BATOOL DONAHUE) - Departure Departure Disposition: Observation Critical Care Time: No <HOANG VANCE - Last Filed: 02/21/24 21:59> <BATOOL DONAHUE - Last Filed: 02/22/24 23:33> - Departure Clinical Impression: Elevated troponin, Tachycardia, Upper abdominal pain, Chest pain Condition: Stable
[2024-02-21] MEDS ORDERED: Sodium Chloride 0.9% 1000 ML 1,000 ML ONE (15:54)
[2024-02-21] MEDS: Sodium Chloride 0.9% 1000 ML 1,000 ML IV SCH (15:54)
--- NOTE | 2024-02-21 16:30 | XRAY ---
Indication: Chest pain. Short of breath. Multiple contiguous axial images obtained through the chest using 80 cc Isovue 370 contrast and PE protocol. Comparison: November 26, November 28, and February 05, 2024. Good opacification of the pulmonary arteries to include the lobar and segmental branches. No pulmonary embolus. Heart not enlarged again with right Port-A-Cath. Aorta is normal in course and caliber. No pathologic mediastinal/hilar lymphadenopathy. Lungs demonstrates worsening moderate bilateral dependent atelectasis. No suspicious pulmonary mass/nodule, infiltrate, effusion, or pneumothorax. Bony thorax intact. Limited upper abdomen again demonstrates small right renal cyst, cholecystomy, and left nephrectomy. Impression: Continued negative for pulmonary embolus compared to last 3 CT PE exams. Again left nephrectomy. No new/acute findings.
[2024-02-21] MEDS ORDERED: DUONEB 0.5-3 MG/3 ml Neb IH ONE (16:32)
[2024-02-21] MEDS: DUONEB 0.5-3 MG/3 ml Neb IH ONE (16:36)
[2024-02-21 19:45] LABS: Appearance Clear (Clear); Bacteria Rare /HPF (None Seen); Bilirubin Negative (Negative); Blood Negative (Negative); Epithelial Cells Rare /HPF (None Seen); Glucose, Urine 500 mg/dL (Negative); Hyaline Casts NONE SEEN /LPF (0-2); Ketones Negative (Negative); Leukocyte Esterase Trace (Negative); Nitrite Negative (Negative); Protein,Urine Dip Negative (Negative); RBC 0-2 /HPF (0-5); Specific Gravity >=1.030 (1.005-1.030); Urobilinogen 0.2 mg/dL (0.2)
[2024-02-21 19:46] LABS: ADD URINE CULTURE? NO (NO)
[2024-02-21] MEDS ORDERED: DUONEB 0.5-3 MG/3 ml Neb IH PRN (23:39)
--- NOTE | 2024-02-21 23:39 | PCM.HP ---
History of Present Illness - Chief Complaint Chief Complaint: elevated troponin, shortness of breath, abdominal pain History of Present Illness: is a 38 year old female with multiple cancers, most recently with breast cancer s/p surgery and is on chemotherapy, last about 3 weeks ago who presents with abdominal pain, chest pain, shortness of breath. She feels very tired. CTA was negative for a PE. O2 was 90-92% on 3-5 liters of oxygen, uses no oxygen at home. Denies fevers, chills, nausea, vomiting, diarrhea. - Review of Systems Constitutional: Fatigue, No Fever, No Chills Eyes: No Symptoms Ears, Nose, & Throat: No Symptoms Respiratory: No Cough, No Short Of Breath Cardiac: No Chest Pain, No Edema, No Syncope Abdominal/Gastrointestinal: No Abdominal Pain, No Nausea, No Vomiting, No Diarrhea Genitourinary Symptoms: No Dysuria Musculoskeletal: No Back Pain, No Neck Pain Skin: No Rash Neurological: No Dizziness, No Focal Weakness, No Sensory Changes Psychological: No Symptoms Endocrine: No Symptoms Hematologic/Lymphatic: No Symptoms Immunological/Allergic: No Symptoms Medications & Allergies Home Medications: Home Medication List Aspirin 81 mg PO DAILY 11/04/16 [History Confirmed 02/05/24] Cholecalciferol (Vitamin D3) [Vitamin D3] 125 mcg PO DAILY 06/04/23 [History Confirmed 02/05/24] Hydrocodone/Acetaminophen [Hydrocodone-Acetamin 5-325 mg] 1 tab PO Q6HPRN PRN MDD 4 06/04/23 [History Confirmed 02/05/24] Ondansetron ODT 4 MG [Zofran Odt 4 mg] 4 mg PO Q6HPRN PRN 06/04/23 [History Confirmed 02/05/24] PANTOPRAZOLE 40 mg Tablet [Protonix 40MG Tablet] 40 mg PO QAM 06/04/23 [History Confirmed 02/05/24] Ranolazine 500 MG [Ranexa 500 MG] 500 mg PO BID 06/04/23 [History Confirmed 02/05/24] Alprazolam [Xanax] 1 mg PO TID PRN PRN 10/04/23 [History Confirmed 02/05/24] Fentanyl 75Mcg Patch [Duragesic 75 MCG Patch] 1 patch TOP Q72H PRN 10/04/23 [History Confirmed 02/05/24] Amlodipine Besylate 2.5 mg PO DAILY 11/28/23 [History Confirmed 02/05/24] Atorvastatin Calcium 80 mg PO DAILY 11/28/23 [History Confirmed 02/05/24] Budesonide [Budesonide Dr] 3 mg PO DAILY 11/28/23 [History Confirmed 02/05/24] Duloxetine HCl 30 mg [Cymbalta 30 MG Capsule] 60 mg PO DAILY 11/28/23 [History Confirmed 02/05/24] Exemestane 25 mg PO DAILY 11/28/23 [History Confirmed 02/05/24] Gabapentin 100 mg PO BID 11/28/23 [History Confirmed 02/05/24] Glimepiride 1 mg PO DAILY 11/28/23 [History Confirmed 02/05/24] Lisinopril 10 mg [Zestril 10 MG] 10 mg PO DAILY 11/28/23 [History Confirmed 02/05/24] Magnesium Oxide 400 mg PO TID 11/28/23 [History Confirmed 02/05/24] Metoprolol Succinate 25 mg PO DAILY 11/28/23 [History Confirmed 02/05/24] OLANZapine [Zyprexa] 10 mg PO QHS 11/28/23 [History Confirmed 02/05/24] Potassium Chloride 20 meq PO BID 11/28/23 [History Confirmed 02/05/24] Apixaban [Eliquis] 5 mg PO BID 11/29/23 [History Confirmed 02/05/24] CARBOplatin [Carboplatin] 150 mg IV UD 02/05/24 [History Confirmed 02/05/24] Cephalexin Mh 500 mg [Keflex 500 mg] 500 mg PO Q6H 02/05/24 [History Confirmed 02/05/24] DOCEtaxeL [Docetaxel] 20 mg IV UD 02/05/24 [History Confirmed 02/05/24] Diphenhydramine HCl [Diphedryl Allergy] 12.5 mg PO Q6H PRN PRN 02/05/24 [History Confirmed 02/05/24] Diphenoxylate HCl/Atropine [Diphenoxylate-Atrop 2.5-0.025] 2 each PO QID 02/05/24 [History Confirmed 02/05/24] Nitroglycerin 0.4 mg Tablet [Nitrostat 0.4 MG Tablet] 0.4 mg SL DAILY PRN 02/05/24 [History Confirmed 02/05/24] Pegfilgrastim [Neulasta] 6 mg SQ UD 02/05/24 [History Confirmed 02/05/24] Pertuzumab [Perjeta] 420 mg IV UD 02/05/24 [History Confirmed 02/05/24] Prochlorperazine Maleate 10 mg PO Q6H PRN PRN 02/05/24 [History Confirmed 02/05/24] Trastuzumab [Herceptin] 150 mg IV UD 02/05/24 [History Confirmed 02/05/24] dexAMETHasone [Dexamethasone] 4 mg PO UD 02/05/24 [History Confirmed 02/05/24] Allergies/Adverse Reactions: Allergies Allergy/AdvReac Type Severity Reaction Status Date / Time hydromorphone HCl Allergy Severe Verified 02/21/24 11:38 [From Dilaudid] terbutaline sulfate Allergy Severe Verified 02/21/24 11:38 [From Brethine] morphine AdvReac Intermediate Vomiting Verified 02/21/24 11:38 - Past Medical History Past Medical History: Yes Neurological History: Epilepsy, Migraines, Seizures, Stroke ENT History: Other Cardiac History: Arrhythmia, Congestive Heart Failure, Coronary Artery Disease, Deep Vein Thrombosis, High Cholesterol, Hypertension, Myocardial Infarction ([place]), Other Respiratory History: No Pertinent History, Pulmonary Embolism Endocrine Medical History: Diabetes Type II, Liver Disease Musculoskelatal History: Fractures, Osteoporosis GI Medical History: Colitis, Gallbladder Disease, Hemorrhoids, Irritable Bowel History: Kidney Cancer, Renal Disease Pyscho-Social History: Anxiety, Panic Disorder Reproductive Disorders: Other Comment: kidney cancer at age 18 months, bilat wrist fracture and leg, STAGE 3 BREAST CANCER (left)- 2022, Benign brain tumor- 2021 - Female History Hx Last Menstrual Period: No longer has them Are you now?: No - Past Surgical History Past Surgical History: Yes Neuro Surgical History: No Pertinent History Cardiac History: No Pertinent History Respiratory Surgery: No Pertinent History GI Surgical History: Cholecystectomy Genitourinary Surgical Hx: Kidney Surgery Musculskeletal Surgical Hx: No Pertinent History Female Surgical History: Section, Tubal Ligation Other Surgical History: left kidney removal, wilms tumor Significant Family History: no pertinent family hx - Social History Smoking Status: Current some day smoker How long have you smoked: 12 yrs Exposure to second hand smoke: No Alcohol: None Drug Use: marijuana - Social Determinants of Health Will the patient participate in the screening: Yes Do you worry about a steady place to live?: No Do you have any problems with any of the following?: No known problems In the past 12 months,have you had to go without utilities?: No Have you or anyone in your house had to go without enough: No Transportation Issues: No Has anyone in your support network made you feel unsafe?: No Does the patient want assistance with any of the above?: No - Physical Exam Vital Signs: Vital Signs - 24 hr Temp Pulse Resp BP BP Pulse Ox 02/21/24 21:21 109 H 22 90/75 90 L 02/21/24 21:10 114 H 26 H 104/66 89 L 02/21/24 21:00 103 H 21 88/68 95 02/21/24 20:50 105 H 21 97/53 93 L 02/21/24 20:40 104 H 22 95/60 93 L 02/21/24 20:30 106 H 20 97/63 94 L 02/21/24 20:20 104 H 20 91/66 94 L 02/21/24 20:10 106 H 21 99/66 93 L 02/21/24 20:00 105 H 19 96/61 90 L 02/21/24 19:50 102 H 18 85/66 94 L 02/21/24 19:40 106 H 22 103/69 96 02/21/24 19:30 108 H 25 H 97/69 95 02/21/24 19:20 106 H 14 92/68 94 L 02/21/24 19:05 90 L 02/21/24 19:00 82/63 02/21/24 18:50 104 H 20 92/62 96 02/21/24 18:40 107 H 18 82/60 96 02/21/24 18:30 109 H 20 86/58 93 L 02/21/24 18:20 109 H 20 83/63 94 L 02/21/24 18:10 109 H 19 83/62 92 L 02/21/24 18:00 107 H 19 89/65 93 L 02/21/24 17:50 109 H 21 88/62 93 L 02/21/24 17:40 110 H 23 90/63 93 L 02/21/24 17:30 113 H 19 80/66 92 L 02/21/24 17:20 112 H 19 86/65 91 L 02/21/24 17:10 112 H 18 93/68 90 L 02/21/24 17:00 111 H 20 91/66 92 L 02/21/24 16:50 113 H 18 93/68 94 L 02/21/24 16:43 114 H 20 95/70 92 L 02/21/24 16:41 119 H 18 87/70 91 L 02/21/24 16:40 118 H 19 93 L 02/21/24 16:30 118 H 16 93 L 02/21/24 16:22 118 H 24 93 L 02/21/24 16:10 120 H 16 98/73 02/21/24 16:00 115 H 33 H 93/72 93 L 02/21/24 15:50 116 H 19 93/71 87 L 02/21/24 15:40 116 H 21 92/78 95 02/21/24 15:38 117 H 23 102/72 87 L 02/21/24 15:00 103/62 02/21/24 14:30 115 H 16 89/69 90 L 02/21/24 14:00 113 H 15 99/73 95 02/21/24 13:41 111 H 21 99/71 94 L 02/21/24 13:30 111 H 17 97/72 95 02/21/24 13:04 113 H 14 104/79 94 L 02/21/24 12:00 115 H 24 113/79 91 L 02/21/24 11:41 116 H 15 97/74 94 L 02/21/24 11:40 98.8 F 120 H 16 97/74 97 General Appearance: no apparent distress, alert Neurologic Exam: alert, oriented x 3, cooperative, normal mood/affect, nml cerebellar function, nml station & gait, sensation nml, No motor deficits Eye Exam: PERRL/EOMI, eyes nml inspection Ears, Nose, Throat Exam: normal ENT inspection, TMs normal, pharynx normal, moist mucous membranes Neck Exam: normal inspection, non-tender, supple, full range of motion Respiratory Exam: normal breath sounds, lungs clear, No respiratory distress Cardiovascular Exam: regular rate/rhythm, normal heart sounds, normal peripheral pulses Gastrointestinal/Abdomen Exam: soft, normal bowel sounds, No tenderness, No mass Back Exam: normal inspection, normal range of motion, No CVA tenderness, No vertebral tenderness Extremity Exam: normal inspection, normal range of motion, pelvis stable Skin Exam: normal color, warm, dry, No rash Lymphatic Exam: No adenopathy Results - Labs Lab/Micro Results: Lab Results-Last 24 Hours 02/21/24 02/21/24 02/21/24 Range/Units 12:18 13:00 13:00 WBC 6.9 (4.0-10.5) x10^3/uL RBC 4.20 (4.1-5.4) x10^6/uL Hgb 13.2 (12.0-16.0) g/dL Hct 40.2 (35-47) % MCV 95.7 (78-100) fL MCH 31.4 (26-32) pg MCHC 32.8 (32-36) g/dL RDW 14.5 H (11.5-14.0) % Plt Count 275 (150-450) x10^3/uL MPV 9.5 (7.5-11.0) fL Gran % 57.6 (36.0-66.0) % Immature Gran % (Auto) 0.7 H (0.00-0.4) % Nucleat RBC Rel Count 0.0 (0.00-0.1) % Eos # (Auto) 0.04 (0-0.5) x10^3/uL Immature Gran # (Auto) 0.05 H (0.00-0.03) x10^3u/L Absolute Lymphs (auto) 2.19 (1.0-4.6) x10^3/uL Absolute Monos (auto) 0.63 (0.0-1.3) x10^3/uL Absolute Nucleated RBC 0.00 (0.00-0.01) x10^3u/L Lymphocytes % 31.6 (24.0-44.0) % Monocytes % 9.1 (0.0-12.0) % Eosinophils % 0.6 (0.00-5.0) % Basophils % 0.4 (0.0-0.4) % Absolute Granulocytes 4.00 (1.4-6.9) x10^3/uL Basophils # 0.03 (0-0.4) x10^3/uL D-Dimer (0.0-0.50) mg/L Sodium 138 (135-145) mmol/L Potassium 4.0 (3.5-5.1) mmol/L Chloride 108 H (98-107) mmol/L Carbon Dioxide 24 (22-30) mmol/L Anion Gap 9.7 (5-15) MEQ/L BUN 9 (7-17) mg/dL Creatinine 0.69 (0.52-1.04) mg/dL Estimated GFR 114.6 ML/MIN Glucose 268 H (74-106) mg/dL Lactic Acid 1.3 (0.4-2.0) Calcium 9.4 (8.4-10.2) mg/dL Total Bilirubin 0.50 (0.2-1.3) mg/dL AST 57 H (14-36) U/L ALT 51 H (0-35) U/L Alkaline Phosphatase 172 H (38-126) U/L Troponin I (0.000-0.033) ng/mL Serum Total Protein 6.3 (6.3-8.2) g/dL Albumin 3.3 L (3.5-5.0) g/dL Lipase 102 (23-300) U/L Serum HCG, Qual (NEGATIVE) Urine Color (Yellow) Urine Appearance (Clear) Urine pH (4.6-8.0) Ur Specific [place] (1.005-1.030) Urine Protein (Negative) Urine Glucose (UA) (Negative) mg/dL Urine Ketones (Negative) Urine Blood (Negative) Urine Nitrite (Negative) Urine Bilirubin (Negative) Urine Urobilinogen (0.2) mg/dL Ur Leukocyte Esterase (Negative) U Hyaline Cast (Auto) (0-2) /LPF Urine Microscopic RBC (0-5) /HPF Urine Microscopic WBC (0-5) /HPF Ur Epithelial Cells (None Seen) /HPF Urine Bacteria (None Seen) /HPF Urine Culture Reflexed (NO) 02/21/24 02/21/24 02/21/24 Range/Units 13:00 13:00 13:00 WBC (4.0-10.5) x10^3/uL RBC (4.1-5.4) x10^6/uL Hgb (12.0-16.0) g/dL Hct (35-47) % MCV (78-100) fL MCH (26-32) pg MCHC (32-36) g/dL RDW (11.5-14.0) % Plt Count (150-450) x10^3/uL MPV (7.5-11.0) fL Gran % (36.0-66.0) % Immature Gran % (Auto) (0.00-0.4) % Nucleat RBC Rel Count (0.00-0.1) % Eos # (Auto) (0-0.5) x10^3/uL Immature Gran # (Auto) (0.00-0.03) x10^3u/L Absolute Lymphs (auto) (1.0-4.6) x10^3/uL Absolute Monos (auto) (0.0-1.3) x10^3/uL Absolute Nucleated RBC (0.00-0.01) x10^3u/L Lymphocytes % (24.0-44.0) % Monocytes % (0.0-12.0) % Eosinophils % (0.00-5.0) % Basophils % (0.0-0.4) % Absolute Granulocytes (1.4-6.9) x10^3/uL Basophils # (0-0.4) x10^3/uL D-Dimer 1.53 H* (0.0-0.50) mg/L Sodium (135-145) mmol/L Potassium (3.5-5.1) mmol/L Chloride (98-107) mmol/L Carbon Dioxide (22-30) mmol/L Anion Gap (5-15) MEQ/L BUN (7-17) mg/dL Creatinine (0.52-1.04) mg/dL Estimated GFR ML/MIN Glucose (74-106) mg/dL Lactic Acid (0.4-2.0) Calcium (8.4-10.2) mg/dL Total Bilirubin (0.2-1.3) mg/dL AST (14-36) U/L ALT (0-35) U/L Alkaline Phosphatase (38-126) U/L Troponin I 0.163 H* (0.000-0.033) ng/mL Serum Total Protein (6.3-8.2) g/dL Albumin (3.5-5.0) g/dL Lipase (23-300) U/L Serum HCG, Qual NEGATIVE (NEGATIVE) Urine Color (Yellow) Urine Appearance (Clear) Urine pH (4.6-8.0) Ur Specific [place] (1.005-1.030) Urine Protein (Negative) Urine Glucose (UA) (Negative) mg/dL Urine Ketones (Negative) Urine Blood (Negative) Urine Nitrite (Negative) Urine Bilirubin (Negative) Urine Urobilinogen (0.2) mg/dL Ur Leukocyte Esterase (Negative) U Hyaline Cast (Auto) (0-2) /LPF Urine Microscopic RBC (0-5) /HPF Urine Microscopic WBC (0-5) /HPF Ur Epithelial Cells (None Seen) /HPF Urine Bacteria (None Seen) /HPF Urine Culture Reflexed (NO) 02/21/24 02/21/24 02/21/24 Range/Units 16:20 19:21 20:20 WBC (4.0-10.5) x10^3/uL RBC (4.1-5.4) x10^6/uL Hgb (12.0-16.0) g/dL Hct (35-47) % MCV (78-100) fL MCH (26-32) pg MCHC (32-36) g/dL RDW (11.5-14.0) % Plt Count (150-450) x10^3/uL MPV (7.5-11.0) fL Gran % (36.0-66.0) % Immature Gran % (Auto) (0.00-0.4) % Nucleat RBC Rel Count (0.00-0.1) % Eos # (Auto) (0-0.5) x10^3/uL Immature Gran # (Auto) (0.00-0.03) x10^3u/L Absolute Lymphs (auto) (1.0-4.6) x10^3/uL Absolute Monos (auto) (0.0-1.3) x10^3/uL Absolute Nucleated RBC (0.00-0.01) x10^3u/L Lymphocytes % (24.0-44.0) % Monocytes % (0.0-12.0) % Eosinophils % (0.00-5.0) % Basophils % (0.0-0.4) % Absolute Granulocytes (1.4-6.9) x10^3/uL Basophils # (0-0.4) x10^3/uL D-Dimer (0.0-0.50) mg/L Sodium (135-145) mmol/L Potassium (3.5-5.1) mmol/L Chloride (98-107) mmol/L Carbon Dioxide (22-30) mmol/L Anion Gap (5-15) MEQ/L BUN (7-17) mg/dL Creatinine (0.52-1.04) mg/dL Estimated GFR ML/MIN Glucose (74-106) mg/dL Lactic Acid (0.4-2.0) Calcium (8.4-10.2) mg/dL Total Bilirubin (0.2-1.3) mg/dL AST (14-36) U/L ALT (0-35) U/L Alkaline Phosphatase (38-126) U/L Troponin I 0.148 H* 0.158 H* (0.000-0.033) ng/mL Serum Total Protein (6.3-8.2) g/dL Albumin (3.5-5.0) g/dL Lipase (23-300) U/L Serum HCG, Qual (NEGATIVE) Urine Color Yellow (Yellow) Urine Appearance Clear (Clear) Urine pH 6.0 (4.6-8.0) Ur Specific [place] >=1.030 A (1.005-1.030) Urine Protein Negative (Negative) Urine Glucose (UA) 500 A (Negative) mg/dL Urine Ketones Negative (Negative) Urine Blood Negative (Negative) Urine Nitrite Negative (Negative) Urine Bilirubin Negative (Negative) Urine Urobilinogen 0.2 (0.2) mg/dL Ur Leukocyte Esterase Trace A (Negative) U Hyaline Cast (Auto) NONE SEEN (0-2) /LPF Urine Microscopic RBC 0-2 (0-5) /HPF Urine Microscopic WBC 6-10 A (0-5) /HPF Ur Epithelial Cells Rare (None Seen) /HPF Urine Bacteria Rare A (None Seen) /HPF Urine Culture Reflexed NO (NO) - Radiology Impressions Radiology Exams & Impressions: Radiology Procedures Category Date Time Status ABDOMEN AND PELVIS W/0 CONTRAS [CT] Stat Exams 02/21/24 12:18 Completed CHEST 1 VIEW (PORTABLE) Stat Exams 02/21/24 12:18 Completed CHEST WITH CONTRAST [CT] Stat Exams 02/21/24 14:37 Completed Assessment/Plan (1) Shortness of breath Current Visit: Yes Status: Acute Assessment & Plan: 1. Oxygen as needed 2. Spirometry 3. CTA was negative for PE and no nodules in the lungs Code(s): R06.02 - SHORTNESS OF BREATH (2) Elevated troponin Current Visit: Yes Status: Acute Assessment & Plan: Likely due to treatment from chemotherapy. EKG WNL. Trop x 2 downtrending. Will monitor. Code(s): R79.89 - OTHER SPECIFIED ABNORMAL FINDINGS OF BLOOD CHEMISTRY Telemedicine Encounter - Telemedicine Encounter Telemedicine Encounter: The entirety of this encounter was performed via Telemedicine"
[2024-02-22] MEDS: Zofran 4 MG/2 ML VIAL IV PRN (04:13)
[2024-02-22] MEDS: MAALOX ES 30 ML UNIT DOSE PO PRN (05:47)
[2024-02-22 06:50] VITALS: BP 83/50; PULSE 121; RESP 16; TEMP 97.1
[2024-02-22] MEDS ORDERED: XANAX 1 MG PO PRN (07:46)
[2024-02-22] MEDS ORDERED: NORCO 5/325 MG PO PRN (07:46)
[2024-02-22] MEDS ORDERED: Nitrostat 0.4 MG Tablet SL PRN (07:46)
[2024-02-22] MEDS ORDERED: Compazine 5 MG PO PRN (07:59)
[2024-02-22] MEDS: Ecotrin 325 MG PO ONE (08:02)
[2024-02-22] MEDS ORDERED: MEDICATION INTERVENTION MC SCH ×2 (08:15)
[2024-02-22 08:44] LABS: Absolute Neutrophil Ct (ANC) 6.02 x10^3/uL (1.4-6.9); BASOPHIL % 0.2 % (0.0-0.4); Basophil (Absolute #) 0.02 x10^3/uL (0-0.4); Eosinophil % 0.2 % (0.00-5.0); Eosinophil (Absolute #) 0.02 x10^3/uL (0-0.5); Hematocrit 38.8 % (35-47); Hemoglobin 12.4 g/dL (12.0-16.0); IMMATURE GRAN # 0.06 x10^3u/L (0.00-0.03); IMMATURE GRAN % 0.6 % (0.00-0.4); Lymphocyte (Absolute #) 2.48 x10^3/uL (1.0-4.6); Lymphocytes % 26.4 % (24.0-44.0); Mean Cell Volume 98.5 fL (78-100); Mean Corpuscular Hemoglobin 31.5 pg (26-32); Mean Platelet Volume 9.5 fL (7.5-11.0); Monocyte (Absolute #) 0.78 x10^3/uL (0.0-1.3); Monocytes % 8.3 % (0.0-12.0); Neutrophil % 64.3 % (36.0-66.0); Platelet Count 258 x10^3/uL (150-450); Red Blood Count 3.94 x10^6/uL (4.1-5.4); Red Cell Distribution Width 14.6 % (11.5-14.0); White Blood Count 9.4 x10^3/uL (4.0-10.5)
[2024-02-22 08:59] LABS: ALBUMIN 3.1 g/dL (3.5-5.0); ANION GAP 9.8 MEQ/L (5-15); BILIRUBIN,TOTAL 0.4 mg/dL (0.2-1.3); Calcium 8.8 mg/dL (8.4-10.2); Creatinine 1 0.73 mg/dL (0.52-1.04); EST GLOMERULAR FILTRATION RATE 108.6 ML/MIN; Potassium 3.9 mmol/L (3.5-5.1); Total Protein 6.2 g/dL (6.3-8.2)
--- NOTE | 2024-02-22 09:58 | PCM.DS ---
Discharge Summary Date of Admission: 02/21/24 22:09 Date of Discharge: 02/22/24 Admitting Physician: TATYANA BOO MD Primary Care Provider: SAURABH NAQVI DO Allergies Allergies hydromorphone HCl [From Dilaudid] Allergy (Severe, Verified 02/21/24 11:38) terbutaline sulfate [From Brethine] Allergy (Severe, Verified 02/21/24 11:38) morphine Adverse Reaction (Intermediate, Verified 02/21/24 11:38) Vomiting Hospital Summary - Hospital Course Hospital Course: is a 38 year old female with multiple cancers, most recently with breast cancer s/p surgery and is on chemotherapy, last about 3 weeks ago who presents with abdominal pain, chest pain, shortness of breath. She feels very tired. CTA was negative for a PE. O2 was 90-92% on 3-5 liters of oxygen, uses no oxygen at home. Overnight events noted of severe left-sided radiating chest pain. Trops uptrending, EKG showing ST elevation in the anterior leads. Cardiology consulted, transfer initiated to [facility] for higher level of care. Discharge Note Latest Assessment & Plan (1) Shortness of breath Current Visit: Yes Status: Acute Assessment & Plan: 1. Oxygen as needed 2. Spirometry 3. CTA was negative for PE and no nodules in the lungs Code(s): R06.02 - SHORTNESS OF BREATH (2) Elevated troponin Current Visit: Yes Status: Acute Assessment & Plan: Likely due to treatment from chemotherapy. EKG WNL. Trop x 2 downtrending. Will monitor. 02/22/24: -see above notations I spent 35 minutes [id number] with the patient on the day of discharge performing discharge exam, discussing hospital stay and discharge instructions with patient and caregivers, preparation of discharge records, prescriptions & referral forms and addressing any questions/concerns the patient had as documented above. - Vitals & Intake/Output Vital Signs: Vital Signs Temperature 97.1 F 02/22/24 06:48 Pulse Rate 121 H 02/22/24 06:48 Respiratory Rate 16 02/22/24 06:48 Blood Pressure 83/50 02/22/24 06:48 O2 Sat by Pulse Oximetry 99 02/22/24 06:48 Intake & Output: Intake & Output 02/19/24 02/20/24 02/21/24 04/04/24 11:59 11:59 11:59 11:59 Weight 76.1 kg 76 kg - Lab Result Diagrams: 02/22/24 08:30 02/22/24 08:30 Lab Results-Last 24 Hrs: Lab Results-Last 24 Hours 02/21/24 02/21/24 02/21/24 Range/Units 12:18 13:00 13:00 WBC 6.9 (4.0-10.5) x10^3/uL RBC 4.20 (4.1-5.4) x10^6/uL Hgb 13.2 (12.0-16.0) g/dL Hct 40.2 (35-47) % MCV 95.7 (78-100) fL MCH 31.4 (26-32) pg MCHC 32.8 (32-36) g/dL RDW 14.5 H (11.5-14.0) % Plt Count 275 (150-450) x10^3/uL MPV 9.5 (7.5-11.0) fL Gran % 57.6 (36.0-66.0) % Immature Gran % (Auto) 0.7 H (0.00-0.4) % Nucleat RBC Rel Count 0.0 (0.00-0.1) % Eos # (Auto) 0.04 (0-0.5) x10^3/uL Immature Gran # (Auto) 0.05 H (0.00-0.03) x10^3u/L Absolute Lymphs (auto) 2.19 (1.0-4.6) x10^3/uL Absolute Monos (auto) 0.63 (0.0-1.3) x10^3/uL Absolute Nucleated RBC 0.00 (0.00-0.01) x10^3u/L Lymphocytes % 31.6 (24.0-44.0) % Monocytes % 9.1 (0.0-12.0) % Eosinophils % 0.6 (0.00-5.0) % Basophils % 0.4 (0.0-0.4) % Absolute Granulocytes 4.00 (1.4-6.9) x10^3/uL Basophils # 0.03 (0-0.4) x10^3/uL D-Dimer (0.0-0.50) mg/L Sodium 138 (135-145) mmol/L Potassium 4.0 (3.5-5.1) mmol/L Chloride 108 H (98-107) mmol/L Carbon Dioxide 24 (22-30) mmol/L Anion Gap 9.7 (5-15) MEQ/L BUN 9 (7-17) mg/dL Creatinine 0.69 (0.52-1.04) mg/dL Estimated GFR 114.6 ML/MIN Glucose 268 H (74-106) mg/dL POC Glucometer (74 to 106) mg/dL Lactic Acid 1.3 (0.4-2.0) Calcium 9.4 (8.4-10.2) mg/dL Total Bilirubin 0.50 (0.2-1.3) mg/dL AST 57 H (14-36) U/L ALT 51 H (0-35) U/L Alkaline Phosphatase 172 H (38-126) U/L Troponin I (0.000-0.033) ng/mL Serum Total Protein 6.3 (6.3-8.2) g/dL Albumin 3.3 L (3.5-5.0) g/dL Lipase 102 (23-300) U/L Serum HCG, Qual (NEGATIVE) Urine Color (Yellow) Urine Appearance (Clear) Urine pH (4.6-8.0) Ur Specific [place] (1.005-1.030) Urine Protein (Negative) Urine Glucose (UA) (Negative) mg/dL Urine Ketones (Negative) Urine Blood (Negative) Urine Nitrite (Negative) Urine Bilirubin (Negative) Urine Urobilinogen (0.2) mg/dL Ur Leukocyte Esterase (Negative) U Hyaline Cast (Auto) (0-2) /LPF Urine Microscopic RBC (0-5) /HPF Urine Microscopic WBC (0-5) /HPF Ur Epithelial Cells (None Seen) /HPF Urine Bacteria (None Seen) /HPF Urine Culture Reflexed (NO) 02/21/24 02/21/24 02/21/24 Range/Units 13:00 13:00 13:00 WBC (4.0-10.5) x10^3/uL RBC (4.1-5.4) x10^6/uL Hgb (12.0-16.0) g/dL Hct (35-47) % MCV (78-100) fL MCH (26-32) pg MCHC (32-36) g/dL RDW (11.5-14.0) % Plt Count (150-450) x10^3/uL MPV (7.5-11.0) fL Gran % (36.0-66.0) % Immature Gran % (Auto) (0.00-0.4) % Nucleat RBC Rel Count (0.00-0.1) % Eos # (Auto) (0-0.5) x10^3/uL Immature Gran # (Auto) (0.00-0.03) x10^3u/L Absolute Lymphs (auto) (1.0-4.6) x10^3/uL Absolute Monos (auto) (0.0-1.3) x10^3/uL Absolute Nucleated RBC (0.00-0.01) x10^3u/L Lymphocytes % (24.0-44.0) % Monocytes % (0.0-12.0) % Eosinophils % (0.00-5.0) % Basophils % (0.0-0.4) % Absolute Granulocytes (1.4-6.9) x10^3/uL Basophils # (0-0.4) x10^3/uL D-Dimer 1.53 H* (0.0-0.50) mg/L Sodium (135-145) mmol/L Potassium (3.5-5.1) mmol/L Chloride (98-107) mmol/L Carbon Dioxide (22-30) mmol/L Anion Gap (5-15) MEQ/L BUN (7-17) mg/dL Creatinine (0.52-1.04) mg/dL Estimated GFR ML/MIN Glucose (74-106) mg/dL POC Glucometer (74 to 106) mg/dL Lactic Acid (0.4-2.0) Calcium (8.4-10.2) mg/dL Total Bilirubin (0.2-1.3) mg/dL AST (14-36) U/L ALT (0-35) U/L Alkaline Phosphatase (38-126) U/L Troponin I 0.163 H* (0.000-0.033) ng/mL Serum Total Protein (6.3-8.2) g/dL Albumin (3.5-5.0) g/dL Lipase (23-300) U/L Serum HCG, Qual NEGATIVE (NEGATIVE) Urine Color (Yellow) Urine Appearance (Clear) Urine pH (4.6-8.0) Ur Specific [place] (1.005-1.030) Urine Protein (Negative) Urine Glucose (UA) (Negative) mg/dL Urine Ketones (Negative) Urine Blood (Negative) Urine Nitrite (Negative) Urine Bilirubin (Negative) Urine Urobilinogen (0.2) mg/dL Ur Leukocyte Esterase (Negative) U Hyaline Cast (Auto) (0-2) /LPF Urine Microscopic RBC (0-5) /HPF Urine Microscopic WBC (0-5) /HPF Ur Epithelial Cells (None Seen) /HPF Urine Bacteria (None Seen) /HPF Urine Culture Reflexed (NO) 02/21/24 02/21/24 02/21/24 Range/Units 16:20 19:21 20:20 WBC (4.0-10.5) x10^3/uL RBC (4.1-5.4) x10^6/uL Hgb (12.0-16.0) g/dL Hct (35-47) % MCV (78-100) fL MCH (26-32) pg MCHC (32-36) g/dL RDW (11.5-14.0) % Plt Count (150-450) x10^3/uL MPV (7.5-11.0) fL Gran % (36.0-66.0) % Immature Gran % (Auto) (0.00-0.4) % Nucleat RBC Rel Count (0.00-0.1) % Eos # (Auto) (0-0.5) x10^3/uL Immature Gran # (Auto) (0.00-0.03) x10^3u/L Absolute Lymphs (auto) (1.0-4.6) x10^3/uL Absolute Monos (auto) (0.0-1.3) x10^3/uL Absolute Nucleated RBC (0.00-0.01) x10^3u/L Lymphocytes % (24.0-44.0) % Monocytes % (0.0-12.0) % Eosinophils % (0.00-5.0) % Basophils % (0.0-0.4) % Absolute Granulocytes (1.4-6.9) x10^3/uL Basophils # (0-0.4) x10^3/uL D-Dimer (0.0-0.50) mg/L Sodium (135-145) mmol/L Potassium (3.5-5.1) mmol/L Chloride (98-107) mmol/L Carbon Dioxide (22-30) mmol/L Anion Gap (5-15) MEQ/L BUN (7-17) mg/dL Creatinine (0.52-1.04) mg/dL Estimated GFR ML/MIN Glucose (74-106) mg/dL POC Glucometer (74 to 106) mg/dL Lactic Acid (0.4-2.0) Calcium (8.4-10.2) mg/dL Total Bilirubin (0.2-1.3) mg/dL AST (14-36) U/L ALT (0-35) U/L Alkaline Phosphatase (38-126) U/L Troponin I 0.148 H* 0.158 H* (0.000-0.033) ng/mL Serum Total Protein (6.3-8.2) g/dL Albumin (3.5-5.0) g/dL Lipase (23-300) U/L Serum HCG, Qual (NEGATIVE) Urine Color Yellow (Yellow) Urine Appearance Clear (Clear) Urine pH 6.0 (4.6-8.0) Ur Specific [place] >=1.030 A (1.005-1.030) Urine Protein Negative (Negative) Urine Glucose (UA) 500 A (Negative) mg/dL Urine Ketones Negative (Negative) Urine Blood Negative (Negative) Urine Nitrite Negative (Negative) Urine Bilirubin Negative (Negative) Urine Urobilinogen 0.2 (0.2) mg/dL Ur Leukocyte Esterase Trace A (Negative) U Hyaline Cast (Auto) NONE SEEN (0-2) /LPF Urine Microscopic RBC 0-2 (0-5) /HPF Urine Microscopic WBC 6-10 A (0-5) /HPF Ur Epithelial Cells Rare (None Seen) /HPF Urine Bacteria Rare A (None Seen) /HPF Urine Culture Reflexed NO (NO) 02/22/24 02/22/24 02/22/24 Range/Units 08:30 08:30 08:30 WBC 9.4 (4.0-10.5) x10^3/uL RBC 3.94 L (4.1-5.4) x10^6/uL Hgb 12.4 (12.0-16.0) g/dL Hct 38.8 (35-47) % MCV 98.5 (78-100) fL MCH 31.5 (26-32) pg MCHC 32.0 (32-36) g/dL RDW 14.6 H (11.5-14.0) % Plt Count 258 (150-450) x10^3/uL MPV 9.5 (7.5-11.0) fL Gran % 64.3 (36.0-66.0) % Immature Gran % (Auto) 0.6 H (0.00-0.4) % Nucleat RBC Rel Count 0.0 (0.00-0.1) % Eos # (Auto) 0.02 (0-0.5) x10^3/uL Immature Gran # (Auto) 0.06 H (0.00-0.03) x10^3u/L Absolute Lymphs (auto) 2.48 (1.0-4.6) x10^3/uL Absolute Monos (auto) 0.78 (0.0-1.3) x10^3/uL Absolute Nucleated RBC 0.00 (0.00-0.01) x10^3u/L Lymphocytes % 26.4 (24.0-44.0) % Monocytes % 8.3 (0.0-12.0) % Eosinophils % 0.2 (0.00-5.0) % Basophils % 0.2 (0.0-0.4) % Absolute Granulocytes 6.02 (1.4-6.9) x10^3/uL Basophils # 0.02 (0-0.4) x10^3/uL D-Dimer (0.0-0.50) mg/L Sodium 138 (135-145) mmol/L Potassium 3.9 (3.5-5.1) mmol/L Chloride 110 H (98-107) mmol/L Carbon Dioxide 22 (22-30) mmol/L Anion Gap 9.8 (5-15) MEQ/L BUN 8 (7-17) mg/dL Creatinine 0.73 (0.52-1.04) mg/dL Estimated GFR 108.6 ML/MIN Glucose 206 H (74-106) mg/dL POC Glucometer (74 to 106) mg/dL Lactic Acid (0.4-2.0) Calcium 8.8 (8.4-10.2) mg/dL Total Bilirubin 0.40 (0.2-1.3) mg/dL AST 43 H (14-36) U/L ALT 45 H (0-35) U/L Alkaline Phosphatase 156 H (38-126) U/L Troponin I 0.132 H* (0.000-0.033) ng/mL Serum Total Protein 6.2 L (6.3-8.2) g/dL Albumin 3.1 L (3.5-5.0) g/dL Lipase (23-300) U/L Serum HCG, Qual (NEGATIVE) Urine Color (Yellow) Urine Appearance (Clear) Urine pH (4.6-8.0) Ur Specific [place] (1.005-1.030) Urine Protein (Negative) Urine Glucose (UA) (Negative) mg/dL Urine Ketones (Negative) Urine Blood (Negative) Urine Nitrite (Negative) Urine Bilirubin (Negative) Urine Urobilinogen (0.2) mg/dL Ur Leukocyte Esterase (Negative) U Hyaline Cast (Auto) (0-2) /LPF Urine Microscopic RBC (0-5) /HPF Urine Microscopic WBC (0-5) /HPF Ur Epithelial Cells (None Seen) /HPF Urine Bacteria (None Seen) /HPF Urine Culture Reflexed (NO) 02/22/24 Range/Units 08:40 WBC (4.0-10.5) x10^3/uL RBC (4.1-5.4) x10^6/uL Hgb (12.0-16.0) g/dL Hct (35-47) % MCV (78-100) fL MCH (26-32) pg MCHC (32-36) g/dL RDW (11.5-14.0) % Plt Count (150-450) x10^3/uL MPV (7.5-11.0) fL Gran % (36.0-66.0) % Immature Gran % (Auto) (0.00-0.4) % Nucleat RBC Rel Count (0.00-0.1) % Eos # (Auto) (0-0.5) x10^3/uL Immature Gran # (Auto) (0.00-0.03) x10^3u/L Absolute Lymphs (auto) (1.0-4.6) x10^3/uL Absolute Monos (auto) (0.0-1.3) x10^3/uL Absolute Nucleated RBC (0.00-0.01) x10^3u/L Lymphocytes % (24.0-44.0) % Monocytes % (0.0-12.0) % Eosinophils % (0.00-5.0) % Basophils % (0.0-0.4) % Absolute Granulocytes (1.4-6.9) x10^3/uL Basophils # (0-0.4) x10^3/uL D-Dimer (0.0-0.50) mg/L Sodium (135-145) mmol/L Potassium (3.5-5.1) mmol/L Chloride (98-107) mmol/L Carbon Dioxide (22-30) mmol/L Anion Gap (5-15) MEQ/L BUN (7-17) mg/dL Creatinine (0.52-1.04) mg/dL Estimated GFR ML/MIN Glucose (74-106) mg/dL POC Glucometer 203 H (74 to 106) mg/dL Lactic Acid (0.4-2.0) Calcium (8.4-10.2) mg/dL Total Bilirubin (0.2-1.3) mg/dL AST (14-36) U/L ALT (0-35) U/L Alkaline Phosphatase (38-126) U/L Troponin I (0.000-0.033) ng/mL Serum Total Protein (6.3-8.2) g/dL Albumin (3.5-5.0) g/dL Lipase (23-300) U/L Serum HCG, Qual (NEGATIVE) Urine Color (Yellow) Urine Appearance (Clear) Urine pH (4.6-8.0) Ur Specific [place] (1.005-1.030) Urine Protein (Negative) Urine Glucose (UA) (Negative) mg/dL Urine Ketones (Negative) Urine Blood (Negative) Urine Nitrite (Negative) Urine Bilirubin (Negative) Urine Urobilinogen (0.2) mg/dL Ur Leukocyte Esterase (Negative) U Hyaline Cast (Auto) (0-2) /LPF Urine Microscopic RBC (0-5) /HPF Urine Microscopic WBC (0-5) /HPF Ur Epithelial Cells (None Seen) /HPF Urine Bacteria (None Seen) /HPF Urine Culture Reflexed (NO) Micro Results-Entire Visit: Accuchecks Date 02/22/24 - Radiology Exams Ordered Rad Exams-Entire Visit: Radiology Procedures Category Date Time Status ABDOMEN AND PELVIS W/0 CONTRAS [CT] Stat Exams 02/21/24 12:18 Completed CHEST 1 VIEW (PORTABLE) Stat Exams 02/21/24 12:18 Completed CHEST WITH CONTRAST [CT] Stat Exams 02/21/24 14:37 Completed - Procedures and Test Procedures and Tests throughout Hospitalization: Therapy Orders & Screens 02/21/24 16:40 Respiratory Therapy Assessment DAILY Comment: 02/22/24 01:14 Oxygen Oxymask LPM 6 lpm Comment: Diagnosis: elevated troponin, shortness of breath, abdominal pain 02/22/24 01:15 Respiratory Therapy Assessment DAILY Comment: Diagnosis: elevated troponin, shortness of breath, abdominal pain 02/22/24 01:20 Incentive Spirometry TID Comment: Diagnosis: elevated troponin, shortness of breath, abdominal pain 02/22/24 05:40 EKG STAT Comment: Diagnosis: elevated troponin, shortness of breath, abdominal pain 02/22/24 13:00 EKG Q8HX2,QAMX3,PRN Comment: Diagnosis: elevated troponin, shortness of breath, abdominal pain 02/23/24 05:00 EKG ONCE Comment: Diagnosis: elevated troponin, shortness of breath, abdominal pain 02/24/24 05:00 EKG ONCE Comment: Diagnosis: elevated troponin, shortness of breath, abdominal pain 02/25/24 05:00 EKG ONCE Comment: Diagnosis: elevated troponin, shortness of breath, abdominal pain Discharge Exam General Appearance: moderate distress Neurologic Exam: alert, oriented x 3, cooperative Eye Exam: PERRL Ears, Nose, Throat Exam: normal ENT inspection Neck Exam: normal inspection Respiratory Exam: normal breath sounds, lungs clear Cardiovascular Exam: tachycardia Gastrointestinal/Abdomen Exam: soft, normal bowel sounds Pelvic Exam: deferred Rectal Exam: deferred Back Exam: normal inspection Extremity Exam: normal inspection Skin Exam: normal color Final Diagnosis/Problem List - Final Discharge Diagnosis/Problem (1) Elevated troponin Current Visit: Yes Status: Acute Code(s): R79.89 - OTHER SPECIFIED ABNORMAL FINDINGS OF BLOOD CHEMISTRY (2) Chest pain Current Visit: Yes Status: Acute Code(s): R07.9 - CHEST PAIN, UNSPECIFIED (3) Shortness of breath Current Visit: Yes Status: Acute Code(s): R06.02 - SHORTNESS OF BREATH (4) Tachycardia Current Visit: Yes Status: Acute Code(s): R00.0 - TACHYCARDIA, UNSPECIFIED - Discharge Disposition: DC TO [facility] Condition: Stable Prescriptions: Continue Aspirin 81 mg PO DAILY PANTOPRAZOLE 40 mg Tablet [Protonix 40MG Tablet] 40 mg PO QAM Ondansetron ODT 4 MG [Zofran Odt 4 mg] 4 mg PO Q6HPRN PRN PRN Reason: Nausea Ranolazine 500 MG [Ranexa 500 MG] 500 mg PO BID Hydrocodone/Acetaminophen [Hydrocodone-Acetamin 5-325 mg] 1 tab PO Q6HPRN PRN MDD 4 PRN Reason: Pain Cholecalciferol (Vitamin D3) [Vitamin D3] 125 mcg PO DAILY Fentanyl 75Mcg Patch [Duragesic 75 MCG Patch] 1 patch TOP Q72H PRN PRN Reason: Pain Alprazolam [Xanax] 1 mg PO TID PRN PRN PRN Reason: Anxiety Amlodipine Besylate 2.5 mg PO DAILY Atorvastatin Calcium 80 mg PO DAILY Budesonide [Budesonide Dr] 3 mg PO DAILY Duloxetine HCl 30 mg [Cymbalta 30 MG Capsule] 60 mg PO DAILY Gabapentin 100 mg PO BID Glimepiride 1 mg PO DAILY Lisinopril 10 mg [Zestril 10 MG] 10 mg PO DAILY Magnesium Oxide 400 mg PO TID Metoprolol Succinate 25 mg PO DAILY OLANZapine [Zyprexa] 10 mg PO QHS Potassium Chloride 20 meq PO BID Exemestane 25 mg PO DAILY Apixaban [Eliquis] 5 mg PO BID Prochlorperazine Maleate 10 mg PO Q6H PRN PRN PRN Reason: Nausea Pertuzumab [Perjeta] 420 mg IV UD Pegfilgrastim [Neulasta Onpro] 6 mg SQ UD Nitroglycerin 0.4 mg Tablet [Nitrostat 0.4 MG Tablet] 0.4 mg SL DAILY PRN PRN Reason: Chest Pain DOCEtaxeL [Docetaxel] 20 mg IV UD Diphenoxylate HCl/Atropine [Diphenoxylate-Atrop 2.5-0.025] 2 each PO QID Diphenhydramine HCl [Diphedryl Allergy] 12.5 mg PO Q6H PRN PRN PRN Reason: Itching dexAMETHasone [Dexamethasone] 4 mg PO UD Cephalexin Mh 500 mg [Keflex 500 mg] 500 mg PO Q6H CARBOplatin [Carboplatin] 150 mg IV UD Trastuzumab [Herceptin] 150 mg IV UD Follow up with: SAURABH NAQVI DO [Primary Care Provider] -
[2024-02-22] MEDS ORDERED: Ranexa 500 MG PO SCH (10:00)
[2024-02-22] MEDS ORDERED: Zestril 10 MG PO SCH (10:00)
[2024-02-22] MEDS ORDERED: Protonix 40MG Tablet PO SCH (10:00)
[2024-02-22] MEDS ORDERED: Neurontin PO SCH (10:00)
[2024-02-22] MEDS ORDERED: MAG-OX 400 PO SCH (10:00)
[2024-02-22] MEDS ORDERED: ELIQUIS 2.5 MG TABLET PO SCH (10:00)
[2024-02-22] MEDS ORDERED: EXEMESTANE 25 MG PO SCH (10:00)
[2024-02-22] MEDS ORDERED: ZOCOR 20MG PO SCH (10:00)
[2024-02-22] MEDS ORDERED: VITAMIN D PO SCH (10:00)
[2024-02-22] MEDS ORDERED: Toprol-Xl 25MG Tablets PO SCH (10:00)
[2024-02-22] MEDS ORDERED: NORVASC 5 MG PO SCH (10:00)
[2024-02-22] MEDS ORDERED: Cymbalta 30 MG Capsule PO SCH (10:00)
[2024-02-22] MEDS ORDERED: Klor Con PO SCH (10:00)
[2024-02-22] MEDS ORDERED: NON-FORMULARY ITEM (Budesonide [Budesonide Dr] 3 MG Capdr...Er) PO SCH (10:00)
[2024-02-22 23:33] VITALS: O2SAT 90
[2024-02-24] MEDS ORDERED: Duragesic 75 MCG Patch TOP SCH (10:00)
== END 2024-02-22 08:45 | disposition home or self-care (01) ==
LOC: ED 11:36 → MED SURG 22:09
PROVIDERS: ADMIT Student in an Organized Health Care Education/Training Program; ATTEND Student in an Organized Health Care Education/Training Program
DX: R79.89 Other specified abnormal findings of blood chemistry (principal); R06.02 Shortness of breath; R07.9 Chest pain, unspecified; R00.0 Tachycardia, unspecified; C50.919 Malignant neoplasm of unspecified site of unspecified female breast; E11.9 Type 2 diabetes mellitus without complications; E78.5 Hyperlipidemia, unspecified; I25.10 Atherosclerotic heart disease of native coronary artery without angina pectoris; I25.2 Old myocardial infarction; I11.0 Hypertensive heart disease with heart failure; I50.9 Heart failure, unspecified; F17.200 Nicotine dependence, unspecified, uncomplicated; Z79.01 Long term (current) use of anticoagulants; Z79.899 Other long term (current) drug therapy; Z85.528 Personal history of other malignant neoplasm of kidney; Z86.718 Personal history of other venous thrombosis and embolism
CPT/HCPCS: 36000; 36415; 71045; 71260; 74176; 80053; 81001; 82947; 83605; 83690; 84484; 84703; 85025; 85379; 93005; 93268; 94640; 96374; 96375; 96376; 99285; G0378; Q3014; J2405; J3010; A9270-GY

== ENCOUNTER 2024-09-21 18:42 | Emergency (ER) | payer OTHER ==
--- NOTE | 2024-09-21 18:48 | ERPHSYRPT ---
- History of Present Illness Time Seen by Provider: 09/21/24 18:47 Historian: patient Exam Limitations: no limitations Physician History: This is an overweight 39-year-old white female patient who arrives by private vehicle and is a patient of Dr. aNqvi. The patient states that she has had coughing episodes that brought up greenish phlegm the last couple of weeks. She is also complaining of headache and bodyaches and a sore throat. Today, the patient was watching her boyfriend pain to vehicle and she began having central, substernal chest pain that is described as sharp and intermittent and radiated into her bilateral upper extremities. The patient has a significant history of coronary disease as well as pulmonary embolus. She has not been on any antico agulation therapy in over a year per her report. Patient has a history of gastroesophageal reflux disease, hypertension, diabetes, hyperlipidemia, chronic renal disease (Dr. Eagle), anxiety/panic disorder, seizure disorder and irritable bowel syndrome. Patient states she currently does not have chest pain. Timing/Duration: today, intermittent Activities at Onset: none Quality: sharpness Location: substernal, central Chest Pain Radiation: arm (Bilateral) Severity of Pain-Max: mild (To moderate) Severity of Pain-Current: none Modifying Factors: Improves With: nothing Associated Symptoms: cough, headache Prior Chest Pain/Cardiac Workup: cardiac cath Nitro Today/Relief: no nitro taken today Aspirin Treatment Today: 81 mg x 4, provided by ED Allergies/Adverse Reactions: hydromorphone HCl [From Dilaudid] Allergy (Severe, Verified 09/21/24 18:43) terbutaline sulfate [From Brethine] Allergy (Severe, Verified 09/21/24 18:43) morphine Adverse Reaction (Intermediate, Verified 09/21/24 18:43) Vomiting Home Medications: Aspirin 81 mg PO DAILY 11/04/16 [History] Cholecalciferol (Vitamin D3) [Vitamin D3] 125 mcg PO DAILY 06/04/23 [History] Hydrocodone/Acetaminophen [Hydrocodone-Acetamin 5-325 mg] 1 tab PO Q6HPRN PRN MDD 4 06/04/23 [History] Ondansetron ODT 4 MG [Zofran Odt 4 mg] 4 mg PO Q6HPRN PRN 06/04/23 [History] PANTOPRAZOLE 40 mg Tablet [Protonix 40MG Tablet] 40 mg PO QAM 06/04/23 [History] Ranolazine 500 MG [Ranexa 500 MG] 500 mg PO BID 06/04/23 [History] Alprazolam [Xanax] 1 mg PO TID PRN PRN 10/04/23 [History] Fentanyl 75Mcg Patch [Duragesic 75 MCG Patch] 1 patch TOP Q72H PRN 10/04/23 [History] Amlodipine Besylate 2.5 mg PO DAILY 11/28/23 [History] Atorvastatin Calcium 80 mg PO DAILY 11/28/23 [History] Budesonide [Budesonide Dr] 3 mg PO DAILY 11/28/23 [History] Duloxetine HCl 30 mg [Cymbalta 30 MG Capsule] 60 mg PO DAILY 11/28/23 [History] Exemestane 25 mg PO DAILY 11/28/23 [History] Gabapentin 100 mg PO BID 11/28/23 [History] Glimepiride 1 mg PO DAILY 11/28/23 [History] Lisinopril 10 mg [Zestril 10 MG] 10 mg PO DAILY 11/28/23 [History] Magnesium Oxide 400 mg PO TID 11/28/23 [History] Metoprolol Succinate 25 mg PO DAILY 11/28/23 [History] OLANZapine [Zyprexa] 10 mg PO QHS 11/28/23 [History] Potassium Chloride 20 meq PO BID 11/28/23 [History] Apixaban [Eliquis] 5 mg PO BID 11/29/23 [History] CARBOplatin [Carboplatin] 150 mg IV UD 02/05/24 [History] Cephalexin Mh 500 mg [Keflex 500 mg] 500 mg PO Q6H 02/05/24 [History] DOCEtaxeL [Docetaxel] 20 mg IV UD 02/05/24 [History] Diphenhydramine HCl [Diphedryl Allergy] 12.5 mg PO Q6H PRN PRN 02/05/24 [History] Diphenoxylate HCl/Atropine [Diphenoxylate-Atrop 2.5-0.025] 2 each PO QID 02/05/24 [History] Nitroglycerin 0.4 mg Tablet [Nitrostat 0.4 MG Tablet] 0.4 mg SL DAILY PRN 02/05/24 [History] Pegfilgrastim [Neulasta Onpro] 6 mg SQ UD 02/05/24 [History] Pertuzumab [Perjeta] 420 mg IV UD 02/05/24 [History] Prochlorperazine Maleate 10 mg PO Q6H PRN PRN 02/05/24 [History] Trastuzumab [Herceptin] 150 mg IV UD 02/05/24 [History] dexAMETHasone [Dexamethasone] 4 mg PO UD 02/05/24 [History] Hx Tetanus, Diphtheria Vaccination/Date Given: Yes Hx Influenza Vaccination/Date Given: No Hx Pneumococcal Vaccination/Date Given: No Travel Risk - International Travel Have you traveled outside of the country in past 3 weeks: No - Emerging Infectious Disease Are you exhibiting symptoms associated with any current EIDs: Yes Symptoms: Abdominal Pain, Headaches/Body Aches/, Vomitting - Review of Systems Constitutional: No Symptoms Eyes: No Symptoms Ears, Nose, & Throat: No Symptoms Respiratory: Cough Cardiac: Chest Pain Abdominal/Gastrointestinal: No Symptoms Genitourinary Symptoms: No Symptoms Musculoskeletal: No Symptoms Skin: No Symptoms Neurological: No Symptoms Psychological: No Symptoms Endocrine: No Symptoms Hematologic/Lymphatic: No Symptoms Immunological/Allergic: No Symptoms All Other Systems: Reviewed and Negative - Past Medical History Pertinent Past Medical History: Yes Neurological History: Epilepsy, Migraines, Seizures, Stroke ENT History: Other Cardiac History: Congestive Heart Failure, Coronary Artery Disease, Deep Vein Thrombosis, High Cholesterol, Hypertension, Myocardial Infarction (DC), Other Respiratory History: No Pertinent History, Pulmonary Embolism Endocrine Medical History: Diabetes Type II, Liver Disease Musculoskeletal History: Fractures, Osteoporosis GI Medical History: Colitis, Gallbladder Disease, Hemorrhoids, Irritable Bowel History: Kidney Cancer, Renal Disease Psycho-Social History: Anxiety, Panic Disorder Female Reproductive Disorders: Other Other Medical History: kidney cancer at age 18 months, bilat wrist fracture and leg, STAGE 3 BREAST CANCER (left) - Past Surgical History Past Surgical History: Yes Neuro Surgical History: No Pertinent History Cardiac: No Pertinent History Respiratory: No Pertinent History Gastrointestinal: Cholecystectomy Genitourinary: Kidney Surgery Musculoskeletal: No Pertinent History Female Surgical History: Section, Tubal Ligation Other Surgical History: left kidney removal, wilms tumor Significant Family History: no pertinent family hx - Female History Hx Last Menstrual Period: currently on - Social History Smoking Status: Current some day smoker How long have you smoked: 12 yrs Exposure to second hand smoke: No Alcohol Use: None Drug Use: marijuana Patient Lives Alone: No - Social Determinants of Health Will the patient participate in the screening: Yes Do you worry about a steady place to live?: No In the past 12 months,have you had to go without utilities?: No Transportation Issues: No Has anyone in your support network made you feel unsafe?: No Have you or anyone in your house had to go without enough: No - Nursing Vital Signs Nursing Vital Signs: Initial Vital Signs Temperature 98.1 F 09/21/24 18:43 Pulse Rate 109 H 09/21/24 18:43 Respiratory Rate 24 09/21/24 18:43 Blood Pressure 129/95 09/21/24 18:43 O2 Sat by Pulse Oximetry 96 09/21/24 18:43 Pain Scale Pain Intensity 4 - Physical Exam General Appearance: mild distress, alert, anxiety, obese Eye Exam: PERRL/EOMI, eyes nml inspection Ears, Nose, Throat Exam: TMs normal, moist mucous membranes, pharyngeal erythema Neck Exam: normal inspection, non-tender, supple, full range of motion Respiratory Exam: normal breath sounds, lungs clear, airway intact, No chest tenderness, No respiratory distress Cardiovascular Exam: regular rate/rhythm, normal heart sounds, normal peripheral pulses Gastrointestinal/Abdomen Exam: soft, normal bowel sounds, No tenderness Pelvic Exam: not done Rectal Exam: not done Back Exam: normal inspection, normal range of motion, No CVA tenderness Extremity Exam: normal inspection, normal range of motion, pelvis stable Neurologic Exam: alert, oriented x 3, cooperative, 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 QTc is 466. The anterior Q waves possibly due to LVH was present on twelve- lead EKG dated 02/21/2024) Ordered Tests: Active Orders 24 hr Category Date Time Status Pet Training Instructor STAT Care 09/21/24 19:06 Active EKG-ER Only STAT Care 09/21/24 19:05 Active IV Insertion STAT Care 09/21/24 19:05 Active Pulse Oximetry (ED) STAT Care 09/21/24 19:05 Active CHEST 1 VIEW (PORTABLE) Stat Exams 09/21/24 19:05 Taken CHEST WITH CONTRAST [CT] Stat Exams 09/21/24 20:20 Completed CBC W DIFF Stat Lab 09/21/24 19:20 Completed CMP Stat Lab 09/21/24 19:20 Completed D-DIMER QUANTITATIVE Stat Lab 09/21/24 19:20 Completed MAGNESIUM Stat Lab 09/21/24 19:20 Completed MONO SCREEN Stat Lab 09/21/24 19:20 Completed PROTIME WITH INR Stat Lab 09/21/24 19:20 Completed TROPONIN Q4H Lab 09/21/24 19:20 Completed TROPONIN Q4H Lab 09/21/24 22:28 Completed TROPONIN Q4H Lab 09/22/24 02:15 Ordered Medication Summary Generic Name Dose Route Start Last Admin Trade Name Freq PRN Reason Stop Dose Admin Hydrocodone Bitart/Acetaminophen 10 ml 09/21/24 23:14 Hydrocodone/Acetaminophen 5 Ml Udcup PO 09/21/24 23:15 STAT STA Discontinued Medications Generic Name Dose Route Start Last Admin Trade Name Freq PRN Reason Stop Dose Admin Aspirin 324 mg 09/21/24 19:05 09/21/24 19:42 Aspirin 81 Mg Tab.Chew PO 09/21/24 19:06 324 mg STAT ONE Administration Aspirin Confirm 09/21/24 19:39 Aspirin 81 Mg Tab.Chew Administered 09/21/24 19:40 Dose 324 mg .ROUTE .STK-MED ONE Fentanyl Citrate 25 mcg 09/21/24 19:18 09/21/24 19:45 Fentanyl Citrate 100 Mcg/2 Ml* Vial IV 09/21/24 19:19 25 mcg STAT ONE Administration Fentanyl Citrate Confirm 09/21/24 19:39 Fentanyl Citrate 100 Mcg/2 Ml* Vial Administered 09/21/24 19:40 Dose 100 mcg .ROUTE .STK-MED ONE Fentanyl Citrate 25 mcg 09/21/24 22:40 09/21/24 22:58 Fentanyl Citrate 100 Mcg/2 Ml* Vial IV 09/21/24 22:41 25 mcg STAT ONE Administration Fentanyl Citrate Confirm 09/21/24 22:57 Fentanyl Citrate 100 Mcg/2 Ml* Vial Administered 09/21/24 22:58 Dose 100 mcg .ROUTE .STK-MED ONE Magnesium Sulfate/Dextrose 100 mls @ 200 mls/hr 09/21/24 20:08 09/21/24 20:23 Magnesium 1 Gm / 100 Ml D5w IV 09/21/24 20:37 200 mls/hr STAT ONE Administration Sodium Chloride 500 mls @ 500 mls/hr 09/21/24 20:20 09/21/24 21:33 Sodium Chloride 0.9% 500 Ml IV 09/21/24 21:19 Infused .Q1H ONE Infusion Magnesium Sulfate/Dextrose Confirm 09/21/24 20:22 Magnesium 1 Gm / 100 Ml D5w Administered 09/21/24 20:23 Dose 100 mls @ ud IV .STK-MED ONE Sodium Chloride Confirm 09/21/24 20:22 Sodium Chloride 0.9% 500 Ml Administered 09/21/24 20:23 Dose 500 mls @ ud IV .STK-MED ONE Ondansetron HCl 4 mg 09/21/24 19:18 09/21/24 19:42 Ondansetron Hcl 4 Mg/2 Ml Vial IV 09/21/24 19:19 4 mg STAT ONE Administration Ondansetron HCl Confirm 09/21/24 19:38 Ondansetron Hcl 4 Mg/2 Ml Vial Administered 09/21/24 19:39 Dose 4 mg .ROUTE .STK-MED ONE Potassium Chloride 20 meq 09/21/24 20:07 09/21/24 20:23 Potassium Chloride Tab 10 Meq Tab PO 09/21/24 20:08 20 meq STAT ONE Administration Potassium Chloride Confirm 09/21/24 20:22 Potassium Chloride Tab 10 Meq Tab Administered 09/21/24 20:23 Dose 20 meq .ROUTE .STK-MED ONE Lab/Rad Data: Laboratory Result Diagrams 09/21/24 19:20 09/21/24 19:20 Laboratory Results 09/21/24 09/21/24 09/21/24 Range/Units 22:28 19:20 19:20 WBC (3.98-10.04) x10^3/uL RBC (3.93-5.22) x10^6/uL Hgb (11.2-15.7) g/dL Hct (34.1-44.9) % MCV (79.4-94.8) fL MCH (25.6-32.2) pg MCHC (32.2-35.5) g/dL RDW (11.7-14.4) % Plt Count (182-369) x10^3/uL MPV (9.4-12.3) fL Gran % (34.0-71.1) % Immature Gran % (Auto) (0.001-0.429) % Nucleat RBC Rel Count (0.00-0.2) % Eos # (Auto) (0.04-0.36) x10^3/uL Immature Gran # (Auto) (0.001-0.031) x10^3u/L Absolute Lymphs (auto) (1.18-3.74) x10^3/uL Absolute Monos (auto) (0.24-0.86) x10^3/uL Absolute Nucleated RBC (0.00-0.012) x10^3u/L Lymphocytes % (19.3-51.7) % Monocytes % (4.7-12.5) % Eosinophils % (0.7-5.8) % Basophils % (0.1-1.2) % Absolute Granulocytes (1.56-6.13) x10^3/uL Basophils # (0.01-0.08) x10^3/uL PT (9.4-12.5) SECONDS INR (0.8-3.0) D-Dimer (0.0-0.50) mg/L Sodium (135-145) mmol/L Potassium (3.5-5.1) mmol/L Chloride (98-107) mmol/L Carbon Dioxide (22-30) mmol/L Anion Gap (5-15) MEQ/L BUN (7-17) mg/dL Creatinine (0.52-1.04) mg/dL Estimated GFR ML/MIN Glucose (74-106) mg/dL Calcium (8.4-10.2) mg/dL Magnesium (1.6-2.3) mg/dL Total Bilirubin (0.2-1.3) mg/dL AST (14-36) U/L ALT (0-35) U/L Alkaline Phosphatase (38-126) U/L Troponin I < 0.012 (0.000-0.033) ng/mL Serum Total Protein (6.3-8.2) g/dL Albumin (3.5-5.0) g/dL Monoscreen NEGATIVE (NEGATIVE) Influenza Type A Ag NEGATIVE (NEGATIVE) Influenza Type B Ag NEGATIVE (NEGATIVE) RSV (PCR) NEGATIVE (NEGATIVE) SARS-CoV-2 (PCR) NEGATIVE (NEGATIVE) Group A Strep Antibody (NEGATIVE) 09/21/24 09/21/24 09/21/24 Range/Units 19:20 19:20 19:20 WBC (3.98-10.04) x10^3/uL RBC (3.93-5.22) x10^6/uL Hgb (11.2-15.7) g/dL Hct (34.1-44.9) % MCV (79.4-94.8) fL MCH (25.6-32.2) pg MCHC (32.2-35.5) g/dL RDW (11.7-14.4) % Plt Count (182-369) x10^3/uL MPV (9.4-12.3) fL Gran % (34.0-71.1) % Immature Gran % (Auto) (0.001-0.429) % Nucleat RBC Rel Count (0.00-0.2) % Eos # (Auto) (0.04-0.36) x10^3/uL Immature Gran # (Auto) (0.001-0.031) x10^3u/L Absolute Lymphs (auto) (1.18-3.74) x10^3/uL Absolute Monos (auto) (0.24-0.86) x10^3/uL Absolute Nucleated RBC (0.00-0.012) x10^3u/L Lymphocytes % (19.3-51.7) % Monocytes % (4.7-12.5) % Eosinophils % (0.7-5.8) % Basophils % (0.1-1.2) % Absolute Granulocytes (1.56-6.13) x10^3/uL Basophils # (0.01-0.08) x10^3/uL PT 11.0 (9.4-12.5) SECONDS INR 1.01 (0.8-3.0) D-Dimer 1.44 H* (0.0-0.50) mg/L Sodium (135-145) mmol/L Potassium (3.5-5.1) mmol/L Chloride (98-107) mmol/L Carbon Dioxide (22-30) mmol/L Anion Gap (5-15) MEQ/L BUN (7-17) mg/dL Creatinine (0.52-1.04) mg/dL Estimated GFR ML/MIN Glucose (74-106) mg/dL Calcium (8.4-10.2) mg/dL Magnesium (1.6-2.3) mg/dL Total Bilirubin (0.2-1.3) mg/dL AST (14-36) U/L ALT (0-35) U/L Alkaline Phosphatase (38-126) U/L Troponin I < 0.012 (0.000-0.033) ng/mL Serum Total Protein (6.3-8.2) g/dL Albumin (3.5-5.0) g/dL Monoscreen (NEGATIVE) Influenza Type A Ag (NEGATIVE) Influenza Type B Ag (NEGATIVE) RSV (PCR) (NEGATIVE) SARS-CoV-2 (PCR) (NEGATIVE) Group A Strep Antibody NOT DETECTED (NEGATIVE) 09/21/24 09/21/24 Range/Units 19:20 19:20 WBC 9.9 (3.98-10.04) x10^3/uL RBC 4.31 (3.93-5.22) x10^6/uL Hgb 13.3 (11.2-15.7) g/dL Hct 40.2 (34.1-44.9) % MCV 93.3 (79.4-94.8) fL MCH 30.9 (25.6-32.2) pg MCHC 33.1 (32.2-35.5) g/dL RDW 13.6 (11.7-14.4) % Plt Count 300 (182-369) x10^3/uL MPV 8.8 L (9.4-12.3) fL Gran % 55.8 (34.0-71.1) % Immature Gran % (Auto) 0.4 (0.001-0.429) % Nucleat RBC Rel Count 0.0 (0.00-0.2) % Eos # (Auto) 0.13 (0.04-0.36) x10^3/uL Immature Gran # (Auto) 0.04 H (0.001-0.031) x10^3u/L Absolute Lymphs (auto) 3.17 (1.18-3.74) x10^3/uL Absolute Monos (auto) 1.00 H (0.24-0.86) x10^3/uL Absolute Nucleated RBC 0.00 (0.00-0.012) x10^3u/L Lymphocytes % 32.1 (19.3-51.7) % Monocytes % 10.1 (4.7-12.5) % Eosinophils % 1.3 (0.7-5.8) % Basophils % 0.3 (0.1-1.2) % Absolute Granulocytes 5.52 (1.56-6.13) x10^3/uL Basophils # 0.03 (0.01-0.08) x10^3/uL PT (9.4-12.5) SECONDS INR (0.8-3.0) D-Dimer (0.0-0.50) mg/L Sodium 143 (135-145) mmol/L Potassium 3.1 L (3.5-5.1) mmol/L Chloride 107 (98-107) mmol/L Carbon Dioxide 27 (22-30) mmol/L Anion Gap 12.0 (5-15) MEQ/L BUN 9 (7-17) mg/dL Creatinine 0.94 (0.52-1.04) mg/dL Estimated GFR 79.7 ML/MIN Glucose 101 (74-106) mg/dL Calcium 9.6 (8.4-10.2) mg/dL Magnesium 1.1 L (1.6-2.3) mg/dL Total Bilirubin 0.60 (0.2-1.3) mg/dL AST 35 (14-36) U/L ALT 38 H (0-35) U/L Alkaline Phosphatase 255 H (38-126) U/L Troponin I (0.000-0.033) ng/mL Serum Total Protein 6.9 (6.3-8.2) g/dL Albumin 3.9 (3.5-5.0) g/dL Monoscreen (NEGATIVE) Influenza Type A Ag (NEGATIVE) Influenza Type B Ag (NEGATIVE) RSV (PCR) (NEGATIVE) SARS-CoV-2 (PCR) (NEGATIVE) Group A Strep Antibody (NEGATIVE) - Progress Progress: improved, re-examined Air Movement: good Progress Note: 09/21/24 19:25 My medical decision making and the assignment of moderate complexity to this derrick weiner's medical issue today is based on review of the patient's past medical history, review of the patient's medication list, reviewed patient drug allergy list, history present illness and physical findings on examination. The workup in this patient includes placement of a intravenous line, twelve-lead EKG, troponin level, D-dimer level, magnesium level, CBC, CMP, chest x-ray, viral swabs, group A strep swab, monotest. Differential diagnosis includes but is not limited to pneumonia, viral illness, group A strep pharyngitis, mononucleosis, arrhythmia, pulmonary embolus, myocardial infarction, electrolyte abnormalities 09/21/24 22:[address] scan of the chest with contrast was interpreted by the radiologist and I reviewed the impression. The impression is not addressing the presence or a bsence of pulmonary emboli. I have made a phone call to the radiology department to add an addendum to address this. The patient has a stable pneumatocele in the right lower lobe. There is no evidence of infiltrate. There is no pneumothorax and no pericardial effusion. 09/21/24 23:17 The patient no longer has chest pain. Her vital signs show a systolic blood pressure in the 130s and the diastolic blood pressure in the 70s to 80s. Her room air oxygen saturation level is 98 to 99%. Her respiratory rate is 17 Blood Culture(s) Obtained: Yes Antibiotics given: No Counseled pt/family regarding: lab results, diagnosis, rad results Medical Desision Making - Independent Historian Additional History obtained from: Family - Diagnostic Testing Diagnostic test were ordered, analyzed, and reviewed by me: Yes Radiological Interpretation: Interpreted by me, Reviewed by me, Teleradiologist Report - Risk of complications Low Risk: Low risk of morbidity from additional dx testing or treatment - Departure Departure Disposition: Home Clinical Impression: Nonspecific chest pain, Hypokalemia, Hypomagnesemia, Pharyngitis Condition: Stable Critical Care Time: No Referrals: SAURABH NAQVI, [Primary Care Provider] - Follow up/PCP as directed Additional Instructions: Drink plenty of fluids. Take your medications as prescribed. Call your primary care provider on 09/23/2024 to make arranges for follow-up appointment for further evaluation management. Return to the [facility] laboratory for repeat blood draw to check your potassium and magnesium levels. Prescriptions: Prednisone 10 mg [Deltasone 10 mg] 10 mg PO TID #6 tablet Potassium Chloride Tab* [Klor Con] 10 meq PO BID #5 tab Magnesium Oxide 400 mg [Mag-Ox 400] 400 mg PO DAILY #3 tablet
[2024-09-21 19:00] VITALS: TEMP 98.1
[2024-09-21 19:22] VITALS: RESP 20
[2024-09-21 19:25] LABS: Absolute Neutrophil Ct (ANC) 5.52 x10^3/uL (1.56-6.13); BASOPHIL % 0.3 % (0.1-1.2); Basophil (Absolute #) 0.03 x10^3/uL (0.01-0.08); Eosinophil % 1.3 % (0.7-5.8); Eosinophil (Absolute #) 0.13 x10^3/uL (0.04-0.36); Hematocrit 40.2 % (34.1-44.9); Hemoglobin 13.3 g/dL (11.2-15.7); IMMATURE GRAN # 0.04 x10^3u/L (0.001-0.031); IMMATURE GRAN % 0.4 % (0.001-0.429); Lymphocyte (Absolute #) 3.17 x10^3/uL (1.18-3.74); Lymphocytes % 32.1 % (19.3-51.7); Mean Cell Volume 93.3 fL (79.4-94.8); Mean Corpuscular Hemoglobin 30.9 pg (25.6-32.2); Mean Corpuscular Hgb Concent. 33.1 g/dL (32.2-35.5); Mean Platelet Volume 8.8 fL (9.4-12.3); Monocytes % 10.1 % (4.7-12.5); Neutrophil % 55.8 % (34.0-71.1); Platelet Count 300 x10^3/uL (182-369); Red Blood Count 4.31 x10^6/uL (3.93-5.22); Red Cell Distribution Width 13.6 % (11.7-14.4); White Blood Count 9.9 x10^3/uL (3.98-10.04)
[2024-09-21] MEDS ORDERED: Zofran 4 MG/2 ML VIAL ONE (19:38)
[2024-09-21] MEDS ORDERED: SUBLIMAZE 100 MCG/2 ML ONE ×2 (19:39→22:57)
[2024-09-21] MEDS ORDERED: BABY ASPIRIN 81 MG CHEW ONE (19:39)
[2024-09-21] MEDS: BABY ASPIRIN 81 MG CHEW PO ONE (19:42)
[2024-09-21] MEDS: Zofran 4 MG/2 ML VIAL IV ONE (19:42)
[2024-09-21 19:45] LABS: ALBUMIN 3.9 g/dL (3.5-5.0); BILIRUBIN,TOTAL 0.6 mg/dL (0.2-1.3); Calcium 9.6 mg/dL (8.4-10.2); Creatinine 1 0.94 mg/dL (0.52-1.04); EST GLOMERULAR FILTRATION RATE 79.7 ML/MIN; Potassium 3.1 mmol/L (3.5-5.1); Total Protein 6.9 g/dL (6.3-8.2)
[2024-09-21] MEDS: SUBLIMAZE 100 MCG/2 ML IV ONE ×2 (19:45→22:58)
[2024-09-21 20:04] LABS: INFLUENZA A NEGATIVE (NEGATIVE); INFLUENZA B NEGATIVE (NEGATIVE); RESPIRATORY SYNCTIAL VIRUS NEGATIVE (NEGATIVE); SARS-CoV-2 Xpert Express NEGATIVE (NEGATIVE)
[2024-09-21 20:06] LABS: MAGNESIUM 1.1 mg/dL (1.6-2.3)
[2024-09-21 20:09] LABS: INR 1.01 (0.8-3.0)
[2024-09-21 20:11] LABS: D-DIMER QUANTITATIVE 1.44 mg/L (0.0-0.50)
[2024-09-21] MEDS ORDERED: Sodium Chloride 0.9% 500 ML 500 ML IV ONE (20:22)
[2024-09-21] MEDS ORDERED: Magnesium 1 Gm / 100 Ml D5W*** 100 ML IV ONE (20:22)
[2024-09-21] MEDS ORDERED: Klor Con ONE (20:22)
[2024-09-21] MEDS: Sodium Chloride 0.9% 500 ML 500 ML IV ONE (20:23)
[2024-09-21] MEDS: Klor Con PO ONE (20:23)
[2024-09-21] MEDS: Magnesium 1 Gm / 100 Ml D5W*** 100 ML IV ONE (20:23)
--- NOTE | 2024-09-21 22:40 | XRAY ---
CLINICAL HISTORY: Cough; chest pain COMPARISON: 26 November 2023 15:03:23 SEQUINS STRINGER TECHNIQUE: Contiguous axial images were obtained from the neck base through the upper abdomen following intravenous administration of contrast material. If IV contrast material had not been administered, the likelihood of detecting abnormalities relevant to the patient's condition would have been substantially decreased. In addition, sagittal and coronal reconstructions were performed. CT scan was performed according to ALARA (as low as reasonable achievable). FINDINGS: There is redemonstration of a well-defined rounded soft tissue pulmonary nodule of 11.5 x 10.5 mm in the lateral basal segment of the left lower lobe with mild interval in size since prior study. Stable, small pneumatocele in the apical segment of the right lower lobe measuring 8 mm. Persistent, minimal atelectatic changes in lower lobes of both lungs. The lungs are otherwise clear, with no focal areas of consolidation. The central airways are patent. There are no pleural effusions. No pneumothorax is seen. No axillary, hilar, or mediastinal adenopathy is identified. The visualized thyroid is unremarkable. The heart, aorta, and pulmonary arteries are of normal size and configuration. No pericardial effusion is identified. Imaged portions of the upper abdomen shows mild hepatic steatosis, status post cholecystectomy, and multiple surgical sutures in the left renal bed with non-visualization of the left kidney in limited images. No aggressive appearing osseous lesions are identified. IMPRESSION: 1. Interval removal of right-sided central venous catheter. 2. Redemonstration of a well-defined rounded soft tissue pulmonary nodule in the lateral basal segment of the left lower lobe stable since prior study. 3. Stable, small pneumatocele in the apical segment of the right lower lobe 4. Stable mild hepatic steatosis, status post cholecystectomy, and multiple surgical sutures in the left renal bed with non-visualization of the left kidney in limited images. Electronically Signed by: Dakotah Bermeo MD. (09/21/2024 22:35:20 EDT)
[2024-09-21 23:16] VITALS: BP 137/83; PULSE 84; O2SAT 95
[2024-09-21] MEDS ORDERED: HYDROCODONE-ACETAMIN 2.5-108/5 ML SOLUTION ONE (23:23)
[2024-09-21] MEDS: HYDROCODONE-ACETAMIN 2.5-108/5 ML SOLUTION PO STA (23:26)
--- NOTE | 2024-09-22 07:49 | XRAY ---
Indication: Chest pain. Cough. Comparison: February 21, 2024 Portable chest demonstrates normal heart and lungs. Bony thorax intact again with minimal levoscoliosis. No new/acute findings.
== END 2024-09-21 23:25 | disposition home or self-care (01) ==
LOC: ED 18:42
DX: R07.9 Chest pain, unspecified (principal); E87.6 Hypokalemia; E83.42 Hypomagnesemia; J02.9 Acute pharyngitis, unspecified; R05.1 Acute cough; R51.9 Headache, unspecified; M79.10 Myalgia, unspecified site; I11.0 Hypertensive heart disease with heart failure; E11.22 Type 2 diabetes mellitus with diabetic chronic kidney disease; N18.9 Chronic kidney disease, unspecified; E78.5 Hyperlipidemia, unspecified; Z79.84 Long term (current) use of oral hypoglycemic drugs; Z79.52 Long term (current) use of systemic steroids; Z79.899 Other long term (current) drug therapy; Z72.0 Tobacco use
CPT/HCPCS: 0241U; 36000; 36415; 71045; 71260; 80053; 83735; 84484; 85025; 85379; 85610; 86308; 87651; 93005; 93041; 94760; 96365; 96374; 96375; 99285; J2405; J3010; J3475; A9270-GY

== ENCOUNTER 2024-11-02 17:00 | Emergency (ER) | payer OTHER ==
[2024-11-02] MEDS ORDERED: XYLOCAINE 1% HCL 20 ML MDV IJ ONE (17:01)
[2024-11-02 17:32] VITALS: RESP 18; TEMP 97.7; O2SAT 100
--- NOTE | 2024-11-02 17:32 | ERPHSYRPT ---
- History of Present Illness Time Seen by Provider: 11/02/24 17:26 Source: patient, family Physician History: Patient is 39-year-old female came to the emergency room with the pain on the left side of the chest wall. Patient has recently double mastectomy secondary to breast cancer and she has both sides breast removed with VALE drain on both sides. She started having pain more on the left side and there was some increased drainage on the left side and VALE tube so patient was brought into the emergency room. She came to the emergency room to be checked out for wound infection. She denies any fever chills nausea vomiting. Timing/Duration: today Associated Symptoms: denies symptoms Allergies/Adverse Reactions: hydromorphone HCl [From Dilaudid] Allergy (Severe, Verified 11/02/24 17:19) terbutaline sulfate [From Brethine] Allergy (Severe, Verified 11/02/24 17:19) morphine Adverse Reaction (Intermediate, Verified 11/02/24 17:19) Vomiting Home Medications: Aspirin 81 mg PO DAILY 11/04/16 [History] Cholecalciferol (Vitamin D3) [Vitamin D3] 125 mcg PO DAILY 06/04/23 [History] Hydrocodone/Acetaminophen [Hydrocodone-Acetamin 5-325 mg] 1 tab PO Q6HPRN PRN MDD 4 06/04/23 [History] Ondansetron ODT 4 MG [Zofran Odt 4 mg] 4 mg PO Q6HPRN PRN 06/04/23 [History] PANTOPRAZOLE 40 mg Tablet [Protonix 40MG Tablet] 40 mg PO QAM 06/04/23 [History] Ranolazine 500 MG [Ranexa 500 MG] 500 mg PO BID 06/04/23 [History] Alprazolam [Xanax] 1 mg PO TID PRN PRN 10/04/23 [History] Fentanyl 75Mcg Patch [Duragesic 75 MCG Patch] 1 patch TOP Q72H PRN 10/04/23 [History] Amlodipine Besylate 2.5 mg PO DAILY 11/28/23 [History] Atorvastatin Calcium 80 mg PO DAILY 11/28/23 [History] Budesonide [Budesonide Dr] 3 mg PO DAILY 11/28/23 [History] Duloxetine HCl 30 mg [Cymbalta 30 MG Capsule] 60 mg PO DAILY 11/28/23 [History] Exemestane 25 mg PO DAILY 11/28/23 [History] Gabapentin 100 mg PO BID 11/28/23 [History] Glimepiride 1 mg PO DAILY 11/28/23 [History] Lisinopril 10 mg [Zestril 10 MG] 10 mg PO DAILY 11/28/23 [History] Magnesium Oxide 400 mg PO TID 11/28/23 [History] Metoprolol Succinate 25 mg PO DAILY 11/28/23 [History] OLANZapine [Zyprexa] 10 mg PO QHS 11/28/23 [History] Potassium Chloride 20 meq PO BID 11/28/23 [History] Apixaban [Eliquis] 5 mg PO BID 11/29/23 [History] CARBOplatin [Carboplatin] 150 mg IV UD 02/05/24 [History] Cephalexin Mh 500 mg [Keflex 500 mg] 500 mg PO Q6H 02/05/24 [History] DOCEtaxeL [Docetaxel] 20 mg IV UD 02/05/24 [History] Diphenhydramine HCl [Diphedryl Allergy] 12.5 mg PO Q6H PRN PRN 02/05/24 [History] Diphenoxylate HCl/Atropine [Diphenoxylate-Atrop 2.5-0.025] 2 each PO QID 02/05/24 [History] Nitroglycerin 0.4 mg Tablet [Nitrostat 0.4 MG Tablet] 0.4 mg SL DAILY PRN 02/05/24 [History] Pegfilgrastim [Neulasta Onpro] 6 mg SQ UD 02/05/24 [History] Pertuzumab [Perjeta] 420 mg IV UD 02/05/24 [History] Prochlorperazine Maleate 10 mg PO Q6H PRN PRN 02/05/24 [History] Trastuzumab [Herceptin] 150 mg IV UD 02/05/24 [History] dexAMETHasone [Dexamethasone] 4 mg PO UD 02/05/24 [History] Hx Tetanus, Diphtheria Vaccination/Date Given: Yes Hx Influenza Vaccination/Date Given: No Hx Pneumococcal Vaccination/Date Given: No Travel Risk - Emerging Infectious Disease Are you exhibiting symptoms associated with any current EIDs: Yes Symptoms: Abdominal Pain, Headaches/Body Aches/, Vomitting - Review of Systems Constitutional: No Symptoms Eyes: No Symptoms Ears, Nose, & Throat: No Symptoms Respiratory: No Symptoms Cardiac: No Symptoms Abdominal/Gastrointestinal: No Symptoms Genitourinary Symptoms: No Symptoms Musculoskeletal: No Symptoms Skin: Induration (left side VALE drainage tube.) Neurological: No Symptoms Psychological: No Symptoms - Past Medical History Pertinent Past Medical History: Yes Neurological History: Epilepsy, Migraines, Seizures, Stroke ENT History: Other Cardiac History: Congestive Heart Failure, Coronary Artery Disease, Deep Vein Thrombosis, High Cholesterol, Hypertension, Myocardial Infarction ([place]), Other Respiratory History: No Pertinent History, Pulmonary Embolism Endocrine Medical History: Diabetes Type II, Liver Disease Musculoskeletal History: Fractures, Osteoporosis GI Medical History: Colitis, Gallbladder Disease, Hemorrhoids, Irritable Bowel History: Kidney Cancer, Renal Disease Psycho-Social History: Anxiety, Panic Disorder Female Reproductive Disorders: Other Other Medical History: kidney cancer at age 18 months, bilat wrist fracture and leg, STAGE 3 BREAST CANCER (left) - Past Surgical History Past Surgical History: Yes Neuro Surgical History: No Pertinent History Cardiac: No Pertinent History Respiratory: No Pertinent History Gastrointestinal: Cholecystectomy Genitourinary: Kidney Surgery Musculoskeletal: No Pertinent History Female Surgical History: Section, Tubal Ligation Other Surgical History: left kidney removal, wilms tumor Significant Family History: no pertinent family hx - Female History Hx Last Menstrual Period: currently on - Social History Smoking Status: Current some day smoker How long have you smoked: 12 yrs Exposure to second hand smoke: No Alcohol Use: None Drug Use: marijuana Patient Lives Alone: No - Social Determinants of Health Will the patient participate in the screening: Yes Do you worry about a steady place to live?: No In the past 12 months,have you had to go without utilities?: No Transportation Issues: No Has anyone in your support network made you feel unsafe?: No Have you or anyone in your house had to go without enough: No - Physical Exam General Appearance: no apparent distress, alert Eye Exam: PERRL/EOMI, eyes nml inspection Ears, Nose, Throat Exam: normal ENT inspection, TMs normal, pharynx normal, moist mucous membranes Neck Exam: normal inspection, non-tender, supple, full range of motion Respiratory Exam: normal breath sounds, lungs clear, No respiratory distress Cardiovascular Exam: regular rate/rhythm, normal heart sounds, normal peripheral pulses Gastrointestinal/Abdomen Exam: soft, normal bowel sounds, No tenderness, No mass Back Exam: normal inspection, normal range of motion, No CVA tenderness, No vertebral tenderness Extremity Exam: normal inspection, normal range of motion, pelvis stable Neurologic Exam: alert, oriented x 3, cooperative, normal mood/affect, nml cerebellar function, nml station & gait, sensation nml, No motor deficits Skin Exam: normal color, warm, dry, other (surgical drainage area - mild erythema left side, right side normal, 5-10 cc drainage), No rash Lymphatic Exam: No adenopathy - Course Nursing assessment & vital signs reviewed: Yes Ordered Tests: Medication Summary Discontinued Medications Generic Name Dose Route Start Last Admin Trade Name Freq PRN Reason Stop Dose Admin Ceftriaxone Sodium 1,000 mg 11/02/24 17:24 Ceftriaxone Sodium 1000 Mg Inj Vial IM 11/02/24 17:25 STAT ONE Ketorolac Tromethamine 60 mg 11/02/24 17:24 Ketorolac Tromethamine 30 Mg/Ml Inj IM 11/02/24 17:25 STAT ONE - Progress Progress: improved, pain not gone completely Counseled pt/family regarding: diagnosis, need for follow-up Medical Desision Making - Independent Historian Additional History obtained from: Family - Risk of complications Minimal Risk: Minimal risk of morbidity - Departure Clinical Impression: S/P mastectomy, bilateral, Surgical wound present Condition: Stable Critical Care Time: No Referrals: SAURABH NAQVI DO [Primary Care Provider] - Follow up/PCP as directed Instructions: Wound Care (DC) Additional Instructions: Discharge/Care Plan ROSALINDA BARRY SENDY was seen on 11/02/24 in the Emergency Room. 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 Prescriptions given: Discharge Note I have spoken with the patient and/or caregivers. I have explained the patient's condition, diagnosis and treatment plan based on the information available to me at this time. I have answered the patient's and/or caregiver's questions and addressed any concerns. The patient and/or caregivers have as good understanding of the patient's diagnosis, condition and treatment plan as can be expected at this point. The vital signs have been stable. The patient's condition is stable and appropriate for discharge from the emergency department. The patient will pursue further outpatient evaluation with the primary care physician or other designated or consulting physician as outlined in the discharge instructions. The patient and/or caregivers are agreeable to this plan of care and follow-up instructions have been explained in detail. The patient and/or caregivers have received these instruction. The patient/and or caregivers are aware that any significant change in condition or worsening of symptoms should prompt an immediate return to this or the closest emergency department or call 911. ROSALINDA BARRY QUITA KABA was seen on 11/02/24 n the Emergency Room. At that time you were treated for an emergent condition, during your visit Laboratory, Radiology and/or other procedures may have been ordered. It is very important that you follow-up with your Primary Care Physician SAURABH NAQVI, within the next 24-48 hours to review your Emergency Room visit and the final results of testing that was ordered. Some test results such as Urine Cultures, Blood Cultures, and other cultures if ordered will not be finalized for 24-48 hours. If you do not have a Primary Care Provider please call the medical records department at [phone] ext [phone] to obtain a copy of your results or you may sign into our patient portal to obtain these results by visiting us @ [email or web address] and completing the following steps: 1. Click on the Patient Portal link 2. Click the Patient Self Enrollment Link to complete the enrollment form and entering your 3. Once the enrollment form is completed you will receive an email with a temporary ID and password at the email address you provided. 4. Next choose a user name and password. Your user name must be at least 4 characters long and your password must be at least 4 characters long. 5. Choose a security question from the list and provide your answer to the question. If you already have signed into the Health Portal you may access your Health Care Information 12/06 by the following steps: 1. Login to our website @ [email or web address] 2. Enter your original user name and password. FAQS The [facility] Health Portal is an online tool that contains your Lab Results, Radiology Reports, Visit History, Discharge Instructions and Health Summary Lab and Radiology Results will not be available for 72 hours on the portal. The Portal is a secure site, passwords are encryted and URLs are re-written so they cannot be copied and pasted. You and authorized family members are the only ones who can access your Portal. Also there is a timeout feature that protects your information if you leave the Portal page open. If you have technical difficulty please use the Contact Us link on the page this will allow you to submit any questions you have regarding the Portal or you may contact the Medical Record Department at [phone] ext [phone]. Prescriptions: Cephalexin Mh 500 mg [Keflex 500 mg] 500 mg PO Q6H #40 cap Ketorolac Trometh 10 mg Tab [TORAdol 10 MG TABLET] 10 mg PO QID #20 tablet
[2024-11-02] MEDS ORDERED: Rocephin 1000 MG INJ ONE (17:35)
[2024-11-02] MEDS ORDERED: TORAdol 30 mg Injection ONE (17:35)
[2024-11-02 17:37] VITALS: BP 130/84; PULSE 101
[2024-11-02] MEDS: Rocephin 1000 MG INJ IM ONE (17:40)
[2024-11-02] MEDS: TORAdol 30 mg Injection IM ONE (17:40)
== END 2024-11-02 17:50 | disposition home or self-care (01) ==
LOC: ED 17:00
DX: R07.9 Chest pain, unspecified (principal); Z90.13 Acquired absence of bilateral breasts and nipples; Z85.3 Personal history of malignant neoplasm of breast; Z79.01 Long term (current) use of anticoagulants; Z79.899 Other long term (current) drug therapy
CPT/HCPCS: 96372; 99283; 99284; J0696; J1885

== ENCOUNTER 2024-11-15 16:04 | Emergency (ER) | payer OTHER ==
[2024-11-15 16:07] VITALS: TEMP 96.8
--- NOTE | 2024-11-15 16:10 | ERPHSYRPT ---
- History of Present Illness Time Seen by Provider: 11/15/24 16:10 Source: patient, family Exam Limitations: no limitations Physician History: This is a 39-year-old white female patient of Dr. Naqvi who underwent a bilateral mastectomy approximately 1 week ago and was placed on a fentanyl patch and intermittent use of hydrocodone. She is here today because her pain is not well-controlled on this regimen. She is also concerned that she is having chest pain which may be postoperative but she also is concerned because she has had a history of DVT and pulmonary embolus and is not on any anticoagulation therapy and she is postsurgical. Patient has the postoperative drains removed. Patient has a history of CHF, coronary disease, DVT, pulmonary embolus, hyperlipidemia, hypertension, anxiety and panic disorder. She does continue to smoke tobacco cigarettes on some days. Patient states that she is on gabapentin. Timing/Duration: worse Severity of Dyspnea-Max: mild Severity of Dyspnea-Current: mild Possible Cause: no prior episodes Modifying Factors: Improves With: nothing Associated Symptoms: chest pain/discomfort (Patient is postoperative) Allergies/Adverse Reactions: hydromorphone HCl [From Dilaudid] Allergy (Severe, Verified 11/02/24 17:19) terbutaline sulfate [From Brethine] Allergy (Severe, Verified 11/02/24 17:19) morphine Adverse Reaction (Intermediate, Verified 11/02/24 17:19) Vomiting Home Medications: Aspirin 81 mg PO DAILY 11/04/16 [History] Cholecalciferol (Vitamin D3) [Vitamin D3] 125 mcg PO DAILY 06/04/23 [History] Hydrocodone/Acetaminophen [Hydrocodone-Acetamin 5-325 mg] 1 tab PO Q6HPRN PRN MDD 4 06/04/23 [History] Ondansetron ODT 4 MG [Zofran Odt 4 mg] 4 mg PO Q6HPRN PRN 06/04/23 [History] PANTOPRAZOLE 40 mg Tablet [Protonix 40MG Tablet] 40 mg PO QAM 06/04/23 [History] Ranolazine 500 MG [Ranexa 500 MG] 500 mg PO BID 06/04/23 [History] Alprazolam [Xanax] 1 mg PO TID PRN PRN 10/04/23 [History] Fentanyl 75Mcg Patch [Duragesic 75 MCG Patch] 1 patch TOP Q72H PRN 10/04/23 [History] Amlodipine Besylate 2.5 mg PO DAILY 11/28/23 [History] Atorvastatin Calcium 80 mg PO DAILY 11/28/23 [History] Budesonide [Budesonide Dr] 3 mg PO DAILY 11/28/23 [History] Duloxetine HCl 30 mg [Cymbalta 30 MG Capsule] 60 mg PO DAILY 11/28/23 [History] Exemestane 25 mg PO DAILY 11/28/23 [History] Gabapentin 100 mg PO BID 11/28/23 [History] Glimepiride 1 mg PO DAILY 11/28/23 [History] Lisinopril 10 mg [Zestril 10 MG] 10 mg PO DAILY 11/28/23 [History] Magnesium Oxide 400 mg PO TID 11/28/23 [History] Metoprolol Succinate 25 mg PO DAILY 11/28/23 [History] OLANZapine [Zyprexa] 10 mg PO QHS 11/28/23 [History] Potassium Chloride 20 meq PO BID 11/28/23 [History] Apixaban [Eliquis] 5 mg PO BID 11/29/23 [History] CARBOplatin [Carboplatin] 150 mg IV UD 02/05/24 [History] Cephalexin Mh 500 mg [Keflex 500 mg] 500 mg PO Q6H 02/05/24 [History] DOCEtaxeL [Docetaxel] 20 mg IV UD 02/05/24 [History] Diphenhydramine HCl [Diphedryl Allergy] 12.5 mg PO Q6H PRN PRN 02/05/24 [History] Diphenoxylate HCl/Atropine [Diphenoxylate-Atrop 2.5-0.025] 2 each PO QID 02/05/24 [History] Nitroglycerin 0.4 mg Tablet [Nitrostat 0.4 MG Tablet] 0.4 mg SL DAILY PRN 02/05/24 [History] Pegfilgrastim [Neulasta Onpro] 6 mg SQ UD 02/05/24 [History] Pertuzumab [Perjeta] 420 mg IV UD 02/05/24 [History] Prochlorperazine Maleate 10 mg PO Q6H PRN PRN 02/05/24 [History] Trastuzumab [Herceptin] 150 mg IV UD 02/05/24 [History] dexAMETHasone [Dexamethasone] 4 mg PO UD 02/05/24 [History] Hx Tetanus, Diphtheria Vaccination/Date Given: Yes Hx Influenza Vaccination/Date Given: No Hx Pneumococcal Vaccination/Date Given: No Travel Risk - International Travel Have you traveled outside of the country in past 3 weeks: No - Emerging Infectious Disease Are you exhibiting symptoms associated with any current EIDs: Yes Symptoms: Abdominal Pain, Headaches/Body Aches/, Vomitting - Review of Systems Constitutional: No Symptoms Eyes: No Symptoms Ears, Nose, & Throat: No Symptoms Respiratory: No Symptoms Cardiac: Chest Pain (The area of her pain is the postoperative area) Abdominal/Gastrointestinal: No Symptoms Genitourinary Symptoms: No Symptoms Musculoskeletal: No Symptoms Skin: Other (Postoperative incision sites look clean dry and intact) Neurological: No Symptoms Psychological: No Symptoms Endocrine: No Symptoms Hematologic/Lymphatic: No Symptoms Immunological/Allergic: No Symptoms All Other Systems: Reviewed and Negative - Past Medical History Pertinent Past Medical History: Yes Neurological History: Epilepsy, Migraines, Seizures, Stroke ENT History: Other Cardiac History: Congestive Heart Failure, Coronary Artery Disease, Deep Vein Thrombosis, High Cholesterol, Hypertension, Myocardial Infarction (ME), Other Respiratory History: No Pertinent History, Pulmonary Embolism Endocrine Medical History: Diabetes Type II, Liver Disease Musculoskeletal History: Fractures, Osteoporosis GI Medical History: Colitis, Gallbladder Disease, Hemorrhoids, Irritable Bowel History: Kidney Cancer, Renal Disease Psycho-Social History: Anxiety, Panic Disorder Female Reproductive Disorders: Other Other Medical History: kidney cancer at age 18 months, bilat wrist fracture and leg, STAGE 3 BREAST CANCER (left) - Past Surgical History Past Surgical History: Yes Neuro Surgical History: No Pertinent History Cardiac: No Pertinent History Respiratory: No Pertinent History Gastrointestinal: Cholecystectomy Genitourinary: Kidney Surgery Musculoskeletal: No Pertinent History Female Surgical History: Section, Tubal Ligation, Mastectomy Other Surgical History: left kidney removal, wilms tumor,MASTECTIOMY OCT 2024 Significant Family History: no pertinent family hx - Female History Hx Last Menstrual Period: currently on - Social History Smoking Status: Current some day smoker How long have you smoked: 12 yrs Exposure to second hand smoke: No Alcohol Use: None Drug Use: marijuana Patient Lives Alone: No - Social Determinants of Health Will the patient participate in the screening: Yes Do you worry about a steady place to live?: No In the past 12 months,have you had to go without utilities?: No Transportation Issues: No Has anyone in your support network made you feel unsafe?: No Have you or anyone in your house had to go without enough: No - Nursing Vital Signs Nursing Vital Signs: Initial Vital Signs Temperature 96.8 F 11/15/24 16:06 Pulse Rate 119 H 11/15/24 16:06 Respiratory Rate 22 11/15/24 16:06 Blood Pressure 137/90 11/15/24 16:06 O2 Sat by Pulse Oximetry 98 11/15/24 16:06 Pain Scale Pain Intensity 7 - Physical Exam General Appearance: mild distress, alert, anxiety Eye Exam: PERRL/EOMI, eyes nml inspection Ears, Nose, Throat Exam: hearing grossly normal, normal ENT inspection, normal pharynx Neck Exam: normal inspection, non-tender, supple, full range of motion Respiratory Exam: normal breath sounds, chest tenderness (Chest wall tenderness in the area of the postoperative site), lungs clear, airway intact, No respiratory distress Cardiovascular/Chest Exam: tachycardia Abdominal/Gastrointestinal Exam: soft, normal bowel sounds, No tenderness Rectal Exam: not done Extremity Exam: non-tender, normal range of motion, normal inspection Neurologic Exam: alert, oriented x 3, cooperative, debt counselor II-XII nml as tested, nml cerebellar function, nml station & gait, sensation nml Skin Exam: normal color, warm, dry, other (Postoperative site is clean dry and intact without clinical evidence of subcutaneous fluid) Lymphatic Exam: No adenopathy SpO2 Interpretation: normal SpO2: 98 O2 Delivery: Room Air - Course Nursing assessment & vital signs reviewed: Yes Ordered Tests: Active Orders 24 hr Category Date Time Status Applications Sales Representative STAT Care 11/15/24 17:00 Active EKG-ER Only STAT Care 11/15/24 16:59 Active IV Insertion STAT Care 11/15/24 16:59 Active Pulse Oximetry (ED) STAT Care 11/15/24 16:59 Active CHEST WITH CONTRAST [CT] Stat Exams 11/15/24 17:02 Taken CBC W DIFF Stat Lab 11/15/24 17:15 Completed CMP Stat Lab 11/15/24 17:15 Completed CULTURE,URINE Stat Lab 11/15/24 17:56 Received D-DIMER QUANTITATIVE Stat Lab 11/15/24 17:15 Completed PROTIME WITH INR Stat Lab 11/15/24 17:15 Completed TROPONIN Q4H Lab 11/15/24 17:15 Completed TROPONIN Q4H Lab 11/15/24 20:30 Completed TROPONIN Q4H Lab 11/16/24 01:00 Ordered UA W/RFX UR CULTURE Stat Lab 11/15/24 17:56 Completed Medication Summary Discontinued Medications Generic Name Dose Route Start Last Admin Trade Name Kemar PRN Reason Stop Dose Admin Droperidol 1.25 mg 11/15/24 16:59 11/15/24 17:43 Droperidol 5 Mg/2 Ml Vial IV 11/15/24 17:00 1.25 mg STAT ONE Administration Droperidol Confirm 11/15/24 17:43 Droperidol 5 Mg/2 Ml Vial Administered 11/15/24 17:44 Dose 5 mg .ROUTE .STK-MED ONE Fentanyl Citrate 50 mcg 11/15/24 20:24 11/15/24 20:29 Fentanyl Citrate 100 Mcg/2 Ml* Vial IV 11/15/24 20:25 50 mcg STAT ONE Administration Fentanyl Citrate Confirm 11/15/24 20:27 Fentanyl Citrate 100 Mcg/2 Ml* Vial Administered 11/15/24 20:28 Dose 100 mcg .ROUTE .STK-MED ONE Sodium Chloride 500 mls @ 500 mls/hr 11/15/24 17:01 11/15/24 20:29 Sodium Chloride 0.9% 500 Ml IV 11/15/24 18:00 Infused .Q1H ONE Infusion Sodium Chloride Confirm 11/15/24 19:16 Sodium Chloride 0.9% 500 Ml Administered 11/15/24 19:17 Dose 500 mls @ ud IV .STK-MED ONE Lorazepam 1 mg 11/15/24 20:11 11/15/24 20:24 Lorazepam 2 Mg/1 Ml 2 Mg Vial IV 11/15/24 20:12 1 mg STAT ONE Administration Lorazepam Confirm 11/15/24 20:18 Lorazepam 2 Mg/1 Ml 2 Mg Vial Administered 11/15/24 20:19 Dose 2 mg .ROUTE .STK-MED ONE Meperidine HCl 25 mg 11/15/24 20:12 12/27/24 20:23 Meperidine Hcl 50 Mg/Ml Carp IV 11/15/24 20:13 Not Given STAT ONE Meperidine HCl Confirm 11/15/24 20:18 Meperidine Hcl 50 Mg/Ml Carp Administered 11/15/24 20:19 Dose 50 mg .ROUTE .STK-MED ONE Lab/Rad Data: Laboratory Result Diagrams 11/15/24 17:15 11/15/24 17:15 Laboratory Results 11/15/24 11/15/24 11/15/24 Range/Units 20:30 17:56 17:15 WBC (3.98-10.04) x10^3/uL RBC (3.93-5.22) x10^6/uL Hgb (11.2-15.7) g/dL Hct (34.1-44.9) % MCV (79.4-94.8) fL MCH (25.6-32.2) pg MCHC (32.2-35.5) g/dL RDW (11.7-14.4) % Plt Count (182-369) x10^3/uL MPV (9.4-12.3) fL Gran % (34.0-71.1) % Immature Gran % (Auto) (0.001-0.429) % Nucleat RBC Rel Count (0.00-0.2) % Eos # (Auto) (0.04-0.36) x10^3/uL Immature Gran # (Auto) (0.001-0.031) x10^3u/L Absolute Lymphs (auto) (1.18-3.74) x10^3/uL Absolute Monos (auto) (0.24-0.86) x10^3/uL Absolute Nucleated RBC (0.00-0.012) x10^3u/L Lymphocytes % (19.3-51.7) % Monocytes % (4.7-12.5) % Eosinophils % (0.7-5.8) % Basophils % (0.1-1.2) % Absolute Granulocytes (1.56-6.13) x10^3/uL Basophils # (0.01-0.08) x10^3/uL PT (9.4-12.5) SECONDS INR (0.8-3.0) D-Dimer (0.0-0.50) mg/L Sodium (135-145) mmol/L Potassium (3.5-5.1) mmol/L Chloride (98-107) mmol/L Carbon Dioxide (22-30) mmol/L Anion Gap (5-15) MEQ/L BUN (7-17) mg/dL Creatinine (0.52-1.04) mg/dL Estimated GFR ML/MIN Glucose (74-106) mg/dL Calcium (8.4-10.2) mg/dL Total Bilirubin (0.2-1.3) mg/dL AST (14-36) U/L ALT (0-35) U/L Alkaline Phosphatase (38-126) U/L Troponin I < 0.012 < 0.012 (0.000-0.033) ng/mL Serum Total Protein (6.3-8.2) g/dL Albumin (3.5-5.0) g/dL Urine Color Yellow (Yellow) Urine Appearance Clear (Clear) Urine pH 7.0 (4.6-8.0) Ur Specific [place] 1.020 (1.005-1.030) Urine Protein Negative (Negative) Urine Glucose (UA) >=1000 A (Negative) mg/dL Urine Ketones Negative (Negative) Urine Blood Negative (Negative) Urine Nitrite Negative (Negative) Urine Bilirubin Negative (Negative) Urine Urobilinogen 0.2 (0.2) mg/dL Ur Leukocyte Esterase Negative (Negative) U Hyaline Cast (Auto) NONE SEEN (0-2) /LPF Urine Microscopic RBC 0-2 (0-5) /HPF Urine Microscopic WBC 11-20 A (0-5) /HPF Ur Epithelial Cells Moderate A (None Seen) /HPF Urine Bacteria Moderate A (None Seen) /HPF Urine Culture Reflexed YES (NO) 11/15/24 11/15/24 11/15/24 Range/Units 17:15 17:15 17:15 WBC 6.9 (3.98-10.04) x10^3/uL RBC 3.89 L (3.93-5.22) x10^6/uL Hgb 11.8 (11.2-15.7) g/dL Hct 37.3 (34.1-44.9) % MCV 95.9 H (79.4-94.8) fL MCH 30.3 (25.6-32.2) pg MCHC 31.6 L (32.2-35.5) g/dL RDW 13.8 (11.7-14.4) % Plt Count 334 (182-369) x10^3/uL MPV 9.6 (9.4-12.3) fL Gran % 51.6 (34.0-71.1) % Immature Gran % (Auto) 0.3 (0.001-0.429) % Nucleat RBC Rel Count 0.0 (0.00-0.2) % Eos # (Auto) 0.10 (0.04-0.36) x10^3/uL Immature Gran # (Auto) 0.02 (0.001-0.031) x10^3u/L Absolute Lymphs (auto) 2.65 (1.18-3.74) x10^3/uL Absolute Monos (auto) 0.54 (0.24-0.86) x10^3/uL Absolute Nucleated RBC 0.00 (0.00-0.012) x10^3u/L Lymphocytes % 38.5 (19.3-51.7) % Monocytes % 7.8 (4.7-12.5) % Eosinophils % 1.5 (0.7-5.8) % Basophils % 0.3 (0.1-1.2) % Absolute Granulocytes 3.56 (1.56-6.13) x10^3/uL Basophils # 0.02 (0.01-0.08) x10^3/uL PT 10.8 (9.4-12.5) SECONDS INR 0.99 (0.8-3.0) D-Dimer 1.00 H* (0.0-0.50) mg/L Sodium 141 (135-145) mmol/L Potassium 3.8 (3.5-5.1) mmol/L Chloride 105 (98-107) mmol/L Carbon Dioxide 27 (22-30) mmol/L Anion Gap 12.4 (5-15) MEQ/L BUN 16 (7-17) mg/dL Creatinine 1.08 H (0.52-1.04) mg/dL Estimated GFR 67.4 ML/MIN Glucose 147 H (74-106) mg/dL Calcium 10.6 H (8.4-10.2) mg/dL Total Bilirubin 0.30 (0.2-1.3) mg/dL AST 37 H (14-36) U/L ALT 36 H (0-35) U/L Alkaline Phosphatase 211 H (38-126) U/L Troponin I (0.000-0.033) ng/mL Serum Total Protein 6.6 (6.3-8.2) g/dL Albumin 4.0 (3.5-5.0) g/dL Urine Color (Yellow) Urine Appearance (Clear) Urine pH (4.6-8.0) Ur Specific [place] (1.005-1.030) Urine Protein (Negative) Urine Glucose (UA) (Negative) mg/dL Urine Ketones (Negative) Urine Blood (Negative) Urine Nitrite (Negative) Urine Bilirubin (Negative) Urine Urobilinogen (0.2) mg/dL Ur Leukocyte Esterase (Negative) U Hyaline Cast (Auto) (0-2) /LPF Urine Microscopic RBC (0-5) /HPF Urine Microscopic WBC (0-5) /HPF Ur Epithelial Cells (None Seen) /HPF Urine Bacteria (None Seen) /HPF Urine Culture Reflexed (NO) - Progress Progress: re-examined Progress Note: 11/15/24 17:52 My medical decision making and the assignment of moderate complexity to this patient's medical issue today is based on review of the patient's past medical history, review of patient's medication list, review the patient drug allergy list, history present illness and physical findings on examination. The workup in this patient includes placement of an intravenous line, CBC, CMP, twelve-lead EKG, troponin level, magnesium level, CT scan of the chest with contrast. We also tried to modify her pain regimen here in the emergency department to obtain better control of her pain. Differential diagnosis includes but is not limited to anxiety/panic disorder, postoperative subcutaneous fluid, pneumonia, pulmonary embolus, arrhythmia, electrolyte abnormalities, myocardial infarction 11/15/24 21:36 I interpreted the patient's laboratory data results. Based on the laboratory data results I did order a CT scan of the chest with contrast. Patient's D- dimer is 1.0. The CT scan of the chest with contrast was interpreted by the radiologist. The radiologist impression states negative PE exam of the chest with contrast. He makes a note that this patient, in the year of 2023 has had several chest CTs with contrast and all were negative. 11/15/24 21:38 The urinalysis was performed which does not show nitrite or leukocyte Estrace positivity. There is a significant amount of epithelial cells present. We will wait for the culture to return to see if the patient requires an antibiotic. 11/15/24 22:13 I reviewed the workup findings with this patient and family. I clarified with the patient regarding fentanyl patch. She does not have a fentanyl patch in place. She has had a patch in the past which helped her pain. In further discussing her pain control, patient has a pain contract with Dr. Naqvi. The patient has [place] pain medication at home. She will contact Dr. Naqvi on 11/18/2024 to modify her pain regimen for better control as an outpatient. Blood Culture(s) Obtained: No Antibiotics given: No Counseled pt/family regarding: lab results, diagnosis, rad results Medical Desision Making - Independent Historian Additional History obtained from: Family - Diagnostic Testing Diagnostic test were ordered, analyzed, and reviewed by me: Yes Radiological Interpretation: Reviewed by me, Teleradiologist Report - Risk of complications Low Risk: Low risk of morbidity from additional dx testing or treatment - Departure Departure Disposition: Home Clinical Impression: Chest pain Condition: Stable Critical Care Time: No Referrals: SAURABH NAQVI DO [Primary Care Provider] - Follow up/PCP as directed Instructions: Asthma, Adult (DC), Shortness of Breath (Dyspnea) (DC), Ex acerbation of COPD (DC) Additional Instructions: Call Dr. Naqvi office on 11/18/2024 to discuss options to modify your pain regimen. Continue your medications as prescribed.
[2024-11-15 17:23] LABS: Absolute Neutrophil Ct (ANC) 3.56 x10^3/uL (1.56-6.13); BASOPHIL % 0.3 % (0.1-1.2); Basophil (Absolute #) 0.02 x10^3/uL (0.01-0.08); Eosinophil % 1.5 % (0.7-5.8); Hematocrit 37.3 % (34.1-44.9); Hemoglobin 11.8 g/dL (11.2-15.7); IMMATURE GRAN # 0.02 x10^3u/L (0.001-0.031); IMMATURE GRAN % 0.3 % (0.001-0.429); Lymphocyte (Absolute #) 2.65 x10^3/uL (1.18-3.74); Lymphocytes % 38.5 % (19.3-51.7); Mean Cell Volume 95.9 fL (79.4-94.8); Mean Corpuscular Hemoglobin 30.3 pg (25.6-32.2); Mean Corpuscular Hgb Concent. 31.6 g/dL (32.2-35.5); Mean Platelet Volume 9.6 fL (9.4-12.3); Monocyte (Absolute #) 0.54 x10^3/uL (0.24-0.86); Monocytes % 7.8 % (4.7-12.5); Neutrophil % 51.6 % (34.0-71.1); Platelet Count 334 x10^3/uL (182-369); Red Blood Count 3.89 x10^6/uL (3.93-5.22); Red Cell Distribution Width 13.8 % (11.7-14.4); White Blood Count 6.9 x10^3/uL (3.98-10.04)
[2024-11-15 17:39] LABS: ANION GAP 12.4 MEQ/L (5-15); BILIRUBIN,TOTAL 0.3 mg/dL (0.2-1.3); Calcium 10.6 mg/dL (8.4-10.2); Creatinine 1 1.08 mg/dL (0.52-1.04); EST GLOMERULAR FILTRATION RATE 67.4 ML/MIN; Potassium 3.8 mmol/L (3.5-5.1); Total Protein 6.6 g/dL (6.3-8.2)
[2024-11-15 17:46] LABS: INR 0.99 (0.8-3.0); PROTIME 10.8 SECONDS (9.4-12.5)
[2024-11-15 18:11] LABS: Appearance Clear (Clear); Bacteria Moderate /HPF (None Seen); Bilirubin Negative (Negative); Blood Negative (Negative); Epithelial Cells Moderate /HPF (None Seen); Glucose, Urine >=1000 mg/dL (Negative); Hyaline Casts NONE SEEN /LPF (0-2); Ketones Negative (Negative); Leukocyte Esterase Negative (Negative); Nitrite Negative (Negative); Protein,Urine Dip Negative (Negative); RBC 0-2 /HPF (0-5); Urobilinogen 0.2 mg/dL (0.2)
[2024-11-15] MEDS ORDERED: Sodium Chloride 0.9% 500 ML 500 ML IV ONE (19:16)
[2024-11-15] MEDS: Sodium Chloride 0.9% 500 ML 500 ML IV ONE (19:19)
[2024-11-15] MEDS ORDERED: DEMEROL 50 MG ONE (20:18)
[2024-11-15] MEDS ORDERED: Ativan 2 MG/1 ML VIAL ONE (20:18)
[2024-11-15] MEDS: DEMEROL 50 MG IV ONE (20:23)
[2024-11-15] MEDS: Ativan 2 MG/1 ML VIAL IV ONE (20:24)
[2024-11-15] MEDS ORDERED: SUBLIMAZE 100 MCG/2 ML ONE ×2 (20:27→22:21)
[2024-11-15] MEDS: SUBLIMAZE 100 MCG/2 ML IV ONE ×2 (20:29→22:23)
[2024-11-15 22:03] VITALS: RESP 12
[2024-11-15 22:29] VITALS: PULSE 87; O2SAT 97
[2024-11-15 22:43] VITALS: BP 125/64
--- NOTE | 2024-11-16 08:18 | XRAY ---
Indication: Chest pain. Short of breath. Status post bilateral mastectomy. Multiple contiguous axial images obtained through the chest using 80 cc Isovue 370 contrast and PE protocol. Comparison: Numerous priors, most recent September to2023 Good opacification pulmonary arteries to include the lobar and segmental branches. No pulmonary embolus. Heart not enlarged. Aorta is normal in course and caliber. No pathologic mediastinal/hilar lymphadenopathy. Lungs demonstrates minimal bilateral dependent atelectasis. No suspicious pulmonary mass/nodule, infiltrate, or effusion. Bony thorax intact. Interval bilateral mastectomy and right axillary glenn dissection. Limited upper abdomen again demonstrates small right renal cyst, cholecystectomy, and left total nephrectomy.. Impression: 1. Continued negative pulmonary embolus. No new/acute cardiopulmonary abnormalities. 2. Status post bilateral mastectomy with right axillary glenn dissection. 3. Stable right renal cyst and left nephrectomy.
== END 2024-11-15 22:43 | disposition home or self-care (01) ==
LOC: ED 16:04
DX: R07.9 Chest pain, unspecified (principal); Z90.13 Acquired absence of bilateral breasts and nipples; F17.200 Nicotine dependence, unspecified, uncomplicated; Z86.718 Personal history of other venous thrombosis and embolism
CPT/HCPCS: 36410; 36415; 71260; 80053; 81001; 84484; 85025; 85379; 85610; 87086; 93005; 93041; 94760; 96374; 96375; 99284; 99285; J2060; J2175; J3010

== ENCOUNTER 2025-01-28 09:20 | Emergency (ER) | payer OTHER ==
[2012-07-09 00:25] VITALS: BP 119/70
== END 2025-01-28 10:03 | disposition left against medical advice (07) ==
LOC: ED 09:20
DX: Z53.21 Procedure and treatment not carried out due to patient leaving prior to being seen by health care provider (principal)

== ENCOUNTER 2025-02-09 12:36 | Emergency (ER) | payer OTHER ==
[2025-02-09 13:39] VITALS: TEMP 97.2
--- NOTE | 2025-02-09 13:56 | ERPHSYRPT ---
- History of Present Illness Time Seen by Provider: 02/09/25 13:40 Source: patient Exam Limitations: no limitations Patient Subjective Stated Complaint: C/O "low heart rate" for 2 days. States it started after her first round of chemotherapy. Triage Nursing Assessment: Patient ambulated back to ER. She is alert and oriented. NO SOB. Heart rate currently [address]. Physician History: 39yo f pmhx CAD, breast ca currently undergoing chemotherapy w/ recent tx on 02/07 presents for bradycardia, dizziness and weakness. Pt reports she has had similar responses to chemo treatments in the past. Pt reports she has been very fatigued and dizzy on standing, denies any cp or sob, denies any fevers or swe ating. Pt denies any n/v/d. Aspirin Treatment Today: no aspirin today Allergies/Adverse Reactions: hydromorphone HCl [From Dilaudid] Allergy (Severe, Verified 02/09/25 13:16) terbutaline sulfate [From Brethine] Allergy (Severe, Verified 02/09/25 13:16) morphine Adverse Reaction (Intermediate, Verified 02/09/25 13:16) Vomiting Home Medications: Aspirin 81 mg PO DAILY 11/04/16 [History] Cholecalciferol (Vitamin D3) [Vitamin D3] 125 mcg PO DAILY 06/04/23 [History] Hydrocodone/Acetaminophen [Hydrocodone-Acetamin 5-325 mg] 1 tab PO Q6HPRN PRN MDD 4 06/04/23 [History] Ondansetron ODT 4 MG [Zofran Odt 4 mg] 4 mg PO Q6HPRN PRN 06/04/23 [History] PANTOPRAZOLE 40 mg Tablet [Protonix 40MG Tablet] 40 mg PO QAM 06/04/23 [History] Ranolazine 500 MG [Ranexa 500 MG] 500 mg PO BID 06/04/23 [History] Alprazolam [Xanax] 1 mg PO TID PRN PRN 10/04/23 [History] Fentanyl 75Mcg Patch [Duragesic 75 MCG Patch] 1 patch TOP Q72H PRN 10/04/23 [History] Amlodipine Besylate 2.5 mg PO DAILY 11/28/23 [History] Atorvastatin Calcium 80 mg PO DAILY 11/28/23 [History] Budesonide [Budesonide Dr] 3 mg PO DAILY 11/28/23 [History] Duloxetine HCl 30 mg [Cymbalta 30 MG Capsule] 60 mg PO DAILY 11/28/23 [ History] Exemestane 25 mg PO DAILY 11/28/23 [History] Gabapentin 100 mg PO BID 11/28/23 [History] Glimepiride 1 mg PO DAILY 11/28/23 [History] Lisinopril 10 mg [Zestril 10 MG] 10 mg PO DAILY 11/28/23 [History] Magnesium Oxide 400 mg PO TID 11/28/23 [History] Metoprolol Succinate 25 mg PO DAILY 11/28/23 [History] OLANZapine [Zyprexa] 10 mg PO QHS 11/28/23 [History] Potassium Chloride 20 meq PO BID 11/28/23 [History] Apixaban [Eliquis] 5 mg PO BID 11/29/23 [History] CARBOplatin [Carboplatin] 150 mg IV UD 02/05/24 [History] Cephalexin Mh 500 mg [Keflex 500 mg] 500 mg PO Q6H 02/05/24 [History] DOCEtaxeL [Docetaxel] 20 mg IV UD 02/05/24 [History] Diphenhydramine HCl [Diphedryl Allergy] 12.5 mg PO Q6H PRN PRN 02/05/24 [History] Diphenoxylate HCl/Atropine [Diphenoxylate-Atrop 2.5-0.025] 2 each PO QID 02/05/24 [History] Nitroglycerin 0.4 mg Tablet [Nitrostat 0.4 MG Tablet] 0.4 mg SL DAILY PRN 02/05/24 [History] Pegfilgrastim [Neulasta Onpro] 6 mg SQ UD 02/05/24 [History] Pertuzumab [Perjeta] 420 mg IV UD 02/05/24 [History] Prochlorperazine Maleate 10 mg PO Q6H PRN PRN 02/05/24 [History] Trastuzumab [Herceptin] 150 mg IV UD 02/05/24 [History] dexAMETHasone [Dexamethasone] 4 mg PO UD 02/05/24 [History] Hx Tetanus, Diphtheria Vaccination/Date Given: Yes Hx Influenza Vaccination/Date Given: No Hx Pneumococcal Vaccination/Date Given: No Immunizations Up to Date: Yes Travel Risk - International Travel Have you traveled outside of the country in past 3 weeks: No - Emerging Infectious Disease Are you exhibiting symptoms associated with any current EIDs: Yes Symptoms: Diarrhea, Other (Please Comment) Comment: Finished radiation treatments 2 weeks ago and started her chemotherapy 2 days ago. - Past Medical History Pertinent Past Medical History: Yes Neurological History: Epilepsy, Migraines, Seizures, Stroke ENT History: Other Cardiac History: Angina, Congestive Heart Failure, Coronary Artery Disease, Deep Vein Thrombosis, High Cholesterol, Hypertension, Myocardial Infarction ([place]), Other Respiratory History: Asthma, Pulmonary Embolism Endocrine Medical History: Diabetes Type II, Liver Disease Musculoskeletal History: Fractures, Osteoporosis GI Medical History: Colitis, GERD, Gallbladder Disease, Hemorrhoids, Irritable Bowel History: Kidney Cancer, Renal Disease Psycho-Social History: Anxiety, Depression, Panic Disorder Female Reproductive Disorders: Breast Cancer, Other Other Medical History: kidney cancer at age 18 months, bilat wrist fracture and leg, Right breast midline CA (BRCA 2 positive), anemia, Patient at [facility] ([phone]) - Past Surgical History Past Surgical History: Yes Neuro Surgical History: No Pertinent History Cardiac: No Pertinent History Respiratory: No Pertinent History Gastrointestinal: Cholecystectomy Genitourinary: Kidney Surgery Musculoskeletal: No Pertinent History Female Surgical History: Section, Tubal Ligation, Mastectomy Other Surgical History: left kidney removal, wilms tumor, MASTECTIOMY OCT 2024 Significant Family History: no pertinent family hx - Female History Hx Last Menstrual Period: currently on Hx Now: No - Social History Smoking Status: Current every day smoker How long have you smoked: 12 yrs Exposure to second hand smoke: No Drug Use: marijuana - Social Determinants of Health Will the patient participate in the screening: Declined to provide - Nursing Vital Signs Nursing Vital Signs: Initial Vital Signs Pulse Rate 56 L 02/09/25 13:17 Respiratory Rate 16 02/09/25 13:17 Blood Pressure 131/69 02/09/25 13:17 O2 Sat by Pulse Oximetry 97 02/09/25 13:17 Pain Scale Pain Intensity 8 - Physical Exam SpO2: 98 - Course EKG Interpreted by Me: RATE (51), Sinus Rhythm, NORMAL ST-T, Other (not suggestive of acute ischemia) Ordered Tests: Active Orders 24 hr Category Date Time Status EKG-ER Only STAT Care 02/09/25 13:45 Active CHEST 1 VIEW (PORTABLE) Stat Exams 02/09/25 13:46 Taken CBC W DIFF Stat Lab 02/09/25 13:55 Completed CMP Stat Lab 02/09/25 13:55 Completed TROPONIN Q4H Lab 02/09/25 13:55 Completed TROPONIN Q4H Lab 02/09/25 16:25 Received TROPONIN Q4H Lab 02/09/25 22:00 Ordered Medication Summary Generic Name Dose Route Start Last Admin Trade Name Freq PRN Reason Stop Dose Admin Heparin Sodium (Beef Lung) 500 units 02/09/25 16:48 02/09/25 16:49 Heparin Lock Flush Pf 500 Units/5 Ml Syringe PORT FLUSH 03/11/25 16:47 500 units PRN PRN Administration IV PORT FLUSH Sodium Chloride 1,000 mls @ 150 mls/hr 02/09/25 13:45 02/09/25 14:17 Sodium Chloride 0.9% 1000 Ml IV 03/11/25 13:44 150 mls/hr .Q6H40M NOHEMI Administration Discontinued Medications Generic Name Dose Route Start Last Admin Trade Name Freq PRN Reason Stop Dose Admin Fentanyl Citrate 50 mcg 02/09/25 15:08 02/09/25 15:18 Fentanyl Citrate 100 Mcg/2 Ml* Vial IV 02/09/25 15:09 50 mcg STAT ONE Administration Fentanyl Citrate Confirm 02/09/25 15:13 Fentanyl Citrate 100 Mcg/2 Ml* Vial Administered 02/09/25 15:14 Dose 100 mcg .ROUTE .STK-MED ONE Ondansetron HCl 4 mg 02/09/25 15:09 02/09/25 15:18 Ondansetron Hcl 4 Mg/2 Ml Vial IV 02/09/25 15:10 4 mg STAT ONE Administration Ondansetron HCl Confirm 02/09/25 15:14 Ondansetron Hcl 4 Mg/2 Ml Vial Administered 02/09/25 15:15 Dose 4 mg .ROUTE .STK-MED ONE Lab/Rad Data: Laboratory Result Diagrams 02/09/25 13:55 02/09/25 13:55 Laboratory Results 02/09/25 02/09/25 02/09/25 Range/Units 13:55 13:55 13:55 WBC 7.8 (3.98-10.04) x10^3/uL RBC 3.87 L (3.93-5.22) x10^6/uL Hgb 11.5 (11.2-15.7) g/dL Hct 35.1 (34.1-44.9) % MCV 90.7 (79.4-94.8) fL MCH 29.7 (25.6-32.2) pg MCHC 32.8 (32.2-35.5) g/dL RDW 13.8 (11.7-14.4) % Plt Count 180 L (182-369) x10^3/uL MPV 9.5 (9.4-12.3) fL Gran % 70.2 (34.0-71.1) % Immature Gran % (Auto) 0.6 H (0.001-0.429) % Nucleat RBC Rel Count 0.0 (0.00-0.2) % Eos # (Auto) 0.04 (0.04-0.36) x10^3/uL Immature Gran # (Auto) 0.05 H (0.001-0.031) x10^3u/L Absolute Lymphs (auto) 1.22 (1.18-3.74) x10^3/uL Absolute Monos (auto) 1.00 H (0.24-0.86) x10^3/uL Absolute Nucleated RBC 0.00 (0.00-0.012) x10^3u/L Lymphocytes % 15.6 L (19.3-51.7) % Monocytes % 12.8 H (4.7-12.5) % Eosinophils % 0.5 L (0.7-5.8) % Basophils % 0.3 (0.1-1.2) % Absolute Granulocytes 5.50 (1.56-6.13) x10^3/uL Basophils # 0.02 (0.01-0.08) x10^3/uL Sodium 141 (135-145) mmol/L Potassium 3.7 (3.5-5.1) mmol/L Chloride 105 (98-107) mmol/L Carbon Dioxide 29 (22-30) mmol/L Anion Gap 11.8 (5-15) MEQ/L BUN 22 H (7-17) mg/dL Creatinine 0.78 (0.52-1.04) mg/dL Estimated GFR 99.6 ML/MIN Glucose 101 (74-106) mg/dL Calcium 9.6 (8.4-10.2) mg/dL Total Bilirubin 0.50 (0.2-1.3) mg/dL AST 52 H (14-36) U/L ALT 54 H (0-35) U/L Alkaline Phosphatase 249 H (38-126) U/L Troponin I < 0.012 (0.000-0.033) ng/mL Serum Total Protein 6.7 (6.3-8.2) g/dL Albumin 3.9 (3.5-5.0) g/dL - Progress Progress: re-examined Air Movement: fair Progress Note: 02/09/25 15:10 pt reports improvement in dizziness initial trop negative, ekg not suggestive of acute ischemia pt reporting generalized pain and nausea, will give fentanyl and zofran 02/09/25 16:53 initial troponin negative slight elevation in liver enzymes pt reports she feels better, is requesting to leave before 2nd trop resulted bc she has things to do at home I discussed importance of waiting to see repeat trop and risk of leaving the ED before w/u is complete including risk of - pt voiced understanding, still wanting to leave AMA, given AMA paperwork Blood Culture(s) Obtained: No Antibiotics given: No Counseled pt/family regarding: lab results, diagnosis, need for follow-up, rad results Medical Desision Making - Diagnostic Testing Diagnostic test were ordered, analyzed, and reviewed by me: Yes Radiological Interpretation: Interpreted by me, Reviewed by me - Departure Departure Disposition: AMA Clinical Impression: Bradycardia, Elevated liver enzymes Condition: Stable Critical Care Time: No Referrals: SAURABH NAQVI DO [Primary Care Provider] - Follow up/PCP as directed
[2025-02-09 14:05] LABS: BASOPHIL % 0.3 % (0.1-1.2); Basophil (Absolute #) 0.02 x10^3/uL (0.01-0.08); Eosinophil % 0.5 % (0.7-5.8); Eosinophil (Absolute #) 0.04 x10^3/uL (0.04-0.36); Hematocrit 35.1 % (34.1-44.9); Hemoglobin 11.5 g/dL (11.2-15.7); IMMATURE GRAN # 0.05 x10^3u/L (0.001-0.031); IMMATURE GRAN % 0.6 % (0.001-0.429); Lymphocyte (Absolute #) 1.22 x10^3/uL (1.18-3.74); Lymphocytes % 15.6 % (19.3-51.7); Mean Cell Volume 90.7 fL (79.4-94.8); Mean Corpuscular Hemoglobin 29.7 pg (25.6-32.2); Mean Corpuscular Hgb Concent. 32.8 g/dL (32.2-35.5); Mean Platelet Volume 9.5 fL (9.4-12.3); Monocytes % 12.8 % (4.7-12.5); Neutrophil % 70.2 % (34.0-71.1); Platelet Count 180 x10^3/uL (182-369); Red Blood Count 3.87 x10^6/uL (3.93-5.22); Red Cell Distribution Width 13.8 % (11.7-14.4); White Blood Count 7.8 x10^3/uL (3.98-10.04)
[2025-02-09] MEDS ORDERED: Sodium Chloride 0.9% 1000 ML 1,000 ML ONE (14:14)
[2025-02-09] MEDS: Sodium Chloride 0.9% 1000 ML 1,000 ML IV SCH (14:17)
[2025-02-09 14:23] LABS: ALBUMIN 3.9 g/dL (3.5-5.0); ANION GAP 11.8 MEQ/L (5-15); BILIRUBIN,TOTAL 0.5 mg/dL (0.2-1.3); Calcium 9.6 mg/dL (8.4-10.2); Creatinine 1 0.78 mg/dL (0.52-1.04); EST GLOMERULAR FILTRATION RATE 99.6 ML/MIN; Potassium 3.7 mmol/L (3.5-5.1); Total Protein 6.7 g/dL (6.3-8.2)
[2025-02-09] MEDS ORDERED: SUBLIMAZE 100 MCG/2 ML ONE (15:13)
[2025-02-09] MEDS ORDERED: Zofran 4 MG/2 ML VIAL ONE (15:14)
[2025-02-09] MEDS: Zofran 4 MG/2 ML VIAL IV ONE (15:18)
[2025-02-09] MEDS: SUBLIMAZE 100 MCG/2 ML IV ONE (15:18)
[2025-02-09 15:59] VITALS: RESP 15
[2025-02-09 16:48] VITALS: BP 134/83; PULSE 59; O2SAT 98
--- NOTE | 2025-02-09 19:57 | XRAY ---
Indication: Bradycardia. History of breast cancer with mastectomy and chemotherapy. Comparison: September 21, 2024 Portable chest again demonstrates normal heart and lungs with new right Port-A-Cath. Bony thorax intact. Interval bilateral mastectomy. Impression: Nonacute chest.
== END 2025-02-09 16:56 | disposition left against medical advice (07) ==
LOC: ED 12:36
DX: R00.1 Bradycardia, unspecified (principal); R94.5 Abnormal results of liver function studies; R42 Dizziness and giddiness; R53.1 Weakness; E78.5 Hyperlipidemia, unspecified; I11.0 Hypertensive heart disease with heart failure; I50.9 Heart failure, unspecified; E11.9 Type 2 diabetes mellitus without complications; Z79.01 Long term (current) use of anticoagulants; Z79.899 Other long term (current) drug therapy; Z72.0 Tobacco use
CPT/HCPCS: 36415; 71045; 80053; 84484; 85025; 93005; 93041; 96361; 96374; 96375; 99284; 99285; J1642; J2405; J3010

== ENCOUNTER 2025-03-24 18:34 | Emergency (ER) | payer MEDICARE ==
--- NOTE | 2025-03-24 19:38 | ERPHSYRPT ---
- History of Present Illness Source: patient Exam Limitations: no limitations Patient Subjective Stated Complaint: C/O right sided neck pain. Patient reports she had some sort of PICC line in the right side of her neck on 03/17/25 when undergoing a total hysterectomy. Line removed on 03/18/25. Patient reports continuous pain where the line was placed. Triage Nursing Assessment: Patient ambulated back to ER. She is alert and oriented; anxious and tearful. S/S of pain are present. Some swelling is present to right side of neck where patient reports her pain. Physician History: Patient has a history of blood clots. She is not on blood thinners at this time. They think that she gets blood clots from her chemotherapy. She has a history of cancers. She currently has breast cancer she is being treated for. She had a history of cancer when she was just a small child like 2 years old.She has basically having some neck pain. It is in her right side. It goes radiates up to her occipital area. She had a PICC line placed in her jugular vein. It was removed just 3 days ago or so.She went to an urgent care and a CT of the head and neck was ordered without contrast. The CT of the neck showed a possible thrombus in the jugular vein on the right side. This was at urgent care. They sent her into the ER for further evaluation.Nothing really makes the neck pain better. Turning of the head and palpation makes it worse.She does not have any neurological deficits. She has a history of strokes from blood clots and pulmonary embolisms. Allergies/Adverse Reactions: hydromorphone HCl [From Dilaudid] Allergy (Severe, Verified 03/24/25 19:02) terbutaline sulfate [From Brethine] Allergy (Severe, Verified 03/24/25 19:02) morphine Adverse Reaction (Intermediate, Verified 03/24/25 19:02) Vomiting Home Medications: Aspirin 81 mg PO DAILY 11/04/16 [History] Cholecalciferol (Vitamin D3) [Vitamin D3] 125 mcg PO DAILY 06/04/23 [History] Hydrocodone/Acetaminophen [Hydrocodone-Acetamin 5-325 mg] 1 tab PO Q6HPRN PRN MDD 4 06/04/23 [History] Ondansetron ODT 4 MG [Zofran Odt 4 mg] 4 mg PO Q6HPRN PRN 06/04/23 [History] PANTOPRAZOLE 40 mg Tablet [Protonix 40MG Tablet] 40 mg PO QAM 06/04/23 [History] Ranolazine 500 MG [Ranexa 500 MG] 500 mg PO BID 06/04/23 [History] Alprazolam [Xanax] 1 mg PO TID PRN PRN 10/04/23 [History] Fentanyl 75Mcg Patch [Duragesic 75 MCG Patch] 1 patch TOP Q72H PRN 10/04/23 [History] Amlodipine Besylate 2.5 mg PO DAILY 11/28/23 [History] Atorvastatin Calcium 80 mg PO DAILY 11/28/23 [History] Budesonide [Budesonide Dr] 3 mg PO DAILY 11/28/23 [History] Duloxetine HCl 30 mg [Cymbalta 30 MG Capsule] 60 mg PO DAILY 11/28/23 [History] Exemestane 25 mg PO DAILY 11/28/23 [History] Gabapentin 100 mg PO BID 11/28/23 [History] Glimepiride 1 mg PO DAILY 11/28/23 [History] Lisinopril 10 mg [Zestril 10 MG] 10 mg PO DAILY 11/28/23 [History] Magnesium Oxide 400 mg PO TID 11/28/23 [History] Metoprolol Succinate 25 mg PO DAILY 11/28/23 [History] OLANZapine [Zyprexa] 10 mg PO QHS 11/28/23 [History] Potassium Chloride 20 meq PO BID 11/28/23 [History] CARBOplatin [Carboplatin] 150 mg IV UD 02/05/24 [History] DOCEtaxeL [Docetaxel] 20 mg IV UD 02/05/24 [History] Diphenhydramine HCl [Diphedryl Allergy] 12.5 mg PO Q6H PRN PRN 02/05/24 [History] Diphenoxylate HCl/Atropine [Diphenoxylate-Atrop 2.5-0.025] 2 each PO QID 02/05/24 [History] Nitroglycerin 0.4 mg Tablet [Nitrostat 0.4 MG Tablet] 0.4 mg SL DAILY PRN 02/05/24 [History] Pegfilgrastim [Neulasta Onpro] 6 mg SQ UD 02/05/24 [History] Pertuzumab [Perjeta] 420 mg IV UD 02/05/24 [History] Prochlorperazine Maleate 10 mg PO Q6H PRN PRN 02/05/24 [History] Trastuzumab [Herceptin] 150 mg IV UD 02/05/24 [History] dexAMETHasone [Dexamethasone] 4 mg PO UD 02/05/24 [History] Hx Tetanus, Diphtheria Vaccination/Date Given: Yes Hx Influenza Vaccination/Date Given: No Hx Pneumococcal Vaccination/Date Given: No Immunizations Up to Date: Yes Travel Risk - International Travel Have you traveled outside of the country in past 3 weeks: No - Emerging Infectious Disease Are you exhibiting symptoms associated with any current EIDs: No Symptoms: Diarrhea, Other (Please Comment) Comment: Finished radiation treatments 2 weeks ago and started her chemotherapy 2 days ago. - Review of Systems Constitutional: No Symptoms Eyes: No Symptoms, Foreign Body Sensation Cardiac: No Symptoms Musculoskeletal: No Symptoms Skin: No Symptoms All Other Systems: Reviewed and Negative - Past Medical History Pertinent Past Medical History: Yes Neurological History: Epilepsy, Migraines, Seizures, Stroke ENT History: Other Cardiac History: Angina, Congestive Heart Failure, Coronary Artery Disease, Deep Vein Thrombosis, High Cholesterol, Hypertension, Myocardial Infarction ([place]), Other Respiratory History: Asthma, Pulmonary Embolism Endocrine Medical History: Diabetes Type II, Liver Disease Musculoskeletal History: Fractures, Osteoporosis GI Medical History: Colitis, GERD, Gallbladder Disease, Hemorrhoids, Irritable Bowel History: Kidney Cancer, Renal Disease Psycho-Social History: Anxiety, Depression, Panic Disorder Female Reproductive Disorders: Breast Cancer, Other Other Medical History: kidney cancer at age 18 months, bilat wrist fracture and leg, Right breast midline CA (BRCA 2 positive), anemia, Patient at [facility] ([phone]) - Past Surgical History Past Surgical History: Yes Neuro Surgical History: No Pertinent History Cardiac: No Pertinent History Respiratory: No Pertinent History Gastrointestinal: Cholecystectomy Genitourinary: Kidney Surgery Musculoskeletal: No Pertinent History Female Surgical History: Hysterectomy, Section, Tubal Ligation, Mastectomy Other Surgical History: left kidney removal, wilms tumor, Double MASTECTIOMY OCT 2024, total hysterectomy February 2025 Significant Family History: no pertinent family hx - Female History Hx Last Menstrual Period: currently on Hx Now: No - Social History Smoking Status: Current every day smoker Exposure to second hand smoke: No Drug Use: marijuana - Social Determinants of Health Will the patient participate in the screening: Declined to provide - Nursing Vital Signs Nursing Vital Signs: Initial Vital Signs Pulse Rate 107 H 03/24/25 18:54 Respiratory Rate 24 03/24/25 18:54 Blood Pressure 130/96 03/24/25 18:54 O2 Sat by Pulse Oximetry 99 03/24/25 18:54 Pain Scale Pain Intensity 10 - Physical Exam General Appearance: no apparent distress Eye Exam: PERRL/EOMI Ears, Nose, Throat Exam: normal ENT inspection Neck Exam: other (Tenderness in the right side of the neck around the jugular vein. No obvious deformities) Respiratory Exam: normal breath sounds Cardiovascular Exam: regular rate/rhythm, tachycardia Back Exam: normal inspection Extremity Exam: normal inspection Neurologic Exam: alert, oriented x 3, cooperative Skin Exam: normal color, warm, dry SpO2: 96 - Course Nursing assessment & vital signs reviewed: Yes Ordered Tests: Active Orders 24 hr Category Date Time Status IV Insertion STAT Care 03/24/25 19:50 Active Ultrasound Unilateral Extremities [VENOUS UNILAT/ Exams 03/24/25 19:30 Taken LIMITED EXTREMIT] [US] Stat BLOOD CULTURE Stat Lab 03/24/25 21:45 Received CBC Q48H Lab 03/25/25 06:00 Ordered CBC Q48H Lab 03/27/25 06:00 Ordered CBC Q48H Lab 03/29/25 06:00 Ordered CBC Q48H Lab 03/31/25 06:00 Ordered CBC Q48H Lab 04/02/25 06:00 Ordered CBC Q48H Lab 04/04/25 06:00 Ordered CBC Q48H Lab 04/06/25 06:00 Ordered CBC W DIFF Stat Lab 03/24/25 19:45 Completed CMP Stat Lab 03/24/25 19:45 Completed PROTIME WITH INR Q4H Lab 03/25/25 01:30 Ordered PROTIME WITH INR Q4H Lab 03/25/25 05:30 Ordered PROTIME WITH INR Q4H Lab 03/25/25 09:30 Ordered PROTIME WITH INR Q4H Lab 03/25/25 13:30 Ordered PROTIME WITH INR Q4H Lab 03/25/25 17:30 Ordered PROTIME WITH INR Q4H Lab 03/25/25 21:30 Ordered PROTIME WITH INR Q4H Lab 03/26/25 01:30 Ordered PROTIME WITH INR Q4H Lab 03/26/25 05:30 Ordered PROTIME WITH INR Q4H Lab 03/26/25 09:30 Ordered PROTIME WITH INR Q4H Lab 03/26/25 13:30 Ordered PROTIME WITH INR Q4H Lab 03/26/25 17:30 Ordered PT INR [PROTIME WITH INR] Stat Lab 03/24/25 19:45 Completed PTT Q4H Lab 03/25/25 01:30 Ordered PTT Q4H Lab 03/25/25 05:30 Ordered PTT Q4H Lab 03/25/25 09:30 Ordered PTT Q4H Lab 03/25/25 13:30 Ordered PTT Q4H Lab 03/25/25 17:30 Ordered PTT Q4H Lab 03/25/25 21:30 Ordered PTT Q4H Lab 03/26/25 01:30 Ordered PTT Q4H Lab 03/26/25 05:30 Ordered PTT Q4H Lab 03/26/25 09:30 Ordered PTT Q4H Lab 03/26/25 13:30 Ordered PTT Q4H Lab 03/26/25 17:30 Ordered PTT Stat Lab 03/24/25 19:45 Completed Medication Summary Generic Name Dose Route Start Last Admin Trade Name Freq PRN Reason Stop Dose Admin Heparin Sodium/Dextrose 25,000 units in 250 mls @ 7.62 mls/hr 03/24/25 21:30 03/24/25 21:47 Heparin 25,000 Units/D5w: Use Order Set Hien IV 04/23/25 21:29 12 units/kg/hr .Q24H NOHEMI 7.62 mls/hr Administration Protocol 12 UNITS/KG/HR Discontinued Medications Generic Name Dose Route Start Last Admin Trade Name Freq PRN Reason Stop Dose Admin Alprazolam 1 mg 03/24/25 21:32 03/24/25 21:50 Alprazolam 0.5 Mg Tablet PO 03/24/25 21:33 1 mg STAT ONE Administration Alprazolam Confirm 03/24/25 21:35 Alprazolam 0.5 Mg Tablet Administered 03/24/25 21:36 Dose 1 mg .ROUTE .STK-MED ONE Fentanyl Citrate 100 mcg 03/24/25 19:52 03/24/25 19:56 Fentanyl Citrate 100 Mcg/2 Ml* Vial IV 03/24/25 19:53 100 mcg STAT ONE Administration Fentanyl Citrate Confirm 03/24/25 19:54 Fentanyl Citrate 100 Mcg/2 Ml* Vial Administered 03/24/25 19:55 Dose 100 mcg .ROUTE .STK-MED ONE Fentanyl Citrate 100 mcg 03/24/25 20:51 03/24/25 20:55 Fentanyl Citrate 100 Mcg/2 Ml* Vial IV 03/24/25 20:52 100 mcg STAT ONE Administration Fentanyl Citrate Confirm 03/24/25 20:53 Fentanyl Citrate 100 Mcg/2 Ml* Vial Administered 03/24/25 20:54 Dose 100 mcg .ROUTE .STK-MED ONE Heparin Sodium (Beef Lung) 3,800 unit 03/24/25 21:23 03/24/25 21:45 Heparin 5000 Units/0.5 Ml 5,000 Unit/0.5 Ml Syr 60 unit/kg (3800 unit) 03/24/25 21:24 3,800 unit IV Administration STAT STA Heparin Sodium (Beef Lung) Confirm 03/24/25 21:33 Heparin 5000 Units/0.5 Ml 5,000 Unit/0.5 Ml Syr Administered 03/24/25 21:34 Dose 5,000 unit .ROUTE .STK-MED ONE Lab/Rad Data: Laboratory Result Diagrams 03/24/25 19:45 03/24/25 19:45 Laboratory Results 03/24/25 03/24/25 03/24/25 Range/Units 19:45 19:45 19:45 WBC 9.7 (3.98-10.04) x10^3/uL RBC 4.32 (3.93-5.22) x10^6/uL Hgb 13.1 (11.2-15.7) g/dL Hct 41.1 (34.1-44.9) % MCV 95.1 H (79.4-94.8) fL MCH 30.3 (25.6-32.2) pg MCHC 31.9 L (32.2-35.5) g/dL RDW 14.0 (11.7-14.4) % Plt Count 286 (182-369) x10^3/uL MPV 8.9 L (9.4-12.3) fL Gran % 63.6 (34.0-71.1) % Immature Gran % (Auto) 0.5 H (0.001-0.429) % Nucleat RBC Rel Count 0.0 (0.00-0.2) % Eos # (Auto) 0.02 L (0.04-0.36) x10^3/uL Immature Gran # (Auto) 0.05 H (0.001-0.031) x10^3u/L Absolute Lymphs (auto) 2.05 (1.18-3.74) x10^3/uL Absolute Monos (auto) 1.40 H (0.24-0.86) x10^3/uL Absolute Nucleated RBC 0.00 (0.00-0.012) x10^3u/L Lymphocytes % 21.1 (19.3-51.7) % Monocytes % 14.4 H (4.7-12.5) % Eosinophils % 0.2 L (0.7-5.8) % Basophils % 0.2 (0.1-1.2) % Absolute Granulocytes 6.19 H (1.56-6.13) x10^3/uL Basophils # 0.02 (0.01-0.08) x10^3/uL PT 11.0 (9.4-12.5) SECONDS INR 1.01 (0.8-3.0) APTT 25.9 (25.1-36.5) SECONDS Sodium 136 (135-145) mmol/L Potassium 4.3 (3.5-5.1) mmol/L Chloride 100 (98-107) mmol/L Carbon Dioxide 25 (22-30) mmol/L Anion Gap 15.7 H (5-15) MEQ/L BUN 15 (7-17) mg/dL Creatinine 0.89 (0.52-1.04) mg/dL Estimated GFR 85.1 ML/MIN Glucose 100 (74-106) mg/dL Calcium 10.6 H (8.4-10.2) mg/dL Total Bilirubin 0.90 (0.2-1.3) mg/dL AST 37 H (14-36) U/L ALT 30 (0-35) U/L Alkaline Phosphatase 260 H (38-126) U/L Serum Total Protein 7.3 (6.3-8.2) g/dL Albumin 4.1 (3.5-5.0) g/dL - Progress Progress: unchanged Progress Note: A ultrasound was ordered. Lab work was ordered as well 2. The ultrasound showed a thrombosis throughout the entire jugular vein on the right side.I went ahead and start her on a heparin drip. I called [facility] this where she had her procedure done. Dr. Weaver spoke with me. He agreed to accept the patient in transfer. 21:[address] Other (Dr. Weaver) Will see patient in: hospital (observation) Medical Desision Making - Discussion of managment Care discussed with:: hospitalist Agreed on:: Treatment plan, decision to admit Will see patient: in hospital - Diagnostic Testing Diagnostic test were ordered, analyzed, and reviewed by me: Yes - Risk of complications The pt has a high risk of morbidity or mortality based on: Drug therapy requiring intensive monitoring for toxicity, Decision regarding hospitilization or escalation of hosp level of care - Departure Departure Disposition: Transfer Clinical Impression: Jugular vein thrombosis, right Condition: Good Critical Care Time: No Referrals: SAURABH NAQVI DO [Primary Care Provider, [facility]] - Follow up/PCP as directed
[2025-03-24 19:50] LABS: Absolute Neutrophil Ct (ANC) 6.19 x10^3/uL (1.56-6.13); BASOPHIL % 0.2 % (0.1-1.2); Basophil (Absolute #) 0.02 x10^3/uL (0.01-0.08); Eosinophil % 0.2 % (0.7-5.8); Eosinophil (Absolute #) 0.02 x10^3/uL (0.04-0.36); Hematocrit 41.1 % (34.1-44.9); Hemoglobin 13.1 g/dL (11.2-15.7); IMMATURE GRAN # 0.05 x10^3u/L (0.001-0.031); IMMATURE GRAN % 0.5 % (0.001-0.429); Lymphocyte (Absolute #) 2.05 x10^3/uL (1.18-3.74); Lymphocytes % 21.1 % (19.3-51.7); Mean Cell Volume 95.1 fL (79.4-94.8); Mean Corpuscular Hemoglobin 30.3 pg (25.6-32.2); Mean Corpuscular Hgb Concent. 31.9 g/dL (32.2-35.5); Mean Platelet Volume 8.9 fL (9.4-12.3); Monocytes % 14.4 % (4.7-12.5); Neutrophil % 63.6 % (34.0-71.1); Platelet Count 286 x10^3/uL (182-369); Red Blood Count 4.32 x10^6/uL (3.93-5.22); White Blood Count 9.7 x10^3/uL (3.98-10.04)
[2025-03-24] MEDS ORDERED: SUBLIMAZE 100 MCG/2 ML ONE ×2 (19:54→20:53)
[2025-03-24] MEDS: SUBLIMAZE 100 MCG/2 ML IV ONE ×2 (19:56→20:55)
[2025-03-24 20:04] LABS: ALBUMIN 4.1 g/dL (3.5-5.0); ANION GAP 15.7 MEQ/L (5-15); BILIRUBIN,TOTAL 0.9 mg/dL (0.2-1.3); Calcium 10.6 mg/dL (8.4-10.2); Creatinine 1 0.89 mg/dL (0.52-1.04); EST GLOMERULAR FILTRATION RATE 85.1 ML/MIN; Potassium 4.3 mmol/L (3.5-5.1); Total Protein 7.3 g/dL (6.3-8.2)
[2025-03-24 20:12] LABS: INR 1.01 (0.8-3.0); PTT 25.9 SECONDS (25.1-36.5)
[2025-03-24] MEDS ORDERED: HEPARIN 5000 UNITS/0.5 ML (HIGH RISK MED) ONE (21:33)
[2025-03-24] MEDS ORDERED: Heparin 25,000 units/D5W: USE ORDER SET PROTO 25,000 UNITS/250 ML BAG IV ONE (21:34)
[2025-03-24] MEDS ORDERED: xanAX 0.5 MG ONE (21:35)
[2025-03-24] MEDS: HEPARIN 5000 UNITS/0.5 ML (HIGH RISK MED) IV STA (21:45)
[2025-03-24] MEDS: Heparin 25,000 units/D5W: USE ORDER SET PROTO 25,000 UNITS/250 ML BAG IV SCH (21:47)
[2025-03-24] MEDS: xanAX 0.5 MG PO ONE (21:50)
[2025-03-24] MEDS ORDERED: BENADRYL 50 MG/ML ONE (23:10)
[2025-03-24] MEDS ORDERED: Sodium Chloride 0.9% 1000 ML 1,000 ML ONE (23:10)
[2025-03-24] MEDS: Sodium Chloride 0.9% 1000 ML 1,000 ML IV STA (23:12)
[2025-03-24] MEDS: BENADRYL 50 MG/ML IV ONE (23:12)
[2025-03-25 00:03] VITALS: BP 91/57; PULSE 111; RESP 25; TEMP 97.3; O2SAT 96
--- NOTE | 2025-03-25 08:55 | XRAY ---
Indication: Neck pain. Two-dimensional sonogram and color Doppler imaging major venous vessels right upper extremity performed. Comparison: None Visualized right jugular vein demonstrates total occlusion. Remaining visualized right subclavian, axillary, brachial, basilic, cephalic, radial, and older veins are negative for thrombosis. Patent veins demonstrate normal compressibility and normal venous waveforms. Impression: Occluded right jugular vein. Remaining right upper extremity venous sonogram is negative. Comment: Preliminary report was given.
== END 2025-03-25 00:26 | disposition short-term general hospital (02) ==
LOC: ED 18:34
DX: I82.C11 Acute embolism and thrombosis of right internal jugular vein (principal); M54.2 Cervicalgia; Z79.84 Long term (current) use of oral hypoglycemic drugs; Z79.899 Other long term (current) drug therapy; Z79.60 Long term (current) use of unspecified immunomodulators and immunosuppressants; Z72.0 Tobacco use
CPT/HCPCS: 36415; 80053; 85025; 85610; 85730; 87040; 93971; 96361; 96374; 96375; 96376; 99285; J1200; J1644; J3010; A9270-GY

== ENCOUNTER 2025-08-05 13:40 | Emergency (ER) | payer MEDICARE ==
[2025-08-05 14:00] VITALS: BP 121/70; PULSE 88; RESP 16; TEMP 97.7; O2SAT 99
--- NOTE | 2025-08-05 14:17 | ERPHSYRPT ---
- History of Present Illness Time Seen by Provider: 08/05/25 14:16 Source: patient, family Exam Limitations: no limitations Patient Subjective Stated Complaint: pt states she has a hx of blood clots (march) and has pain and swelling in her right upper extremity, cant stretch it out or move it very well, called dr ha office and was told to come to the er Triage Nursing Assessment: pt is alert/oriented, vitals are w/n/l , minor swelling to right forearm, skin warm and dry, no obvious deformities, will continue to observe Physician History: This is a 40-year-old white female patient arrives by private vehicle and is a patient of Dr. Ha who states that she has had some right upper extremity/inner forearm swelling and pain since yesterday. 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 She is on Xarelto. She also takes Percocet 10/325 pain pills multiple times a day as prescribed. She was concerned about the pain and swelling present so she called her primary care physician's office who told her to go to the emergency department for evaluation. Patient has a history of anxiety, hyperlipidemia, DVT/pulmonary embolism on Xarelto, migraine headaches, seizure, CVA and coronary artery disease. The patient denies chest pain. Patient denies shortness of breath. Patient denies any visual changes or signs/symptoms of stroke. Occurred: yesterday Quality: constant, aching Severity of Pain-Max: mild (To moderate) Severity of Pain-Current: mild (To moderate) Extremities Pain Location: forearm: right (Inner aspect) Modifying Factors: Improves With: movement Associated Symptoms: none Allergies/Adverse Reactions: hydromorphone HCl [From Dilaudid] Allergy (Severe, Verified 08/05/25 14:01) terbutaline sulfate [From Brethine] Allergy (Severe, Verified 08/05/25 14:01) morphine Adverse Reaction (Intermediate, Verified 08/05/25 14:01) Vomiting Home Medications: Aspirin 81 mg PO DAILY 11/04/16 [History] Ondansetron ODT 4 MG [Zofran Odt 4 mg] 4 mg PO Q6HPRN PRN 06/04/23 [History] PANTOPRAZOLE 40 mg Tablet [Protonix 40MG Tablet] 40 mg PO QAM 06/04/23 [History] Alprazolam [Xanax] 5 mg PO TID PRN PRN 10/04/23 [History] Atorvastatin Calcium 80 mg PO DAILY 11/28/23 [History] Gabapentin 300 mg PO TID 11/28/23 [History] Metoprolol Succinate 25 mg PO DAILY 11/28/23 [History] Dapagliflozin Propanediol [Farxiga] 10 mg PO DAILY 05/14/25 [History] Exemestane [Aromasin] 25 mg PO DAILY 05/14/25 [History] Loratadine 10 mg [Claritin 10 mg] 10 mg PO DAILY 05/14/25 [History] Oxycodone / APAP 10/325 mg [Oxycodone-Acetaminophen 10-325] 1 tab PO 5XD PRN 05/14/25 [History] Rivaroxaban [Xarelto] 20 mg PO DAILY 05/14/25 [History] Hx Tetanus, Diphtheria Vaccination/Date Given: Yes Hx Influenza Vaccination/Date Given: No Hx Pneumococcal Vaccination/Date Given: No Travel Risk - International Travel Have you traveled outside of the country in past 3 weeks: No - Emerging Infectious Disease Are you exhibiting symptoms associated with any current EIDs: No Symptoms: Vomitting Comment: Finished radiation treatments 2 weeks ago and started her chemotherapy 2 days ago. - Review of Systems Constitutional: No Symptoms Eyes: No Symptoms Ears, Nose, & Throat: No Symptoms Respiratory: No Symptoms Cardiac: No Symptoms Abdominal/Gastrointestinal: No Symptoms Genitourinary Symptoms: No Symptoms Musculoskeletal: Other (Right forearm inner aspect swelling and tenderness) Skin: No Symptoms Neurological: No Symptoms Psychological: No Symptoms Endocrine: No Symptoms Hematologic/Lymphatic: No Symptoms Immunological/Allergic: No Symptoms All Other Systems: Reviewed and Negative - Past Medical History Pertinent Past Medical History: Yes Neurological History: Epilepsy, Migraines, Seizures, Stroke ENT History: Other Cardiac History: Angina, Congestive Heart Failure, Coronary Artery Disease, Deep Vein Thrombosis, High Cholesterol, Hypertension, Myocardial Infarction ([place]), Other Respiratory History: Asthma, Pulmonary Embolism Endocrine Medical History: Diabetes Type II, Liver Disease Musculoskeletal History: Fractures, Osteoporosis GI Medical History: Colitis, GERD, Gallbladder Disease, Hemorrhoids, Irritable Bowel History: Kidney Cancer, Renal Disease Psycho-Social History: Anxiety, Depression, Panic Disorder Female Reproductive Disorders: Breast Cancer, Other Other Medical History: kidney cancer at age 18 months, bilat wrist fracture and leg, Right breast midline CA (BRCA 2 positive), anemia, Patient at [facility] ([phone]) - Past Surgical History Past Surgical History: Yes Neuro Surgical History: No Pertinent History Cardiac: No Pertinent History Respiratory: No Pertinent History Gastrointestinal: Cholecystectomy Genitourinary: Kidney Surgery Musculoskeletal: No Pertinent History Female Surgical History: Hysterectomy, Section, Tubal Ligation, Mastectomy Other Surgical History: left kidney removal, wilms tumor, Double MASTECTIOMY OCT 2024, total hysterectomy February 2025 Significant Family History: no pertinent family hx - Female History Hx Last Menstrual Period: currently on Hx Now: No - Social History Smoking Status: Former smoker Exposure to second hand smoke: No Drug Use: none - Social Determinants of Health Will the patient participate in the screening: Declined to provide - Nursing Vital Signs Nursing Vital Signs: Initial Vital Signs Temperature 97.7 F 08/05/25 13:59 Pulse Rate 88 08/05/25 13:59 Respiratory Rate 16 08/05/25 13:59 Blood Pressure 121/70 08/05/25 13:59 O2 Sat by Pulse Oximetry 99 08/05/25 13:59 Pain Scale Pain Intensity 10 - Physical Exam General Appearance: no apparent distress, alert, anxiety Eyes, Ears, Nose, Throat Exam: normal ENT inspection, moist mucous membranes Neck Exam: normal inspection, non-tender, supple, full range of motion Cardiovascular/Respiratory Exam: chest non-tender, normal breath sounds, regular rate/rhythm, heart sounds normal, no respiratory distress Abdominal Exam: non-tender Back Exam: normal inspection, normal range of motion, No CVA tenderness, No vertebral tenderness Shoulder Exam: normal inspection, non-tender, no evidence of injury, normal ROM Elbow/Forearm Exam: no evidence of injury, normal ROM, swelling (+/- Inner aspect swelling right forearm) Wrist Exam: normal inspection, non-tender, no evidence of injury, normal ROM Hand Exam: normal inspection, non-tender, no evidence of injury, normal ROM Neuro/Tendon Exam: normal sensation, normal motor functions, normal tendon functions, responds to pain, no evidence tendon injury Mental Status Exam: alert, oriented x 3, cooperative Skin Exam: normal color, warm, dry SpO2 Interpretation: normal SpO2: 99 O2 Delivery: Room Air - Course Nursing assessment & vital signs reviewed: Yes Ordered Tests: Active Orders 24 hr Category Date Time Status VENOUS UNILAT/LIMITED EXTREMIT [US] Stat Exams 08/05/25 14:17 Taken - Progress Progress: unchanged, pain not gone completely, re-examined Progress Note: 08/05/25 16:00 My medical decision making and the assignment of low to moderate complexity of this patient's medical issue today is based on review of the patient's past medical history, reviewed the patient's medication list, reviewed patient drug allergy list, history present illness and physical findings on examination. The workup in this patient includes venous Doppler of right upper extremity to evaluate for DVT. Differential diagnosis includes but is not limited to DVT right upper extremity, muscle skeletal pain right upper extremity, muscle spasm right upper extremity 08/05/25 16:15 The venous Doppler of the right upper extremity preliminary report was provided to me by the gas well pumper/technologist. She stated that the brachial vein does have a DVT present that was not present in the comparison March 2025 venous Doppler. The final report is pending. Counseled pt/family regarding: diagnosis, need for follow-up, rad results Medical Desision Making - Diagnostic Testing Diagnostic test were ordered, analyzed, and reviewed by me: Yes Radiological Interpretation: Other (Report provided to me from the gas well pumper/technologist) - Risk of complications Low Risk: Low risk of morbidity from additional dx testing or treatment - Departure Departure Disposition: Home Clinical Impression: Brachial vein thrombosis, right Condition: Stable Critical Care Time: No Referrals: SAURABH HA DO [[facility] Care Provider, [facility]] - Follow up/PCP as directed Additional Instructions: Continue your Xarelto and other medications as prescribed. Use your prescription pain medicine for pain control. Call your provider who is controlling your Xarelto and DVT/PE care tomorrow morning, 08/06/2025, to make them aware of the new finding and tube provide you with recommendations and management instructions.
[2025-08-05] MEDS ORDERED: ENOXAPARIN SODIUM SQ ONE ×2 (16:25→16:28)
[2025-08-05] MEDS: ENOXAPARIN SODIUM SQ ONE (16:41)
--- NOTE | 2025-08-05 16:48 | XRAY ---
Indication: Right upper extremity swelling. Two-dimensional sonogram and color imaging major venous vessels right upper extremity performed. Comparison: March 24, 2025 New occluding thrombus in distal brachial vein. Previous occluding right jugular vein thrombus has cleared. Remaining subclavian, axillary, basilic, cephalic, radial, and ulnar veins are negative for thrombus. Patent veins demonstrate normal compressibility and normal venous waveforms. Impression: New occluding thrombus in distal brachial vein.
== END 2025-08-05 16:55 | disposition home or self-care (01) ==
LOC: ED 13:40
DX: I82.621 Acute embolism and thrombosis of deep veins of right upper extremity (principal); I11.0 Hypertensive heart disease with heart failure; I50.9 Heart failure, unspecified; E11.9 Type 2 diabetes mellitus without complications; Z79.01 Long term (current) use of anticoagulants; Z79.891 Long term (current) use of opiate analgesic; Z79.84 Long term (current) use of oral hypoglycemic drugs; Z79.899 Other long term (current) drug therapy

== ENCOUNTER 2025-08-22 20:11 | Emergency (ER) | payer MEDICARE ==
[2025-08-22 20:36] VITALS: RESP 16; TEMP 95.9
[2025-08-22] MEDS ORDERED: Zofran 4 MG/2 ML VIAL ONE (20:44)
--- NOTE | 2025-08-22 20:51 | ERPHSYRPT ---
- History of Present Illness Time Seen by Provider: 08/22/25 20:40 Source: patient Exam Limitations: no limitations Patient Subjective Stated Complaint: pt states that she had chemo 2 days ago and has not felt good since Triage Nursing Assessment: pt ambulated into the er; pt is axo x4; c/o "not feeling well"; pt states 10/10 generalize pain; skin PDW; no respiratory distress present; mucus membrane pink and moist; vitals wnl Physician History: This is a 40-year-old white female patient who arrives for private vehicle and is a patient of Dr. Naqvi who "just is not feeling well". She is concerned she may be dehydrated. Patient was diagnosed with a urinary tract infection today and was started on Macrodantin. In addition, she received chemotherapy for treatment of breast cancer 2 days ago. Her treatment prior to that was 6 weeks ago. Patient states that she has not been on any type of narcotics for the last 2 weeks. Patient denies chest pain. Patient denies shortness of breath. Patient has not vomited. She has no diarrhea symptoms. She has no abdominal pain. Patient has multiple medical issues including irritable bowel syndrome, pulmonary embolus and DVT (Xarelto), asthma, depression, anxiety, coronary disease, CHF, gastroesophageal reflux disease, hyperlipidemia, CVA and seizures. Patient states that she is able to take fentanyl intravenously without adverse effects. Timing/Duration: today, worse Severity: mild (To moderate) Modifying Factors: Improves With: nothing Associated Symptoms: nausea, loss of appetite, malaise, weakness, No fever Allergies/Adverse Reactions: hydromorphone HCl [From Dilaudid] Allergy (Severe, Verified 08/22/25 20:20) terbutaline sulfate [From Brethine] Allergy (Severe, Verified 08/22/25 20:20) morphine Adverse Reaction (Intermediate, Verified 08/22/25 20:20) Vomiting Home Medications: Aspirin 81 mg PO DAILY 11/04/16 [History] Ondansetron ODT 4 MG [Zofran Odt 4 mg] 4 mg PO Q6HPRN PRN 06/04/23 [History] PANTOPRAZOLE 40 mg Tablet [Protonix 40MG Tablet] 40 mg PO QAM 06/04/23 [History] Alprazolam [Xanax] 0.5 mg PO BIDPRN PRN 10/04/23 [History] Atorvastatin Calcium 80 mg PO DAILY 11/28/23 [History] Gabapentin 300 mg PO TID 11/28/23 [History] Metoprolol Succinate 25 mg PO DAILY 11/28/23 [History] Dapagliflozin Propanediol [Farxiga] 10 mg PO DAILY 05/14/25 [History] Exemestane [Aromasin] 25 mg PO DAILY 05/14/25 [History] Loratadine 10 mg [Claritin 10 mg] 10 mg PO DAILY 05/14/25 [History] Oxycodone / APAP 10/325 mg [Oxycodone-Acetaminophen 10-325] 1 tab PO QID PRN 05/14/25 [History] Apixaban [Eliquis] 5 mg PO BID 08/22/25 [History] Insulin Lispro [Insulin Lispro Kwikpen U-100] 4 unit SQ AC 08/22/25 [History] Nitrofurantoin Macro 100 mg [Macrobid 100MG Capsule] 100 mg PO BID 08/22/25 [History] Hx Tetanus, Diphtheria Vaccination/Date Given: Yes Hx Influenza Vaccination/Date Given: No Hx Pneumococcal Vaccination/Date Given: No Travel Risk - International Travel Have you traveled outside of the country in past 3 weeks: No - Emerging Infectious Disease Are you exhibiting symptoms associated with any current EIDs: No Symptoms: Vomitting Comment: Finished radiation treatments 2 weeks ago and started her chemotherapy 2 days ago. - Review of Systems Constitutional: Malaise, Weakness Eyes: No Symptoms Ears, Nose, & Throat: No Symptoms Respiratory: No Symptoms Cardiac: No Symptoms Abdominal/Gastrointestinal: Nausea, Appetite Changes, No Abdominal Pain, No Vomiting, No Diarrhea Genitourinary Symptoms: No Symptoms Musculoskeletal: No Symptoms Skin: No Symptoms Neurological: No Symptoms Psychological: No Symptoms Endocrine: No Symptoms Hematologic/Lymphatic: No Symptoms Immunological/Allergic: No Symptoms All Other Systems: Reviewed and Negative - Past Medical History Pertinent Past Medical History: Yes Neurological History: Epilepsy, Migraines, Seizures, Stroke ENT History: Other Cardiac History: Angina, Congestive Heart Failure, Coronary Artery Disease, Deep Vein Thrombosis, High Cholesterol, Hypertension, Myocardial Infarction ([place]), Other Respiratory History: Asthma, Pulmonary Embolism Endocrine Medical History: Diabetes Type II, Liver Disease Musculoskeletal History: Fractures, Osteoporosis GI Medical History: Colitis, GERD, Gallbladder Disease, Hemorrhoids, Irritable Bowel History: Kidney Cancer, Renal Disease Psycho-Social History: Anxiety, Depression, Panic Disorder Female Reproductive Disorders: Breast Cancer, Other Other Medical History: kidney cancer at age 18 months, bilat wrist fracture and leg, Right breast midline CA (BRCA 2 positive), anemia, Patient at [facility] ([phone]) - Past Surgical History Past Surgical History: Yes Neuro Surgical History: No Pertinent History Cardiac: No Pertinent History Respiratory: No Pertinent History Gastrointestinal: Cholecystectomy Genitourinary: Kidney Surgery Musculoskeletal: No Pertinent History Female Surgical History: Hysterectomy, Section, Tubal Ligation, Mastectomy Other Surgical History: left kidney removal, wilms tumor, Double MASTECTIOMY OCT 2024, total hysterectomy February 2025 Significant Family History: no pertinent family hx - Female History Hx Last Menstrual Period: currently on Hx Now: No - Social History Smoking Status: Former smoker Exposure to second hand smoke: No Drug Use: none - Social Determinants of Health Will the patient participate in the screening: Declined to provide - Nursing Vital Signs Nursing Vital Signs: Initial Vital Signs Pulse Rate 82 08/22/25 20:30 Blood Pressure 129/85 08/22/25 20:30 O2 Sat by Pulse Oximetry 97 08/22/25 20:30 Pain Scale Pain Intensity 8 - Physical Exam General Appearance: no apparent distress, alert, anxiety Eye Exam: PERRL/EOMI, eyes nml inspection Ears, Nose, Throat Exam: normal ENT inspection, moist mucous membranes Neck Exam: normal inspection, non-tender, supple, full range of motion Respiratory Exam: normal breath sounds, lungs clear, airway intact, No chest tenderness, No respiratory distress Cardiovascular Exam: regular rate/rhythm, normal heart sounds, normal peripheral pulses Gastrointestinal/Abdomen Exam: soft, normal bowel sounds, No tenderness Pelvic Exam: not done Rectal Exam: not done Back Exam: normal inspection, normal range of motion, No CVA tenderness, No vertebral tenderness Extremity Exam: normal inspection, normal range of motion, pelvis stable Neurologic Exam: alert, oriented x 3, cooperative, field service rep II-XII nml as tested, nml cerebellar function, nml station & gait, sensation nml Skin Exam: normal color, warm, dry Lymphatic Exam: No adenopathy SpO2 Interpretation: normal SpO2: 97 O2 Delivery: Room Air - Course Nursing assessment & vital signs reviewed: Yes Ordered Tests: Active Orders 24 hr Category Date Time Status IV Insertion STAT Care 08/22/25 20:41 Active Pulse Oximetry (ED) STAT Care 08/22/25 20:41 Active BLOOD CULTURE Stat Lab 08/22/25 21:08 Received CBC W DIFF Stat Lab 08/22/25 21:00 Completed CMP Stat Lab 08/22/25 21:00 Completed CULTURE,URINE Stat Lab 08/22/25 20:59 Received MAGNESIUM Stat Lab 08/22/25 21:00 Completed UA W/RFX UR CULTURE Stat Lab 08/22/25 20:59 Completed Medication Summary Generic Name Dose Route Start Last Admin Trade Name Freq PRN Reason Stop Dose Admin Ceftriaxone Sodium 1 gm in 100 mls @ 200 mls/hr 08/22/25 21:39 08/22/25 21:43 Rocephin 1 Gm / 100 Ml Nacl IV 08/22/25 22:08 200 mls/hr STAT ONE 200 mls/hr Administration Discontinued Medications Generic Name Dose Route Start Last Admin Trade Name Freq PRN Reason Stop Dose Admin Fentanyl Citrate 50 mcg 08/22/25 20:51 08/22/25 21:04 Fentanyl Citrate 100 Mcg/2 Ml* Vial IV 08/22/25 20:52 50 mcg STAT ONE Administration Fentanyl Citrate Confirm 08/22/25 20:56 Fentanyl Citrate 100 Mcg/2 Ml* Vial Administered 08/22/25 20:57 Dose 100 mcg .ROUTE .STK-MED ONE Sodium Chloride 1,000 mls @ 999 mls/hr 08/22/25 20:41 08/22/25 21:00 Sodium Chloride 0.9% 1000 Ml IV 08/22/25 21:41 999 mls/hr .Q1H1M STA Administration Sodium Chloride Confirm 08/22/25 20:44 Sodium Chloride 0.9% 1000 Ml Administered 08/22/25 20:45 Dose 1,000 mls @ ud .ROUTE .STK-MED ONE Ceftriaxone Sodium Confirm 08/22/25 21:42 Rocephin 1 Gm / 100 Ml Nacl Administered 08/22/25 21:43 Dose 1 gm in 100 mls @ ud IV .STK-MED ONE Ondansetron HCl 4 mg 08/22/25 20:42 08/22/25 21:04 Ondansetron Hcl 4 Mg/2 Ml Vial IV 08/22/25 20:43 4 mg STAT ONE Administration Ondansetron HCl Confirm 08/22/25 20:44 Ondansetron Hcl 4 Mg/2 Ml Vial Administered 08/22/25 20:45 Dose 4 mg .ROUTE .STK-MED ONE Lab/Rad Data: Laboratory Result Diagrams 08/22/25 21:00 08/22/25 21:00 Laboratory Results 08/22/25 08/22/25 08/22/25 Range/Units 21:00 21:00 20:59 WBC 8.6 (3.98-10.04) x10^3/uL RBC 4.45 (3.93-5.22) x10^6/uL Hgb 12.4 (11.2-15.7) g/dL Hct 40.1 (34.1-44.9) % MCV 90.1 (79.4-94.8) fL MCH 27.9 (25.6-32.2) pg MCHC 30.9 L (32.2-35.5) g/dL RDW 15.7 H (11.7-14.4) % Plt Count 261 (182-369) x10^3/uL MPV 10.5 (9.4-12.3) fL Gran % 62.0 (34.0-71.1) % Immature Gran % (Auto) 0.5 H (0.001-0.429) % Nucleat RBC Rel Count 0.0 (0.00-0.2) % Eos # (Auto) 0.03 L (0.04-0.36) x10^3/uL Immature Gran # (Auto) 0.04 H (0.001-0.031) x10^3u/L Absolute Lymphs (auto) 2.49 (1.18-3.74) x10^3/uL Absolute Monos (auto) 0.71 (0.24-0.86) x10^3/uL Absolute Nucleated RBC 0.00 (0.00-0.012) x10^3u/L Lymphocytes % 28.8 (19.3-51.7) % Monocytes % 8.2 (4.7-12.5) % Eosinophils % 0.3 L (0.7-5.8) % Basophils % 0.2 (0.1-1.2) % Absolute Granulocytes 5.35 (1.56-6.13) x10^3/uL Basophils # 0.02 (0.01-0.08) x10^3/uL Sodium 141 (135-145) mmol/L Potassium 3.6 (3.5-5.1) mmol/L Chloride 110 H (98-107) mmol/L Carbon Dioxide 22 (22-30) mmol/L Anion Gap 11.9 (5-15) MEQ/L BUN 27 H (7-17) mg/dL Creatinine 0.96 (0.52-1.04) mg/dL Estimated GFR 77.2 ML/MIN Glucose 120 H (74-106) mg/dL Calcium 10.0 (8.4-10.2) mg/dL Magnesium 2.1 (1.6-2.3) mg/dL Total Bilirubin 0.10 L (0.2-1.3) mg/dL AST 42 H (14-36) U/L ALT 33 (0-35) U/L Alkaline Phosphatase 275 H (38-126) U/L Serum Total Protein 7.0 (6.3-8.2) g/dL Albumin 4.2 (3.5-5.0) g/dL Urine Color Yellow (Yellow) Urine Appearance Cloudy A (Clear) Urine pH 5.5 (4.6-8.0) Ur Specific [place] >=1.030 A (1.005-1.030) Urine Protein Negative (Negative) Urine Glucose (UA) >=1000 A (Negative) mg/dL Urine Ketones Negative (Negative) Urine Blood Negative (Negative) Urine Nitrite Negative (Negative) Urine Bilirubin Negative (Negative) Urine Urobilinogen 1.0 A (0.2) mg/dL Ur Leukocyte Esterase Moderate A (Negative) U Hyaline Cast (Auto) NONE SEEN (0-2) /LPF Urine Microscopic RBC 3-5 (0-5) /HPF Urine Microscopic WBC >100 A (0-5) /HPF Ur Epithelial Cells Moderate A (None Seen) /HPF Urine Bacteria Few A (None Seen) /HPF Urine Culture Reflexed YES (NO) - Progress Progress: improved Progress Note: 08/22/25 20:49 My medical decision making and the assignment of moderate complexity of this patient's medical issue today is based on review of the patient's past medical history, reviewed patient's medication list, reviewed the patient drug allergy list, history of present illness and physical findings on examination. The workup in this patient clues placement of an intravenous line, infusion of normal saline solution, infusion of IV narcotics, infusion of antiemetic, CBC, CMP, magnesium level, urinalysis. Differential diagnosis includes but is not limited to dehydration, urinary tract infection, electrolyte abnormalities, 08/22/25 21:58 I interpreted the patient's laboratory data results. Based on laboratory data results, the patient does have a significant urinary tract infection. There are no other acute, emergent medical issues based on the laboratory data results. We will provide the patient with intravenous Rocephin 1 g and change her outpatient antibiotics to Levaquin. Counseled pt/family regarding: lab results, diagnosis, need for follow-up Medical Desision Making - Diagnostic Testing Diagnostic test were ordered, analyzed, and reviewed by me: Yes - Risk of complications Low Risk: Low risk of morbidity from additional dx testing or treatment The pt has a mod risk of morbidity or mortality based on: Need for prescription drug management - Departure Departure Disposition: Home Clinical Impression: Urinary tract infection Condition: Stable Critical Care Time: No Referrals: SAURABH NAQVI DO [Primary Care Provider, [facility]] - Follow up/PCP as directed Additional Instructions: Stop your Macrodantin. Drink plenty of fluids. Take your new antibiotics and other medications as prescribed. Call your prescribing provider and oncologist on 08/25/2025, to make arrangements for a follow-up appointment and for further management and instructions. Prescriptions: Levofloxacin [Levaquin 500 MG Tablet] 500 mg PO DAILY #7 tablet
[2025-08-22] MEDS ORDERED: SUBLIMAZE 100 MCG/2 ML ONE ×2 (20:56→22:04)
[2025-08-22] MEDS: SUBLIMAZE 100 MCG/2 ML IV ONE ×2 (21:04→22:05)
[2025-08-22] MEDS: Zofran 4 MG/2 ML VIAL IV ONE (21:04)
[2025-08-22 21:14] LABS: BASOPHIL % 0.2 % (0.1-1.2); Basophil (Absolute #) 0.02 x10^3/uL (0.01-0.08); Eosinophil (Absolute #) 0.03 x10^3/uL (0.04-0.36); Hematocrit 40.1 % (34.1-44.9); Hemoglobin 12.4 g/dL (11.2-15.7); IMMATURE GRAN # 0.04 x10^3u/L (0.001-0.031); IMMATURE GRAN % 0.5 % (0.001-0.429); Lymphocyte (Absolute #) 2.49 x10^3/uL (1.18-3.74); Mean Corpuscular Hemoglobin 27.9 pg (25.6-32.2); Mean Corpuscular Hgb Concent. 30.9 g/dL (32.2-35.5); Monocyte (Absolute #) 0.71 x10^3/uL (0.24-0.86); NUCLEATED RBC # 0.00 x10^3u/L (0.00-0.012); NUCLEATED RBC % 0.0 % (0.00-0.2); Platelet Count 261 x10^3/uL (182-369); Red Blood Count 4.45 x10^6/uL (3.93-5.22); White Blood Count 8.6 x10^3/uL (3.98-10.04)
[2025-08-22 21:29] LABS: Calcium 10.0 mg/dL (8.4-10.2); Carbon Dioxide 22.0 mmol/L (22-30); Creatinine 1 0.96 mg/dL (0.52-1.04); EST GLOMERULAR FILTRATION RATE 77.2 ML/MIN; Glucose 120.0 mg/dL (74-106); Potassium 3.6 mmol/L (3.5-5.1); SGOT/AST 42.0 U/L (14-36); SGPT/ALT 33.0 U/L (0-35); Total Protein 7.0 g/dL (6.3-8.2)
[2025-08-22 21:35] LABS: Glucose, Urine >=1000 mg/dL (Negative); Protein,Urine Dip Negative (Negative); WBC >100 /HPF (0-5)
[2025-08-22 21:40] VITALS: O2SAT 97
[2025-08-22] MEDS ORDERED: ROCEPHIN 1 GM / 100 ML NaCl 1 GM/100 ML IVPB IV ONE (21:42)
[2025-08-22] MEDS: ROCEPHIN 1 GM / 100 ML NaCl 1 GM/100 ML IVPB IV ONE (21:43)
[2025-08-22 22:07] VITALS: BP 118/69; PULSE 67
== END 2025-08-22 22:20 | disposition home or self-care (01) ==
LOC: ED 20:11
DX: N39.0 Urinary tract infection, site not specified (principal); C50.919 Malignant neoplasm of unspecified site of unspecified female breast; E86.0 Dehydration

== ENCOUNTER 2025-09-05 12:31 | Emergency (ER) | payer MEDICARE ==
--- NOTE | 2025-09-05 12:37 | ERPHSYRPT ---
- History of Present Illness Time Seen by Provider: 09/05/25 12:36 Historian: patient, family Exam Limitations: no limitations Physician History: This is a 40-year-old white female patient who arrives by private vehicle accompanied by family/friend and is a patient of Dr. Naqvi with a complaint of sudden onset of chest pain at 9:00 this morning. She describes the pain as sharp located in her left chest and radiates into her left side of her neck. She called Dr. Naqvi office, her primary care provider who told her to come to the emergency department. However she did not arrive until 1230. She states that she had a court appearance that she had to be at. She has associated symptoms of tingling and numbness in bilateral hands and fingers. Patient has a history of irritable bowel syndrome, pulmonary embolism and DVT (Xarelto) asthma, coronary artery disease, CHF, gastroesophageal reflux disease, CVA, hyperlipidemia, seizure disorder and renal disease. In addition she has depression, anxiety and panic disorder. She started chemotherapy for breast cancer treatment 2 days ago after completing radiation therapy 2 weeks ago. Timing/Duration: today, sudden Activities at Onset: sleep Quality: sharpness Location: other (Left chest) Chest Pain Radiation: neck Severity of Pain-Max: moderate Severity of Pain-Current: moderate Modifying Factors: Improves With: nothing Associated Symptoms: other Prior Chest Pain/Cardiac Workup: cardiac cath Nitro Today/Relief: no nitro taken today Aspirin Treatment Today: 81 mg x 1 (Provided at home), 81 mg x 3, provided by ED Allergies/Adverse Reactions: hydromorphone HCl [From Dilaudid] Allergy (Severe, Verified 09/05/25 12:42) terbutaline sulfate [From Brethine] Allergy (Severe, Verified 09/05/25 12:42) morphine Adverse Reaction (Intermediate, Verified 09/05/25 12:42) Vomiting Home Medications: Aspirin 81 mg PO DAILY 11/04/16 [History] Ondansetron ODT 4 MG [Zofran Odt 4 mg] 4 mg PO Q6HPRN PRN 06/04/23 [History] PANTOPRAZOLE 40 mg Tablet [Protonix 40MG Tablet] 40 mg PO QAM 06/04/23 [History] Alprazolam [Xanax] 0.5 mg PO BIDPRN PRN 10/04/23 [History] Atorvastatin Calcium 80 mg PO DAILY 11/28/23 [History] Gabapentin 300 mg PO TID 11/28/23 [History] Metoprolol Succinate 25 mg PO DAILY 11/28/23 [History] Dapagliflozin Propanediol [Farxiga] 10 mg PO DAILY 05/14/25 [History] Exemestane [Aromasin] 25 mg PO DAILY 05/14/25 [History] Loratadine 10 mg [Claritin 10 mg] 10 mg PO DAILY 05/14/25 [History] Oxycodone / APAP 10/325 mg [Oxycodone-Acetaminophen 10-325] 1 tab PO QID PRN 05/14/25 [History] Apixaban [Eliquis] 5 mg PO BID 08/22/25 [History] Insulin Lispro [Insulin Lispro Kwikpen U-100] 4 unit SQ AC 08/22/25 [History] Hx Tetanus, Diphtheria Vaccination/Date Given: Yes Hx Influenza Vaccination/Date Given: No Hx Pneumococcal Vaccination/Date Given: No Travel Risk - International Travel Have you traveled outside of the country in past 3 weeks: No - Emerging Infectious Disease Are you exhibiting symptoms associated with any current EIDs: No Symptoms: Vomitting Comment: Finished radiation treatments 2 weeks ago and started her chemotherapy 2 days ago. - Review of Systems Constitutional: No Symptoms Eyes: No Symptoms Ears, Nose, & Throat: No Symptoms Respiratory: No Symptoms Cardiac: Chest Pain Abdominal/Gastrointestinal: No Symptoms Genitourinary Symptoms: No Symptoms Musculoskeletal: No Symptoms Skin: No Symptoms Neurological: No Symptoms Psychological: No Symptoms Endocrine: No Symptoms Hematologic/Lymphatic: No Symptoms Immunological/Allergic: No Symptoms All Other Systems: Reviewed and Negative - Past Medical History Pertinent Past Medical History: Yes Neurological History: Epilepsy, Migraines, Seizures, Stroke ENT History: Other Cardiac History: Angina, Congestive Heart Failure, Coronary Artery Disease, Deep Vein Thrombosis, High Cholesterol, Hypertension, Myocardial Infarction ([place]), Other Respiratory History: Asthma, Pulmonary Embolism Endocrine Medical History: Diabetes Type II, Liver Disease Musculoskeletal History: Fractures, Osteoporosis GI Medical History: Colitis, GERD, Gallbladder Disease, Hemorrhoids, Irritable Bowel History: Kidney Cancer, Renal Disease Psycho-Social History: Anxiety, Depression, Panic Disorder Female Reproductive Disorders: Breast Cancer, Other Other Medical History: kidney cancer at age 18 months, bilat wrist fracture and leg, Right breast midline CA (BRCA 2 positive), anemia, Patient at [facility] ([phone]) - Past Surgical History Past Surgical History: Yes Neuro Surgical History: No Pertinent History Cardiac: No Pertinent History Respiratory: No Pertinent History Gastrointestinal: Cholecystectomy Genitourinary: Kidney Surgery Musculoskeletal: No Pertinent History Female Surgical History: Hysterectomy, Section, Tubal Ligation, Mastectomy Other Surgical History: left kidney removal, wilms tumor, Double MASTECTIOMY OCT 2024, total hysterectomy February 2025 Significant Family History: no pertinent family hx - Female History Hx Last Menstrual Period: currently on - Social History Smoking Status: Former smoker Exposure to second hand smoke: No Drug Use: none - Social Determinants of Health Will the patient participate in the screening: Declined to provide - Nursing Vital Signs Nursing Vital Signs: Initial Vital Signs Pulse Rate 108 H 09/05/25 12:36 Respiratory Rate 10 L 09/05/25 12:36 Blood Pressure 127/81 09/05/25 12:36 O2 Sat by Pulse Oximetry 96 09/05/25 12:36 Pain Scale Pain Intensity 7 - Physical Exam General Appearance: mild distress, alert, anxiety Eye Exam: PERRL/EOMI, eyes nml inspection Ears, Nose, Throat Exam: normal ENT inspection, moist mucous membranes Neck Exam: normal inspection, non-tender, supple, full range of motion Respiratory Exam: normal breath sounds, chest tenderness (Left anterior chest), lungs clear, airway intact, No respiratory distress Cardiovascular Exam: normal heart sounds, normal peripheral pulses, tachycardia (Mild) Gastrointestinal/Abdomen Exam: soft, normal bowel sounds, No tenderness Pelvic Exam: not done Rectal Exam: not done Back Exam: normal inspection, normal range of motion, No CVA tenderness, No vertebral tenderness Extremity Exam: normal inspection, normal range of motion, pelvis stable Neurologic Exam: alert, oriented x 3, cooperative, templer head II-XII nml as tested, nml cerebellar function, nml station & gait, sensation nml Skin Exam: normal color, warm, dry Lymphatic Exam: No adenopathy SpO2 Interpretation: normal SpO2: 96 O2 Delivery: Room Air - Course Nursing assessment & vital signs reviewed: Yes EKG Interpreted by Me: RATE (118), Sinus Tach, LAFB, NORMAL INTERVALS, NORMAL QRS, Other (QTc is 443. No acute ischemia on today's twelve-lead EKG. No significant change from twelve-lead EKG dated 07/01/2025.) Ordered Tests: Active Orders 24 hr Category Date Time Status Hydroelectric Operator STAT Care 09/05/25 12:43 Completed EKG-ER Only STAT Care 09/05/25 12:42 Completed EKG-ER Only STAT Care 09/05/25 14:46 Completed IV Insertion STAT Care 09/05/25 12:42 Completed CHEST 1 VIEW (PORTABLE) Stat Exams 09/05/25 12:42 Completed CBC W DIFF Stat Lab 09/05/25 12:45 Completed CMP Stat Lab 09/05/25 12:45 Completed MAGNESIUM Stat Lab 09/05/25 12:45 Completed NT PRO BNPII Stat Lab 09/05/25 12:45 Completed TROPONIN Q4H Lab 09/05/25 12:45 Completed TROPONIN Q4H Lab 09/05/25 14:50 Completed Medication Summary Discontinued Medications Generic Name Dose Route Start Last Admin Trade Name Freq PRN Reason Stop Dose Admin Aspirin 324 mg 09/05/25 12:43 09/05/25 12:57 Aspirin 81 Mg Tab.Chew PO 09/05/25 12:44 Not Given STAT ONE Aspirin 162 mg 09/05/25 12:51 09/05/25 12:56 Aspirin 81 Mg Tab.Chew PO 09/05/25 12:52 Not Given STAT ONE Aspirin 243 mg 09/05/25 12:52 09/05/25 12:55 Aspirin 81 Mg Tab.Chew PO 09/05/25 12:53 243 mg STAT STA Administration Aspirin Confirm 09/05/25 12:54 Aspirin 81 Mg Tab.Chew Administered 09/05/25 12:55 Dose 243 mg .ROUTE .STK-MED ONE Fentanyl Citrate 50 mcg 09/05/25 12:57 09/05/25 13:08 Fentanyl Citrate 100 Mcg/2 Ml* Vial IV 09/05/25 12:58 50 mcg STAT ONE Administration Fentanyl Citrate Confirm 09/05/25 13:05 Fentanyl Citrate 100 Mcg/2 Ml* Vial Administered 09/05/25 13:06 Dose 100 mcg .ROUTE .STK-MED ONE Fentanyl Citrate 50 mcg 09/05/25 14:12 09/05/25 14:16 Fentanyl Citrate 100 Mcg/2 Ml* Vial IV 09/05/25 14:13 50 mcg STAT ONE Administration Fentanyl Citrate Confirm 09/05/25 14:14 Fentanyl Citrate 100 Mcg/2 Ml* Vial Administered 09/05/25 14:15 Dose 100 mcg .ROUTE .STK-MED ONE Heparin Sodium (Beef Lung) 500 units 09/05/25 15:44 09/05/25 15:47 Heparin Lock Flush Pf 500 Units/5 Ml Syringe PORT FLUSH 09/05/25 15:45 500 units PRN STA Administration Heparin Sodium (Beef Lung) Confirm 09/05/25 15:46 Heparin Lock Flush Pf 500 Units/5 Ml Syringe Administered 09/05/25 15:47 Dose 500 units .ROUTE .STK-MED ONE Ondansetron HCl 4 mg 09/05/25 12:57 09/05/25 13:07 Ondansetron Hcl 4 Mg/2 Ml Vial IV 09/05/25 12:58 4 mg STAT ONE Administration Ondansetron HCl Confirm 09/05/25 13:05 Ondansetron Hcl 4 Mg/2 Ml Vial Administered 09/05/25 13:06 Dose 4 mg .ROUTE .STK-MED ONE Lab/Rad Data: Laboratory Result Diagrams 09/05/25 12:45 09/05/25 12:45 Laboratory Results 09/05/25 09/05/25 09/05/25 Range/Units 14:50 12:45 12:45 WBC (3.98-10.04) x10^3/uL RBC (3.93-5.22) x10^6/uL Hgb (11.2-15.7) g/dL Hct (34.1-44.9) % MCV (79.4-94.8) fL MCH (25.6-32.2) pg MCHC (32.2-35.5) g/dL RDW (11.7-14.4) % Plt Count (182-369) x10^3/uL MPV (9.4-12.3) fL Gran % (34.0-71.1) % Immature Gran % (Auto) (0.001-0.429) % Nucleat RBC Rel Count (0.00-0.2) % Eos # (Auto) (0.04-0.36) x10^3/uL Immature Gran # (Auto) (0.001-0.031) x10^3u/L Absolute Lymphs (auto) (1.18-3.74) x10^3/uL Absolute Monos (auto) (0.24-0.86) x10^3/uL Absolute Nucleated RBC (0.00-0.012) x10^3u/L Lymphocytes % (19.3-51.7) % Monocytes % (4.7-12.5) % Eosinophils % (0.7-5.8) % Basophils % (0.1-1.2) % Absolute Granulocytes (1.56-6.13) x10^3/uL Basophils # (0.01-0.08) x10^3/uL Sodium 140 (135-145) mmol/L Potassium 4.0 (3.5-5.1) mmol/L Chloride 108 H (98-107) mmol/L Carbon Dioxide 26 (22-30) mmol/L Anion Gap 9.8 (5-15) MEQ/L BUN 13 (7-17) mg/dL Creatinine 0.88 (0.52-1.04) mg/dL Estimated GFR 85.7 ML/MIN Glucose 128 H (74-106) mg/dL Calcium 9.8 (8.4-10.2) mg/dL Magnesium 1.8 (1.6-2.3) mg/dL Total Bilirubin 0.20 (0.2-1.3) mg/dL AST 55 H (14-36) U/L ALT 68 H (0-35) U/L Alkaline Phosphatase 340 H (38-126) U/L Troponin I < 0.012 < 0.012 (0.000-0.033) ng/mL NT-Pro-B Natriuret Pep 189 (<300) pg/mL Serum Total Protein 6.2 L (6.3-8.2) g/dL Albumin 3.7 (3.5-5.0) g/dL 09/05/25 Range/Units 12:45 WBC 9.4 (3.98-10.04) x10^3/uL RBC 4.25 (3.93-5.22) x10^6/uL Hgb 12.0 (11.2-15.7) g/dL Hct 39.1 (34.1-44.9) % MCV 92.0 (79.4-94.8) fL MCH 28.2 (25.6-32.2) pg MCHC 30.7 L (32.2-35.5) g/dL RDW 18.5 H (11.7-14.4) % Plt Count 133 L (182-369) x10^3/uL MPV 9.8 (9.4-12.3) fL Gran % 62.2 (34.0-71.1) % Immature Gran % (Auto) 0.3 (0.001-0.429) % Nucleat RBC Rel Count 0.0 (0.00-0.2) % Eos # (Auto) 0.17 (0.04-0.36) x10^3/uL Immature Gran # (Auto) 0.03 (0.001-0.031) x10^3u/L Absolute Lymphs (auto) 2.38 (1.18-3.74) x10^3/uL Absolute Monos (auto) 0.93 H (0.24-0.86) x10^3/uL Absolute Nucleated RBC 0.00 (0.00-0.012) x10^3u/L Lymphocytes % 25.5 (19.3-51.7) % Monocytes % 9.9 (4.7-12.5) % Eosinophils % 1.8 (0.7-5.8) % Basophils % 0.3 (0.1-1.2) % Absolute Granulocytes 5.81 (1.56-6.13) x10^3/uL Basophils # 0.03 (0.01-0.08) x10^3/uL Sodium (135-145) mmol/L Potassium (3.5-5.1) mmol/L Chloride (98-107) mmol/L Carbon Dioxide (22-30) mmol/L Anion Gap (5-15) MEQ/L BUN (7-17) mg/dL Creatinine (0.52-1.04) mg/dL Estimated GFR ML/MIN Glucose (74-106) mg/dL Calcium (8.4-10.2) mg/dL Magnesium (1.6-2.3) mg/dL Total Bilirubin (0.2-1.3) mg/dL AST (14-36) U/L ALT (0-35) U/L Alkaline Phosphatase (38-126) U/L Troponin I (0.000-0.033) ng/mL NT-Pro-B Natriuret Pep (<300) pg/mL Serum Total Protein (6.3-8.2) g/dL Albumin (3.5-5.0) g/dL - Progress Progress: improved, re-examined Air Movement: good Progress Note: 09/05/25 13:04 My medical decision making and the assignment of moderate complexity of this patient's medical issue today is based on review of the patient's past medical history, review the patient's medication list, reviewed patient drug allergy list, present illness and physical findings on examination. The workup in this patient includes placement of an intravenous line, provide patient with baby aspirin, provide patient intravenous Zofran, intravenous fentanyl, CBC, CMP, BNP, troponin level, magnesium level, twelve-lead EKG and chest x-ray. Differential diagnosis includes but is not limited to panic disorder, muscle skeletal pain, electrolyte abnormalities, arrhythmia, myocardial infarction 09/05/25 14:56 I interpreted 12 lead EKG performed at 1453 on 09/05/25 HR 94 NSR LAFB normal QRS, normal axis deviation. Normal QRS. QTc 466. No acute ischemia. 09/05/25 15:25 I interpreted the patient's laboratory data results. Based on laboratory data results, there are no acute, emergent medical issues. We are awaiting the second troponin level before discharge. I interpreted the patient's preliminary chest x-ray report. I see no acute cardiopulmonary process. The radiologist interpreted the final chest x-ray report. There are no acute findings. Blood Culture(s) Obtained: No Antibiotics given: No Counseled pt/family regarding: lab results, diagnosis, need for follow-up, rad results Medical Desision Making - Independent Historian Additional History obtained from: Family - Diagnostic Testing Diagnostic test were ordered, analyzed, and reviewed by me: Yes Radiological Interpretation: Interpreted by me, Reviewed by me - Risk of complications Low Risk: Low risk of morbidity from additional dx testing or treatment - Departure Departure Disposition: Home Clinical Impression: Nonspecific chest pain Condition: Stable Critical Care Time: No Referrals: SAURABH NAQVI DO [Primary Care Provider, [facility]] - Follow up/PCP as directed Instructions: Chest pain in adults - ED discharge instructions Additional Instructions: Call your rug frame mounter and primary care provider today, 09/05/2025, to make arrangements for follow-up appointment to be seen in the next 5 to 7 days. Continue your other medications as prescribed
[2025-09-05 12:46] VITALS: TEMP 100
[2025-09-05 12:54] LABS: BASOPHIL % 0.3 % (0.1-1.2); Basophil (Absolute #) 0.03 x10^3/uL (0.01-0.08); Eosinophil (Absolute #) 0.17 x10^3/uL (0.04-0.36); Hematocrit 39.1 % (34.1-44.9); Hemoglobin 12.0 g/dL (11.2-15.7); IMMATURE GRAN # 0.03 x10^3u/L (0.001-0.031); IMMATURE GRAN % 0.3 % (0.001-0.429); Lymphocyte (Absolute #) 2.38 x10^3/uL (1.18-3.74); Mean Corpuscular Hemoglobin 28.2 pg (25.6-32.2); Mean Corpuscular Hgb Concent. 30.7 g/dL (32.2-35.5); Monocyte (Absolute #) 0.93 x10^3/uL (0.24-0.86); NUCLEATED RBC # 0.00 x10^3u/L (0.00-0.012); NUCLEATED RBC % 0.0 % (0.00-0.2); Platelet Count 133 x10^3/uL (182-369); Red Blood Count 4.25 x10^6/uL (3.93-5.22); White Blood Count 9.4 x10^3/uL (3.98-10.04)
[2025-09-05] MEDS ORDERED: BABY ASPIRIN 81 MG CHEW ONE (12:54)
[2025-09-05] MEDS: BABY ASPIRIN 81 MG CHEW PO STA (12:55)
[2025-09-05] MEDS: BABY ASPIRIN 81 MG CHEW PO ONE ×2 (12:56→12:57)
[2025-09-05] MEDS ORDERED: SUBLIMAZE 100 MCG/2 ML ONE ×2 (13:05→14:14)
[2025-09-05] MEDS ORDERED: Zofran 4 MG/2 ML VIAL ONE (13:05)
--- NOTE | 2025-09-05 13:06 | XRAY ---
Indication: Chest pain. Comparison: February 09, 2025 Portable chest remains inflated and clear. Heart not enlarged again with right Port-A-Cath. Bony thorax intact again with minimal levoscoliosis and bilateral mastectomy. Impression: Continued nonacute chest with chronic features.
[2025-09-05] MEDS: Zofran 4 MG/2 ML VIAL IV ONE (13:07)
[2025-09-05] MEDS: SUBLIMAZE 100 MCG/2 ML IV ONE ×2 (13:08→14:16)
[2025-09-05 13:17] LABS: NT PRO BNPII 189.0 pg/mL (<300)
[2025-09-05 13:27] LABS: Calcium 9.8 mg/dL (8.4-10.2); Carbon Dioxide 26.0 mmol/L (22-30); Creatinine 1 0.88 mg/dL (0.52-1.04); EST GLOMERULAR FILTRATION RATE 85.7 ML/MIN; Glucose 128.0 mg/dL (74-106); Potassium 4.0 mmol/L (3.5-5.1); SGOT/AST 55.0 U/L (14-36); SGPT/ALT 68.0 U/L (0-35); Total Protein 6.2 g/dL (6.3-8.2)
[2025-09-05 15:14] VITALS: BP 98/58; PULSE 92; RESP 15; O2SAT 96
== END 2025-09-05 15:56 | disposition home or self-care (01) ==
LOC: ED 12:31
DX: R07.9 Chest pain, unspecified (principal); R20.2 Paresthesia of skin; I11.0 Hypertensive heart disease with heart failure; I50.9 Heart failure, unspecified; E11.9 Type 2 diabetes mellitus without complications; Z79.01 Long term (current) use of anticoagulants; Z79.4 Long term (current) use of insulin; Z79.899 Other long term (current) drug therapy

== ENCOUNTER 2025-09-16 13:22 | Emergency (ER) | payer MEDICARE ==
[2025-09-16 13:36] VITALS: TEMP 98.4
--- NOTE | 2025-09-16 13:40 | ERPHSYRPT ---
- History of Present Illness Time Seen by Provider: 09/16/25 13:38 Historian: patient Exam Limitations: no limitations Patient Subjective Stated Complaint: patient states her heart rate went really low today and shes started hving chest pain and shortness of breath Triage Nursing Assessment: patient came in today she said her heart rate went really low when she was laying in the bed, she just had chemo yesterday. patiemt said it happened like this last time she had her treatment as well. she says oncologist is aware. patient is alert and orientedx3, brought in by her when she started having the chest pain and shortness of breath. Physician History: 40-year-old female history of seizures diabetes, ND, CHF, hypertension hyperlipidemia DVT presents to our ED for evaluation of chest pain and shortness of breath. Symptoms started prior to arrival. Patient reports that she had chemotherapy yesterday for breast cancer. Patient's symptoms are mild to moderate in intensity. No specific worsening or improving factors. Patient voices no other complaints or concerns at this time. Portions of this note were created with voice recognition technology. There may be grammatical, spelling, punctuation or sound alike errors Timing/Duration: today Activities at Onset: none Quality: sharpness Location: substernal Chest Pain Radiation: no radiation Severity of Pain-Max: moderate Severity of Pain-Current: mild Modifying Factors: Improves With: nothing Associated Symptoms: shortness of breath Prior Chest Pain/Cardiac Workup: heart attack Nitro Today/Relief: no nitro taken today Aspirin Treatment Today: no aspirin today Allergies/Adverse Reactions: hydromorphone HCl [From Dilaudid] Allergy (Severe, Verified 09/05/25 12:42) terbutaline sulfate [From Brethine] Allergy (Severe, Verified 09/05/25 12:42) morphine Adverse Reaction (Intermediate, Verified 09/05/25 12:42) Vomiting Home Medications: Aspirin 81 mg PO DAILY 11/04/16 [History] Ondansetron ODT 4 MG [Zofran Odt 4 mg] 4 mg PO Q6HPRN PRN 06/04/23 [History] PANTOPRAZOLE 40 mg Tablet [Protonix 40MG Tablet] 40 mg PO QAM 06/04/23 [History] Alprazolam [Xanax] 0.5 mg PO BIDPRN PRN 10/04/23 [History] Atorvastatin Calcium 80 mg PO DAILY 11/28/23 [History] Gabapentin 300 mg PO TID 11/28/23 [History] Metoprolol Succinate 25 mg PO DAILY 11/28/23 [History] Dapagliflozin Propanediol [Farxiga] 10 mg PO DAILY 05/14/25 [History] Exemestane [Aromasin] 25 mg PO DAILY 05/14/25 [History] Loratadine 10 mg [Claritin 10 mg] 10 mg PO DAILY 05/14/25 [History] Oxycodone / APAP 10/325 mg [Oxycodone-Acetaminophen 10-325] 1 tab PO QID PRN 05/14/25 [History] Apixaban [Eliquis] 5 mg PO BID 08/22/25 [History] Insulin Lispro [Insulin Lispro Kwikpen U-100] 4 unit SQ AC 08/22/25 [History] Hx Tetanus, Diphtheria Vaccination/Date Given: Yes Hx Influenza Vaccination/Date Given: No Hx Pneumococcal Vaccination/Date Given: No Immunizations Up to Date: Yes Travel Risk - International Travel Have you traveled outside of the country in past 3 weeks: No - Emerging Infectious Disease Are you exhibiting symptoms associated with any current EIDs: No Symptoms: Vomitting Comment: Finished radiation treatments 2 weeks ago and started her chemotherapy 2 days ago. - Review of Systems All Other Systems: Reviewed and Negative - Past Medical History Pertinent Past Medical History: Yes Neurological History: Epilepsy, Migraines, Seizures, Stroke ENT History: Other Cardiac History: Angina, Congestive Heart Failure, Coronary Artery Disease, Deep Vein Thrombosis, High Cholesterol, Hypertension, Myocardial Infarction (ND), Other Respiratory History: Asthma, Pulmonary Embolism Endocrine Medical History: Diabetes Type II, Liver Disease Musculoskeletal History: Fractures, Osteoporosis GI Medical History: Colitis, GERD, Gallbladder Disease, Hemorrhoids, Irritable Bowel History: Kidney Cancer, Renal Disease Psycho-Social History: Anxiety, Depression, Panic Disorder Female Reproductive Disorders: Breast Cancer, Other Other Medical History: kidney cancer at age 18 months, bilat wrist fracture and leg, Right breast midline CA (BRCA 2 positive), anemia, Patient at [facility] ([phone]) - Past Surgical History Past Surgical History: Yes Neuro Surgical History: No Pertinent History Cardiac: No Pertinent History Respiratory: No Pertinent History Gastrointestinal: Cholecystectomy Genitourinary: Kidney Surgery Musculoskeletal: No Pertinent History Female Surgical History: Hysterectomy, Section, Tubal Ligation, Mastectomy Other Surgical History: left kidney removal, wilms tumor, Double MASTECTIOMY OCT 2024, total hysterectomy February 2025 Significant Family History: no pertinent family hx - Female History Hx Last Menstrual Period: currently on Hx Now: No - Social History Smoking Status: Former smoker Exposure to second hand smoke: No Drug Use: none - Social Determinants of Health Will the patient participate in the screening: Yes Do you worry about a steady place to live?: No Do you have any problems with any of the following?: No known problems In the past 12 months,have you had to go without utilities?: No Transportation Issues: No Has anyone in your support network made you feel unsafe?: No Have you or anyone in your house had to go w/o enough food: No - Nursing Vital Signs Nursing Vital Signs: Initial Vital Signs Temperature 98.4 F 09/16/25 13:22 Pulse Rate 74 09/16/25 13:22 Respiratory Rate 18 09/16/25 13:22 Blood Pressure 127/92 09/16/25 13:22 O2 Sat by Pulse Oximetry 98 09/16/25 13:22 Pain Scale Pain Intensity 2 - Physical Exam General Appearance: no apparent distress, alert Eye Exam: PERRL/EOMI, eyes nml inspection Ears, Nose, Throat Exam: normal ENT inspection, moist mucous membranes Neck Exam: normal inspection, non-tender, supple, full range of motion Respiratory Exam: normal breath sounds, lungs clear, airway intact, No respiratory distress Cardiovascular Exam: regular rate/rhythm, normal heart sounds Gastrointestinal/Abdomen Exam: soft, No tenderness, No mass Back Exam: normal inspection, No CVA tenderness, No vertebral tenderness Extremity Exam: normal inspection, normal range of motion Neurologic Exam: alert, oriented x 3, cooperative, normal mood/affect, sensation nml, No motor deficits Skin Exam: normal color, warm, dry SpO2 Interpretation: normal SpO2: 100 O2 Delivery: Room Air - Course Nursing assessment & vital signs reviewed: Yes EKG Interpreted by Me: RATE (63), Sinus Rhythm, NORMAL AXIS, NORMAL INTERVALS, NORMAL QRS - Radiology Exams Chest X-ray Interpretation: Teleradiologist Report (No new or acute findings) Ordered Tests: Active Orders 24 hr Category Date Time Status Diesel Engine Inspector STAT Care 09/16/25 13:41 Active EKG-ER Only STAT Care 09/16/25 13:40 Active IV Insertion STAT Care 09/16/25 13:40 Active Pulse Oximetry (ED) STAT Care 09/16/25 13:40 Active CHEST 1 VIEW (PORTABLE) Stat Exams 09/16/25 13:41 Completed CBC W DIFF Stat Lab 09/16/25 13:55 Completed CMP Stat Lab 09/16/25 13:55 Completed CULTURE,URINE Stat Lab 09/16/25 14:32 Received D-DIMER QUANTITATIVE Stat Lab 09/16/25 13:55 Completed NT PRO BNPII Stat Lab 09/16/25 13:55 Completed TROPONIN Q4H Lab 09/16/25 13:55 Completed TROPONIN Q4H Lab 09/16/25 15:00 Completed TROPONIN Q4H Lab 09/16/25 21:37 Completed UA W/RFX UR CULTURE Stat Lab 09/16/25 14:32 Completed Medication Summary Discontinued Medications Generic Name Dose Route Start Last Admin Trade Name Juan Aq PRN Reason Stop Dose Admin Aspirin 324 mg 09/16/25 13:45 09/16/25 13:56 Aspirin 81 Mg Tab.Chew PO 09/16/25 13:46 324 mg STAT ONE Administration Aspirin Confirm 09/16/25 13:54 Aspirin 81 Mg Tab.Chew Administered 09/16/25 13:55 Dose 324 mg .ROUTE .STK-MED ONE Fentanyl Citrate 50 mcg 09/16/25 13:49 09/16/25 13:57 Fentanyl Citrate 100 Mcg/2 Ml* Vial IV 09/16/25 13:50 50 mcg STAT ONE Administration Fentanyl Citrate Confirm 09/16/25 13:55 Fentanyl Citrate 100 Mcg/2 Ml* Vial Administered 09/16/25 13:56 Dose 100 mcg .ROUTE .STK-MED ONE Fentanyl Citrate 50 mcg 09/16/25 16:23 09/16/25 16:28 Fentanyl Citrate 100 Mcg/2 Ml* Vial IV 09/16/25 16:24 50 mcg STAT ONE Administration Fentanyl Citrate Confirm 09/16/25 16:27 Fentanyl Citrate 100 Mcg/2 Ml* Vial Administered 09/16/25 16:28 Dose 100 mcg .ROUTE .STK-MED ONE Oxycodone/Acetaminophen 1 tab 09/16/25 19:20 09/16/25 19:25 Oxycodone / Apap 10/325 Mg 1 Tablet PO 09/16/25 19:21 1 tab STAT STA Administration Oxycodone/Acetaminophen Confirm 09/16/25 19:22 Oxycodone / Apap 10/325 Mg 1 Tablet Administered 09/16/25 19:23 Dose 1 tab .ROUTE .STK-MED ONE Lab/Rad Data: Laboratory Result Diagrams 09/16/25 13:55 09/16/25 13:55 Laboratory Results 09/16/25 09/16/25 09/16/25 Range/Units 21:37 15:00 14:32 WBC (3.98-10.04) x10^3/uL RBC (3.93-5.22) x10^6/uL Hgb (11.2-15.7) g/dL Hct (34.1-44.9) % MCV (79.4-94.8) fL MCH (25.6-32.2) pg MCHC (32.2-35.5) g/dL RDW (11.7-14.4) % Plt Count (182-369) x10^3/uL MPV (9.4-12.3) fL Gran % (34.0-71.1) % Immature Gran % (Auto) (0.001-0.429) % Nucleat RBC Rel Count (0.00-0.2) % Eos # (Auto) (0.04-0.36) x10^3/uL Immature Gran # (Auto) (0.001-0.031) x10^3u/L Absolute Lymphs (auto) (1.18-3.74) x10^3/uL Absolute Monos (auto) (0.24-0.86) x10^3/uL Absolute Nucleated RBC (0.00-0.012) x10^3u/L Lymphocytes % (19.3-51.7) % Monocytes % (4.7-12.5) % Eosinophils % (0.7-5.8) % Basophils % (0.1-1.2) % Absolute Granulocytes (1.56-6.13) x10^3/uL Basophils # (0.01-0.08) x10^3/uL D-Dimer (0.0-0.50) mg/L Sodium (135-145) mmol/L Potassium (3.5-5.1) mmol/L Chloride (98-107) mmol/L Carbon Dioxide (22-30) mmol/L Anion Gap (5-15) MEQ/L BUN (7-17) mg/dL Creatinine (0.52-1.04) mg/dL Estimated GFR ML/MIN Glucose (74-106) mg/dL Calcium (8.4-10.2) mg/dL Total Bilirubin (0.2-1.3) mg/dL AST (14-36) U/L ALT (0-35) U/L Alkaline Phosphatase (38-126) U/L Troponin I < 0.012 < 0.012 (0.000-0.033) ng/mL NT-Pro-B Natriuret Pep (<300) pg/mL Serum Total Protein (6.3-8.2) g/dL Albumin (3.5-5.0) g/dL Urine Color Yellow (Yellow) Urine Appearance Clear (Clear) Urine pH 6.5 (4.6-8.0) Ur Specific [place] 1.020 (1.005-1.030) Urine Protein Negative (Negative) Urine Glucose (UA) >=1000 A (Negative) mg/dL Urine Ketones Negative (Negative) Urine Blood Negative (Negative) Urine Nitrite Negative (Negative) Urine Bilirubin Negative (Negative) Urine Urobilinogen 0.2 (0.2) mg/dL Ur Leukocyte Esterase Negative (Negative) U Hyaline Cast (Auto) NONE SEEN (0-2) /LPF Urine Microscopic RBC 0-2 (0-5) /HPF Urine Microscopic WBC 0-2 (0-5) /HPF Ur Epithelial Cells None Seen (None Seen) /HPF Urine Bacteria Many A (None Seen) /HPF Urine Culture Reflexed YES (NO) 09/16/25 09/16/25 09/16/25 Range/Units 13:55 13:55 13:55 WBC (3.98-10.04) x10^3/uL RBC (3.93-5.22) x10^6/uL Hgb (11.2-15.7) g/dL Hct (34.1-44.9) % MCV (79.4-94.8) fL MCH (25.6-32.2) pg MCHC (32.2-35.5) g/dL RDW (11.7-14.4) % Plt Count (182-369) x10^3/uL MPV (9.4-12.3) fL Gran % (34.0-71.1) % Immature Gran % (Auto) (0.001-0.429) % Nucleat RBC Rel Count (0.00-0.2) % Eos # (Auto) (0.04-0.36) x10^3/uL Immature Gran # (Auto) (0.001-0.031) x10^3u/L Absolute Lymphs (auto) (1.18-3.74) x10^3/uL Absolute Monos (auto) (0.24-0.86) x10^3/uL Absolute Nucleated RBC (0.00-0.012) x10^3u/L Lymphocytes % (19.3-51.7) % Monocytes % (4.7-12.5) % Eosinophils % (0.7-5.8) % Basophils % (0.1-1.2) % Absolute Granulocytes (1.56-6.13) x10^3/uL Basophils # (0.01-0.08) x10^3/uL D-Dimer 0.43 (0.0-0.50) mg/L Sodium 141 (135-145) mmol/L Potassium 3.9 (3.5-5.1) mmol/L Chloride 110 H (98-107) mmol/L Carbon Dioxide 21 L (22-30) mmol/L Anion Gap 13.6 (5-15) MEQ/L BUN 16 (7-17) mg/dL Creatinine 0.66 (0.52-1.04) mg/dL Estimated GFR 114.4 ML/MIN Glucose 145 H (74-106) mg/dL Calcium 10.4 H (8.4-10.2) mg/dL Total Bilirubin 0.40 (0.2-1.3) mg/dL AST 57 H (14-36) U/L ALT 65 H (0-35) U/L Alkaline Phosphatase 310 H (38-126) U/L Troponin I < 0.012 (0.000-0.033) ng/mL NT-Pro-B Natriuret Pep 1060 (<300) pg/mL Serum Total Protein 6.5 (6.3-8.2) g/dL Albumin 4.1 (3.5-5.0) g/dL Urine Color (Yellow) Urine Appearance (Clear) Urine pH (4.6-8.0) Ur Specific [place] (1.005-1.030) Urine Protein (Negative) Urine Glucose (UA) (Negative) mg/dL Urine Ketones (Negative) Urine Blood (Negative) Urine Nitrite (Negative) Urine Bilirubin (Negative) Urine Urobilinogen (0.2) mg/dL Ur Leukocyte Esterase (Negative) U Hyaline Cast (Auto) (0-2) /LPF Urine Microscopic RBC (0-5) /HPF Urine Microscopic WBC (0-5) /HPF Ur Epithelial Cells (None Seen) /HPF Urine Bacteria (None Seen) /HPF Urine Culture Reflexed (NO) 09/16/25 Range/Units 13:55 WBC 10.0 (3.98-10.04) x10^3/uL RBC 4.58 (3.93-5.22) x10^6/uL Hgb 13.0 (11.2-15.7) g/dL Hct 41.8 (34.1-44.9) % MCV 91.3 (79.4-94.8) fL MCH 28.4 (25.6-32.2) pg MCHC 31.1 L (32.2-35.5) g/dL RDW 19.4 H (11.7-14.4) % Plt Count 193 (182-369) x10^3/uL MPV 11.4 (9.4-12.3) fL Gran % 71.9 H (34.0-71.1) % Immature Gran % (Auto) 0.7 H (0.001-0.429) % Nucleat RBC Rel Count 0.0 (0.00-0.2) % Eos # (Auto) 0 L (0.04-0.36) x10^3/uL Immature Gran # (Auto) 0.07 H (0.001-0.031) x10^3u/L Absolute Lymphs (auto) 2.17 (1.18-3.74) x10^3/uL Absolute Monos (auto) 0.56 (0.24-0.86) x10^3/uL Absolute Nucleated RBC 0.00 (0.00-0.012) x10^3u/L Lymphocytes % 21.6 (19.3-51.7) % Monocytes % 5.6 (4.7-12.5) % Eosinophils % 0.0 L (0.7-5.8) % Basophils % 0.2 (0.1-1.2) % Absolute Granulocytes 7.22 H (1.56-6.13) x10^3/uL Basophils # 0.02 (0.01-0.08) x10^3/uL D-Dimer (0.0-0.50) mg/L Sodium (135-145) mmol/L Potassium (3.5-5.1) mmol/L Chloride (98-107) mmol/L Carbon Dioxide (22-30) mmol/L Anion Gap (5-15) MEQ/L BUN (7-17) mg/dL Creatinine (0.52-1.04) mg/dL Estimated GFR ML/MIN Glucose (74-106) mg/dL Calcium (8.4-10.2) mg/dL Total Bilirubin (0.2-1.3) mg/dL AST (14-36) U/L ALT (0-35) U/L Alkaline Phosphatase (38-126) U/L Troponin I (0.000-0.033) ng/mL NT-Pro-B Natriuret Pep (<300) pg/mL Serum Total Protein (6.3-8.2) g/dL Albumin (3.5-5.0) g/dL Urine Color (Yellow) Urine Appearance (Clear) Urine pH (4.6-8.0) Ur Specific [place] (1.005-1.030) Urine Protein (Negative) Urine Glucose (UA) (Negative) mg/dL Urine Ketones (Negative) Urine Blood (Negative) Urine Nitrite (Negative) Urine Bilirubin (Negative) Urine Urobilinogen (0.2) mg/dL Ur Leukocyte Esterase (Negative) U Hyaline Cast (Auto) (0-2) /LPF Urine Microscopic RBC (0-5) /HPF Urine Microscopic WBC (0-5) /HPF Ur Epithelial Cells (None Seen) /HPF Urine Bacteria (None Seen) /HPF Urine Culture Reflexed (NO) - Progress Progress: improved Air Movement: good Progress Note: Case discussed with Murray VOGEL who advises transfer to [facility] ED to ED. I spoke to Dr. Gao at 6:05 PM. 09/16/25 18:[address] Astorga and hospitalist at [facility] who accepts transfer at 7:30 PM. 09/16/25 19:33 ann our patient's oncologist who accepts transfer. Spoke at 8:18 PM 09/16/25 20:19 40-year-old female history of seizures diabetes, ND, CHF, hypertension hyperlipidemia DVT presents to our ED for evaluation of chest pain and shortness of breath. Symptoms started prior to arrival History obtained from patient Differential diagnosis includes ACS, PE, metastatic disease Physical exam nonremarkable. Troponin negative x 2. D-dimer negative. EKG sinus rhythm. And spite of negative cardiac workup patient continues to complain of chest pain. The origin is unclear. Patient receiving chemotherapy for her breast cancer. Patient transferred to [facility] for further evaluation by her oncology service. Plan of care discussed with patient. She agreed to transfer for further evaluation and treatment. Portions of this note were created with voice recognition technology. There may be grammatical, spelling, punctuation or sound alike errors Complexity of problems addressed is moderate acute complicated. No critical care time. Complexity of data reviewed and analyzed is extensive. Test ordered chest reviewed results analyzed and correlated clinically with history and physical exam. Risk of complication and or risk of morbidity/mortality of patient management is high. Patient requires transfer to higher level of care. Vital stable. Time spent to transfer patient is approximately 20 minutes. Plan of care established for shared decision making. No social determinants of health present to impede follow-up. Portions of this note were created with voice recognition technology. There may be grammatical, spelling, punctuation or sound alike errors 09/16/25 22:51 Blood Culture(s) Obtained: No Antibiotics given: No Counseled pt/family regarding: diagnosis - Departure Departure Disposition: Transfer Clinical Impression: Chest pain, Breast cancer Condition: Stable Critical Care Time: No Referrals: SAURABH NAQVI DO [Primary Care Provider, [facility]] - Follow up/PCP as directed Additional Instructions: Discharge/Care Plan ROSALINDA BARRY QUITA KABA was seen on 09/16/25 in the Emergency Room. The patient was counseled regarding Diagnosis,Lab results, Imaging studies, need for follow up and when to return to the Emergency Room. Prescriptions given: Discharge Note I have spoken with the patient and/or caregivers. I have explained the patient's condition, diagnosis and treatment plan based on the information available to me at this time. I have answered the patient's and/or caregiver's questions and addressed any concerns. The patient and/or caregivers have as good understanding of the patient's diagnosis, condition and treatment plan as can be expected at this point. The vital signs have been stable. The patient's condition is stable and appropriate for discharge from the emergency department. The patient will pursue further outpatient evaluation with the primary care physician or other designated or consulting physician as outlined in the discharge instructions. The patient and/or caregivers are agreeable to this plan of care and follow-up instructions have been explained in detail. The patient and/or caregivers have received these instruction. The patient/and or caregivers are aware that any significant change in condition or worsening of symptoms should prompt an immediate return to this or the closest emergency department or call 911.
[2025-09-16] MEDS ORDERED: BABY ASPIRIN 81 MG CHEW ONE (13:54)
[2025-09-16] MEDS ORDERED: SUBLIMAZE 100 MCG/2 ML ONE ×2 (13:55→16:27)
[2025-09-16] MEDS: BABY ASPIRIN 81 MG CHEW PO ONE (13:56)
[2025-09-16] MEDS: SUBLIMAZE 100 MCG/2 ML IV ONE ×2 (13:57→16:28)
[2025-09-16 14:11] LABS: BASOPHIL % 0.2 % (0.1-1.2); Basophil (Absolute #) 0.02 x10^3/uL (0.01-0.08); Eosinophil (Absolute #) 0 x10^3/uL (0.04-0.36); Hematocrit 41.8 % (34.1-44.9); Hemoglobin 13.0 g/dL (11.2-15.7); IMMATURE GRAN # 0.07 x10^3u/L (0.001-0.031); IMMATURE GRAN % 0.7 % (0.001-0.429); Lymphocyte (Absolute #) 2.17 x10^3/uL (1.18-3.74); Mean Corpuscular Hemoglobin 28.4 pg (25.6-32.2); Mean Corpuscular Hgb Concent. 31.1 g/dL (32.2-35.5); Monocyte (Absolute #) 0.56 x10^3/uL (0.24-0.86); NUCLEATED RBC # 0.00 x10^3u/L (0.00-0.012); NUCLEATED RBC % 0.0 % (0.00-0.2); Platelet Count 193 x10^3/uL (182-369); Red Blood Count 4.58 x10^6/uL (3.93-5.22); White Blood Count 10.0 x10^3/uL (3.98-10.04)
--- NOTE | 2025-09-16 14:19 | XRAY ---
Indication: Pain. Comparison: September 05, 2025 Portable chest unchanged again inflated and clear. Heart not enlarged again with right Port-A-Cath. No new/acute findings.
[2025-09-16 14:27] LABS: Calcium 10.4 mg/dL (8.4-10.2); Carbon Dioxide 21.0 mmol/L (22-30); Creatinine 1 0.66 mg/dL (0.52-1.04); EST GLOMERULAR FILTRATION RATE 114.4 ML/MIN; Glucose 145.0 mg/dL (74-106); Potassium 3.9 mmol/L (3.5-5.1); SGOT/AST 57.0 U/L (14-36); SGPT/ALT 65.0 U/L (0-35); Total Protein 6.5 g/dL (6.3-8.2)
[2025-09-16 14:39] LABS: NT PRO BNPII 1060 pg/mL (<300); TROPONIN < 0.012 ng/mL (0.000-0.033)
[2025-09-16 14:45] LABS: Glucose, Urine >=1000 mg/dL (Negative); Protein,Urine Dip Negative (Negative); RBC 0-2 /HPF (0-5); WBC 0-2 /HPF (0-5)
[2025-09-16] MEDS ORDERED: OXYCODONE-ACETAMINOPHEN 10-325 ONE (19:22)
[2025-09-16] MEDS: OXYCODONE-ACETAMINOPHEN 10-325 PO STA (19:25)
[2025-09-16 22:02] VITALS: BP 125/78; PULSE 74; RESP 21; O2SAT 100
== END 2025-09-16 22:30 | disposition short-term general hospital (02) ==
LOC: ED 13:22
DX: C50.811 Malignant neoplasm of overlapping sites of right female breast (principal); R07.9 Chest pain, unspecified; R06.02 Shortness of breath; E11.9 Type 2 diabetes mellitus without complications; I11.0 Hypertensive heart disease with heart failure; I50.9 Heart failure, unspecified; Z79.01 Long term (current) use of anticoagulants; Z79.84 Long term (current) use of oral hypoglycemic drugs; Z79.4 Long term (current) use of insulin; Z79.899 Other long term (current) drug therapy

== ENCOUNTER 2025-10-08 21:16 | Emergency (ER) | payer MEDICARE ==
[2025-10-08 21:37] VITALS: RESP 20; TEMP 97.6
[2025-10-08] MEDS ORDERED: TYLENOL EXTRA STRENGTH 500 MG ONE (22:25)
--- NOTE | 2025-10-08 22:25 | ERPHSYRPT ---
- History of Present Illness Time Seen by Provider: 10/08/25 22:20 Source: patient Exam Limitations: no limitations Patient Subjective Stated Complaint: pt states that she was pole dancing and thinks she her blood clot may have moved Triage Nursing Assessment: pt ambulated into the er; pt is axo x4; c/o neck pain; pt states 5/10 pain to rt neck; hx of blood clot to rt neck and arm; skin PDW; no respiratory distress present; hypertensive; tachycardic Physician History: 40-year-old female history of epilepsy, stroke, migraine, angina, CHF, DVT, PE, hyperlipidemia, hypertension, coronary artery disease, VT, type 2 diabetes, liver disease, colitis, irritable bowel disease, GERD, renal disease, kidney cancer, breast cancer, anxiety, depression, panic disorder, former smoker presents to our ED for evaluation of pain to her neck. Patient has a known right upper extremity DVT with a nonobstructing clot in her jugular presents to our ED with pain to the right side of her neck. Patient concerned that this may be the blood clot propagating. Patient is on Eliquis 5 mg twice daily. Patient has not missed any doses. Pain occurred while she was pole dancing. Patient otherwise feels well. She rates her pain 5 out of 10. Patient resting comfortably. No chest pain or shortness of breath. No nausea vomiting or diaphoresis. Patient voices no other complaints or concerns at this time. Portions of this note were created with voice recognition technology. There may be grammatical, spelling, punctuation or sound alike errors Timing/Duration: today Severity: moderate Modifying Factors: Improves With: nothing Associated Symptoms: denies symptoms Allergies/Adverse Reactions: hydromorphone HCl [From Dilaudid] Allergy (Severe, Verified 10/08/25 21:22) terbutaline sulfate [From Brethine] Allergy (Severe, Verified 10/08/25 21:22) morphine Adverse Reaction (Intermediate, Verified 10/08/25 21:22) Vomiting Home Medications: Aspirin 81 mg PO DAILY 11/04/16 [History] Ondansetron ODT 4 MG [Zofran Odt 4 mg] 4 mg PO Q6HPRN PRN 06/04/23 [Hi story] PANTOPRAZOLE 40 mg Tablet [Protonix 40MG Tablet] 40 mg PO QAM 06/04/23 [History] Alprazolam [Xanax] 0.5 mg PO BIDPRN PRN 10/04/23 [History] Atorvastatin Calcium 80 mg PO DAILY 11/28/23 [History] Gabapentin 300 mg PO TID 11/28/23 [History] Metoprolol Succinate 50 mg PO BID 11/28/23 [History] Dapagliflozin Propanediol [Farxiga] 10 mg PO DAILY 05/14/25 [History] Exemestane [Aromasin] 25 mg PO DAILY 05/14/25 [History] Loratadine 10 mg [Claritin 10 mg] 10 mg PO DAILY 05/14/25 [History] Apixaban [Eliquis] 5 mg PO BID 08/22/25 [History] Insulin Lispro [Insulin Lispro Kwikpen U-100] 4 unit SQ AC 08/22/25 [History] Desvenlafaxine [Desvenlafaxine ER] 50 mg PO DAILY 10/08/25 [History] Fentanyl 25Mcg Patch [Duragesic 25MCG Patch] 1 patch TP Q72H 10/08/25 [History] Oxycodone HCl/Acetaminophen [Oxycodone-Acetaminophen 5-325] 1 tab PO Q4HPRN PRN 10/08/25 [History] Hx Tetanus, Diphtheria Vaccination/Date Given: Yes Hx Influenza Vaccination/Date Given: No Hx Pneumococcal Vaccination/Date Given: No Immunizations Up to Date: Yes Travel Risk - International Travel Have you traveled outside of the country in past 3 weeks: No - Emerging Infectious Disease Are you exhibiting symptoms associated with any current EIDs: No Symptoms: Vomitting Comment: Finished radiation treatments 2 weeks ago and started her chemotherapy 2 days ago. - Review of Systems All Other Systems: Reviewed and Negative - Past Medical History Pertinent Past Medical History: Yes Neurological History: Epilepsy, Migraines, Seizures, Stroke ENT History: Other Cardiac History: Angina, Congestive Heart Failure, Coronary Artery Disease, Deep Vein Thrombosis, High Cholesterol, Hypertension, Myocardial Infarction (VT), Other Respiratory History: Asthma, Pulmonary Embolism Endocrine Medical History: Diabetes Type II, Liver Disease Musculoskeletal History: Fractures, Osteoporosis GI Medical History: Colitis, GERD, Gallbladder Disease, Hemorrhoids, Irritable Bowel History: Kidney Cancer, Renal Disease Psycho-Social History: Anxiety, Depression, Panic Disorder Female Reproductive Disorders: Breast Cancer, Other Other Medical History: kidney cancer at age 18 months, bilat wrist fracture and leg, Right breast midline CA (BRCA 2 positive), anemia, Patient at [facility] ([phone]) - Past Surgical History Past Surgical History: Yes Neuro Surgical History: No Pertinent History Cardiac: No Pertinent History Respiratory: No Pertinent History Gastrointestinal: Cholecystectomy Genitourinary: Kidney Surgery Musculoskeletal: No Pertinent History Female Surgical History: Hysterectomy, Section, Tubal Ligation, Mastectomy Other Surgical History: left kidney removal, wilms tumor, Double MASTECTIOMY OCT 2024, total hysterectomy February 2025 Significant Family History: no pertinent family hx - Female History Hx Last Menstrual Period: currently on Hx Now: No - Social History Smoking Status: Former smoker Exposure to second hand smoke: No Drug Use: none - Social Determinants of Health Will the patient participate in the screening: Yes Do you worry about a steady place to live?: No Do you have any problems with any of the following?: No known problems In the past 12 months,have you had to go without utilities?: No Transportation Issues: No Has anyone in your support network made you feel unsafe?: No Have you or anyone in your house had to go w/o enough food: No - Nursing Vital Signs Nursing Vital Signs: Initial Vital Signs Temperature 97.6 F 10/08/25 21:27 Pulse Rate 109 H 10/08/25 21:27 Respiratory Rate 20 10/08/25 21:27 Blood Pressure 149/87 10/08/25 21:27 O2 Sat by Pulse Oximetry 100 10/08/25 21:27 Pain Scale Pain Intensity [Right Neck] 5 Pain Intensity 6 - Physical Exam General Appearance: no apparent distress, alert Eye Exam: PERRL/EOMI, eyes nml inspection Ears, Nose, Throat Exam: normal ENT inspection, moist mucous membranes Neck Exam: normal inspection, full range of motion Respiratory Exam: normal breath sounds, lungs clear, airway intact, No respiratory distress Cardiovascular Exam: regular rate/rhythm, normal heart sounds, normal peripheral pulses Gastrointestinal/Abdomen Exam: soft, normal bowel sounds, No tenderness, No mass Back Exam: normal inspection, normal range of motion, No CVA tenderness, No vertebral tenderness Extremity Exam: normal inspection, normal range of motion, pelvis stable Neurologic Exam: alert, oriented x 3, cooperative, normal mood/affect, sensation nml, No motor deficits Skin Exam: normal color, warm, dry, No rash Lymphatic Exam: No adenopathy SpO2 Interpretation: normal SpO2: 100 O2 Delivery: Room Air - Course Nursing assessment & vital signs reviewed: Yes - Radiology Ultrasound Exam Venous Upper Extremity Ultrasound: tele radiology report (Per floor layer tile resolution of right brachial DVT. Right jugular DVT is stable. No propagation) Ordered Tests: Active Orders 24 hr Category Date Time Status VENOUS UNILAT/LIMITED EXTREMIT [US] Stat Exams 10/08/25 21:37 Ordered Medication Summary Discontinued Medications Generic Name Dose Route Start Last Admin Trade Name Juan Aq PRN Reason Stop Dose Admin Acetaminophen 1,000 mg 10/08/25 22:24 10/08/25 22:26 Acetaminophen 500 Mg Tablet PO 10/08/25 22:25 1,000 mg STAT ONE Administration Acetaminophen Confirm 10/08/25 22:25 Acetaminophen 500 Mg Tablet Administered 10/08/25 22:26 Dose 1,000 mg .ROUTE .GetSnippy ONE - Progress Progress: improved Progress Note: 40-year-old female history of epilepsy, stroke, migraine, angina, CHF, DVT, PE, hyperlipidemia, hypertension, coronary artery disease, VT, type 2 diabetes, liver disease, colitis, irritable bowel disease, GERD, renal disease, kidney cancer, breast cancer, anxiety, depression, panic disorder, former smoker presents to our ED for evaluation of pain to her neck. Patient has a known right upper extremity DVT with a nonobstructing clot in her jugular presents to our ED with pain to the right side of her neck. Patient concerned that this may be the blood clot propagating. Patient is on Eliquis 5 mg twice daily. Physical exam nonremarkable. History obtained from patient and significant other who is at the bedside. Differential diagnosis includes cervical strain, propagation of known jugular DVT, carotid injury Ultrasound right upper extremity reveals resolution of right brachial DVT. Right jugular DVT appears to be stable. No propagation. Patient resting comfortably. Patient received a gram of Tylenol for pain. No active pain at this time. Patient states she is ready for discharge. She voices no other complaints or concerns at this time. Portions of this note were created with voice recognition technology. There may be grammatical, spelling, punctuation or sound alike errors Complexity of problems addressed is moderate acute complicated. No critical care time. Complexity of data reviewed and analyzed is moderate. Test ordered test reviewed results analyzed and correlated clinically with history and physical exam. Risk of complication and or risk of morbidity/mortality of patient management is low. Vital stable. Time spent to discharge patient is approximately 15 minutes. Plan of care established for shared decision making. No social determinants of health present to impede follow-up. Portions of this note were created with voice recognition technology. There may be grammatical, spelling, punctuation or sound alike errors 10/08/25 23:05 Counseled pt/family regarding: diagnosis, need for follow-up, rad results - Departure Departure Disposition: Home Clinical Impression: Neck pain, Stable jugular DVT, Resolved brachial DVT Condition: Stable Critical Care Time: No Referrals: SAURABH NAQVI DO [Primary Care Provider, [facility]] - Follow up/PCP as directed Additional Instructions: Discharge/Care Plan ASHAROSALINAD QUITA KABA was seen on 10/08/25 in the Emergency Room. The patient was counseled regarding Diagnosis,Lab results, Imaging studies, need for follow up and when to return to the Emergency Room. Prescriptions given: Discharge Note I have spoken with the patient and/or caregivers. I have explained the patient's condition, diagnosis and treatment plan based on the information available to me at this time. I have answered the patient's and/or caregiver's questions and addressed any concerns. The patient and/or caregivers have as good understanding of the patient's diagnosis, condition and treatment plan as can be expected at this point. The vital signs have been stable. The patient's condition is stable and appropriate for discharge from the emergency department. The patient will pursue further outpatient evaluation with the primary care physician or other designated or consulting physician as outlined in the discharge instructions. The patient and/or caregivers are agreeable to this plan of care and follow-up instructions have been explained in detail. The patient and/or caregivers have received these instruction. The patient/and or caregivers are aware that any significant change in condition or worsening of symptoms should prompt an immediate return to this or the closest emergency department or call 911.
[2025-10-08] MEDS: TYLENOL EXTRA STRENGTH 500 MG PO ONE (22:26)
[2025-10-08 23:02] VITALS: BP 133/74; PULSE 95
[2025-10-08 23:03] VITALS: O2SAT 100
--- NOTE | 2025-10-09 08:57 | XRAY ---
Indication: Pain. Two-dimensional sonogram and color Doppler imaging major venous vessels right upper extremity performed. Comparison: August 05, 2025 Right jugular vein again demonstrates scattered nonoccluding thrombi. No thrombus seen in the remaining visualized right subclavian, axillary, brachial, cephalic, basilic, radial, and ulnar veins. Patent veins demonstrate normal compressibility and normal venous waveforms. Impression: Again nonoccluding thrombi in jugular vein. Comment: Preliminary report was given.
== END 2025-10-08 23:14 | disposition home or self-care (01) ==
LOC: ED 21:16
DX: M54.2 Cervicalgia (principal); I82.C21 Chronic embolism and thrombosis of right internal jugular vein; I11.0 Hypertensive heart disease with heart failure; I50.9 Heart failure, unspecified; E11.9 Type 2 diabetes mellitus without complications; Z79.01 Long term (current) use of anticoagulants; Z79.4 Long term (current) use of insulin; Z79.891 Long term (current) use of opiate analgesic; Z79.84 Long term (current) use of oral hypoglycemic drugs; Z79.899 Other long term (current) drug therapy

== ENCOUNTER 2025-10-12 06:39 | Observation (INO) | payer MEDICARE ==
[2025-10-12] MEDS ORDERED: TYLENOL EXTRA STRENGTH 500 MG ONE (07:03)
[2025-10-12] MEDS: TYLENOL EXTRA STRENGTH 500 MG PO STA (07:03)
[2025-10-12] MEDS ORDERED: SUBLIMAZE 100 MCG/2 ML ONE ×3 (07:25→11:40)
[2025-10-12] MEDS: SUBLIMAZE 100 MCG/2 ML IV ONE ×3 (07:26→11:41)
--- NOTE | 2025-10-12 07:28 | ERPHSYRPT ---
- History of Present Illness Patient Subjective Stated Complaint: "I started having chest pains yesterday and I woke up today and felt really dizzy. I've also had a lot of blood coming out of my rectum". Triage Nursing Assessment: Pt presents to ER with complaints of chest pain that began yesterday and worsening today. Pt complains of pain in left side of chest that radiates to left shoulder. Rating pain 10/10 scale. Pt complaints of dizziness, lightheadedness, abdominal swelling, blood coming from rectum, as well as shortness of breath. Pt skin is pink, hot, dry. Pt is febrile upon triage with temp of 102.8. Pt is tachycardic in the 140s with left sided chest discomfort. Pt abdomen is slightly distended. Pt denies nausea, vomiting, or diarrhea. States has been constipated and having "a lot of blood coming from her rectum". Pt appears weak but able to communicate without difficulty. Pt is alert and oriented x 3. Family at bedside. Physician History: 40-year-old female h/o BRCA+ breast cancer on active chemotherapy, status post bilateral mastectomy, hysterectomy, oophorectomy, STEMI, IJ and upper extremity thrombus, on Eliquis, cardiac arrest, ischemic cardiomyopathy, presenting with chest pain and fever starting this morning. Reports she felt well when she went to bed last night, then woke up this morning with chest pain, back pain that radiates to her left arm. Denies any shortness of breath. No new lower extremity edema. Last chemotherapy infusion 2 weeks ago. Also notes active abdominal pain; no diarrhea, nausea, vomiting. Notes she has ongoing rectal bleeding, likely from hemorrhoids and being on Eliquis. No prior GI bleed. no dysuria or frequency. No URI symptoms, though has a daughter at home that is currently having cold symptoms. No neck stiffness. Allergies/Adverse Reactions: hydromorphone HCl [From Dilaudid] Allergy (Severe, Verified 10/12/25 06:42) terbutaline sulfate [From Brethine] Allergy (Severe, Verified 10/12/25 06:42) morphine Adverse Reaction (Intermediate, Verified 10/12/25 06:42) Vomiting Home Medications: Aspirin 81 mg PO DAILY 11/04/16 [History] Ondansetron ODT 4 MG [Zofran Odt 4 mg] 4 mg PO Q6HPRN PRN 06/04/23 [History] PANTOPRAZOLE 40 mg Tablet [Protonix 40MG Tablet] 40 mg PO QAM 06/04/23 [History] Alprazolam [Xanax] 0.5 mg PO BIDPRN PRN 10/04/23 [History] Atorvastatin Calcium 80 mg PO DAILY 11/28/23 [History] Gabapentin 300 mg PO TID 11/28/23 [History] Metoprolol Succinate 50 mg PO BID 11/28/23 [History] Dapagliflozin Propanediol [Farxiga] 10 mg PO DAILY 05/14/25 [History] Exemestane [Aromasin] 25 mg PO DAILY 05/14/25 [History] Loratadine 10 mg [Claritin 10 mg] 10 mg PO DAILY 05/14/25 [History] Apixaban [Eliquis] 5 mg PO BID 08/22/25 [History] Insulin Lispro [Insulin Lispro Kwikpen U-100] 4 unit SQ AC 08/22/25 [History] Desvenlafaxine [Desvenlafaxine ER] 50 mg PO DAILY 10/08/25 [History] Fentanyl 25Mcg Patch [Duragesic 25MCG Patch] 1 patch TP Q72H 10/08/25 [History] Oxycodone HCl/Acetaminophen [Oxycodone-Acetaminophen 5-325] 1 tab PO Q4HPRN PRN 10/08/25 [History] Hx Tetanus, Diphtheria Vaccination/Date Given: Yes Hx Influenza Vaccination/Date Given: No Hx Pneumococcal Vaccination/Date Given: No Travel Risk - International Travel Have you traveled outside of the country in past 3 weeks: No - Emerging Infectious Disease Are you exhibiting symptoms associated with any current EIDs: Yes Symptoms: Diarrhea, Fever Comment: Finished radiation treatments 2 weeks ago and started her chemotherapy 2 days ago. - Past Medical History Pertinent Past Medical History: Yes Neurological History: Epilepsy, Migraines, Seizures, Stroke ENT History: Other Cardiac History: Angina, Congestive Heart Failure, Coronary Artery Disease, Deep Vein Thrombosis, High Cholesterol, Hypertension, Myocardial Infarction ([place]), Other Respiratory History: Asthma, Pulmonary Embolism Endocrine Medical History: Diabetes Type II, Liver Disease Musculoskeletal History: Fractures, Osteoporosis GI Medical History: Colitis, GERD, Gallbladder Disease, Hemorrhoids, Irritable Bowel History: Kidney Cancer, Renal Disease Psycho-Social History: Anxiety, Depression, Panic Disorder Female Reproductive Disorders: Breast Cancer, Other Other Medical History: kidney cancer at age 18 months, bilat wrist fracture and leg, Right breast midline CA (BRCA 2 positive), anemia, Patient at [facility] ([phone]) - Past Surgical History Past Surgical History: Yes Neuro Surgical History: No Pertinent History Cardiac: No Pertinent History Respiratory: No Pertinent History Gastrointestinal: Cholecystectomy Genitourinary: Kidney Surgery Musculoskeletal: No Pertinent History Female Surgical History: Hysterectomy, Section, Tubal Ligation, Mastectomy Other Surgical History: left kidney removal, wilms tumor, Double MASTECTIOMY OCT 2024, total hysterectomy February 2025 Significant Family History: no pertinent family hx - Female History Hx Last Menstrual Period: n/a - hysterectomy Hx Now: No - Social History Smoking Status: Current every day smoker Exposure to second hand smoke: No Drug Use: none - Social Determinants of Health Will the patient participate in the screening: Yes Do you worry about a steady place to live?: No Do you have any problems with any of the following?: No known problems In the past 12 months,have you had to go without utilities?: No Transportation Issues: No Has anyone in your support network made you feel unsafe?: No Have you or anyone in your house had to go w/o enough food: No - Nursing Vital Signs Nursing Vital Signs: Initial Vital Signs Temperature 102.8 F 10/12/25 06:42 Pulse Rate 142 H 10/12/25 06:42 Respiratory Rate 22 10/12/25 06:42 Blood Pressure 126/77 10/12/25 06:42 O2 Sat by Pulse Oximetry 95 10/12/25 06:42 Pain Scale Pain Intensity 3 - Physical Exam General Appearance: no apparent distress Eye Exam: PERRL/EOMI ENT Exam: normal ENT inspection Neck Exam: normal inspection, non-tender, full range of motion, No stiff neck Respiratory Exam: normal breath sounds, No crackles/rales, No rhonchi, No stridor, No wheezing Cardiovascular/Chest Exam: normal heart sounds, tachycardia Gastrointestinal/Abdominal Exam: soft, No non tender, No no distention, No no mass, No no guarding Neurologic Exam: alert, oriented x 3, No confusion SpO2 Interpretation: normal SpO2: 96 Ordered Tests: Active Orders 24 hr Category Date Time Status Group Social Worker STAT Care 10/12/25 06:49 Active EKG-ER Only STAT Care 10/12/25 06:48 Completed IV Insertion STAT Care 10/12/25 06:48 Active Pulse Oximetry (ED) STAT Care 10/12/25 06:48 Active ABDOMEN AND PELVIS W CONTRAST [CT] Stat Exams 10/12/25 08:55 Completed CHEST 1 VIEW (PORTABLE) Stat Exams 10/12/25 06:49 Completed CHEST WITH CONTRAST [CT] Stat Exams 10/12/25 08:55 Completed BLOOD CULTURE Stat Lab 10/12/25 06:50 Received CBC W DIFF Stat Lab 10/12/25 07:05 Completed CMP Stat Lab 10/12/25 07:05 Completed D-DIMER QUANTITATIVE Stat Lab 10/12/25 07:05 Completed Lactic Acid Stat Lab 10/12/25 06:51 Completed NT PRO BNPII Stat Lab 10/12/25 07:05 Completed PROCALCITONIN Stat Lab 10/12/25 07:05 Completed TROPONIN Q4H Lab 10/12/25 07:05 Completed TROPONIN Q4H Lab 10/12/25 11:10 Received TROPONIN Q4H Lab 10/12/25 15:00 Ordered UA W/RFX UR CULTURE Stat Lab 10/12/25 07:45 Completed Oxygen High Flow per RT 50% RT 10/12/25 10:24 Active Transfer Order Routine Transfer 10/12/25 Ordered Medication Summary Generic Name Dose Route Start Last Admin Trade Name Freq PRN Reason Stop Dose Admin Sodium Chloride 1,000 mls @ 125 mls/hr 10/12/25 07:15 10/12/25 10:57 Sodium Chloride 0.9% 1000 Ml IV 11/11/25 07:14 Infused .Q8H NOHEMI Infusion Sodium Chloride 800 mls @ 999 mls/hr 10/12/25 09:15 10/12/25 10:07 Sodium Chloride 0.9% 1000 Ml IV 10/12/25 09:45 Infused .Q49M NOHEMI Infusion Discontinued Medications Generic Name Dose Route Start Last Admin Trade Name Freq PRN Reason Stop Dose Admin Acetaminophen 1,000 mg 10/12/25 07:01 10/12/25 07:03 Acetaminophen 500 Mg Tablet PO 10/12/25 07:02 1,000 mg STAT STA Administration Acetaminophen Confirm 10/12/25 07:03 Acetaminophen 500 Mg Tablet Administered 10/12/25 07:04 Dose 1,000 mg .ROUTE .STK-MED ONE Dexamethasone Sodium Phosphate 10 mg 10/12/25 09:11 10/12/25 09:15 Dexamethasone Sod Phosphate 10 Mg/Ml IV 10/12/25 09:12 10 mg STAT ONE Administration Dexamethasone Sodium Phosphate Confirm 10/12/25 09:15 Dexamethasone Sod Phosphate 10 Mg/Ml Administered 10/12/25 09:16 Dose 10 mg .ROUTE .STK-MED ONE Fentanyl Citrate 50 mcg 10/12/25 07:20 10/12/25 07:26 Fentanyl Citrate 100 Mcg/2 Ml* Vial IV 10/12/25 07:21 50 mcg STAT ONE Administration Fentanyl Citrate Confirm 10/12/25 07:25 Fentanyl Citrate 100 Mcg/2 Ml* Vial Administered 10/12/25 07:26 Dose 100 mcg .ROUTE .STK-MED ONE Fentanyl Citrate Confirm 10/12/25 09:20 Fentanyl Citrate 100 Mcg/2 Ml* Vial Administered 10/12/25 09:21 Dose 100 mcg .ROUTE .STK-MED ONE Fentanyl Citrate 50 mcg 10/12/25 09:20 10/12/25 09:22 Fentanyl Citrate 100 Mcg/2 Ml* Vial IV 10/12/25 09:21 50 mcg STAT ONE Administration Sodium Chloride 800 mls @ 999 mls/hr 10/12/25 09:15 Sodium Chloride 0.9% 1000 Ml IV 11/11/25 09:14 .Q49M NOHEMI Ceftriaxone Sodium Confirm 10/12/25 10:09 Rocephin 2 Gm/100 Ml Nacl Administered 10/12/25 10:10 Dose 2 gm in 100 mls @ ud IV .STK-MED ONE Ceftriaxone Sodium 2 gm in 100 mls @ 200 mls/hr 10/12/25 10:11 10/12/25 10:56 Rocephin 2 Gm/100 Ml Nacl IV 10/12/25 10:40 Infused STAT ONE Infusion Lab/Rad Data: Laboratory Result Diagrams 10/12/25 07:05 10/12/25 07:05 Laboratory Results 10/12/25 10/12/25 10/12/25 Range/Units 07:45 07:10 07:05 WBC (3.98-10.04) x10^3/uL RBC (3.93-5.22) x10^6/uL Hgb (11.2-15.7) g/dL Hct (34.1-44.9) % MCV (79.4-94.8) fL MCH (25.6-32.2) pg MCHC (32.2-35.5) g/dL RDW (11.7-14.4) % Plt Count (182-369) x10^3/uL MPV (9.4-12.3) fL Gran % (34.0-71.1) % Immature Gran % (Auto) (0.001-0.429) % Nucleat RBC Rel Count (0.00-0.2) % Eos # (Auto) (0.04-0.36) x10^3/uL Immature Gran # (Auto) (0.001-0.031) x10^3u/L Absolute Lymphs (auto) (1.18-3.74) x10^3/uL Absolute Monos (auto) (0.24-0.86) x10^3/uL Absolute Nucleated RBC (0.00-0.012) x10^3u/L Lymphocytes % (19.3-51.7) % Monocytes % (4.7-12.5) % Eosinophils % (0.7-5.8) % Basophils % (0.1-1.2) % Absolute Granulocytes (1.56-6.13) x10^3/uL Basophils # (0.01-0.08) x10^3/uL D-Dimer (0.0-0.50) mg/L Sodium (135-145) mmol/L Potassium (3.5-5.1) mmol/L Chloride (98-107) mmol/L Carbon Dioxide (22-30) mmol/L Anion Gap (5-15) MEQ/L BUN (7-17) mg/dL Creatinine (0.52-1.04) mg/dL Estimated GFR ML/MIN Glucose (74-106) mg/dL Lactic Acid (0.4-2.0) Calcium (8.4-10.2) mg/dL Total Bilirubin (0.2-1.3) mg/dL AST (14-36) U/L ALT (0-35) U/L Alkaline Phosphatase (38-126) U/L Troponin I < 0.012 (0.000-0.033) ng/mL NT-Pro-B Natriuret Pep 516 (<300) pg/mL Serum Total Protein (6.3-8.2) g/dL Albumin (3.5-5.0) g/dL Procalcitonin 0.197 H (0.030-0.080) ng/mL Urine Color Yellow (Yellow) Urine Appearance Clear (Clear) Urine pH 5.5 (4.6-8.0) Ur Specific [place] 1.020 (1.005-1.030) Urine Protein Negative (Negative) Urine Glucose (UA) >=1000 A (Negative) mg/dL Urine Ketones Negative (Negative) Urine Blood Negative (Negative) Urine Nitrite Negative (Negative) Urine Bilirubin Negative (Negative) Urine Urobilinogen 1.0 A (0.2) mg/dL Ur Leukocyte Esterase Negative (Negative) U Hyaline Cast (Auto) NONE SEEN (0-2) /LPF Urine Microscopic RBC 0-2 (0-5) /HPF Urine Microscopic WBC 3-5 (0-5) /HPF Ur Epithelial Cells Moderate A (None Seen) /HPF Urine Bacteria Few A (None Seen) /HPF Urine Culture Reflexed NO (NO) Influenza Type A Ag NEGATIVE (NEGATIVE) Influenza Type B Ag NEGATIVE (NEGATIVE) RSV (PCR) NEGATIVE (NEGATIVE) SARS-CoV-2 (PCR) POSITIVE A (NEGATIVE) 10/12/25 10/12/25 10/12/25 Range/Units 07:05 07:05 07:05 WBC 8.2 (3.98-10.04) x10^3/uL RBC 4.36 (3.93-5.22) x10^6/uL Hgb 13.0 (11.2-15.7) g/dL Hct 41.2 (34.1-44.9) % MCV 94.5 (79.4-94.8) fL MCH 29.8 (25.6-32.2) pg MCHC 31.6 L (32.2-35.5) g/dL RDW 18.7 H (11.7-14.4) % Plt Count 132 L (182-369) x10^3/uL MPV 10.8 (9.4-12.3) fL Gran % 64.7 (34.0-71.1) % Immature Gran % (Auto) 0.5 H (0.001-0.429) % Nucleat RBC Rel Count 0.0 (0.00-0.2) % Eos # (Auto) 0.08 (0.04-0.36) x10^3/uL Immature Gran # (Auto) 0.04 H (0.001-0.031) x10^3u/L Absolute Lymphs (auto) 1.80 (1.18-3.74) x10^3/uL Absolute Monos (auto) 0.95 H (0.24-0.86) x10^3/uL Absolute Nucleated RBC 0.00 (0.00-0.012) x10^3u/L Lymphocytes % 22.0 (19.3-51.7) % Monocytes % 11.6 (4.7-12.5) % Eosinophils % 1.0 (0.7-5.8) % Basophils % 0.2 (0.1-1.2) % Absolute Granulocytes 5.28 (1.56-6.13) x10^3/uL Basophils # 0.02 (0.01-0.08) x10^3/uL D-Dimer 0.43 (0.0-0.50) mg/L Sodium 138 (135-145) mmol/L Potassium 3.8 (3.5-5.1) mmol/L Chloride 106 (98-107) mmol/L Carbon Dioxide 23 (22-30) mmol/L Anion Gap 13.4 (5-15) MEQ/L BUN 22 H (7-17) mg/dL Creatinine 0.93 (0.52-1.04) mg/dL Estimated GFR 80.2 ML/MIN Glucose 135 H (74-106) mg/dL Lactic Acid (0.4-2.0) Calcium 9.4 (8.4-10.2) mg/dL Total Bilirubin 0.50 (0.2-1.3) mg/dL AST 100 H (14-36) U/L ALT 125 H (0-35) U/L Alkaline Phosphatase 351 H (38-126) U/L Troponin I (0.000-0.033) ng/mL NT-Pro-B Natriuret Pep (<300) pg/mL Serum Total Protein 6.5 (6.3-8.2) g/dL Albumin 4.0 (3.5-5.0) g/dL Procalcitonin (0.030-0.080) ng/mL Urine Color (Yellow) Urine Appearance (Clear) Urine pH (4.6-8.0) Ur Specific Dun[place] (1.005-1.030) Urine Protein (Negative) Urine Glucose (UA) (Negative) mg/dL Urine Ketones (Negative) Urine Blood (Negative) Urine Nitrite (Negative) Urine Bilirubin (Negative) Urine Urobilinogen (0.2) mg/dL Ur Leukocyte Esterase (Negative) U Hyaline Cast (Auto) (0-2) /LPF Urine Microscopic RBC (0-5) /HPF Urine Microscopic WBC (0-5) /HPF Ur Epithelial Cells (None Seen) /HPF Urine Bacteria (None Seen) /HPF Urine Culture Reflexed (NO) Influenza Type A Ag (NEGATIVE) Influenza Type B Ag (NEGATIVE) RSV (PCR) (NEGATIVE) SARS-CoV-2 (PCR) (NEGATIVE) 10/12/25 Range/Units 06:51 WBC (3.98-10.04) x10^3/uL RBC (3.93-5.22) x10^6/uL Hgb (11.2-15.7) g/dL Hct (34.1-44.9) % MCV (79.4-94.8) fL MCH (25.6-32.2) pg MCHC (32.2-35.5) g/dL RDW (11.7-14.4) % Plt Count (182-369) x10^3/uL MPV (9.4-12.3) fL Gran % (34.0-71.1) % Immature Gran % (Auto) (0.001-0.429) % Nucleat RBC Rel Count (0.00-0.2) % Eos # (Auto) (0.04-0.36) x10^3/uL Immature Gran # (Auto) (0.001-0.031) x10^3u/L Absolute Lymphs (auto) (1.18-3.74) x10^3/uL Absolute Monos (auto) (0.24-0.86) x10^3/uL Absolute Nucleated RBC (0.00-0.012) x10^3u/L Lymphocytes % (19.3-51.7) % Monocytes % (4.7-12.5) % Eosinophils % (0.7-5.8) % Basophils % (0.1-1.2) % Absolute Granulocytes (1.56-6.13) x10^3/uL Basophils # (0.01-0.08) x10^3/uL D-Dimer (0.0-0.50) mg/L Sodium (135-145) mmol/L Potassium (3.5-5.1) mmol/L Chloride (98-107) mmol/L Carbon Dioxide (22-30) mmol/L Anion Gap (5-15) MEQ/L BUN (7-17) mg/dL Creatinine (0.52-1.04) mg/dL Estimated GFR ML/MIN Glucose (74-106) mg/dL Lactic Acid 1.2 (0.4-2.0) Calcium (8.4-10.2) mg/dL Total Bilirubin (0.2-1.3) mg/dL AST (14-36) U/L ALT (0-35) U/L Alkaline Phosphatase (38-126) U/L Troponin I (0.000-0.033) ng/mL NT-Pro-B Natriuret Pep (<300) pg/mL Serum Total Protein (6.3-8.2) g/dL Albumin (3.5-5.0) g/dL Procalcitonin (0.030-0.080) ng/mL Urine Color (Yellow) Urine Appearance (Clear) Urine pH (4.6-8.0) Ur Specific [place] (1.005-1.030) Urine Protein (Negative) Urine Glucose (UA) (Negative) mg/dL Urine Ketones (Negative) Urine Blood (Negative) Urine Nitrite (Negative) Urine Bilirubin (Negative) Urine Urobilinogen (0.2) mg/dL Ur Leukocyte Esterase (Negative) U Hyaline Cast (Auto) (0-2) /LPF Urine Microscopic RBC (0-5) /HPF Urine Microscopic WBC (0-5) /HPF Ur Epithelial Cells (None Seen) /HPF Urine Bacteria (None Seen) /HPF Urine Culture Reflexed (NO) Influenza Type A Ag (NEGATIVE) Influenza Type B Ag (NEGATIVE) RSV (PCR) (NEGATIVE) SARS-CoV-2 (PCR) (NEGATIVE) - Progress Progress Note: 10/12/25 07:30 40-year-old female h/o BRCA+ breast cancer on active chemotherapy, status post bilateral mastectomy, hysterectomy, oophorectomy, STEMI, IJ and upper extremity thrombus, on Eliquis, cardiac arrest, ischemic cardiomyopathy, presenting with chest pain and fever starting this morning. Concern for new infectious process. Given immunocompromise status, consider neutropenic fever, bacteremia, port infection. Consider pulmonary etiologies including viral, bacterial pneumonia. Consider abdominal sources including UTI. No diarrheal symptoms, though consider gastroenteritis, diverticulitis. No headache, nuchal rigidity, no meningeal signs, less consistent with meningitis. No rashes, skin irritation, less consistent with cellulitis as source. given new chest pain consider ACS, PE. Patient has been Eliquis compliant. Consider myocarditis, though less likely given reassuring EKG. considered dissection, though normotensive, equal pulses; and given fever present more concerning for infectious etiology. Plan for sepsis labs including blood cultures, CBC, CMP, UA, chest x-ray, lactate. Will obtain dimer, if elevated will proceed with CT chest. If UA negative, consider CTAP for source evaluation. Given the nature of presenting symptoms and possibility of emergent diagnosis, admission considered and indicated at this time. Per my independent interpretation EKG shows sinus tachycardia, without ST elevation or depression. Labs and imaging reviewed and interpreted by me. I have reviewed prior records. Collateral historians include: [facility] Social determinants of health were reviewed. Final Assessment: 10/12/25 07:31 Normal lactate. 10/12/25 11:22 Labs showing normal WBC. Normal creatinine. COVID-positive. Received 30 cc/kg bolus after initial soft pressures 90s. Improved to low 100s. Given COVID- pneumonia and hypoxia, strongly favor no further IV fluids, and if persistent hypotension and MAP less than 65 low threshold for initiating pressors. Given Decadron dose 10 x 1. Desaturation to 88 percent initiated high flow nasal cannula; with significant improvement in sats, now holding stable 95%. heart rates improved after fluids. EKG without ischemic changes, negative troponin; low suspicion for recurrent ACS, or myocarditis. 1 set of blood cultures collected, unable to perform second set due to difficulty stick. CT chest negative for PE, however significant for new nodule, concerning for metastasis. CTAP negative for obstruction, infectious process, though possible new nodule in peritoneum on remaining kidney. Raises concern for progression of breast cancer to stage IV. Given hypotension,multiple SIRS criteria met, given empiric antibiotics, ceftriaxone 2 g. Though urine negative for UTI, no focal consolidations on CT consistent with focal bacterial pneumonia; will discontinue antibiotics. Positive procalcitonin on labs. Overall clinical picture most consistent with COVID-pneumonia, complicated by hypoxia requiring high flow nasal cannula, with soft blood pressures. Discussed with Dr. Macario For admission and is comfortable excepting patient; will admit to ICU. - Departure Departure Disposition: In-patient Admission Clinical Impression: Pneumonia due to COVID-19 virus, Hypoxia Condition: Fair Critical Care Time: Yes Critical Care Time(excluding separately billable procedures): Critical 75-104 mins Referrals: SAURABH NAQVI DO [Primary Care Provider, [facility]] - Follow up/PCP as directed
[2025-10-12 07:39] LABS: BASOPHIL % 0.2 % (0.1-1.2); Basophil (Absolute #) 0.02 x10^3/uL (0.01-0.08); Eosinophil (Absolute #) 0.08 x10^3/uL (0.04-0.36); Hematocrit 41.2 % (34.1-44.9); Hemoglobin 13.0 g/dL (11.2-15.7); IMMATURE GRAN # 0.04 x10^3u/L (0.001-0.031); IMMATURE GRAN % 0.5 % (0.001-0.429); Lymphocyte (Absolute #) 1.80 x10^3/uL (1.18-3.74); Mean Corpuscular Hemoglobin 29.8 pg (25.6-32.2); Mean Corpuscular Hgb Concent. 31.6 g/dL (32.2-35.5); Monocyte (Absolute #) 0.95 x10^3/uL (0.24-0.86); NUCLEATED RBC # 0.00 x10^3u/L (0.00-0.012); NUCLEATED RBC % 0.0 % (0.00-0.2); Platelet Count 132 x10^3/uL (182-369); Red Blood Count 4.36 x10^6/uL (3.93-5.22); White Blood Count 8.2 x10^3/uL (3.98-10.04)
[2025-10-12 07:53] LABS: Glucose, Urine >=1000 mg/dL (Negative); Protein,Urine Dip Negative (Negative); RBC 0-2 /HPF (0-5)
[2025-10-12 08:03] LABS: NT PRO BNPII 516 pg/mL (<300); TROPONIN < 0.012 ng/mL (0.000-0.033)
--- NOTE | 2025-10-12 08:05 | XRAY ---
Indication: Chest pain. Comparison: September 16, 2025 Portable chest unchanged again inflated and clear. Heart not enlarged again with right Port-A-Cath. Bony thorax intact again with osteopenia, minimal levoscoliosis, bilateral mastectomy, and bilateral axillary glenn dissection. No new/acute findings.
[2025-10-12 08:07] LABS: INFLUENZA A NEGATIVE (NEGATIVE); INFLUENZA B NEGATIVE (NEGATIVE); RESPIRATORY SYNCTIAL VIRUS NEGATIVE (NEGATIVE); SARS-CoV-2 Xpert Express POSITIVE (NEGATIVE)
[2025-10-12 08:31] LABS: Calcium 9.4 mg/dL (8.4-10.2); Carbon Dioxide 23.0 mmol/L (22-30); Creatinine 1 0.93 mg/dL (0.52-1.04); EST GLOMERULAR FILTRATION RATE 80.2 ML/MIN; Glucose 135.0 mg/dL (74-106); Potassium 3.8 mmol/L (3.5-5.1); SGOT/AST 100.0 U/L (14-36); SGPT/ALT 125.0 U/L (0-35); Total Protein 6.5 g/dL (6.3-8.2)
[2025-10-12] MEDS: DECADRON 10MG INJ. IV ONE (09:15)
[2025-10-12] MEDS ORDERED: DECADRON 10MG INJ. ONE (09:15)
[2025-10-12] MEDS ORDERED: ROCEPHIN 2 GM/100 ML NACL 2 GM/100 ML IVPB IV ONE (10:09)
[2025-10-12] MEDS: ROCEPHIN 2 GM/100 ML NACL 2 GM/100 ML IVPB IV ONE (10:13)
--- NOTE | 2025-10-12 10:55 | XRAY ---
CLINICAL HISTORY: sepsis w/u; RLQ abd pain COMPARISON: 12/20/2016. TECHNIQUE: CT of the abdomen and pelvis was performed with 80ml isovue 370 contrast, with the following protocol: axial images with, and reconstructed coronal and sagittal images. One of the following dose reduction techniques was utilized for this exam: Automated exposure control, adjustment of the mA and/or kV according to patient size, and use of iterative reconstruction. FINDINGS: Abdomen: Liver: Fatty infiltration of the liver noted No focal lesions, cysts, or masses were identified. Hepatic vasculature and biliary ducts are unremarkable. Gallbladder and Biliary System: Gallbladder not visualized, consistent with history of cholecystectomy. The common bile duct is normal in caliber without dilation. Pancreas: The pancreatic head, body, and tail are visualized and appear normal in size and density. No pancreatic masses or calcifications were noted. The pancreatic duct is not dilated. Spleen: Normal in shape and density. No splenic lesions or masses were identified. Kidneys and Adrenal Glands: Left kidney not visualized with surgical clips identified in the left renal bed, suggestive of nephrectomy. No discrete area identified in the surgical bed Compensatory hypertrophy of the right kidney. Progression in size of the previously noted few right renal hypodense cortical focal lesions, now measuring up to 1.5 X 1.7 cm ( compared to 0.3 X 0.5 cm ) , some of them are seen inseparable from the psoas major muscle. Cortical thickness is within normal limits. No renal calculi or hydronephrosis. Adrenal glands are unremarkable with no evidence of masses or hyperplasia. Bowel: Diffuse thickening of the gastric rugal folds, which could be due to suboptimal distention/gastritis Fecal loaded bowel loops seen. The visualized bowel loops are normal in caliber and appearance. No evidence of bowel obstruction or wall thickening. Bones and Soft Tissues: Pelvic bones and soft tissues are unremarkable. No fractures or abnormal masses were identified. Pelvis: Urinary Bladder: Normal in contour and wall thickness. No intraluminal lesions. Evidence of hysterectomy with a clear operative bed. Peritoneal and Retroperitoneal Structures: No free fluid or abnormal fluid collections were identified within the abdomen or pelvis. No lymphadenopathy was noted. visualized images of the chest,: Both breasts are not visualized, consistent with the history of mastectomy. Left lower lung lobe solid nodule measuring about 11 mm. IMPRESSION: 1. Left-sided nephrectomy is seen. 2. Progression in size of the previously noted few right renal hypodense cortical focal lesions, some of which are seen inseparable from the psoas major muscle. Further MRI / PET CT assessment is advised to rule out the possibility of a neoplastic nature. 3. Left lower lung lobe solid nodule measuring about 11 mm. 4. No other interval changes. Electronically Signed by: Paul Hines MD. (10/12/2025 10:54:06 EST)
--- NOTE | 2025-10-12 11:07 | XRAY ---
CLINICAL HISTORY: hypoxia, chest pain ro PE COMPARISON: 09/21/2024 and 12/20/2016 TECHNIQUE: Contiguous 3.[address] angiographic images of the chest were acquired with the administration of intravenous contrast. Coronal and sagittal reconstructions were obtained. One of these 3D techniques was utilized: Maximum Intensity Pixel (MIP), 3D Reconstructed Images, Volume Rendered Images, Surface Shaded Rendering. One of the following dose reduction techniques were utilized for this exam: Automated exposure control, adjustment of the mA and/or kV according to patient size, and use of iterative reconstruction. FINDINGS: Aorta: The thoracic aorta is normal in caliber. No evidence of aneurysm, dissection, or significant atherosclerotic changes. Aortic arch and descending thoracic aorta are unremarkable. Pulmonary Arteries: Pulmonary arteries are normal in size and opacification. No evidence of pulmonary embolism. No stenosis or filling defects. Superior Vena Cava (SVC): Normal opacification and caliber. No evidence of thrombus or obstruction. Right CVL wihth tip at the cavoatrial junction Mediastinum: No mediastinal mass or lymphadenopathy. Normal appearance of the thymus. Heart: Normal size and morphology of the heart. No pericardial effusion. Lungs: Bilateral lower lobe subpleural reticulations, possibly gravitational Still seen a 11mm solid nodule at the lateral basal segment left lower lobe. Right lower lobe pneumatocele No evidence of consolidation, other nodules, or masses. No pleural effusion. Bilateral basal pleural thickening/reaction. Bones: No fractures or lytic/sclerotic lesions of the visualized bony structures. Normal alignment and bone density. Soft Tissues: Normal appearance of the visualized soft tissues. No abnormal masses or fluid collections. Upper abdomen: See the detailed study. IMPRESSION: 1. No evidence of pulmonary embolism 2. Left lower lobe 11mm solid nodule. (stable since 2023 and newly noted since 2016). Electronically Signed by: Paul Hines MD. (10/12/2025 11:06:25 EST)
--- NOTE | 2025-10-12 12:11 | PCM.HP ---
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 She presented to the emergency department with acute chest pain and fever that began this morning, stating she felt well the night before but awoke with chest and back pain radiating to her left arm, accompanied by dizziness and lightheadedness. She denies shortness of breath, nausea, vomiting, diarrhea, dysuria, or upper respiratory symptoms, though she reports mild abdominal pain, abdominal swelling, and significant rectal bleeding likely related to hemorrhoids worsened by anticoagulation. On arrival, she was febrile to 102.8F, tachycardic in the 140s, and rated her chest pain as 10/10. She appeared weak but remained alert, oriented, and communicative, with family at bedside. Initial workup revealed two negative troponins, stable hemoglobin at 13, and platelets of 132, which appear chronically low in the context of her malignancy. Liver enzymes were elevated with AST 100, ALT 125, and alkaline phosphatase 351. Procalcitonin was low at 0.197. Urinalysis suggested a mild urinary tract infection, and COVID testing was positive in the emergency department. CT of the chest showed a stable 11 mm left lower lobe solid pulmonary nodule unchanged since 2023 but newly noted compared to 2017, with no evidence of pulmonary embolism. CT of the abdomen and pelvis demonstrated progression in the size of previously noted right renal hypodense cortical lesions, some inseparable from the psoas major muscle, with further MRI or CT recommended to rule out neoplastic processes. She is currently on high-flow oxygen with saturations at 96%. In the emergency department, she received dexamethasone, ceftriaxone, two liters of IV fluid bolus followed by normal saline at 125 mL/hr, Tylenol, and fentanyl for pain control. She is no longer febrile, and her heart rate has improved into the 90s. - Review of Systems Constitutional: Fatigue, Weakness, No Fever, No Chills Eyes: No Symptoms Ears, Nose, & Throat: No Symptoms Respiratory: Short Of Breath, No Cough Cardiac: No Chest Pain, No Edema, No Syncope Abdominal/Gastrointestinal: Nausea, Hematochezia, No Abdominal Pain, No Vomiting, No Diarrhea Genitourinary Symptoms: No Dysuria Musculoskeletal: No Back Pain, No Neck Pain Skin: No Rash Neurological: No Dizziness, No Focal Weakness, No Sensory Changes Psychological: No Symptoms Endocrine: No Symptoms Hematologic/Lymphatic: No Symptoms Immunological/Allergic: No Symptoms Medications & Allergies Home Medications: Home Medication List Aspirin 81 mg PO DAILY 11/04/16 [History Confirmed 10/12/25] Ondansetron ODT 4 MG [Zofran Odt 4 mg] 4 mg PO Q6HPRN PRN 06/04/23 [History Confirmed 10/12/25] PANTOPRAZOLE 40 mg Tablet [Protonix 40MG Tablet] 40 mg PO QAM 06/04/23 [History Confirmed 10/12/25] Alprazolam [Xanax] 0.5 mg PO BIDPRN PRN 10/04/23 [History Confirmed 10/12/25] Atorvastatin Calcium 80 mg PO HS 11/28/23 [History Confirmed 10/12/25] Gabapentin 300 mg PO TID 11/28/23 [History Confirmed 10/12/25] Metoprolol Succinate 50 mg PO BID 11/28/23 [History Confirmed 10/12/25] Dapagliflozin Propanediol [Farxiga] 10 mg PO DAILY 05/14/25 [History Confirmed 10/12/25] Exemestane [Aromasin] 25 mg PO DAILY 05/14/25 [History Confirmed 10/12/25] Loratadine 10 mg [Claritin 10 mg] 10 mg PO DAILY 05/14/25 [History Confirmed 10/12/25] Apixaban [Eliquis] 5 mg PO BID 08/22/25 [History Confirmed 10/12/25] Insulin Lispro [Insulin Lispro Kwikpen U-100] 4 unit SQ AC 08/22/25 [History Confirmed 10/12/25] Desvenlafaxine [Desvenlafaxine ER] 50 mg PO HS 10/08/25 [History Confirmed 10/12/25] Fentanyl 25Mcg Patch [Duragesic 25MCG Patch] 1 patch TP Q72H 10/08/25 [History Confirmed 10/12/25] Oxycodone HCl/Acetaminophen [Oxycodone-Acetaminophen 5-325] 1 tab PO Q4HPRN PRN 10/08/25 [History Confirmed 10/12/25] Allergies/Adverse Reactions: Allergies Allergy/AdvReac Type Severity Reaction Status Date / Time hydromorphone HCl Allergy Severe Verified 10/12/25 12:04 [From Dilaudid] terbutaline sulfate Allergy Severe Verified 10/12/25 12:04 [From Brethine] morphine AdvReac Intermediate Vomiting Verified 10/12/25 12:04 - Past Medical History Past Medical History: Yes Neurological History: Epilepsy, Migraines, Seizures, Stroke ENT History: Other Cardiac History: Angina, Congestive Heart Failure, Coronary Artery Disease, Deep Vein Thrombosis, High Cholesterol, Hypertension, Myocardial Infarction ([place]), Other Respiratory History: Asthma, Pulmonary Embolism Endocrine Medical History: Diabetes Type II, Liver Disease Musculoskelatal History: Fractures, Osteoporosis GI Medical History: Colitis, GERD, Gallbladder Disease, Hemorrhoids, Irritable Bowel History: Kidney Cancer, Renal Disease Pyscho-Social History: Anxiety, Depression, Panic Disorder Reproductive Disorders: Breast Cancer, Other Comment: kidney cancer at age 18 months, bilat wrist fracture and leg, Right breast midline CA (BRCA 2 positive), anemia, Patient at [facility] ([phone]) - Female History Hx Last Menstrual Period: n/a - hysterectomy Are you now?: No - Past Surgical History Past Surgical History: Yes Neuro Surgical History: No Pertinent History Cardiac History: No Pertinent History Respiratory Surgery: No Pertinent History GI Surgical History: Cholecystectomy Genitourinary Surgical Hx: Kidney Surgery Musculskeletal Surgical Hx: No Pertinent History Female Surgical History: Hysterectomy, Section, Tubal Ligation, Mastectomy Other Surgical History: left kidney removal, wilms tumor, Double MASTECTIOMY OCT 2024, total hysterectomy February 2025 Significant Family History: no pertinent family hx - Social History Smoking Status: Current every day smoker How long have you smoked: 12 yrs Exposure to second hand smoke: No Alcohol: None Drug Use: none - Social Determinants of Health Will the patient participate in the screening: Yes Do you worry about a steady place to live?: No Do you have any problems with any of the following?: No known problems In the past 12 months,have you had to go without utilities?: No Have you or anyone in your house had to go without enough: No Transportation Issues: No Has anyone in your support network made you feel unsafe?: No Does the patient want assistance with any of the above?: No - Physical Exam Vital Signs: Vital Signs - 24 hr Temp Pulse Pulse Resp BP BP Pulse Ox 10/12/25 11:32 96 10/12/25 11:10 99 H 15 97/52 97 10/12/25 11:00 96 H 15 100/54 97 10/12/25 10:50 91 H 17 104/53 96 10/12/25 10:40 92 H 18 102/54 96 10/12/25 10:30 94 H 17 103/52 96 10/12/25 10:20 95 H 17 106/56 96 10/12/25 10:10 101 H 13 91/48 98 10/12/25 10:08 113 H 19 96/47 92 L 10/12/25 10:00 108 H 17 89/41 94 L 10/12/25 09:50 109 H 19 87/45 89 L 10/12/25 09:40 110 H 18 96/40 91 L 10/12/25 09:30 114 H 12 94/46 97 10/12/25 09:20 112 H 20 92/42 99 10/12/25 09:10 113 H 19 101/48 98 10/12/25 09:04 114 H 19 84/36 98 10/12/25 09:01 85/53 98 10/12/25 09:00 98 10/12/25 08:30 96/45 10/12/25 08:20 128 H 19 98/53 94 L 10/12/25 08:10 132 H 16 96/55 95 10/12/25 08:00 133 H 17 91/53 90 L 10/12/25 07:50 131 H 19 97/54 92 L 10/12/25 07:43 127 H 20 99/52 93 L 10/12/25 07:30 133 H 17 126/61 96 10/12/25 07:20 129 H 22 118/59 95 10/12/25 07:19 129 H 18 114/62 10/12/25 07:18 131 H 25 H 10/12/25 07:10 134 H 15 10/12/25 07:04 136 H 21 95 10/12/25 07:00 136 H 13 99/66 95 10/12/25 06:52 96 10/12/25 06:42 102.8 F 142 H 140 H 22 126/77 95 General Appearance: no apparent distress, alert Neurologic Exam: alert, oriented x 3, cooperative, normal mood/affect, nml cerebellar function, nml station & gait, sensation nml, No motor deficits Eye Exam: PERRL/EOMI, eyes nml inspection Ears, Nose, Throat Exam: normal ENT inspection, TMs normal, pharynx normal, moist mucous membranes Neck Exam: normal inspection, non-tender, supple, full range of motion Respiratory Exam: normal breath sounds, lungs clear, diminished breath sounds (RLL), No respiratory distress Cardiovascular Exam: regular rate/rhythm, normal heart sounds, normal peripheral pulses Gastrointestinal/Abdomen Exam: soft, normal bowel sounds, No tenderness, No mass Back Exam: normal inspection, normal range of motion, No CVA tenderness, No vertebral tenderness Extremity Exam: normal inspection, normal range of motion, pelvis stable Skin Exam: normal color, warm, dry, No rash Lymphatic Exam: No adenopathy Results - Labs Lab/Micro Results: Lab Results-Last 24 Hours 10/12/25 10/12/25 10/12/25 Range/Units 06:51 07:05 07:05 WBC 8.2 (3.98-10.04) x10^3/uL RBC 4.36 (3.93-5.22) x10^6/uL Hgb 13.0 (11.2-15.7) g/dL Hct 41.2 (34.1-44.9) % MCV 94.5 (79.4-94.8) fL MCH 29.8 (25.6-32.2) pg MCHC 31.6 L (32.2-35.5) g/dL RDW 18.7 H (11.7-14.4) % Plt Count 132 L (182-369) x10^3/uL MPV 10.8 (9.4-12.3) fL Gran % 64.7 (34.0-71.1) % Immature Gran % (Auto) 0.5 H (0.001-0.429) % Nucleat RBC Rel Count 0.0 (0.00-0.2) % Eos # (Auto) 0.08 (0.04-0.36) x10^3/uL Immature Gran # (Auto) 0.04 H (0.001-0.031) x10^3u/L Absolute Lymphs (auto) 1.80 (1.18-3.74) x10^3/uL Absolute Monos (auto) 0.95 H (0.24-0.86) x10^3/uL Absolute Nucleated RBC 0.00 (0.00-0.012) x10^3u/L Lymphocytes % 22.0 (19.3-51.7) % Monocytes % 11.6 (4.7-12.5) % Eosinophils % 1.0 (0.7-5.8) % Basophils % 0.2 (0.1-1.2) % Absolute Granulocytes 5.28 (1.56-6.13) x10^3/uL Basophils # 0.02 (0.01-0.08) x10^3/uL D-Dimer (0.0-0.50) mg/L Sodium 138 (135-145) mmol/L Potassium 3.8 (3.5-5.1) mmol/L Chloride 106 (98-107) mmol/L Carbon Dioxide 23 (22-30) mmol/L Anion Gap 13.4 (5-15) MEQ/L BUN 22 H (7-17) mg/dL Creatinine 0.93 (0.52-1.04) mg/dL Estimated GFR 80.2 ML/MIN Glucose 135 H (74-106) mg/dL Lactic Acid 1.2 (0.4-2.0) Calcium 9.4 (8.4-10.2) mg/dL Total Bilirubin 0.50 (0.2-1.3) mg/dL AST 100 H (14-36) U/L ALT 125 H (0-35) U/L Alkaline Phosphatase 351 H (38-126) U/L Troponin I (0.000-0.033) ng/mL NT-Pro-B Natriuret Pep (<300) pg/mL Serum Total Protein 6.5 (6.3-8.2) g/dL Albumin 4.0 (3.5-5.0) g/dL Procalcitonin (0.030-0.080) ng/mL Urine Color (Yellow) Urine Appearance (Clear) Urine pH (4.6-8.0) Ur Specific [place] (1.005-1.030) Urine Protein (Negative) Urine Glucose (UA) (Negative) mg/dL Urine Ketones (Negative) Urine Blood (Negative) Urine Nitrite (Negative) Urine Bilirubin (Negative) Urine Urobilinogen (0.2) mg/dL Ur Leukocyte Esterase (Negative) U Hyaline Cast (Auto) (0-2) /LPF Urine Microscopic RBC (0-5) /HPF Urine Microscopic WBC (0-5) /HPF Ur Epithelial Cells (None Seen) /HPF Urine Bacteria (None Seen) /HPF Urine Culture Reflexed (NO) Influenza Type A Ag (NEGATIVE) Influenza Type B Ag (NEGATIVE) RSV (PCR) (NEGATIVE) SARS-CoV-2 (PCR) (NEGATIVE) 10/12/25 10/12/25 10/12/25 Range/Units 07:05 07:05 07:10 WBC (3.98-10.04) x10^3/uL RBC (3.93-5.22) x10^6/uL Hgb (11.2-15.7) g/dL Hct (34.1-44.9) % MCV (79.4-94.8) fL MCH (25.6-32.2) pg MCHC (32.2-35.5) g/dL RDW (11.7-14.4) % Plt Count (182-369) x10^3/uL MPV (9.4-12.3) fL Gran % (34.0-71.1) % Immature Gran % (Auto) (0.001-0.429) % Nucleat RBC Rel Count (0.00-0.2) % Eos # (Auto) (0.04-0.36) x10^3/uL Immature Gran # (Auto) (0.001-0.031) x10^3u/L Absolute Lymphs (auto) (1.18-3.74) x10^3/uL Absolute Monos (auto) (0.24-0.86) x10^3/uL Absolute Nucleated RBC (0.00-0.012) x10^3u/L Lymphocytes % (19.3-51.7) % Monocytes % (4.7-12.5) % Eosinophils % (0.7-5.8) % Basophils % (0.1-1.2) % Absolute Granulocytes (1.56-6.13) x10^3/uL Basophils # (0.01-0.08) x10^3/uL D-Dimer 0.43 (0.0-0.50) mg/L Sodium (135-145) mmol/L Potassium (3.5-5.1) mmol/L Chloride (98-107) mmol/L Carbon Dioxide (22-30) mmol/L Anion Gap (5-15) MEQ/L BUN (7-17) mg/dL Creatinine (0.52-1.04) mg/dL Estimated GFR ML/MIN Glucose (74-106) mg/dL Lactic Acid (0.4-2.0) Calcium (8.4-10.2) mg/dL Total Bilirubin (0.2-1.3) mg/dL AST (14-36) U/L ALT (0-35) U/L Alkaline Phosphatase (38-126) U/L Troponin I < 0.012 (0.000-0.033) ng/mL NT-Pro-B Natriuret Pep 516 (<300) pg/mL Serum Total Protein (6.3-8.2) g/dL Albumin (3.5-5.0) g/dL Procalcitonin 0.197 H (0.030-0.080) ng/mL Urine Color (Yellow) Urine Appearance (Clear) Urine pH (4.6-8.0) Ur Specific [place] (1.005-1.030) Urine Protein (Negative) Urine Glucose (UA) (Negative) mg/dL Urine Ketones (Negative) Urine Blood (Negative) Urine Nitrite (Negative) Urine Bilirubin (Negative) Urine Urobilinogen (0.2) mg/dL Ur Leukocyte Esterase (Negative) U Hyaline Cast (Auto) (0-2) /LPF Urine Microscopic RBC (0-5) /HPF Urine Microscopic WBC (0-5) /HPF Ur Epithelial Cells (None Seen) /HPF Urine Bacteria (None Seen) /HPF Urine Culture Reflexed (NO) Influenza Type A Ag NEGATIVE (NEGATIVE) Influenza Type B Ag NEGATIVE (NEGATIVE) RSV (PCR) NEGATIVE (NEGATIVE) SARS-CoV-2 (PCR) POSITIVE A (NEGATIVE) 10/12/25 10/12/25 Range/Units 07:45 11:10 WBC (3.98-10.04) x10^3/uL RBC (3.93-5.22) x10^6/uL Hgb (11.2-15.7) g/dL Hct (34.1-44.9) % MCV (79.4-94.8) fL MCH (25.6-32.2) pg MCHC (32.2-35.5) g/dL RDW (11.7-14.4) % Plt Count (182-369) x10^3/uL MPV (9.4-12.3) fL Gran % (34.0-71.1) % Immature Gran % (Auto) (0.001-0.429) % Nucleat RBC Rel Count (0.00-0.2) % Eos # (Auto) (0.04-0.36) x10^3/uL Immature Gran # (Auto) (0.001-0.031) x10^3u/L Absolute Lymphs (auto) (1.18-3.74) x10^3/uL Absolute Monos (auto) (0.24-0.86) x10^3/uL Absolute Nucleated RBC (0.00-0.012) x10^3u/L Lymphocytes % (19.3-51.7) % Monocytes % (4.7-12.5) % Eosinophils % (0.7-5.8) % Basophils % (0.1-1.2) % Absolute Granulocytes (1.56-6.13) x10^3/uL Basophils # (0.01-0.08) x10^3/uL D-Dimer (0.0-0.50) mg/L Sodium (135-145) mmol/L Potassium (3.5-5.1) mmol/L Chloride (98-107) mmol/L Carbon Dioxide (22-30) mmol/L Anion Gap (5-15) MEQ/L BUN (7-17) mg/dL Creatinine (0.52-1.04) mg/dL Estimated GFR ML/MIN Glucose (74-106) mg/dL Lactic Acid (0.4-2.0) Calcium (8.4-10.2) mg/dL Total Bilirubin (0.2-1.3) mg/dL AST (14-36) U/L ALT (0-35) U/L Alkaline Phosphatase (38-126) U/L Troponin I 0.017 (0.000-0.033) ng/mL NT-Pro-B Natriuret Pep (<300) pg/mL Serum Total Protein (6.3-8.2) g/dL Albumin (3.5-5.0) g/dL Procalcitonin (0.030-0.080) ng/mL Urine Color Yellow (Yellow) Urine Appearance Clear (Clear) Urine pH 5.5 (4.6-8.0) Ur Specific [place] 1.020 (1.005-1.030) Urine Protein Negative (Negative) Urine Glucose (UA) >=1000 A (Negative) mg/dL Urine Ketones Negative (Negative) Urine Blood Negative (Negative) Urine Nitrite Negative (Negative) Urine Bilirubin Negative (Negative) Urine Urobilinogen 1.0 A (0.2) mg/dL Ur Leukocyte Esterase Negative (Negative) U Hyaline Cast (Auto) NONE SEEN (0-2) /LPF Urine Microscopic RBC 0-2 (0-5) /HPF Urine Microscopic WBC 3-5 (0-5) /HPF Ur Epithelial Cells Moderate A (None Seen) /HPF Urine Bacteria Few A (None Seen) /HPF Urine Culture Reflexed NO (NO) Influenza Type A Ag (NEGATIVE) Influenza Type B Ag (NEGATIVE) RSV (PCR) (NEGATIVE) SARS-CoV-2 (PCR) (NEGATIVE) - Radiology Impressions Radiology Exams & Impressions: Radiology Procedures Category Date Time Status ABDOMEN AND PELVIS W CONTRAST [CT] Stat Exams 10/12/25 08:55 Completed CHEST 1 VIEW (PORTABLE) Stat Exams 10/12/25 06:49 Completed CHEST WITH CONTRAST [CT] Stat Exams 10/12/25 08:55 Completed - Other Procedures and Tests Respiratory Therapy 10/12/25 12:02 Oxygen High Flow per RT 50% Assessment/Plan (1) COVID Current Visit: Yes Status: Acute Assessment & Plan: - HI- Flow oxygen 20% - O2 96% - RT to wean O2 - Dexamethasone 6mg daily - Remdesivir IV - Xoponex breathing treatments - CBC, CMP reviewed - BC x2 pending - Chest CTA: IMPRESSION: 1. No evidence of pulmonary embolism 2. Left lower lobe 11mm solid nodule. (stable since 2023 and newly noted since 2016). Code(s): U07.1 - COVID-19 (2) UTI (urinary tract infection) Current Visit: No Status: Acute Assessment & Plan: - Ceftriaxone - UA reviewed - IVF gave in ER - UC pending Code(s): N39.0 - URINARY TRACT INFECTION, SITE NOT SPECIFIED (3) Hypoxia Current Visit: Yes Status: Acute Assessment & Plan: - High flow oxygen- 20%- 96% - Xoponex since she has tachycardia - 2:2 COVID & Breast CA with Mets- see plan above Code(s): R09.02 - HYPOXEMIA (4) Hematochezia Current Visit: Yes Status: Acute Assessment & Plan: - 2:2 hemorrhoids and anticoagulation - Hgb stable at 13.0 Code(s): K92.1 - MELENA (5) Atypical chest pain Current Visit: No Status: Acute Assessment & Plan: - Trops X2 negative- trend - ICU tele - EKG - 2:2 Breast Cancer with mets - Chest CTA reviewed - CXR reviewed Code(s): R07.89 - OTHER CHEST PAIN (6) Back pain Current Visit: No Status: Acute Assessment & Plan: - Chronic lumbar- Continue home pain meds - Consider lumbar XR/CT Code(s): M54.9 - DORSALGIA, UNSPECIFIED (7) Breast cancer Current Visit: No Status: Chronic Assessment & Plan: - With mets - BL masectomy and hysterectomy - Continue pain and anxiety med regimen - Follows Dr. Werner in [place], [place] - CT abd/Pelvis: 1. Left-sided nephrectomy is seen. 2. Progression in size of the previously noted few right renal hypodense cortical focal lesions, some of which are seen inseparable from the psoas major muscle. Further MRI / PET CT assessment is advised to rule out the possibility of a neoplastic nature. 3. Left lower lung lobe solid nodule measuring about 11 mm. 4. No other interval changes. - Consider MRI in AM- unable to do this on the weekend (8) Elevated liver enzymes Current Visit: No Status: Acute Assessment & Plan: - AST 100, ALT 125- trend - IVF gave in ER Code(s): R74.8 - ABNORMAL LEVELS OF OTHER SERUM ENZYMES (9) Fever Current Visit: No Status: Acute Assessment & Plan: - Fever 102.8 on admission in ER- resolved with Tylenol - Tylenol PRN - 2:2 COVID Code(s): R50.9 - FEVER, UNSPECIFIED (10) Hypertension Current Visit: No Status: Chronic Assessment & Plan: - Continue home meds - BP stable Code(s): I10 - ESSENTIAL (PRIMARY) HYPERTENSION (11) Tachycardia Current Visit: No Status: Acute Assessment & Plan: - Improved since admission - Resume Beta Blanche - 2:2 COVID, fever Code(s): R00.0 - TACHYCARDIA, UNSPECIFIED (12) Anxiety Current Visit: No Status: Chronic Assessment & Plan: - Continue Xanax Code(s): F41.9 - ANXIETY DISORDER, UNSPECIFIED (13) DVT (deep venous thrombosis) Current Visit: Yes Status: Chronic Assessment & Plan: - Right arm - Dx 2 months ago - Right jugular post line removal in MARCH when she had hysterectomy - Continue Eliquis- Hgb stable Code(s): I82.409 - ACUTE EMBOLISM AND THOMBOS UNSP DEEP VN UNSP LOWER EXTREMITY (14) Thrombocytopenia Current Visit: Yes Status: Chronic Assessment & Plan: - PLT 132- appears chronic per old labs reviewed (15) Type II diabetes mellitus Current Visit: Yes Status: Chronic Qualifiers: Diabetes mellitus 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 terminal operator insulin use: with computer terminal operator use Diabetes mellitus complication status: without complication Qualified Code(s): E11.9 - Type 2 diabetes mellitus without complications; Z79.4 - computer terminal operator (current) use of insulin Assessment & Plan: - Accuchecks AC/HS - Continue home insulin regimen - A1C- pending - Carb consistent diet VTE: Eliquis PPI: Protonix Next of KIN: D/C PLan: 2-3 days Code status: Full PLan of time care/ Critical care time > 50 minutes Telemedicine Encounter - Telemedicine Encounter Telemedicine Encounter: "The entirety of this encounter was performed via Telemedicine" This visit was performed using real-time audio and video connection between my location and thepatients locationwith the assistance of a surrogateat the patients location. Written or verbal consent was obtained from the patient/guardian to perform this visit usingsynchrbrand [employer]lagtelemedicine technology. Any patient questions regarding the telemedicine interaction were answered.
[2025-10-12] MEDS ORDERED: Xopenex 1.25 MG/0.5 ML UD NEBULE IH PRN (12:21)
[2025-10-12] MEDS ORDERED: XANAX 1 MG PO PRN (12:22)
[2025-10-12] MEDS ORDERED: ZOFRAN ODT 4 MG PO PRN (12:22)
[2025-10-12] MEDS: REMDESIVIR 200 MG in Sodium Chloride 0.9% 250 ML 250 ML IV ONE (13:50)
[2025-10-12] MEDS: PERCOCET TABLET 5/325MG PO PRN (13:52)
[2025-10-12] MEDS ORDERED: MEDICATION INTERVENTION MC SCH (14:00)
[2025-10-12] MEDS: REMDESIVIR 100 MG in Sodium Chloride 100ML MINI-BAG PLUS 100 ML IV SCH (14:04)
[2025-10-12] MEDS ORDERED: TYLENOL 325 MG PO PRN (15:19)
[2025-10-12] MEDS: HUMALOG SQ SCH (16:18)
[2025-10-12] MEDS: HUMALOG SQ PRN (16:18)
[2025-10-12] MEDS ORDERED: NON-FORMULARY ITEM (Insulin Lispro [Insulin Lispro Kwikpen U-100] 100 UNIT/ML Insuln.Pen) SQ SCH (16:30)
[2025-10-12] MEDS: xanAX 0.5 MG PO PRN (18:02)
[2025-10-12] MEDS: Zofran 4 MG/2 ML VIAL IV PRN (19:32)
[2025-10-12] MEDS: ZOCOR 20MG PO SCH (21:24)
[2025-10-12] MEDS: ELIQUIS 2.5 MG TABLET PO SCH (21:24)
[2025-10-12] MEDS: PRISTIQ ER PO SCH (21:24)
[2025-10-12] MEDS: Toprol Xl 50 MG PO SCH (21:24)
[2025-10-12] MEDS ORDERED: NON-FORMULARY ITEM (Apixaban [Eliquis] 5 MG Tablet) PO SCH (22:00)
[2025-10-12] MEDS ORDERED: NON-FORMULARY ITEM (Desvenlafaxine [Desvenlafaxine Er] 50 MG Tab.Er.24h) PO SCH (22:00)
[2025-10-12] MEDS ORDERED: NON-FORMULARY ITEM (Atorvastatin Calcium [Atorvastatin Calcium] 80 MG Tablet) PO SCH (22:00)
[2025-10-12] MEDS ORDERED: NON-FORMULARY ITEM (Metoprolol Succinate 25 MG Tab.Er.24h) PO SCH (22:00)
[2025-10-12] MEDS: HUMULIN R SQ ONE (23:10)
[2025-10-12] MEDS: Lantus Insulin SQ ONE (23:10)
[2025-10-12 23:11] LABS: VBG BASE EXCESS -3.8 (-2.0-2.0); VBG CARBOXYHEMOGLOBIN 3.8 % T HGB (0.0-6.9); VBG FIO2 21.0 %; VBG HCO3- 20.7 meq/L (22-28); VBG HEMOGLOBIN 13.5; VBG O2 SATURATION 98.4 (95-100); VBG PCO2 35.0 mm/Hg (42-55); VBG PO2 98.0 mm/Hg (25-40); VBG POTASSIUM 4.2 (3.5-5.1)
[2025-10-12 23:24] LABS: Calcium 9.3 mg/dL (8.4-10.2); Carbon Dioxide 18.0 mmol/L (22-30); Creatinine 1 0.8 mg/dL (0.52-1.04); EST GLOMERULAR FILTRATION RATE 96.1 ML/MIN; Potassium 4.2 mmol/L (3.5-5.1); SGOT/AST 101.0 U/L (14-36); SGPT/ALT 121.0 U/L (0-35); Total Protein 6.6 g/dL (6.3-8.2)
[2025-10-12 23:31] LABS: Glucose 540.0 mg/dL (74-106)
[2025-10-13 04:53] LABS: Hematocrit 40.4 % (34.1-44.9); Hemoglobin 13.0 g/dL (11.2-15.7); Mean Corpuscular Hemoglobin 29.9 pg (25.6-32.2); Mean Corpuscular Hgb Concent. 32.2 g/dL (32.2-35.5); Platelet Count 128 x10^3/uL (182-369); Red Blood Count 4.35 x10^6/uL (3.93-5.22); White Blood Count 8.3 x10^3/uL (3.98-10.04)
[2025-10-13 05:19] LABS: Calcium 9.9 mg/dL (8.4-10.2); Carbon Dioxide 21.0 mmol/L (22-30); Creatinine 1 0.74 mg/dL (0.52-1.04); EST GLOMERULAR FILTRATION RATE 105.5 ML/MIN; Glucose 194.0 mg/dL (74-106); Potassium 4.2 mmol/L (3.5-5.1); SGOT/AST 82.0 U/L (14-36); SGPT/ALT 118.0 U/L (0-35); Total Protein 6.7 g/dL (6.3-8.2)
[2025-10-13] MEDS ORDERED: NON-FORMULARY ITEM (Insulin Lispro [Humalog Kwikpen U-100] 100 UNIT/ML Insuln.Pen) SQ PRN (09:31)
[2025-10-13] MEDS: DECADRON 10MG INJ. IV SCH (09:34)
[2025-10-13] MEDS: CLARITIN 10 MG PO SCH (09:35)
[2025-10-13] MEDS: ECOTRIN 81 MG PO SCH (09:35)
[2025-10-13] MEDS: Protonix 40MG Tablet PO SCH (09:35)
[2025-10-13] MEDS ORDERED: NON-FORMULARY ITEM (Aspirin [Aspirin] 81 MG Tablet) PO SCH (10:00)
[2025-10-13] MEDS ORDERED: Lantus Insulin SQ SCH (10:00)
[2025-10-13] MEDS ORDERED: NON-FORMULARY ITEM (Dapagliflozin Propanediol [Farxiga] 10 MG Tablet) PO SCH (10:00)
[2025-10-13] MEDS ORDERED: ROCEPHIN 1 GM / 100 ML NaCl 1 GM/100 ML IVPB IV SCH (10:00)
[2025-10-13] MEDS ORDERED: MEDICATION INTERVENTION MC SCH (10:00)
--- NOTE | 2025-10-13 10:46 | PCM.DS ---
Discharge Summary Date of Admission: 10/12/25 11:56 Date of Discharge: 10/13/25 Admitting Physician: IRMA VALLE MD Primary Care Provider: SAURABH NAQVI DO Allergies Allergies hydromorphone HCl [From Dilaudid] Allergy (Severe, Verified 10/12/25 12:04) terbutaline sulfate [From Brethine] Allergy (Severe, Verified 10/12/25 12:04) morphine Adverse Reaction (Intermediate, Verified 10/12/25 12:04) Vomiting Hospital Summary - Hospital Course Hospital Course: 10/12/25 is a 40-year-old female with a complex medical history including BRCA-positive breast cancer on active chemotherapy, bilateral mastectomy, hysterectomy, oophorectomy, prior STEMI, ischemic cardiomyopathy, cardiac arrest, and 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 She presented to the emergency department with acute chest pain, fever, and associated dizziness and lightheadedness. On arrival, she was febrile to 102.8F, tachycardic in the 140s, and reported severe chest pain. Workup revealed negative troponins, stable hemoglobin at 13, platelets of 132, elevated liver enzymes, low procalcitonin, positive COVID testing, and imaging notable for a stable left lower lobe pulmonary nodule and progression of right renal cortical lesions concerning for neoplastic process. She was treated in the ED with dexamethasone, ceftriaxone, IV fluids, Tylenol, and fentanyl, and initially required high-flow oxygen with saturations at 96%. Subsequently, she was found to have a fentanyl patch in addition to IV fentanyl administration, likely contributing to respiratory depression. Oxygen was weaned off last evening, and she has since remained stable on room air with saturations at 96%. Antibiotics, remdesivir, and dexamethasone were discontinued as she is asymptomatic for COVID and lung sounds are clear. Steroid use resulted in transient hyperglycemia overnight, and she was advised to continue her home insulin regimen with outpatient monitoring; her diabetes remains well controlled with an A1c of 5.5. Liver enzymes have improved but remain mildly elevated (AST 82, ALT 118), and she was counseled to follow up with her primary care physician for continued monitoring and with her oncologist as scheduled. At the time of discharge, she is afebrile, hemodynamically stable, breathing comfortably on room air, and reports readiness to return home. - Vitals & Intake/Output Vital Signs: Vital Signs Temperature 97.7 F 10/13/25 03:03 Pulse Rate 56 L 10/13/25 08:00 Respiratory Rate 19 10/13/25 07:03 Blood Pressure 106/71 10/13/25 07:03 O2 Sat by Pulse Oximetry 96 10/13/25 05:20 Intake & Output: Intake & Output 10/10/25 10/11/25 10/12/25 10/13/25 11:59 11:59 11:59 11:59 Intake Total 1525 Output Total 3700 Balance -2175 Weight 60.8 kg 60.7 kg - Lab Result Diagrams: 10/13/25 04:47 10/13/25 04:47 Lab Results-Last 24 Hrs: Lab Results-Last 24 Hours 10/12/25 10/12/25 10/12/25 Range/Units 07:05 11:10 12:54 WBC (3.98-10.04) x10^3/uL RBC (3.93-5.22) x10^6/uL Hgb (11.2-15.7) g/dL Hct (34.1-44.9) % MCV (79.4-94.8) fL MCH (25.6-32.2) pg MCHC (32.2-35.5) g/dL RDW (11.7-14.4) % Plt Count (182-369) x10^3/uL MPV (9.4-12.3) fL pO2/FiO2 Ratio % VBG pH (7.32-7.42) VBG pCO2 at Pat Temp (42-55) mm/Hg VBG pO2 at Pat Temp (25-40) mm/Hg VBG HCO3 (22-28) meq/L VBG O2 Sat (Christiane) (95-100) VBG Base Excess (-2.0-2.0) VBG Hemoglobin VBG Carboxyhemoglobin (0.0-6.9) % T HGB POC Potassium (3.5-5.1) Sodium (135-145) mmol/L Potassium (3.5-5.1) mmol/L Chloride (98-107) mmol/L Carbon Dioxide (22-30) mmol/L Anion Gap (5-15) MEQ/L BUN (7-17) mg/dL Creatinine (0.52-1.04) mg/dL Estimated GFR ML/MIN Glucose (74-106) mg/dL POC Glucometer 159 H (74 to 106) mg/dL Hemoglobin A1c 5.50 (4.5-6.0) % Calcium (8.4-10.2) mg/dL Total Bilirubin (0.2-1.3) mg/dL AST (14-36) U/L ALT (0-35) U/L Alkaline Phosphatase (38-126) U/L Troponin I 0.017 (0.000-0.033) ng/mL Serum Total Protein (6.3-8.2) g/dL Albumin (3.5-5.0) g/dL 10/12/25 10/12/25 10/12/25 Range/Units 15:20 16:11 21:16 WBC (3.98-10.04) x10^3/uL RBC (3.93-5.22) x10^6/uL Hgb (11.2-15.7) g/dL Hct (34.1-44.9) % MCV (79.4-94.8) fL MCH (25.6-32.2) pg MCHC (32.2-35.5) g/dL RDW (11.7-14.4) % Plt Count (182-369) x10^3/uL MPV (9.4-12.3) fL pO2/FiO2 Ratio % VBG pH (7.32-7.42) VBG pCO2 at Pat Temp (42-55) mm/Hg VBG pO2 at Pat Temp (25-40) mm/Hg VBG HCO3 (22-28) meq/L VBG O2 Sat (Christiane) (95-100) VBG Base Excess (-2.0-2.0) VBG Hemoglobin VBG Carboxyhemoglobin (0.0-6.9) % T HGB POC Potassium (3.5-5.1) Sodium (135-145) mmol/L Potassium (3.5-5.1) mmol/L Chloride (98-107) mmol/L Carbon Dioxide (22-30) mmol/L Anion Gap (5-15) MEQ/L BUN (7-17) mg/dL Creatinine (0.52-1.04) mg/dL Estimated GFR ML/MIN Glucose (74-106) mg/dL POC Glucometer 260 H 487 H (74 to 106) mg/dL Hemoglobin A1c (4.5-6.0) % Calcium (8.4-10.2) mg/dL Total Bilirubin (0.2-1.3) mg/dL AST (14-36) U/L ALT (0-35) U/L Alkaline Phosphatase (38-126) U/L Troponin I < 0.012 (0.000-0.033) ng/mL Serum Total Protein (6.3-8.2) g/dL Albumin (3.5-5.0) g/dL 10/12/25 10/12/25 10/12/25 Range/Units 22:44 22:49 23:01 WBC (3.98-10.04) x10^3/uL RBC (3.93-5.22) x10^6/uL Hgb (11.2-15.7) g/dL Hct (34.1-44.9) % MCV (79.4-94.8) fL MCH (25.6-32.2) pg MCHC (32.2-35.5) g/dL RDW (11.7-14.4) % Plt Count (182-369) x10^3/uL MPV (9.4-12.3) fL pO2/FiO2 Ratio 21.0 % VBG pH 7.38 (7.32-7.42) VBG pCO2 at Pat Temp 35 L (42-55) mm/Hg VBG pO2 at Pat Temp 98 H (25-40) mm/Hg VBG HCO3 20.7 L (22-28) meq/L VBG O2 Sat (Christiane) 98.4 (95-100) VBG Base Excess -3.8 L (-2.0-2.0) VBG Hemoglobin 13.5 VBG Carboxyhemoglobin 3.8 (0.0-6.9) % T HGB POC Potassium 4.2 (3.5-5.1) Sodium (135-145) mmol/L Potassium (3.5-5.1) mmol/L Chloride (98-107) mmol/L Carbon Dioxide (22-30) mmol/L Anion Gap (5-15) MEQ/L BUN (7-17) mg/dL Creatinine (0.52-1.04) mg/dL Estimated GFR ML/MIN Glucose (74-106) mg/dL POC Glucometer 525 H* 507 H* (74 to 106) mg/dL Hemoglobin A1c (4.5-6.0) % Calcium (8.4-10.2) mg/dL Total Bilirubin (0.2-1.3) mg/dL AST (14-36) U/L ALT (0-35) U/L Alkaline Phosphatase (38-126) U/L Troponin I (0.000-0.033) ng/mL Serum Total Protein (6.3-8.2) g/dL Albumin (3.5-5.0) g/dL 10/12/25 10/13/25 10/13/25 Range/Units 23:05 00:56 04:47 WBC 8.3 (3.98-10.04) x10^3/uL RBC 4.35 (3.93-5.22) x10^6/uL Hgb 13.0 (11.2-15.7) g/dL Hct 40.4 (34.1-44.9) % MCV 92.9 (79.4-94.8) fL MCH 29.9 (25.6-32.2) pg MCHC 32.2 (32.2-35.5) g/dL RDW 18.6 H (11.7-14.4) % Plt Count 128 L (182-369) x10^3/uL MPV 10.2 (9.4-12.3) fL pO2/FiO2 Ratio % VBG pH (7.32-7.42) VBG pCO2 at Pat Temp (42-55) mm/Hg VBG pO2 at Pat Temp (25-40) mm/Hg VBG HCO3 (22-28) meq/L VBG O2 Sat (Christiane) (95-100) VBG Base Excess (-2.0-2.0) VBG Hemoglobin VBG Carboxyhemoglobin (0.0-6.9) % T HGB POC Potassium (3.5-5.1) Sodium 136 (135-145) mmol/L Potassium 4.2 (3.5-5.1) mmol/L Chloride 105 (98-107) mmol/L Carbon Dioxide 18 L (22-30) mmol/L Anion Gap 17.7 H (5-15) MEQ/L BUN 22 H (7-17) mg/dL Creatinine 0.80 (0.52-1.04) mg/dL Estimated GFR 96.1 ML/MIN Glucose 540 H* (74-106) mg/dL POC Glucometer 363 H (74 to 106) mg/dL Hemoglobin A1c (4.5-6.0) % Calcium 9.3 (8.4-10.2) mg/dL Total Bilirubin 0.30 (0.2-1.3) mg/dL AST 101 H (14-36) U/L ALT 121 H (0-35) U/L Alkaline Phosphatase 355 H (38-126) U/L Troponin I (0.000-0.033) ng/mL Serum Total Protein 6.6 (6.3-8.2) g/dL Albumin 3.9 (3.5-5.0) g/dL 10/13/25 10/13/25 Range/Units 04:47 08:09 WBC (3.98-10.04) x10^3/uL RBC (3.93-5.22) x10^6/uL Hgb (11.2-15.7) g/dL Hct (34.1-44.9) % MCV (79.4-94.8) fL MCH (25.6-32.2) pg MCHC (32.2-35.5) g/dL RDW (11.7-14.4) % Plt Count (182-369) x10^3/uL MPV (9.4-12.3) fL pO2/FiO2 Ratio % VBG pH (7.32-7.42) VBG pCO2 at Pat Temp (42-55) mm/Hg VBG pO2 at Pat Temp (25-40) mm/Hg VBG HCO3 (22-28) meq/L VBG O2 Sat (Christiane) (95-100) VBG Base Excess (-2.0-2.0) VBG Hemoglobin VBG Carboxyhemoglobin (0.0-6.9) % T HGB POC Potassium (3.5-5.1) Sodium 139 (135-145) mmol/L Potassium 4.2 (3.5-5.1) mmol/L Chloride 108 H (98-107) mmol/L Carbon Dioxide 21 L (22-30) mmol/L Anion Gap 14.6 (5-15) MEQ/L BUN 21 H (7-17) mg/dL Creatinine 0.74 (0.52-1.04) mg/dL Estimated GFR 105.5 ML/MIN Glucose 194 H (74-106) mg/dL POC Glucometer 153 H (74 to 106) mg/dL Hemoglobin A1c (4.5-6.0) % Calcium 9.9 (8.4-10.2) mg/dL Total Bilirubin 0.30 (0.2-1.3) mg/dL AST 82 H (14-36) U/L ALT 118 H (0-35) U/L Alkaline Phosphatase 309 H (38-126) U/L Troponin I (0.000-0.033) ng/mL Serum Total Protein 6.7 (6.3-8.2) g/dL Albumin 3.9 (3.5-5.0) g/dL Micro Results-Entire Visit: Microbiology 10/12/25 07:11 Blood Culture - Preliminary Blood Accuchecks Date 10/13/25 Date 10/12/25 Date 10/12/25 Date 10/12/25 Date 10/12/25 Date 10/12/25 Time 08:15 Time 22:52 Time 22:51 Time 21:16 Time 16:11 Time 12:54 - Radiology Exams Ordered Rad Exams-Entire Visit: Radiology Procedures Category Date Time Status ABDOMEN AND PELVIS W CONTRAST [CT] Stat Exams 10/12/25 08:55 Completed CHEST 1 VIEW (PORTABLE) Stat Exams 10/12/25 06:49 Completed CHEST WITH CONTRAST [CT] Stat Exams 10/12/25 08:55 Completed - Procedures and Test Procedures and Tests throughout Hospitalization: Therapy Orders & Screens 10/12/25 10:24 Oxygen High Flow per RT 50% Comment: 10/12/25 12:02 Oxygen High Flow per RT 50% Comment: 10/12/25 12:39 Respiratory Therapy Assessment DAILY Comment: Diagnosis: covid pneumonia 10/12/25 13:12 RT Miscellaneous Order ROUTINE Comment: Physician Instructions: Reason For Exam: Wean O2 PRN- BL RA Diagnosis: covid 10/12/25 13:19 Incentive Spirometry Q1H Comment: Diagnosis: covid pneumonia Discharge Exam General Appearance: no apparent distress, alert Neurologic Exam: alert, oriented x 3, cooperative, normal mood/affect, nml cerebellar function, sensation nml, No motor deficits Eye Exam: PERRL, EOMI, eyes nml inspection Ears, Nose, Throat Exam: normal ENT inspection, pharynx normal, moist mucous membranes Neck Exam: normal inspection, non-tender, supple, full range of motion Respiratory Exam: normal breath sounds, lungs clear, No respiratory distress Cardiovascular Exam: regular rate/rhythm, normal heart sounds Gastrointestinal/Abdomen Exam: soft, No tenderness, No mass Pelvic Exam: deferred Rectal Exam: deferred Back Exam: normal inspection, normal range of motion, No CVA tenderness, No vertebral tenderness Extremity Exam: normal inspection, normal range of motion Skin Exam: normal color, warm, dry Final Diagnosis/Problem List - Final Discharge Diagnosis/Problem (1) COVID Current Visit: Yes Status: Acute Code(s): U07.1 - COVID-19 (2) UTI (urinary tract infection) Current Visit: No Status: Acute Code(s): N39.0 - URINARY TRACT INFECTION, SITE NOT SPECIFIED (3) Hypoxia Current Visit: Yes Status: Acute Code(s): R09.02 - HYPOXEMIA (4) Hematochezia Current Visit: Yes Status: Acute Code(s): K92.1 - MELENA (5) Atypical chest pain Current Visit: No Status: Acute Code(s): R07.89 - OTHER CHEST PAIN (6) Back pain Current Visit: No Status: Acute Code(s): M54.9 - DORSALGIA, UNSPECIFIED (7) Breast cancer Current Visit: No Status: Chronic (8) Elevated liver enzymes Current Visit: No Status: Acute Code(s): R74.8 - ABNORMAL LEVELS OF OTHER SERUM ENZYMES (9) Fever Current Visit: No Status: Acute Code(s): R50.9 - FEVER, UNSPECIFIED (10) Hypertension Current Visit: No Status: Chronic Code(s): I10 - ESSENTIAL (PRIMARY) HYPERTENSION (11) Tachycardia Current Visit: No Status: Acute Code(s): R00.0 - TACHYCARDIA, UNSPECIFIED (12) Anxiety Current Visit: No Status: Chronic Code(s): F41.9 - ANXIETY DISORDER, UNSPECIFIED (13) DVT (deep venous thrombosis) Current Visit: Yes Status: Chronic Code(s): I82.409 - ACUTE EMBOLISM AND THOMBOS UNSP DEEP VN UNSP LOWER EXTREMITY (14) Thrombocytopenia Current Visit: Yes Status: Chronic (15) Type II diabetes mellitus Current Visit: Yes Status: Chronic Assessment & Plan: (1) COVID Current Visit: Yes Status: Acute Assessment & Plan: - HI- Flow oxygen 20% - O2 96% - RT to wean O2 - Dexamethasone 6mg daily - Remdesivir IV - Xoponex breathing treatments - CBC, CMP reviewed - BC x2 pending - Chest CTA: IMPRESSION: 1. No evidence of pulmonary embolism 2. Left lower lobe 11mm solid nodule. (stable since 2023 and newly noted since 2016). 10/13 - Stop steroids and COVID med d/t RA 96% and no sxs - CBC, CMP reviewed - BC x2 negative - RA 96% Code(s): U07.1 - COVID-19 (2) UTI (urinary tract infection) Current Visit: No Status: Acute Assessment & Plan: - Ceftriaxone - UA reviewed- no culture reflexed - IVF gave in ER - antbx stopped Code(s): N39.0 - URINARY TRACT INFECTION, SITE NOT SPECIFIED (3) Hypoxia Current Visit: Yes Status: Acute Assessment & Plan: - High flow oxygen- 20%- 96% - Xoponex since she has tachycardia - 2:2 Fentanyl gave in ER and pt had Fentanyl patch on causing resp depression - Wean off oxygen in the afternoon 10/13 - RA - 96% Code(s): R09.02 - HYPOXEMIA (4) Hematochezia Current Visit: Yes Status: Acute Assessment & Plan: - 2:2 hemorrhoids and anticoagulation - Hgb stable at 13.0 Code(s): K92.1 - MELENA (5) Atypical chest pain Current Visit: No Status: Acute Assessment & Plan: - Trops X3 negative - ICU tele - EKG - 2:2 Breast Cancer with mets - Chest CTA reviewed - CXR reviewed Code(s): R07.89 - OTHER CHEST PAIN (6) Back pain Current Visit: No Status: Acute Assessment & Plan: - Chronic lumbar- Continue home pain meds - Consider lumbar XR/CT Code(s): M54.9 - DORSALGIA, UNSPECIFIED (7) Breast cancer Current Visit: No Status: Chronic Assessment & Plan: - With mets - BL masectomy and hysterectomy - Continue pain and anxiety med regimen - Follows Dr. Werner in [place], [place] - CT abd/Pelvis: 1. Left-sided nephrectomy is seen. 2. Progression in size of the previously noted few right renal hypodense cortical focal lesions, some of which are seen inseparable from the psoas major muscle. Further MRI / PET CT assessment is advised to rule out the possibility of a neoplastic nature. 3. Left lower lung lobe solid nodule measuring about 11 mm. 4. No other interval changes. - Consider MRI 10/13 - F/U OP with oncology for further evaluation (8) Elevated liver enzymes Current Visit: No Status: Acute Assessment & Plan: - AST 100, ALT 125- trend - IVF gave in ER 10/13 - AST 82, ALT 118- improving - F/U with PCP OP Code(s): R74.8 - ABNORMAL LEVELS OF OTHER SERUM ENZYMES (9) Fever Current Visit: No Status: Acute Assessment & Plan: - Fever 102.8 on admission in ER- resolved with Tylenol - Tylenol PRN - 2:2 COVID 10/13 - No fever since admission - Use OTC tylenol following label directions at home Code(s): R50.9 - FEVER, UNSPECIFIED (10) Hypertension Current Visit: No Status: Chronic Assessment & Plan: - Continue home meds - BP stable Code(s): I10 - ESSENTIAL (PRIMARY) HYPERTENSION (11) Tachycardia Current Visit: No Status: Acute Assessment & Plan: - Improved since admission - Resume Beta Blanche - 2:2 COVID, fever 10/13 - resolved Code(s): R00.0 - TACHYCARDIA, UNSPECIFIED (12) Anxiety Current Visit: No Status: Chronic Assessment & Plan: - Continue Xanax Code(s): F41.9 - ANXIETY DISORDER, UNSPECIFIED (13) DVT (deep venous thrombosis) Current Visit: Yes Status: Chronic Assessment & Plan: - Right arm - Dx 2 months ago - Right jugular post line removal in MARCH when she had hysterectomy - Continue Eliquis- Hgb stable Code(s): I82.409 - ACUTE EMBOLISM AND THOMBOS UNSP DEEP VN UNSP LOWER EXTREMITY (14) Thrombocytopenia Current Visit: Yes Status: Chronic Assessment & Plan: - PLT 132- appears chronic per old labs reviewed 10/13 - PLT 128 - F/U as scheduled with oncology (15) Type II diabetes mellitus Current Visit: Yes Status: Chronic Qualifiers: Diabetes mellitus fci insulin use: with fci use Diabetes mellitus complication status: without complication Qualified Code(s): E11.9 - Type 2 diabetes mellitus without complications; Z79.4 - exterminator termite (current) use of insulin Assessment & Plan: - Accuchecks AC/HS - Continue home insulin regimen - A1C- 5.50- controlled type II DM - Carb consistent diet 10/13 - Hyperglycemia 2:2 steroids - Monitor glucose at home and give meds accordingly - Steroids Stopped D/C plan of care time: > 40 minutes - Discharge Discharge Date: 10/13/25 Disposition: Home, Self-Care Condition: Fair Prescriptions: Continue Aspirin 81 mg PO DAILY PANTOPRAZOLE 40 mg Tablet [Protonix 40MG Tablet] 40 mg PO QAM Ondansetron ODT 4 MG [Zofran Odt 4 mg] 4 mg PO Q6HPRN PRN PRN Reason: Nausea Alprazolam [Xanax] 0.5 mg PO BIDPRN PRN PRN Reason: Anxiety Atorvastatin Calcium 80 mg PO HS Gabapentin 300 mg PO TID Metoprolol Succinate 50 mg PO BID Dapagliflozin Propanediol [Farxiga] 10 mg PO DAILY Exemestane [Aromasin] 25 mg PO DAILY Loratadine 10 mg [Claritin 10 mg] 10 mg PO DAILY Insulin Lispro [Insulin Lispro Kwikpen U-100] 4 unit SQ AC Apixaban [Eliquis] 5 mg PO BID Desvenlafaxine [Desvenlafaxine ER] 50 mg PO HS Oxycodone HCl/Acetaminophen [Oxycodone-Acetaminophen 5-325] 1 tab PO Q4HPRN PRN PRN Reason: Pain Fentanyl 25Mcg Patch [Duragesic 25MCG Patch] 1 patch TP Q72H Insulin Lispro [Humalog Kwikpen U-100] 1 units SQ UD PRN PRN Reason: hyperglycemia Insulin Degludec [Insulin Degludec Pen (U-100)] 15 units SQ QAM Instructions: COVID-19 - ED discharge instructions, COVID-19 vaccines Additional Instructions: A REFERRAL WAS SENT TO [facility] TO SEE IF YOU QUALIFY FOR HOME DELIVERED MEALS- YOU CAN FOLLOW UP WITH THEM AT [phone] YOU CAN ALSO CONTACT OUR COMMUNITY [facility]ARE TEAM AT [phone] EXT [id number]- THEY CAN ASSIST WELL Follow up with: SAURABH NAQVI, [Primary Care Provider, FAMILY [facility]ACTICE]
[2025-10-13 11:19] VITALS: BP 115/69; PULSE 65; RESP 16; TEMP 97.5; O2SAT 98
[2025-10-13] MEDS ORDERED: REMDESIVIR 100 MG in Sodium Chloride 100ML MINI-BAG PLUS 100 ML IV SCH (14:00)
[2025-10-13] MEDS ORDERED: Lantus Insulin SQ ONE (23:00)
[2025-10-14] MEDS ORDERED: Duragesic 25MCG Patch TD SCH (10:00)
== END 2025-10-13 11:10 | disposition home or self-care (01) ==
LOC: ED 06:39 → INTOOBSV 11:56 → UNDOADMIN 11:56 → ICU 11:56
PROVIDERS: ADMIT Internal Medicine; ATTEND Internal Medicine
DX: U07.1 COVID-19 (principal); R07.9 Chest pain, unspecified; I25.2 Old myocardial infarction; R50.9 Fever, unspecified; N39.0 Urinary tract infection, site not specified; R09.02 Hypoxemia; K92.1 Melena; M54.9 Dorsalgia, unspecified; C50.919 Malignant neoplasm of unspecified site of unspecified female breast; R74.8 Abnormal levels of other serum enzymes; I10 Essential (primary) hypertension; R00.0 Tachycardia, unspecified; F41.9 Anxiety disorder, unspecified; I82.401 Acute embolism and thrombosis of unspecified deep veins of right lower extremity; E11.9 Type 2 diabetes mellitus without complications; D69.6 Thrombocytopenia, unspecified; F17.200 Nicotine dependence, unspecified, uncomplicated; Z79.01 Long term (current) use of anticoagulants; Z79.899 Other long term (current) drug therapy; Z79.4 Long term (current) use of insulin